=== PATIENT | female | born 1955 | race Caucasian/White ===

== ENCOUNTER 2018-08-28 00:59 | Outpatient (CLI) | payer MEDICAID, SELFPAY ==
--- NOTE | 2018-08-28 08:25 | DI.MAMMO_ITS ---
SYMPTOMS/DIAGNOSIS: SCREENING, Z12.31 MAMMOGRAM: Mammograms were interpreted according to the usual protocol including computer analysis with CAD system, tomosynthesis and C view imaging. Comparison is made with exams from 2012 through 2017. The breasts are composed of heterogeneously dense fibroglandular tissue, breast density Category C. No suspicious masses or suspicious microcalcifications are seen. There has been no significant change. IMPRESSION: Category I, negative mammogram. Yearly screening mammography is recommended. [facility] ASSESSMENT OF FINDINGS: Negative. Category 1. Patient will receive a letter notifying them of these results. Bi-RADS category C. The breasts are heterogeneously dense, which may obscure small masses.
== END 2018-08-28 01:19 ==
PROVIDERS: Visit Provider Nurse Practitioner Family
DX: Z12.31 Encounter for screening mammogram for malignant neoplasm of breast (principal)
CPT/HCPCS: 77063; 77067

== ENCOUNTER 2019-08-27 10:06 | Outpatient (REF) | payer MEDICAID, SELFPAY ==
[2019-08-27 14:58] LABS: Calculated LDL 121 mg/dL (<100); Cholesterol 247 mg/dL (<200); HDL Cholesterol 114 mg/dL (40-60); TSH (W/Ref FT4) 2.58 uIU/mL (0.36-3.74); Triglyceride 62 mg/dL (<150)
[2019-08-27 15:11] LABS: Hemoglobin A1C 5.6 % (3.8-5.6)
== END 2019-08-27 10:26 ==
LOC: NCHCN 10:06
PROVIDERS: PCP Nurse Practitioner Family; Visit Provider Nurse Practitioner Family
DX: R73.01 Impaired fasting glucose (principal); N95.2 Postmenopausal atrophic vaginitis; M06.9 Rheumatoid arthritis, unspecified; J30.9 Allergic rhinitis, unspecified; G45.4 Transient global amnesia
CPT/HCPCS: 80061; 83036; 84443

== ENCOUNTER 2020-01-06 08:11 | Outpatient (CLI) | payer MEDICAID, SELFPAY ==
[2020-01-08 07:21] LABS: COVID-19 RT-PCR Result NEGATIVE (Negative)
== END 2020-01-06 08:31 ==
PROVIDERS: PCP Nurse Practitioner Family; Visit Provider Nurse Practitioner Family
DX: Z11.59 Encounter for screening for other viral diseases (principal)
CPT/HCPCS: U0003

== ENCOUNTER 2020-09-22 16:00 | Outpatient (REF) | payer MEDICARE, MEDICAID, SELFPAY ==
--- NOTE | 2020-09-22 15:30 | PAPFT_PTH ---
PATIENT: Erma Ruiz [facility] U[id number] AGE/SX: 65/F ROOM: RE09/22/[address]: Vanessa Oleary : 1955 BED: DIS: 09/22/2020 SPEC #: [id number] RECD: 09/23/20 12:58 STATUS: VICKI MCGRAW #: [id number] MAYANK: 09/22/20 15:[address]: Vanessa Oleary DEPT: [facility] Cytology RECD BY: Shana Bates Tissues: 1 - CX/ENDOCX FOR PAP SMEARS Procedures: PAP THIN PREP/UVM Screening HPV DNA PROBE Comments: [id number]
[2020-09-22 20:46] LABS: Abs Immature Grans 0.04 10^3/uL (0.0-0.06); Absolute Eosinophil Count 0.04 10^3/uL (0.0-0.7); Absolute Lymphocyte Count 1.66 10^3/uL (1.2-3.4); Absolute Monocyte Count 0.77 10^3/uL (0.1-0.8); Absolute Neutrophil Count 10.02 10^3/uL (1.2-6.7); Basophils % 0.6; Eosinophils % 0.3; HCT 38.8 % (36.0-46.0); HGB 12.7 g/dL (11.2-15.7); Immature Grans % 0.3; Lymphocytes % 13.2; MCH 29.2 pg (27.0-33.0); MCHC 32.7 % (32.0-36.0); MCV 89.2 fL (80-95); MPV 9.2 fL (8.0-11.0); Monocytes % 6.1; Neutrophils % 79.5; Nucleated RBC 0 %; Platelet Count 317 10^3/uL (130-400); RBC 4.35 10^6/uL (3.93-5.22); RDW 13.2 % (11.7-14.6); RDW-SD 43.5 fL
[2020-09-22 20:48] LABS: Absolute Basophil Count 0.08 10^3/uL (0.0-0.2)
[2020-09-22 21:09] LABS: ALT 16 U/L (14-59); AST 28 U/L (15-37); Albumin 3.8 g/dL (3.4-5.0); Alkaline Phosphatase 72 U/L (46-116); Anion Gap 11.4 mmol/L (3-11); BUN 17 mg/dL (7-18); Bilirubin, Total 0.4 mg/dL (0.2-1.0); CO2 25.6 mmol/L (21.0-32.0); Calcium 8.8 mg/dL (8.5-10.1); Chloride 103 mmol/L (98-107); Estimated GFR 55.64 (mL/min/1.73m2); Glucose 97 mg/dL (74-106); Potassium 4.1 mmol/L (3.5-5.1); Sodium 140 mmol/L (136-145); Total Protein 7.1 g/dL (6.4-8.2)
[2020-09-24 09:53] LABS: Hepatitis C Ab w Rflx HCV PCR Negative (Negative)
== END 2020-09-22 16:01 | disposition home or self-care (01) ==
LOC: NCHCN 16:00
PROVIDERS: PCP Nurse Practitioner Family; Visit Provider Nurse Practitioner Family
DX: R20.0 Anesthesia of skin (principal); Z11.59 Encounter for screening for other viral diseases; N95.2 Postmenopausal atrophic vaginitis; M06.9 Rheumatoid arthritis, unspecified; Z12.4 Encounter for screening for malignant neoplasm of cervix; Z01.419 Encounter for gynecological examination (general) (routine) without abnormal findings; Z11.51 Encounter for screening for human papillomavirus (HPV)
CPT/HCPCS: 80053; 86803; 88142; 85025; 87624

== ENCOUNTER 2020-09-25 04:17 | Outpatient (CLI) | payer MEDICARE, MEDICAID, SELFPAY ==
--- NOTE | 2020-09-25 14:15 | DI.MAMMO_ITS ---
EXAM: MG MAMMO SCREENING CLINICAL HISTORY: SCREENING, Z12.31 TECHNIQUE: Bilateral full field digital CC and MLO mammographic images were obtained with 3D tomosyn thesis and utilizing computer aided detection (CAD). COMPARISON: Available for comparison. FINDINGS: Masses/Architectural Distortion: None seen. Microcalcifications: No suspicious pleomorphic-type are seen. Skin Thickening/Nipple Retraction: None. IMPRESSION: 1. No significant interval change with no specific features of malignancy noted. 2. Unless there is more urgent need, screening mammography is recommended, as per [employer] guidelines. BI-RADS Category 1 - Negative Breast Density - Category C - Heterogeneously dense Breast density category C or D implies that the patient has dense breast tissue. Dense breast tissue is very common and is not abnormal but dense breast tissue can make it harder to find cancer on a ma mmogram. Also, dense breast tissue may increase their breast cancer risk. This information about the result of the mammogram report was provided to the patient to raise their awareness. Use this report when you speak with the patient about their risks for breast cancer, which includes their family hist ory. At that time, you may recommend for more screening tests (Ultrasound or MRI) as they might be us eful based on their risk. A negative radiographic report should not delay biopsy if a dominant or clinically suspicious mass is present. Up to ten percent of cancers are not identified on mammography. A negative report may reinforce clinical impression. Adenosis and dense breasts may obscure an underlying neoplasm. False positive reports average 6 to 10%. Patient will receive a letter notifying them of these results.
== END 2020-09-25 04:37 ==
PROVIDERS: PCP Nurse Practitioner Family; Visit Provider Nurse Practitioner Family
DX: Z12.31 Encounter for screening mammogram for malignant neoplasm of breast (principal)
CPT/HCPCS: 77063; 77067

== ENCOUNTER 2020-10-14 12:46 | Outpatient (REF) | payer MEDICARE, MEDICAID, SELFPAY ==
[2020-10-14 22:22] LABS: Abs Immature Grans 0.01 10^3/uL (0.0-0.06); Absolute Basophil Count 0.07 10^3/uL (0.0-0.2); Absolute Eosinophil Count 0.02 10^3/uL (0.0-0.7); Absolute Lymphocyte Count 0.96 10^3/uL (1.2-3.4); Absolute Monocyte Count 0.42 10^3/uL (0.1-0.8); Absolute Neutrophil Count 5.57 10^3/uL (1.2-6.7); Eosinophils % 0.3; HCT 40.5 % (36.0-46.0); HGB 13.1 g/dL (11.2-15.7); Immature Grans % 0.1; Lymphocytes % 13.6; MCH 28.9 pg (27.0-33.0); MCHC 32.3 % (32.0-36.0); MCV 89.4 fL (80-95); MPV 9.5 fL (8.0-11.0); Nucleated RBC 0 %; Platelet Count 301 10^3/uL (130-400); RBC 4.53 10^6/uL (3.93-5.22); RDW 13.2 % (11.7-14.6); RDW-SD 43.6 fL; WBC 7.05 10^3/uL (4.4-10.8)
[2020-10-14 23:17] LABS: Vitamin D 25 Total 127.8 ng/ml (30-100)
== END 2020-10-14 12:47 | disposition home or self-care (01) ==
LOC: NCHCN 12:46
PROVIDERS: PCP Nurse Practitioner Family
DX: D72.829 Elevated white blood cell count, unspecified (principal); E67.3 Hypervitaminosis D
CPT/HCPCS: 82306; 85025

== ENCOUNTER 2021-04-28 12:55 | Outpatient (REF) | payer MEDICARE, MEDICAID, SELFPAY ==
[2021-04-28 20:28] LABS: Abs Immature Grans 0.02 10^3/uL (0.0-0.06); Absolute Basophil Count 0.08 10^3/uL (0.0-0.2); Absolute Eosinophil Count 0.09 10^3/uL (0.0-0.7); Absolute Lymphocyte Count 0.84 10^3/uL (1.2-3.4); Absolute Monocyte Count 0.38 10^3/uL (0.1-0.8); Absolute Neutrophil Count 5.18 10^3/uL (1.2-6.7); Basophils % 1.2; Eosinophils % 1.4; HGB 12.7 g/dL (11.2-15.7); Immature Grans % 0.3; Lymphocytes % 12.7; MCH 28.7 pg (27.0-33.0); MCHC 31.8 % (32.0-36.0); MCV 90.3 fL (80-95); MPV 9.3 fL (8.0-11.0); Monocytes % 5.8; Neutrophils % 78.6; Nucleated RBC 0 %; Platelet Count 301 10^3/uL (130-400); RBC 4.43 10^6/uL (3.93-5.22); RDW 12.9 % (11.7-14.6); RDW-SD 42.8 fL; WBC 6.59 10^3/uL (4.4-10.8)
[2021-04-28 20:32] LABS: ESR 13 mm/hr (0-30)
[2021-04-28 20:39] LABS: ALT 16 U/L (14-59); AST 30 U/L (15-37); Albumin 3.8 g/dL (3.4-5.0); Alkaline Phosphatase 72 U/L (46-116); Anion Gap 6.5 mmol/L (3-11); BUN 12 mg/dL (7-18); Bilirubin, Total 0.4 mg/dL (0.2-1.0); C-Reactive Protein 0.16 mg/dL (0.0-0.3); CO2 27.5 mmol/L (21.0-32.0); CREATININE 0.8 mg/dL (0.55-1.02); Calcium 8.5 mg/dL (8.5-10.1); Chloride 106 mmol/L (98-107); Glucose 90 mg/dL (74-106); Potassium 4.2 mmol/L (3.5-5.1); Sodium 140 mmol/L (136-145); Total Protein 7.1 g/dL (6.4-8.2)
== END 2021-04-28 12:56 | disposition home or self-care (01) ==
LOC: NCHCN 12:55
PROVIDERS: PCP Nurse Practitioner Family; Visit Provider Nurse Practitioner Family
DX: M05.9 Rheumatoid arthritis with rheumatoid factor, unspecified (principal); Z79.52 Long term (current) use of systemic steroids
CPT/HCPCS: 80053; 85652; 85025; 86140

== ENCOUNTER 2021-06-14 14:56 | Outpatient (REF) | payer MEDICARE, MEDICAID, SELFPAY ==
[2021-06-14 20:49] LABS: Bilirubin Negative (Negative); Blood Negative (Negative); Clarity Clear (Clear); Glucose Negative (Negative); Ketones Negative (Negative); Leukocyte Esterase Trace (Negative); Nitrite Negative (Negative); Urobilinogen 0.2 EU/dL (Up TO 0.2); pH 6.5 (5-8)
[2021-06-14 21:01] LABS: Bacteria Moderate HPF (Negative); C & S Indicated? Yes; Casts Negative LPF (Negative); Crystals Negative HPF (Negative); Epithelial Cells Few HPF (Negative); Mucus Negative (Negative); RBC 0-2 HPF (0-2)
== END 2021-06-14 14:57 | disposition home or self-care (01) ==
LOC: NCHCN 14:56
PROVIDERS: PCP Nurse Practitioner Family; Visit Provider Family Medicine
DX: R30.0 Dysuria (principal)
CPT/HCPCS: 87077; 81003; 81015; 87086; 87186

== ENCOUNTER 2021-06-25 01:28 | Outpatient (CLI) | payer MEDICARE, MEDICAID, SELFPAY ==
--- NOTE | 2021-06-25 13:30 | DI.DEXA_ITS ---
Exam(s) XR DEXA BONE DENSITY W/WO ELLY EXAM: XR DEXA BONE DENSITY W/WO ELLY CLINICAL HISTORY: POSTMENOPAUSAL Z78.0,SCREENING FOR OSTEOPOROSIS TECHNIQUE: COMPARISON: No exams were available for comparison FINDINGS: Lateral Spine Image: Unremarkable. No compression deformities identified. Left hip: Total T-Score: -1.5 Total Z-Score: -0.2 T- and Z-scores: Findings consistent with osteopenia. Osteoporosis is seen in the femoral neck with a T-score of -3.1. Lumbar Spine: Total T-Score: -1.8 Total Z-Score: 0.1 T- and Z-scores: Osteopenia in the lumbar spine. IMPRESSION: Osteopenia in the left hip and lumbar spine. There is osteoporosis seen in the left femoral neck.
== END 2021-06-25 01:48 ==
PROVIDERS: PCP Nurse Practitioner Family; Visit Provider Nurse Practitioner Family
DX: Z78.0 Asymptomatic menopausal state (principal); Z13.820 Encounter for screening for osteoporosis; M85.89 Other specified disorders of bone density and structure, multiple sites; M81.0 Age-related osteoporosis without current pathological fracture
CPT/HCPCS: 77080

== ENCOUNTER → 2021-07-26 08:16 | Outpatient (BNVA) | payer MEDICARE, MEDICAID, SELFPAY | PROVIDERS: PCP Nurse Practitioner Family; Referring Provider Nurse Practitioner Family; Visit Provider Psychiatry & Neurology Neurology | DX: G56.01 Carpal tunnel syndrome, right upper limb (principal) | CPT/HCPCS: 95908; 99203 ==

== ENCOUNTER → 2021-08-16 10:19 | Outpatient (BNVA) | payer MEDICARE, MEDICAID, SELFPAY | PROVIDERS: PCP Nurse Practitioner Family; Referring Provider Nurse Practitioner Family; Visit Provider Student in an Organized Health Care Education/Training Program | DX: G56.01 Carpal tunnel syndrome, right upper limb (principal); Z98.890 Other specified postprocedural states | CPT/HCPCS: 99214 ==

== ENCOUNTER 2021-08-30 03:02 | Outpatient (CLI) | payer MEDICARE, MEDICAID, SELFPAY ==
[2021-08-30 12:17] LABS: Source Nasal/Nares
[2021-08-30 15:33] LABS: COVID-19 PCR Negative (Negative)
== END 2021-08-30 03:03 | disposition home or self-care (01) ==
LOC: LBO 03:02
PROVIDERS: PCP Nurse Practitioner Family; Visit Provider Student in an Organized Health Care Education/Training Program
DX: Z20.822 Contact with and (suspected) exposure to COVID-19 (principal)
CPT/HCPCS: 87635

== ENCOUNTER 2021-08-31 09:27 | Day surgery (SDC) | payer MEDICARE, MEDICAID, SELFPAY ==
[2021-08-31 09:32] VITALS: BP 131/90; PULSE 75; RESP 16; TEMP 36.5; O2SAT 16
--- NOTE | 2021-08-31 09:59 | W.PM.DSUDISC ---
Discharge Plan Disposition Patient Disposition: HOME Condition: Good Discharge Details Reason For Visit: Right carpal tunnel syndrome Attending Provider: Brenden Valentin Primary Care Provider: Vanessa Oleary Home Meds and New Rx's Prescriptions: New acetaminophen 500 mg tablet 500 mg PO Q6H PRN (Reason: pain) Qty: 60 RF: 2 ibuprofen 600 mg tablet 600 mg PO TID PRN (Reason: pain) Qty: 60 RF: 0 hydrocodone-acetaminophen 5-325 mg tablet 1 tab PO Q6H PRN (Reason: severe pain) Qty: 4 RF: 0 Continued Premarin 30 GM cream 1 g vaginal WEEKLY RF: 0 cholecalciferol (vitamin D3) 25 mcg (1,000 unit) capsule 25 mcg PO DAILY RF: 0 omega-3 fatty acids [Fish Oil Concentrate] 1,000 mg capsule 1,000 mg PO DAILY RF: 0 prednisone 5 mg tablet 4 mg PO DAILY RF: 0 Discharge Instructions Stand Alone Forms: Manuelitoa Jose Tunnel Release Referrals: Brenden Valentin MD [ [facility]FF PHYSICIAN] - Activity:: Elevate Remove Dressings/Wound Care:: 48 hours Shower/Bathe:: 48 hours Diet:: As Tolerated Discharge Orders Discharge Orders: Discharge Order (Routine); Ordered 08/31/21 Ordered By: Estela Angulo DS: Diagnosis Discharge Diagnosis (1) Right carpal tunnel syndrome: Status: Acute
--- NOTE | 2021-08-31 10:02 | W.ANESPRE ---
General Info Date of Service Date Performed: 08/31/21 Height: 5 ft 4 in Weight: 58.5 kg Body Mass Index (BMI): 22.1 Surgical Procedure: Operation Date: 08/31/21 11:25 Proposed Procedures Side Surgeon p Wrist ECTR Right Brenden Valentin MD Meds Allergies and Home Medications Allergies Allergy/AdvReac Type Severity Reaction Status Date / Time No Known Allergies Allergy Unverified 08/31/21 09:55 Home Medication Medication Instructions Recorded conjugated estrogens [Premarin 1 g VAGINAL WEEKLY 12/19/17 Vaginal Cream] cholecalciferol (vitamin D3) 25 25 mcg PO DAILY 09/30/20 mcg (1,000 unit) capsule omega-3 fatty acids 1,000 mg 1,000 mg PO DAILY 09/30/20 capsule prednisone 5 mg tablet 4 mg PO DAILY tab-cap 09/30/20 Current Visit Medications: Current Medications Generic Name Dose Route Start Last Admin Trade Name Freq PRN Reason Stop Dose Admin Acetaminophen 650 mg 08/31/21 09:58 Acetaminophen 325 Mg Tab PO Q4H PRN PRN Hydrocodone Bitart/Acetaminophen 0 tab 08/31/21 09:58 Hydrocodone 5/Acetaminophen 325 Tab PO Q3H PRN PRN Pain Ringer's Solution 1,000 mls @ 80 mls/hr 08/31/21 06:00 IV 09/29/21 23:59 INFUSION BHASKAR Cefazolin Sodium/Dextrose 2 gm in 50 mls @ 100 mls/hr 08/31/21 06:00 Ancef Duplex IVPB 09/29/21 23:59 PREOP BHASKAR IV Miscellaneous Supplies 1 each 08/31/21 06:00 Iv Access IV 09/29/21 23:59 DIRECTED BHASKAR Sodium Chloride 0 ml 08/31/21 06:00 Normal Saline Flush 10 Ml Syr IV 09/29/21 23:59 PRN PRN Sodium Chloride 0 ml 08/31/21 06:00 Normal Saline 10 Ml Vial IJ 09/29/21 23:59 DIRECTED PRN Sterile Water 0 ml 08/31/21 06:00 Water,Injection,Sterile 10 Ml Vial IJ 09/29/21 23:59 DIRECTED PRN PFSH Active Problems Active Problems: Problem Status Onset Code Paresthesia of both hands R20.2 Right carpal tunnel syndrome G56.01 Medical History Medical History Allergic rhinitis Amnesia, global, 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 stated he was stress induced, followed up with neurology. Asymptomatic postmenopausal status Hyperlipidemia Hypertension Rheumatoid arthritis Urinary incontinence, mixed Vaginal atrophy Vaginal Pap smear with ASC-US Surgical History Surgical History (Updated 08/31/21 @ 09:55 by Karmen Finley RN) H/O section History of tonsillectomy S/P carpal tunnel release R and L ~2003 Tobacco Smoking/Tobacco Use Status: Never Alcohol Alcohol Intake: current Alcohol intake frequency: a few times a month Substance Use Substance use: Never Substance use type: does not use Vital Signs and Lab Results Vital Signs Most Recent Vital Signs in EMR: Most Recent Vital Signs Temp Pulse Resp BP Pulse Ox 36.5 C 75 16 131/90 16 L 08/31/21 09:32 08/31/21 09:32 08/31/21 09:32 08/31/21 09:32 08/31/21 09:32 Lab Results Blood Type / Crossmatch: No Data to Display Complete Blood Count: No Data to Display Complete Metabolic Panel: No Data to Display Liver Function Panel: No Data to Display Coagulation Panel: No Data to Display Cardiac Panel: No Data to Display Arterial Blood Gas: No Data to Display Venous Blood Gas: No Data to Display Pancreas Panel: No Data to Display Thyroid Panel: No Data to Display Infectious Disease: Coronavirus (COVID-19)(PCR) Negative (Negative) 08/30/21 10:06 08/30/21 Coronavirus 2019 Source Nasal/Nares 08/30/21 10:06 08/30/21 Blood Cultures: No Data to Display Toxicology Panel: No Data to Display Anesthesia Assessment and Plan Anesthesia History Personal History: No History of Anesthesia Complications Family History: No Family History of Anesthesia Complications Exercise Tolerance Exercise Tolerance: Metabolic Equivalents>4 Pertinent Negatives Pertinent Negatives: No Symptoms of GERD, No Major Cardiovascular Symptoms or Complaints, No Major Pulmonary Symptoms or Complaints and No History of CVA/TIA Cardiac & Pulmonary Exam Cardiac Exam: Normal S1/S2 Heart Sounds Pulmonary Exam: Clear Bilateral Breath Sounds Implantable Cardiac Device Does patient have a Pacemaker or an ICD?: No Airway Exam Known Difficult Airway: No Mallampati Class: 1 Mouth Opening: Normal (> 3cm) Thyromental Distance: Greater than 3 cm Neck Range of Motion: Full ROM Neck Circumference: Normal Teeth Condition: Normal Dentition ASA Classification ASA Score: ASA 2 Emergency Case?: No NPO Status NPO Status: NPO Clears >2 hours, Solids >8 hours Anesthesia Plan Resuscitation Status: Full Code Anesthesia Technique: General Anesthesia Airway Planned: Natural Airway Monitors Used: Standard Monitors
[2021-08-31 10:06] VITALS: BMI 22.1
[2021-08-31] MEDS: Lactated Ringers 1,000 ML 80 ML IV (10:14)
[2021-08-31] MEDS: ceFAZolin 2 GM/50 ML BAG IVPB (11:02)
[2021-08-31] MEDS: Sodium Bicarbonate 50 MEQ/50 ML VIAL (11:13)
[2021-08-31 11:37] VITALS: BP 125/73; PULSE 100; RESP 16; TEMP 36.6; O2SAT 95
--- NOTE | 2021-08-31 11:38 | W.ANESPOSTOP ---
Postoperative Evaluation Date, Time and Location Date Performed: 08/31/21 Time Performed: 11:38 Patient Location: Day Surgery Unit Vital Signs Most Recent Imported Vital Signs: Most Recent Vital Signs Temp Pulse Resp BP Pulse Ox 36.5 C 75 16 131/90 16 L 08/31/21 09:32 08/31/21 09:32 08/31/21 09:32 08/31/21 09:32 08/31/21 09:32 Most Recent Manually Entered Vital Signs: Adult Blood Pressure: 125/73 Heart Rate: 96 Respirations: 12 Oxygen Saturation (%): 100 Temperature (C): 36.4 C Pain Score (0-10 Scale): 0 Pain Score Most Recent Pain Score: Most Recent Pain Score Pain Level 0 08/31/21 09:32 Assessment Mental Status: Awake (Alert & Oriented to Patient Baseline) Airway and Respiratory Function: Patent airway with normal (patient baseline) respiratory exam Cardiovascular Function: Hemodynamically Stable Hydration Status: Adequately Hydrated Nausea & Vomiting: No Nausea or Vomiting Pain: Pt. Denies Any Pain Peripheral Nerve Block: Patient did not receive a nerve block
[2021-08-31 11:39] VITALS: BP 125/73; PULSE 96; RESP 12; TEMPC 36.4; O2SAT 100
[2021-08-31 12:07] VITALS: BP 149/78; PULSE 64; RESP 16; TEMP 36.3; O2SAT 98
--- NOTE | 2021-08-31 18:27 | ROE_ITS ---
Date of service: 08/31/21 Time of Service: 12:27 Operative Note Operative Note DATE OF PROCEDURE: 08/31/21 PRE-OP DIAGNOSIS: Recurrent Right Carpal Tunnel Syndrome POST-OP DIAGNOSIS: same PROCEDURE: Right Endoscopic Carpal Tunnel Release SURGEON: Brenden Valentin ANESTHESIA TYPE: General:No Airway Refer to Anesthesia Record ESTIMATED BLOOD LOSS: 0 PATHOLOGY: none sent TOURNIQUET TIME: 9 COMPLICATIONS: None Patient was transported to: same day Patient's condition: stable Indications: I have seen Miesha in clinic for symptoms of carpal tunnel syndrome. She had a previous endoscopic carpal tunnel release about 15 years prior and has had return of symptoms over the last year or so. The numbness, tingling, and pain limited function. Clinical exam findings with nerve conduction tests confirmed the diagnosis of carpal tunnel syndrome. Nonoperative measures such as bracing, time, activity modifications had been t ried but disability and pain persisted. I discussed carpal tunnel release with the patient. I reviewed the risks of the procedure to include, but not limited to, bleeding, infection, pain, stiffness, incomplete release, damage to nerves or vessels, persistent numbness, recurrence. Despite these risks, the patient elected to proceed. Findings: There was tightened carpal tunnel. This was dilated and released successfully with the endoscopic with increased space within the tunnel. However, approach to release was difficult due to space and interference with carpal contents. Prior to release I made multiple passes with the synovial elevator and used the blunt scope end to create an interval between carpal content to visualize the transverse fibers. The antebrachial fascia was released proximally freeing the median nerve at the wrist. Procedure Description: Miesha was greeted in the preoperative holding area where the correct side was identified and marked. The consent was reviewed with the patient and signed. The history and physical was updated. All questions were answered. She was taken back to the operating room. The patient was placed into the supine position on the operating room table with the right arm on an arm board. A nonsterile tourniquet was placed high onto the arm. All bony prominences were well padded. Prophylactic antibiotics in the form of Cefazolin were administered. The right arm was then prepped with Chloraprep and draped in a standard fashion with stockinette and extremity drape. A timeout to confirm correct identity, side and site, procedure, allergies, anesthesia, and medical concerns was performed. The surgical site was marked in the volar wrist creases in line with the radial border of the fourth ray. This area was anesthetized with approximately 6cc of 1% Lidocaine. The limb was then exsanguinated with an Esmarch. The skin was in cised with a 15 blade, approximately 1cm. The skin only was cut and the deeper tissue was dissected bluntly with a tenotomy scissor, avoiding passing nerve and venous structures. The fascia was penetrated and opened bluntly. A two-prong skin hook was placed under this proximal fascial edge. A series of hamate finders were used to identify and dilate the carpal tunnel. Synovial elevator was used to free synovial attachments to the underside of the transverse carpal ligament. My thumb was kept in the palm to ruth the distal extent of the carpal tunnel and correctly position the hand. The Microaire endoscope was inserted without difficulty and but the carpal tunnel was quite tight. Initial past showed intervening tissue and therefore the scope was withdrawn. I once again utilized the synovial elevator to release any attachments and adhesions to the reconstituted transverse carpal ligament. After more diligent synovial invasion I then reinserted the scope. I made sure to push the scope up towards the transverse carpal ligament using the blunt end of the scope to separate any intervening tissue. At this point I did have excellent visualization showed horizontally running fibers of the transverse carpal ligament (TCL). The distal extent of the TCL was visualized and the end of the scope palpated with the thumb. The blade was elevated and withdrawn from distal to proximal. Prior to the entirety proceeded to reenter the scope distally to ensure that I had released the distal edge. The TCL was split into two flaps. The endoscope was reinserted to confirm complete release and any remnant ligament was incised. The scope was withdrawn and the proximal aspect of the carpal tunnel was grossly inspected and appeared release with the median nerve visible. The antebrachial fascia at the level of the wrist was then freed from the overlying skin and then the underlying median nerve with blunt dissection. This was transected longitudinally for about 3cm proximal to the wrist incision. The wound was then irrigated with easy flow of irrigant distally and proximally. The incision was closed with a single 4-0 Nylon suture. The wound was dressed with Xeroform, Gauze, Kerlix and Timi. The tourniquet was deflated with the initial dressing and held with some pressure. Blood flow returned easily to all digits with capillary refill less than 2 seconds. The patient tolerated the procedure well and was returned to the Same Day Surgery area in a stable condition suffering no known complication.
== END 2021-08-31 13:20 | disposition home or self-care (01) ==
PROVIDERS: PCP Nurse Practitioner Family; Visit Provider Student in an Organized Health Care Education/Training Program
PROC: 01N54ZZ Release Median Nerve, Percutaneous Endoscopic Approach (ICD-10-PCS; CPT 29848; principal; 2021-08-31 11:15)
DX: G56.01 Carpal tunnel syndrome, right upper limb (principal); I10 Essential (primary) hypertension; M06.9 Rheumatoid arthritis, unspecified; E78.5 Hyperlipidemia, unspecified
CPT/HCPCS: 29848; J0690; J1100; J1885; J2001; J2250; J2405

== ENCOUNTER → 2021-09-09 09:48 | Outpatient (BNVA) | payer MEDICARE, MEDICAID, SELFPAY | PROVIDERS: PCP Nurse Practitioner Family; Referring Provider Nurse Practitioner Family; Visit Provider Student in an Organized Health Care Education/Training Program | DX: Z47.89 Encounter for other orthopedic aftercare (principal); G56.01 Carpal tunnel syndrome, right upper limb ==

== ENCOUNTER 2022-07-25 12:42 | Outpatient (REF) | payer MEDICARE, MEDICAID, SELFPAY ==
[2022-07-25 20:09] LABS: Abs Immature Grans 0.02 10^3/uL (0.0-0.06); Absolute Basophil Count 0.08 10^3/uL (0.0-0.2); Absolute Eosinophil Count 0.08 10^3/uL (0.0-0.7); Absolute Lymphocyte Count 1.31 10^3/uL (1.2-3.4); Absolute Monocyte Count 0.37 10^3/uL (0.1-0.8); Absolute Neutrophil Count 5.38 10^3/uL (1.2-6.7); Basophils % 1.1; Eosinophils % 1.1; HCT 40.7 % (36.0-46.0); HGB 13.2 g/dL (11.2-15.7); Immature Grans % 0.3; Lymphocytes % 18.1; MCH 29.1 pg (27.0-33.0); MCHC 32.4 % (32.0-36.0); MCV 90 fL (80-95); MPV 9.3 fL (8.0-11.0); Monocytes % 5.1; Neutrophils % 74.3; Platelet Count 302 10^3/uL (130-400); RBC 4.54 10^6/uL (3.93-5.22); RDW 13.1 % (11.7-14.6); RDW-SD 43.2 fL; WBC 7.24 10^3/uL (4.4-10.8)
[2022-07-25 20:40] LABS: ALT 19 U/L (14-59); AST 43 U/L (15-37); Alkaline Phosphatase 69 U/L (46-116); Anion Gap 8.5 mmol/L (3-11); BUN 14 mg/dL (7-18); Bilirubin, Total 0.4 mg/dL (0.2-1.0); CO2 27.5 mmol/L (21.0-32.0); CREATININE 0.9 mg/dL (0.55-1.02); Calcium 9.2 mg/dL (8.5-10.1); Chloride 106 mmol/L (98-107); Estimated GFR 70.07 (mL/min/1.73m2); Glucose 114 mg/dL (74-106); Potassium 4.4 mmol/L (3.5-5.1); Sodium 142 mmol/L (136-145); Total Protein 7.4 g/dL (6.4-8.2)
[2022-07-27 12:17] LABS: COVID-19 RT-PCR UVMMC Result Negative (Negative)
== END 2022-07-25 12:43 | disposition home or self-care (01) ==
LOC: LBN 12:42
PROVIDERS: PCP Nurse Practitioner Family; Visit Provider Nurse Practitioner Family
DX: M05.9 Rheumatoid arthritis with rheumatoid factor, unspecified (principal); M81.0 Age-related osteoporosis without current pathological fracture; D72.829 Elevated white blood cell count, unspecified
CPT/HCPCS: 80053; U0003; 85025

== ENCOUNTER 2022-07-28 01:57 | Outpatient (RCR) | payer MEDICARE, MEDICAID, SELFPAY ==
[2022-07-28] MEDS: Acetaminophen 325 MG TAB 650 MG PO (09:44)
[2022-07-28] MEDS: Normal Saline Flush 10 ML SYR IVP (09:45)
[2022-07-28] MEDS: ZOLEDRONIC ACID/MANNITOL/WATER 5 MG/100 ML BTL 300 MG IVPB (10:04)
== END 2022-08-23 23:59 | disposition home or self-care (01) ==
LOC: INF 01:57
PROVIDERS: PCP Nurse Practitioner Family; Visit Provider Nurse Practitioner Family
DX: M81.0 Age-related osteoporosis without current pathological fracture (principal)
CPT/HCPCS: 96365; J3489

== ENCOUNTER 2022-09-29 18:03 | Outpatient (REF) | payer MEDICARE, MEDICAID, SELFPAY ==
[2022-09-29 20:38] LABS: Calculated LDL 119 mg/dL (<100); Cholesterol 253 mg/dL (<200); HDL Cholesterol 115 mg/dL (40-60); Triglyceride 96 mg/dL (<150)
[2022-09-29 21:40] LABS: Vitamin D 25 Total 53.2 ng/mL (30-100)
== END 2022-09-29 18:04 | disposition home or self-care (01) ==
LOC: NCHCN 18:03
PROVIDERS: PCP Nurse Practitioner Family; Visit Provider Nurse Practitioner Family
DX: E78.5 Hyperlipidemia, unspecified (principal); R00.2 Palpitations; M81.0 Age-related osteoporosis without current pathological fracture; M05.9 Rheumatoid arthritis with rheumatoid factor, unspecified
CPT/HCPCS: 80061; 82306

== ENCOUNTER 2022-10-13 03:30 | Outpatient (CLI) | payer MEDICARE, MEDICAID, SELFPAY ==
--- NOTE | 2022-10-13 | DI.MAMMO_ITS ---
Exam(s) MAMMO SCREENING EXAM: MAMMO SCREENING CLINICAL HISTORY: SCREENING, Z12.31,FAMILY H/O BREAST CA TECHNIQUE: Bilateral full field digital CC and MLO mammographic images were obtained with 3D tomosyn thesis and utilizing computer aided detection (CAD). COMPARISON: Available for comparison. FINDINGS: Masses/Architectural Distortion: None seen. Microcalcifications: No suspicious pleomorphic-type are seen. Skin Thickening/Nipple Retraction: None. IMPRESSION: 1. No significant interval change with no specific features of malignancy noted. 2. Unless there is more urgent need, screening mammography is recommended, as per [employer] guidelines. BI-RADS Category 1 - Negative Breast Density - Category C - Heterogeneously dense Breast density category C or D implies that the patient has dense breast tissue. Dense breast tissue is very common and is not abnormal but dense breast tissue can make it harder to find cancer on a ma mmogram. Also, dense breast tissue may increase their breast cancer risk. This information about the result of the mammogram report was provided to the patient to raise their awareness. Use this report when you speak with the patient about their risks for breast cancer, which includes their family hist ory. At that time, you may recommend for more screening tests (Ultrasound or MRI) as they might be us eful based on their risk. A negative radiographic report should not delay biopsy if a dominant or clinically suspicious mass is present. Up to ten percent of cancers are not identified on mammography. A negative report may reinforce clinical impression. Adenosis and dense breasts may obscure an underlying neoplasm. False positive reports average 6 to 10%. Patient will receive a letter notifying them of these results.
== END 2022-10-13 03:50 ==
LOC: DI 03:31
PROVIDERS: PCP Nurse Practitioner Family; Visit Provider Nurse Practitioner Family
DX: Z12.31 Encounter for screening mammogram for malignant neoplasm of breast (principal); Z80.3 Family history of malignant neoplasm of breast
CPT/HCPCS: 77063; 77067

== ENCOUNTER → 2022-12-07 12:50 | Outpatient (BNVA) | payer MEDICARE, MEDICAID, SELFPAY | PROVIDERS: PCP Nurse Practitioner Family; Referring Provider Nurse Practitioner Family; Visit Provider Surgery | DX: Z12.11 Encounter for screening for malignant neoplasm of colon (principal); Z86.010 Personal history of colon polyps ==

== ENCOUNTER 2022-12-30 09:19 | Day surgery (SDC) | payer MEDICARE, MEDICAID, SELFPAY ==
--- NOTE | 2022-12-29 20:13 | W.PM.DSUDISC ---
Date of service: 12/30/22 Time of Service: 10:53 Discharge Plan Disposition Patient Disposition: Home Condition: Good Discharge Details Reason For Visit: Screening colonoscopy Attending Provider: Matthias Heath Primary Care Provider: Vanessa Oleary Home Meds and New Rx's Prescriptions: Continued tizanidine 2 mg capsule 2 mg PO Q8H PRN Premarin 30 GM cream 1 g vaginal WEEKLY cholecalciferol (vitamin D3) 25 mcg (1,000 unit) capsule 25 mcg PO DAILY prednisone 5 mg tablet 5 mg PO DAILY Patient Comments: 01/08/18 PER PT. 5 MG QD. acetaminophen 500 mg tablet 500 mg PO Q6H PRN (Reason: pain) Qty: 60 2RF ibuprofen 600 mg tablet 600 mg PO TID PRN (Reason: pain) Qty: 60 0RF Discontinued polyethylene glycol 3350 17 gram/dose powder 238 g PO ONCE Qty: 238 0RF Rx Instructions: take per colonoscopy instructions bisacodyl [Dulcolax (bisacodyl)] 5 mg tablet,delayed release (DR/EC) 5 mg PO ONCE Qty: 4 0RF Rx Instructions: take per colonoscopy instructions Discharge Instructions Additional Instructions: Miesha, we were able to complete your colonoscopy today without any difficulty. The quality of your prep was excellent. I saw no evidence of any tumors or polyps. 1. If tolerated, consume a soft, low fiber diet for 1-2 days. 2[address] Do not drive, drink alcohol, operate machinery, make critical decisions, or do activities that require coordination or balance for 24 hours. 3. Because air was put into your colon during the procedure, expelling air from your rectum (passing gas or farting) is normal. 4. You may not have a bowel movement for 1-3 days because of the colonoscopy prep. This is normal. 5. Go directly to the emergency room if you notice any of the following: Develop chills (warm to touch), or if you have a thermometer and your temperature is above 101 Difficulty breathing or difficultly swallowing Persistent vomiting Severe abdominal pain, other than gas cramps Severe chest pain Black, tarry stools Any bleeding ? exceeding one tablespoon 6. Call your physician if the site where your intravenous was started becomes red, swollen, painful, and warm to touch. 7. Your physician has reviewed your pre-procedure medications. Please continue to take those medications as previously ordered. You will be given specific information/education regarding any changes to your medications before leaving. Stand Alone Forms: Anesthesia Discharge Inst., Kimberly Estes (DSU) Activity:: Activity as Tolerated Diet:: As Tolerated Discharge Orders Discharge Orders: Discharge Order (Routine); Ordered 12/29/22 Ordered By: Matthias Heath DS: Diagnosis Discharge Diagnosis (1) Screening for colon cancer: Status: Acute Asessment and Plan: Negative screening colonoscopy, recommend follow-up in 10 years.
--- NOTE | 2022-12-29 20:14 | W.COLOREPORT ---
Date of service: 12/30/22 Time of Service: 10:54 Colonoscopy Report Date of procedure: 12/30/22 Pre-op diagnosis general: Screening colonoscopy Post-op diagnosis procedure note: other (Normal screening colonoscopy) Procedure: Colonoscopy Surgeon: Matthias Heaht Anesthesia Type: General:No Airway Estimated blood loss (mL): 0 Pathology: none sent Complications: None Disposition: same day Indications: Erma is a 67 year old woman who needs a screening colonoscopy Prep: Miralax/Dulcolax Procedure Start Time: 10:20 Procedure End Time: 10:32 Retraction Time: 8 Findings: Normal screening colonoscopy Procedure Description: After the induction of monitored anesthetic care, and with the patient in left lateral decubitus position, I began by performing an external anorectal exam.? Perineum and skin were normal, as was the anal verge.? There was no evidence of external hemorrhoids.? Next, I performed a digital rectal exam.? I did not appreciate any abnormal findings.? Next, I advanced a colonoscope into the rectal vault.? I performed retroflexion.? This was normal.? Using insufflation, I then advanced the colonoscope beyond the rectal folds and into the sigmoid colon before advancing towards the cecum.? The quality of the prep was excellent.? The scope was noted to be in the cecum by identification of the ileocecal valve and appendiceal orifice.? I then began withdrawing the colonoscope using repeated irrigation as necessary for full evaluation of the colonic mucosa. ?Once the scope was withdrawn to the level of the rectum, great care was taken to examine portions of the rectal folds.? I did not see any evidence of tumors or polyps along the length of the large intestine. Finally, the scope was withdrawn and the patient was brought to the same-day surgery recovery unit as the anesthetic wore off. ?The findings and instructions were shared with the patient prior to discharge.
[2022-12-30 09:43] VITALS: BP 127/76; PULSE 94; RESP 18; TEMP 36.9; O2SAT 99
[2022-12-30] MEDS: Lactated Ringers 1,000 ML 80 ML IV (09:51)
--- NOTE | 2022-12-30 09:52 | W.ANESPRE ---
General Info Date of Service Date Performed: 12/30/22 Height: 5 ft 4 in Weight: 57.8 kg Body Mass Index (BMI): 21.9 Surgical Procedure: Operation Date: 12/30/22 10:50 Proposed Procedure Side Surgeon p Alfredo Heath MD Meds Allergies and Home Medications Allergies Allergy/AdvReac Type Severity Reaction Status Date / Time No Known Allergies Allergy Unverified 12/29/22 11:46 Home Medication Medication Instructions Recorded conjugated estrogens 0.625 mg/gram 1 g vaginal WEEKLY 12/19/17 vaginal cream (Premarin) cholecalciferol (vitamin D3) 25 25 mcg PO DAILY 09/30/20 mcg (1,000 unit) capsule acetaminophen 500 mg tablet 500 mg PO Q6H PRN pain #60 tabs 08/31/21 ibuprofen 600 mg tablet 600 mg PO TID PRN pain #60 tabs 08/31/21 prednisone 5 mg tablet 5 mg PO DAILY 11/05/21 tizanidine 2 mg capsule 2 mg PO Q8H PRN 12/07/22 Current Visit Medications: Current Medications Generic Name Dose Route Start Last Admin Trade Name Freq PRN Reason Stop Dose Admin Ringer's Solution 1,000 mls @ 80 mls/hr 12/30/22 06:00 12/30/22 09:51 IV 12/30/22 23:59 80 mls/hr INFUSION BHASKAR Administration IV Miscellaneous Supplies 1 each 12/30/22 06:00 Iv Access IV 12/30/22 23:59 DIRECTED BHASKAR Ondansetron HCl 4 mg 12/29/22 20:16 Ondansetron 4 Mg/2 Ml Vial IVP 01/28/23 20:15 Q4H PRN PRN Nausea / Vomiting Sodium Chloride 0 ml 12/30/22 06:00 Normal Saline Flush 10 Ml Syr IV 12/30/22 23:59 PRN PRN Sodium Chloride 0 ml 12/30/22 06:00 Normal Saline 10 Ml Vial IJ 12/30/22 23:59 DIRECTED PRN Sterile Water 0 ml 12/30/22 06:00 Water,Injection,Sterile 10 Ml Vial IJ 12/30/22 23:59 DIRECTED PRN PFSH Active Problems Active Problems: Problem Status Onset Code MCFP (current) use of systemic steroids Z79.52 Screening for colon cancer Z12.11 Medical History Medical History Allergic rhinitis Amnesia, global, 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 stated he was stress induced, followed up with neurology. Asymptomatic postmenopausal status Hyperlipidemia Hypertension Leukocytosis Osteoporosis Paresthesia of both hands Rheumatoid arthritis Right carpal tunnel syndrome Urinary incontinence, mixed Vaginal atrophy Vaginal Pap smear with ASC-US Surgical History Surgical History H/O section History of colonoscopy (~01/2012) History of tonsillectomy S/P carpal tunnel release R and L ~2003 Tobacco Smoking/Tobacco Use Status: Never Alcohol Alcohol Intake: current Alcohol intake frequency: a few times a month Substance Use Substance use: Never Substance use type: does not use Vital Signs and Lab Results Vital Signs Most Recent Vital Signs in EMR: Most Recent Vital Signs Temp Pulse Resp BP Pulse Ox 36.9 C 94 H 18 127/76 99 12/30/22 09:43 12/30/22 09:43 12/30/22 09:43 12/30/22 09:43 12/30/22 09:43 Lab Results Blood Type / Crossmatch: No Data to Display Complete Blood Count: No Data to Display Complete Metabolic Panel: No Data to Display Liver Function Panel: No Data to Display Coagulation Panel: No Data to Display Cardiac Panel: No Data to Display Arterial Blood Gas: No Data to Display Venous Blood Gas: No Data to Display Pancreas Panel: No Data to Display Thyroid Panel: No Data to Display Infectious Disease: No Data to Display Blood Cultures: No Data to Display Toxicology Panel: No Data to Display Imaging and Studies Imaging and Studies Study information below may be from another EMR and interpreted by another provider. Please see original notes in EMR for more complete details. Echocardiogram Summary: Patient Name: ANISHA ANDERSON #: [id number]: NCN Ordering Provider: AVEL NAIR M.D. : REG REF Primary Care Provider: ELIZABETH SONG M.D.Date of Exam: 10/20/16Sex: F : 5Age: 61 Exam(s) [id number] US:Echocardiogram Heart *[facility]* *[facility]* [address] [place] [id number] Date of study: 10/20/2016 Transthoracic Echocardiography M-mode, complete 2D, complete spectral Doppler, and color Doppler *STUDY CONCLUSIONS* Summary: 1. Left ventricle: The cavity size was normal. The estimated ejection fraction was 55%. The tissue Doppler parameters were abnormal. There was no evidence of elevated ventricular filling pressure by Doppler parameters. 2. Aortic valve: There was mild regurgitation. 3. Mitral valve: There was mild regurgitation. 4. Right ventricle: The cavity size was normal. Wall thickness was normal. Systolic function was normal. 5. Atrial septum: No defect or patent foramen ovale was identified. 6. Pulmonary arteries: Pulmonary systolic pressure was in the range of 20mm Hg to 30mm Hg. 7. Inferior vena cava: The vessel was patent and normal in size. The respirophasic diameter changes were in the normal range (greater than or equal to 50%), consistent with normal central venous pressure. *PATIENT PRESENTATION* Height: 162.6cm ((64in) ) S/D Pressure: 151 / 85 Weight: 64.4kg ((141.7lb) ) BSA: 1.72m^2 Test start time: 08:35 AM. Test stop time: 10:00 AM. Avel Copeland REFERRING Avel Nair PERFORMING Unknown PERFORMING [facility] LITIGATOR Alesha Romano *PROCEDURE DATA* Procedure information: This study was interpreted by [facility]. Pertinent images and digital data are archived for permanent storage and are available for subsequent review. No prior study was available for comparison. Study status: Routine. Transthoracic echocardiography. M-mode, complete 2D, complete spectral Doppler, and color Doppler. A Transthoracic Echocardiogram was performed. Scanning was performed from the parasternal, apical, subcostal, and suprasternal notch acoustic windows. Images were obtained using an [id number] cardiac ultrasound machine. Image quality was adequate. Study completion: The patient tolerated the procedure well. History: PMH: HTN. Newly discovered LBBB. *CARDIAC ANATOMY* Left ventricle: The cavity size was normal. The estimated ejection fraction was 55%. The tissue Doppler parameters were abnormal. There was no evidence of elevated ventricular filling pressure by Doppler parameters. Aortic valve: Trileaflet; normal thickness leaflets. Mobility was not restricted. Doppler: Transvalvular velocity was within the normal range. There was no stenosis. There was mild regurgitation. VTI ratio of LVOT to aortic valve: 0.8. Valve area (VTI): 2cm^2. Indexed valve area (VTI): 1.2cm^2/m^2. Peak velocity ratio of LVOT to aortic valve: 0.71. Valve area (Vmax): 1.8cm^2. Indexed valve area (Vmax): 1cm^2/m^2. Aorta: Aortic root: The aortic root was normal in size. Ascending aorta: The ascending aorta was normal in size. Mitral valve: Doppler: There was no evidence for stenosis. There was mild regurgitation. Valve area by pressure half-time: 3.9cm^2. Indexed valve area by pressure half-time: 2.3cm^2/m^2. Peak gradient (D): 2.6mm Hg. Left atrium: The atrium was normal in size. Atrial septum: No defect or patent foramen ovale was identified. Right ventricle: The cavity size was normal. Wall thickness was normal. Systolic function was normal. Pulmonic valve: Doppler: Transvalvular velocity was within the normal range. There was no evidence for stenosis. There was no regurgitation. Peak gradient (S): 2.9mm Hg. Tricuspid valve: Doppler: There was mild regurgitation. Pulmonary artery: Poorly visualized. Pulmonary systolic pressure was in the range of 20mm Hg to 30mm Hg. Right atrium: The atrium was normal in size. Pericardium: There was no pericardial effusion. Systemic veins: Inferior vena cava: Well visualized. The vessel was patent and normal in size. The respirophasic diameter changes were in the normal range (greater than or equal to 50%), consistent with normal central venous pressure. Measurements Left ventricle Value Reference LV ID, ED, PLAX 4.0 cm 3.5 - 6.0 LV ID, ES, PLAX 2.8 cm 2.1 - 4.0 LV PW thickness, ED, PLAX 0.8 cm LV ejection fraction, 1-p A2C 62 % LV ejection fraction, 1-p A4C 56 % Ventricular septum Value Reference IVS thickness, ED, PLAX 0.8 cm LVOT Value Reference LVOT ID, A-P 1.8 cm LVOT area 2.5 cm^2 LVOT peak velocity, S 1.05 m/sec LVOT VTI, S 26.0 cm LVOT mean gradient, S 2.9 mm Hg Aortic valve Value Reference VTI ratio, LVOT/AV 0.8 Aortic valve area, VTI 2 cm^2 Velocity ratio, peak, LVOT/AV 0.71 Aortic valve area, peak velocity 1.8 cm^2 Aorta Value Reference Aortic root ID, ED 2.7 cm Ascending aorta ID, A-P, S 3.0 cm RVOT Value Reference RVOT VTI, S 19.7 cm Left atrium Value Reference LA area, ES, A4C 18 cm^2 8.8 - 23.4 LA volume/bsa, ES, 1-p A4C 29 ml/m^2 LA/aortic root ratio 1.02 Mitral valve Value Reference Mitral E-wave peak velocity 0.8 m/sec Mitral A-wave peak velocity 0.92 m/sec Mitral pressure half-time 57 ms Mitral peak gradient, D 2.6 mm Hg Mitral A-wave duration 149 ms Mitral E/A ratio, peak 0.87 Mitral valve area, PHT, DP 3.9 cm^2 Mitral peak LV-LA gradient, S 62.7 mm Hg Mitral maximal regurg velocity, PISA 3.96 m/sec Pulmonary veins Value Reference Pulmonary vein peak velocity, S 0.36 m/sec Pulmonary vein peak velocity, D 0.32 m/sec Pulmonary vein velocity ratio, peak, 1.12 S/D Pulmonary vein A-wave reversal peak 0.32 m/sec velocity Pulmonary vein A-wave reversal duration 145 ms PVa-MVa duration difference -4 ms Tricuspid valve Value Reference Tricuspid regurg Carotid Artery Summary:: Patient Name: ANISHA ANDERSON #: [id number]: DI Ordering Provider: Patience Powell #: [id number]: [facility] Primary Care Provider: Elizabeth Song M.D.Date of Exam: 12/26/17ex: F Admission Date: 12/26/17 : 1955 Age: 62 Exam(s) [id number] US:Carotid SYMPTOM/DIAGNOSIS: PULSATILE TINNITUS RT EAR, H93.A1,AMNESIA TRANSIENT GLOBAL, G45.4, DIZZINESS, R42, IMBALANCE CAROTID ULTRASOUND: Mild intimal wall thickening is demonstrated bilaterally. There is no evidence of significant carotid stenosis with note also made of bilateral antegrade flow in the vertebrals. SUMMARY: No evidence of significant carotid stenosis. Ordered By: Deanna Powell CC: Dictated By: Shirley Albright M.D. 12/27/17 0808 <Electronically signed by Shirley Albright M.D.> 12/28/17 0941 Transcribed By: Minerva Deleon 12/27/17 0857 Anesthesia Assessment and Plan Anesthesia History Personal History: No History of Anesthesia Complications Family History: No Family History of Anesthesia Complications Exercise Tolerance Exercise Tolerance: Metabolic Equivalents>4 Pertinent Negatives Pertinent Negatives: No Symptoms of GERD Cardiac & Pulmonary Exam Cardiac Exam: Normal S1/S2 Heart Sounds Pulmonary Exam: Clear Bilateral Breath Sounds Implantable Cardiac Device Does patient have a Pacemaker or an ICD?: No Airway Exam Known Difficult Airway: No Mallampati Class: 1 Mouth Opening: Normal (> 3cm) Thyromental Distance: Greater than 3 cm Neck Range of Motion: Full ROM Neck Circumference: Normal Teeth Condition: Normal Dentition ASA Classification ASA Score: ASA 2 Emergency Case?: No NPO Status NPO Status: NPO Clears >2 hours, Solids >8 hours Anesthesia Plan Resuscitation Status: Full Code Anesthesia Technique: General Anesthesia Airway Planned: Natural Airway Monitors Used: Standard Monitors
[2022-12-30 09:56] VITALS: BMI 21.9
[2022-12-30 10:38] VITALS: BP 120/70; PULSE 80; RESP 16; TEMP 36.3; O2SAT 98
[2022-12-30 11:06] VITALS: BP 120/76; PULSE 60; RESP 18; TEMP 36.7; O2SAT 100
--- NOTE | 2022-12-30 11:30 | W.ANESPOSTOP ---
Postoperative Evaluation Date, Time and Location Date Performed: 12/30/22 Time Performed: 11:30 Patient Location: Day Surgery Unit Vital Signs Most Recent Imported Vital Signs: Most Recent Vital Signs Temp Pulse Resp BP Pulse Ox 36.3 C L 80 16 120/70 98 12/30/22 10:38 12/30/22 10:38 12/30/22 10:38 12/30/22 10:38 12/30/22 10:38 Pain Score Most Recent Pain Score: Most Recent Pain Score Pain Level 0 12/30/22 10:38 Assessment Mental Status: Awake (Alert & Oriented to Patient Baseline) Airway and Respiratory Function: Patent airway with normal (patient baseline) respiratory exam Cardiovascular Function: Hemodynamically Stable Hydration Status: Adequately Hydrated Nausea & Vomiting: No Nausea or Vomiting Pain: Pt. Denies Any Pain Peripheral Nerve Block: Patient did not receive a nerve block
== END 2022-12-30 09:20 | disposition home or self-care (01) ==
PROVIDERS: PCP Nurse Practitioner Family; Visit Provider Surgery
PROC: 0DJD8ZZ Inspection of Lower Intestinal Tract, Via Natural or Artificial Opening Endoscopic (ICD-10-PCS; CPT 45378; principal; 2022-12-30 10:45)
DX: Z12.11 Encounter for screening for malignant neoplasm of colon (principal); E78.5 Hyperlipidemia, unspecified; I10 Essential (primary) hypertension
CPT/HCPCS: G0121

== ENCOUNTER 2023-03-21 08:35 | Outpatient (REF) | payer MEDICARE, MEDICAID, SELFPAY ==
[2023-03-21 15:40] LABS: Abs Immature Grans 0.01 10^3/uL (0.0-0.06); Absolute Basophil Count 0.07 10^3/uL (0.0-0.2); Absolute Eosinophil Count 0.16 10^3/uL (0.0-0.7); Absolute Lymphocyte Count 2.82 10^3/uL (1.2-3.4); Absolute Monocyte Count 0.54 10^3/uL (0.1-0.8); Absolute Neutrophil Count 3.17 10^3/uL (1.2-6.7); Eosinophils % 2.4; HCT 39.6 % (36.0-46.0); HGB 12.9 g/dL (11.2-15.7); Immature Grans % 0.1; Lymphocytes % 41.7; MCH 28.9 pg (27.0-33.0); MCHC 32.6 % (32.0-36.0); MCV 89 fL (80-95); MPV 9.7 fL (8.0-11.0); Neutrophils % 46.8; Platelet Count 327 10^3/uL (130-400); RBC 4.46 10^6/uL (3.93-5.22); RDW 13.2 % (11.7-14.6); WBC 6.77 10^3/uL (4.4-10.8)
[2023-03-21 15:43] LABS: ESR 15 mm/hr (0-30)
[2023-03-21 16:10] LABS: ALT 15 U/L (14-59); AST 27 U/L (15-37); Albumin 3.7 g/dL (3.4-5.0); Alkaline Phosphatase 50 U/L (46-116); Anion Gap 6.4 mmol/L (3-11); BUN 14 mg/dL (7-18); Bilirubin, Total 0.5 mg/dL (0.2-1.0); CO2 28.6 mmol/L (21.0-32.0); CREATININE 0.8 mg/dL (0.55-1.02); Chloride 105 mmol/L (98-107); Estimated GFR 80.71 (mL/min/1.73m2); Glucose 84 mg/dL (74-106); Potassium 3.9 mmol/L (3.5-5.1); Sodium 140 mmol/L (136-145); TSH (W/Ref FT4) 5.58 uIU/mL (0.36-3.74); Total Protein 6.9 g/dL (6.4-8.2)
[2023-03-21 18:11] LABS: FREE T4 0.95 ng/dL (0.76-1.46)
[2023-03-21 21:54] LABS: Rheumatoid Factor 22.9 IU/mL (<12.0)
[2023-03-22 10:38] LABS: Cyclic Citrullinated Peptide 143.7 U/mL (<5.0)
== END 2023-03-21 08:36 | disposition home or self-care (01) ==
LOC: NCHCN 08:35
PROVIDERS: PCP Nurse Practitioner Family; Visit Provider Nurse Practitioner Family
DX: M06.9 Rheumatoid arthritis, unspecified (principal)
CPT/HCPCS: 80053; 85652; 86200; 84439; 84443; 85025; 86431

== ENCOUNTER 2023-05-09 15:40 | Outpatient (REF) | payer MEDICARE, MEDICAID, SELFPAY | END 2023-05-09 15:41 | disposition home or self-care (01) | LOC: NCHCN 15:40 | PROVIDERS: PCP Nurse Practitioner Family; Visit Provider Nurse Practitioner Family | DX: R30.0 Dysuria (principal) | CPT/HCPCS: 87086 ==

== ENCOUNTER 2023-06-22 15:38 | Outpatient (REF) | payer MEDICARE, SELFPAY | END 2023-06-22 15:39 | disposition home or self-care (01) | LOC: NCHCN 15:38 | PROVIDERS: PCP Nurse Practitioner Family; Visit Provider Nurse Practitioner Family | DX: E03.9 Hypothyroidism, unspecified (principal) | CPT/HCPCS: 84443 ==

== ENCOUNTER 2023-08-10 04:06 | Outpatient (RCR) | payer MEDICARE, SELFPAY ==
[2023-08-10] MEDS: Acetaminophen 325 MG TAB 650 MG PO (09:52)
[2023-08-10] MEDS: Normal Saline Flush 10 ML SYR IVP (09:53)
[2023-08-10] MEDS: ZOLEDRONIC ACID/MANNITOL/WATER 5 MG/100 ML BTL 400 MG IVPB (10:00)
== END 2023-08-23 23:59 | disposition home or self-care (01) ==
LOC: INF 04:06
PROVIDERS: PCP Nurse Practitioner Family; Visit Provider Nurse Practitioner Acute Care
DX: M81.0 Age-related osteoporosis without current pathological fracture
CPT/HCPCS: 96365; J3489

== ENCOUNTER → 2023-12-07 03:06 | Outpatient (CLI) | payer MEDICARE, SELFPAY ==
--- NOTE | 2023-12-07 11:50 | DI.MAMMO_ITS ---
Exam(s) MAMMO SCREENING EXAM: MAMMO SCREENING CLINICAL HISTORY: Z12.31 Screening. TECHNIQUE: Bilateral full field digital CC and MLO mammographic images were obtained with 3D tomosyn thesis and utilizing computer aided detection (CAD). COMPARISON: Prior mammograms were reviewed. FINDINGS: There has been no significant change in the appearance and distribution of the fibroglandular tissue which is again noted be dense, this somewhat decreasing the sensitivity of the mammogram for finding hidden underlying lesions.. There are no new spiculated masses nor malignant appearing microcalcification groups. There is no significant architectural distortion nor skin thickening-retraction. IMPRESSION: Dense bilateral fibroglandular tissue. No obvious radiographic evidence of malignancy nor significan t change compared to prior mammograms. BI-RADS Category 1 - Negative Breast Density - Category C - Heterogeneously dense Breast density Category C or D implies that the patient has dense breast tissue. Dense breast tissue can make it harder to find cancer on a mammogram. Dense breast tissue is also associated with an incr eased risk of breast cancer. This information about the result of the mammogram report was provided to the patient to raise their awareness. Use this report when you speak with the patient about their risks for breast cancer, which includes their family history. At that time, you may recommend additional screening tests (Ultrasoun d or MRI) as these tests may add significant information. A negative radiographic report should not delay biopsy if a dominant or clinically suspicious mass is present. Up to ten percent of cancers are not identified on mammography. A negative report may reinforce clinical impression. Adenosis and dense breasts may obscure an underlying neoplasm. False positive reports average 6 to 10%. Patient will receive a letter notifying them of these results.
== END ==
PROVIDERS: PCP Nurse Practitioner Family; Visit Provider Nurse Practitioner Family
DX: Z12.31 Encounter for screening mammogram for malignant neoplasm of breast (principal); R92.333 Mammographic heterogeneous density, bilateral breasts
CPT/HCPCS: 77063; 77067

== ENCOUNTER 2023-12-07 14:14 | Outpatient (REF) | payer MEDICARE, SELFPAY ==
[2023-12-07 15:08] LABS: Abs Immature Grans 0.02 10^3/uL (0.0-0.06); Absolute Basophil Count 0.08 10^3/uL (0.0-0.2); Absolute Eosinophil Count 0.09 10^3/uL (0.0-0.7); Absolute Monocyte Count 0.54 10^3/uL (0.1-0.8); Absolute Neutrophil Count 4.04 10^3/uL (1.2-6.7); Basophils % 1.3 %; Eosinophils % 1.5 %; HCT 40.3 % (36.0-46.0); Immature Grans % 0.3 %; Lymphocytes % 22.7 %; MCH 29.4 pg (27.0-33.0); MCHC 32.3 % (32.0-36.0); MCV 91 fL (80-95); MPV 9.4 fL (8.0-11.0); Monocytes % 8.8 %; Neutrophils % 65.4 %; Platelet Count 288 10^3/uL (130-400); RBC 4.42 10^6/uL (3.93-5.22); RDW 13.2 % (11.7-14.6); RDW-SD 44.3 fL; WBC 6.17 10^3/uL (4.4-10.8)
[2023-12-07 15:12] LABS: ESR 13 mm/hr (0-30)
[2023-12-07 15:34] LABS: ALT 18 U/L (14-59); AST 31 U/L (15-37); Albumin 4.1 g/dL (3.4-5.0); Alkaline Phosphatase 47 U/L (46-116); Anion Gap 10.1 mmol/L (3-11); BUN 14 mg/dL (7-18); Bilirubin, Total 0.6 mg/dL (0.2-1.0); CO2 25.9 mmol/L (21.0-32.0); CREATININE 0.9 mg/dL (0.55-1.02); Chloride 105 mmol/L (98-107); Estimated GFR 69.64 (mL/min/1.73m2); Glucose 94 mg/dL (74-106); Potassium 4.2 mmol/L (3.5-5.1); Sodium 141 mmol/L (136-145); Total Protein 7.2 g/dL (6.4-8.2)
== END 2023-12-07 14:15 | disposition home or self-care (01) ==
LOC: NCHCN 14:14
PROVIDERS: PCP Nurse Practitioner Family; Visit Provider Nurse Practitioner Family
DX: Z51.81 Encounter for therapeutic drug level monitoring (principal)
CPT/HCPCS: 80053; 85652; 85025

== ENCOUNTER 2024-06-25 14:06 | Outpatient (REF) | payer MEDICARE, SELFPAY ==
[2024-06-25 21:58] LABS: Anion Gap 10.5 mmol/L (3-11); BUN 12 mg/dL (7-18); CO2 26.5 mmol/L (21.0-32.0); CREATININE 0.9 mg/dL (0.55-1.02); Calcium 9.2 mg/dL (8.5-10.1); Chloride 105 mmol/L (98-107); Glucose 90 mg/dL (74-106); Potassium 4.3 mmol/L (3.5-5.1); Sodium 142 mmol/L (136-145)
== END 2024-06-25 14:07 | disposition home or self-care (01) ==
LOC: NCHCN 14:06
PROVIDERS: PCP Nurse Practitioner Family; Visit Provider Nurse Practitioner Family
DX: R03.0 Elevated blood-pressure reading, without diagnosis of hypertension (principal)
CPT/HCPCS: 80048

== ENCOUNTER 2024-07-29 16:24 | Outpatient (REF) | payer SELFPAY ==
--- OUTSIDE RECORDS SUMMARY | 2024-07-29 16:27 | XMS_ITS | Encounter Summary ---
Author Organization Replaced By [facility] [place] [address] Care Team Providers Care Medical Field Representative Name Role Phone Vanessa Oleary APRN Primary Care Provider [phone] Reason for Visit * Reason Onset Date Comments Pre Procedure Call 10/17/2023 Encounter Details Date Type Department Care Team (Late st Contact Info) Description 10/17/2023 Telephone Dermatology at [facility] [address] [place] [address] Aris Salmon CMA Pre Procedure Call Social History Tobacco Use Types Packs/Day Years Used Date Smoking Tobacco: Never Smokeless Tobacco: Never Sex and Gender Information Value Date Recorded Sex Assigned at Female 10/09/2020 8:32 AM EDT Gender Identity Not on file Sexual Orientation Not on file documented as of this encounter Miscellaneous Notes * Telephone Encounter - Aris Salmon CMA - 10/17/2023 1:43 PM EDT Mohs consultation and preoperative note (H&P) Patient Name: Erma Ruiz Age: 68 y.o. Date of : 1955 Today's Date: 10/17/2023 REFERRING PROVIDER: No ref. provider found CC: Mohs micrographic surgery for treatment of a cutaneous tumor HPI: Erma Ruiz is a 68 y.o. female presenting for biopsy-proven basal cell carcinoma, superficial, nodular, location on the left crown scalp. The dermatologic preoperative information sheet was reviewedwith pertinent positive and negative as below. DERMATOLOGIC PRE-OPERATIVE EVALUATION AND REVIEW OF SYSTEMS History of Mohs surgery? no If yes, have you ever had Mohs surgery with Dr. Hooker? no Pacemaker/Defibrillator? no Joint replacement or other implantable devices (e.g. Cochlear implant)? If yes then when? no Do you take a blood thinner? No History of organ transplant? no History of artificial valve or stroke? no History of liver disease or bleeding disorder? no Do you have any medical problems that may affect your upcoming surgery? no Do you have any concerns regarding your upcoming surgery? no We ask patients to discontinue Fish oil/Multivitamin/Vit E/?? supplements and natural medicines not prescribed by a physician 1 week prior to surgery. SOCIAL HISTORY: Makes Own Decisions Yes Hearing aid or other devices: No Relevant travel history or future plans: ~3-4wks after surgery Tobacco use (amount per day, type of tobacco): no Do you have any physical limitations that may affect your surgery?: no ALLERGIES: Allergies reviewed MEDICATIONS: Medications reviewed documented in this encounter Plan of Treatment Upcoming Encounters Date Type Department Care Team (Late st Contact Info) Description 08/05/2024 2:00 PM EST Office [place] [address] Cheri Carvalho APRN [facility] [place] [address] documented as of this encounter Visit Diagnoses Not on filedocumented in this encounter Care Teams Medical Field Representative Relationship Specialty Start Date End Date Vanessa Oleary APRN [address] [place] [address] PCP - General Family Medicine 08/25/23 documented as of this encounter
--- OUTSIDE RECORDS SUMMARY | 2024-07-29 16:27 | XMS_ITS | Encounter Summary ---
Author Organization [facility] Address [facility] [place] [address] Care Team Providers Care Red Hat Linux Engineer Name Role Phone Vanessa Oleary APRN Primary Care Provider [phone] [phone] Reason for Visit * Consultation (Routine) - Closed Specialty Diagnoses / Procedures Referred By Jana allison Referred To Contact Dermatology Diagnoses Basal cell carcinoma (BCC) of scalp Jairon García MD [address] [place] [address] Brenden Montero MD [facility] [address] [place] [address] Referral ID Status Reason Start Date Expiration Date V isits Requested Visits Authorized [id number] Closed Consult, Test & Treat 09/06/2023 09/05/2024 1 1 Encounter Details Date Type Department Care Team (Latest Contact Info) Description 10/24/2023 8:00 AM EDT Procedure visit Dermatology at [facility] [address] [place] [id number] Brenden Montero MD [facility] [address] [place] [address] Basal cell carcinoma (BCC) of scalp Social History Tobacco Use Types Packs/Day Years Used Date Smoking Tobacco: Never Smokeless Tobacco: Never Sex and Gender Information Value Date Recorded Sex Assigned at Female 10/09/2020 8:32 AM EDT Gender Identity Not on file Sexual Orientation Not on file documented as of this encounter Last Filed Vital Signs Vital Sign Reading Time Taken Comments Blood Pressure 142/64 10/24/2023 8:01 AM EDT Pulse 69 10/24/2023 8:01 AM EDT Temperature - - Respiratory Rate - - Oxygen Saturation - - Inhaled Oxygen Concentration - - Weight - - Height - - Body Mass Index - - documented in this encounter Progress Notes * Brenden Montero MD - 10/24/2023 8:00 AM EDT Images from the original note were not included. Summary of Procedure(s): Site: left crown scalp Tumor Type: Basal Cell Carcinoma, superficial and nodular Stages to clear tumor: 1 Repair: Complex linear closure Images: The patient was asked to call with any issues and is aware that I am available 13/02 should questions arise. Brenden Montero MD PhD Mohs Micrographic Surgery and Dermatologic Oncology Department of Dermatology Please note that I have reviewed the preoperative checklist from today's nursing visit including relevant social history and medications. I have reviewed the preoperative photos if available and the biopsy report. VITAL SIGNS: BP 142/64 (BP Location (NBP): Right arm, Patient Position: Sitting, BP Cuff Sizes: Adult (25-34 cm)) Pulse 69 PHYSICAL EXAMINATION: General: patient is awake, alert, oriented and in no acute distress. Skin: Focused examination of surgical site(s) performed which shows a well healed biopsy site with surrounding poorly defined pearly plaque. PHYSICIAN REVIEW OF REPORTS, RECORDS, IMAGES: 1) The accompanying pathology report(s) associated with aforementioned biopsy slide(s) were/was also reviewed. Assessment: Erma Ruiz is a 68 y.o. female presenting for: 1. Biopsy-proven basal cell carcinoma, superficial and nodular, located on the left crown scalp. Plan: 1. Findings from the biopsy report, today's clinical exam, and other pertinent details were reviewed with patient today. All questions were answered. 2. Discussed treatment options based on the above findings. We recommended Mohs micrographic surgery for treatment of this tumor. Mohs micrographic surgery was indicated due to patient, site and/or tumor characteristics (see operative report for specific indication). 3. We discussed risks, benefits, and alternative treatment options to the Mohs micrographic surgeryprocedure and pertinent information including but not limited to the following: Risks include bleeding, infection, scar, recurrence, incomplete tumor removal or inability to cure with surgery alone if the tumor features are more aggressive than the initial pathology indicates. Occasionally, additional adjuvant treatments may be recommended. Additional risks include large wound, prolonged wound and healing, pain, swelling, bruising, increased appearance of vessels or worsening erythema of baseline skin; more rarely risks include damage to underlying structures such as nerves, cartilage, or muscle which could lead to temporary or permanent loss of sensation or motor function. Benefit is precise tumor removal If reconstruction is performed, it is specific to the patient and defect. Discussed that the shape, size, depth of the wound is often not known until the tumor is cleared and thus the reconstruction options are sometimes not known until after tumor clearance. Occasionally,referrals to other providers may be recommended for reconstruction based on patient preference and need. Reviewed the pros and cons of common reconstructions used for this tumor type, size, and location, and that reconstruction may lead to change in appearance. Natural history of scar was discussed, including that the scar will continue to mature for 1-2 years. Recommended avoidance of special ointments or scar creams, and avoidance of direct sun exposure to the scar for optimal recovery. Reviewed that there are some aspects of cosmesis that are dependent on patient's characteristics such as age, skin laxity/texture factors, inflammatory skin diseases such as rosacea, prior surgery/radiation, degree of actinic damage, smoking status, strength of the patient's immune system, diligentwound care, medications, and genetics. Having Mohs surgery may lead to physical limitations for optimal healing, such as restricted physical activity and heavy lifting. 4. Signs and symptoms of skin cancer reviewed. Patient to report any new, changing, or symptomatic lesions and follow up with his or her tilesetter or other skin provider. 5. Discussed avoiding direct sun exposure to scars for best cosmetic result. Note initiated by JORDYN Bullock LPN has performed the documentation for this encounter in the presence of and acting as a scribe for Dr. Morro I performed the above scribed service and agree with the accuracy of the documentation in this encounter. Reviewed and signed by: Brenden Montero Dermatology [facility] * Brenden Montero MD - 10/24/2023 8:00 AM EDT Mohs micrographic Surgery Operative Report Patient name: Erma Ruiz : 1955 Date: 10/24/2023 Staff Surgeon and Pathologist: Brenden Montero MD PhD Nursing/Peanut Vendor(s): Miya Land RN, Yumi LantiguaMina COBB, Kelly Manuel, Zainab SEGOVIA Diagnostic Technician (s): Aris Brasher CMA Pre-operative diagnosis: Basal Cell Carcinoma, superficial and nodular Post-operative diagnosis: Same as above Location/Site: Left crown scalp Procedure: Mohs micrographic surgery Indication(s) for Mohs micrographic surgery: Anatomic location for tissue conservation Stages: 1 Preoperative size of tumor: 1.9 x 1.2 cm Stage I The nature and purpose of the procedure, associated risks, possible consequences and complications,and alternative forms of treatment were explained in detail. We reviewed the possible repairs basedon the clinical appearance of tumor but discussed that often the repair options may not be known until the tumor has deysi extirpated. Informed consent and permission to take photographs were obtained. The site was confirmed with the patient/authorized primary care sales representative/referring physician and/or a photograph form time of biopsy. A pre-operative time-out (procedural pause) was conducted with no unresolved discrepancies noted. Local anesthesia was obtained with 0.5 % lidocaine with 1:200,000 epinephrine. The surgical site was prepped and draped in the usual sterile manner. A 1-2 mm margin was excised around clinically evident tumor as a complete layer. Hemostasis was achieved by electrocoagulation. The excised tissue was oriented and divided into 2 sections, chromacoded, and submitted for frozen sections. The patient tolerated the procedure well and without complications. On my personal microscopic evaluation of the frozen sections, no residual tumor was identified on the deep or outer border of the sections. The final size of the defect after complete tumor removal was 1.5 x 2.1 cm, extending to level of subcutaneous tissue. Brenden Montero MD PhD Mohs Micrographic Surgery and Dermatologic Oncology Department of Dermatology [address] [place] [id number] Repair Operative Report (Complex Linear Repair) Patient name: Erma Ruiz : 1955 Clinical Diagnosis: 1.5 x 2.1cm surgical defect secondary to Mohs microscopically controlled excision Location/Site: Left crown scalp Indication: repair of wound for hoahaoism of function/anatomy Procedure: Complex linear layered closure of Mohs defect Due to the size and location of the defect resulting from the complete removal of the tumor, the postoperative risk of hemorrhage, infection, and the possibility of serious deformity from scarring, and in order to restore proper function and prevent loss of function, the defect was closed in the following manner. The nature and purpose of the procedure, associated risks, possible consequences, complications andalternative methods of treatment were explained to the patient in detail. An informed consent was obtained. The operative site was anesthetized with 0.5% lidocaine with 1:200,000 epinephrine. The site was prepped and draped in the usual sterile manner. The edges of the defect were widely underminedat the dermal subcutaneous layer greater than the width of the defect as stated above. Hemostasis was achieved with electrocoagulation. The edges could then be approximated without excess tension. The deep tissues were apposed and sutured with 4.0 Monocryl sutures and the epidermal edges were approximated with 5.0 Fast Gut running and/or interrupted sutures. .The resulting complex linear closure measured 3.0 cm. The surgical site was cleaned and white petrolatum with a gauze pressure dressing applied. The patient tolerated the procedure well and without complications and was given both verbal and written instruction on postoperative wound care. Follow up as needed. The patient was discharged in good condition. Total local anesthesia with 0.5 % lidocaine with 1:200,000 epinephrine used: 8 cc Brenden Montero MD PhD Mohs Micrographic Surgery and Dermatologic Oncology Department of Dermatology [address] [place] [address] Note initiated by JORDYN Bullock LPN has performed the documentation for this encounter in the presence of and acting as a scribe for Dr. Montero I performed the above scribed service and agree with the accuracy of the documentation in this encounter. Reviewed and signed by: Brenden Montero Dermatology [facility] documented in this encounter Plan of Treatment Upcoming Encounters Date Type Department Care Team (Late st Contact Info) Description 08/05/2024 2:00 PM EST [place] [address] Cheri Carvalho APRN [facility] [place] [address] Scheduled Referrals Name Type Priority Associated Diagnoses Order Schedule Referral to Dermatology Outpatient Referral Routine Basal cell carcinoma (BCC) of scalp Ordered: 09/06/2023 documented as of this encounter Visit Diagnoses Diagnosis Basal cell carcinoma (BCC) of scalp documented in this encounter Care Teams Red Hat Linux Engineer Relationship Specialty Start Date End Date Vanessa Oleary APRN [address] [place] [address] PCP - General Family Medicine 08/25/23 documented as of this encounter
--- OUTSIDE RECORDS SUMMARY | 2024-07-29 16:27 | XMS_ITS | Clinical Summary ---
[place] [address] Care Team Providers Care Sales Record Clerk Name Role Phone Vanessa Oleary APRN Primary Care Provider [phone] Allergies No known active allergies Medications Medication Sig Dispensed Refills Start Date End Date Status MULTIVITAMIN ORAL Take by mouth as needed. Active ASCORBATE CALCIUM (VITAMIN C ORAL) Take by mouth daily as needed. Active PREMARIN 0.625 mg/gram Cream prn 0 02/06/2015 Active tiZANidine (Zanaflex) 2 mg tabletIndications:Sero positive rheumatoid arthritis,Primary osteoarthritis of both hands Take 1 tablet by mouth every 6 hours as needed. 30 tablet 06/05/2023 Active predniSONE (Deltasone) 1 mg tabletIndications:Sero positive rheumatoid arthritis,MCFP current use of systemic steroids Take 4 tablets by mouth daily. 120 tablet 3 06/20/2023 Active Active Problems Patient Care Coordination No te Formatting of this note migh t be different from the original. Awaiting vaccine history Awaiting vaccine history. - Lauren Morrell LPN 05/13/2013 , Immunization record reconciled. 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 Lentigines 04/07/2021 Encounters Date Type Department Care Team Description 07/22/2024 Orders [place] [address] Cheri Carvalho, DIRECTOR REPORT Age-related osteoporosis without current pathological fracture; 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 07/22/2024 Orders [place] [address] Cheri Cavralho, DIRECTOR REPORT 07/22/2024 Telephone [place] [address] Kenya Lui, ERON Follow-up ; Medication Problem from Last 3 Months Immunizations Name Administration Dates Next Due DTaP 09/27/2006 Influenza PF, Split 05/19/2014 Influenza Trivalent w/Preservative 04/23/2015, Social History Tobacco Use Types Packs/Day Years Used Date Smoking Tobacco: Never Smokeless Tobacco: Never Sex and Gender Information Value Date Recorded Sex Assigned at Female 10/09/2020 8:32 AM EDT Gender Identity Not on file Sexual Orientation Not on file Last Filed Vital Signs Vital Sign Reading Time Taken Comments Blood Pressure 142/64 10/24/2023 8:01 AM EDT Pulse 69 10/24/2023 8:01 AM EDT Temperature 36.2 ??C (97.1 ??F) 06/09/2022 1:57 PM ES T Respiratory Rate 16 04/07/2021 1:00 PM EDT Oxygen Saturation 98% 06/09/2022 1:57 PM EST Inhaled Oxygen Concentration - - Weight 57.2 kg (126 lb) 06/09/2022 1:57 PM EST Height 162.6 cm (5' 4) 06/09/2022 1:57 PM EST Body Mass Index 21.63 06/09/2022 1:57 PM EST Plan of Treatment Upcoming Encounters Date Type Department Care Team (Late st Contact Info) Description 08/05/2024 2:00 PM EST Office [place] [address] Cheri Carvalho, DIRECTOR REPORT [facility] [address] [place] [id number] Health Maintenance Due Date Last Done Comments CT Colonography 1955 Colonoscopy 1955 Colorectal Cancer Screening 1955 FIT DNA 1955 FIT 1955 Sigmoidoscopy (10 year) with FIT yearly 1955 Sigmoidoscopy 1955 Hepatitis C Screening 1973 Breast Cancer Share Decision Needed 1995 Breast Cancer screening 1995 Pneumoccocal Vaccine: 65+ (1 of 1 - PCV) 2005 Zoster vaccine (1 of 2) 2005 Advance Directive 2010 Tetanus/Diphtheria/Pertussis Vaccines (2 - Tdap) 09/27/2016 09/27/2006 Bone Density Scan 2020 Covid-19 Vaccine (1 - season) 2024 Influenza (Flu) vaccine (1 o f 1 - Influenza standard series) 03/24/2024 04/23/2015, 05/19/2014, 05/18/2010 Care Teams Sales Record Clerk Relationship Specialty Start Date End Date Vanessa Oleary APRN [address] [place], [place] [id number] PCP - General Family Medicine 08/25/23
--- OUTSIDE RECORDS SUMMARY | 2024-07-29 16:27 | XMS_ITS | Encounter Summary ---
Author Organization [facility] Address [facility] [place] [address] Care Team Providers Care Chicken And Fish Butcher Name Role Phone AnirudhVanessa Janice FOSTER Primary Care Provider [phone] [phone] Encounter Details Date Type Department Care Team (Latest Contact Info) Description 10/24/2023 7:45 AM EDT Clinical Support Dermatology at [facility] [address] [place] [address] Brenden Montero MD [facility] [address] [place] [address] Basal cell carcinoma (BCC) of scalp Social History Tobacco Use Types Packs/Day Years Used Date Smoking Tobacco: Never Smokeless Tobacco: Never Sex and Gender Information Value Date Recorded Sex Assigned at Female 10/09/2020 8:32 AM EDT Gender Identity Not on file Sexual Orientation Not on file documented as of this encounter Progress Notes * Kelly Olson LPN - 10/24/2023 7:45 AM EDT Mohs consultation and preoperative note (H&P) Patient Name: Erma Ruiz Age: 68 y.o. Date of : 1955 Today's Date: 10/24/2023 REFERRING PROVIDER: Jairon García CC: Mohs micrographic surgery for treatment of [...] you ever had Mohs surgery with Dr. Montero? no Pacemaker/Defibrillator? no Joint replacement or other [...] 2:00 PM EST Office [place] [address] Cheri Carvalho APRN [facility] [place] [address] documented as of this encounter Visit Diagnoses Diagnosis Basal cell carcinoma (BCC) of scalp documented in this encounter Care Teams Chicken And Fish Butcher Relationship Specialty Start Date End Date Vanessa Oleary APRN [address] [place] [address] PCP - General Family Medicine 08/25/23 documented as of this encounter
--- OUTSIDE RECORDS SUMMARY | 2024-07-29 16:27 | XMS_ITS | Encounter Summary ---
[place] [address] Care Team Providers Care Utility Worker Production Name Role Phone Vanessa Oleary APRN Primary Care Provider [phone] [phone] Encounter Details Date Type Department Care Team (Latest Contact Info) Description 08/25/2023 1:30 PM EST TH Visit (TeleHealth) [place] [address] Terence Castro PA 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 (Primary Dx); Medication monitoring encounter Social History Tobacco Use Types Packs/Day Years Used Date Smoking Tobacco: Never Smokeless Tobacco: Never Sex and Gender Information Value Date Recorded Sex Assigned at Female 10/09/2020 8:32 AM EDT Gender Identity Not on file Sexual Orientation Not on file documented as of this encounter Patient Instructions * Patient Instructions* Terence Castro PA - 08/25/2023 1:30 PM EST Follow up 6 months Continue prednisone 3.5 mg per day for now documented in this encounter Progress Notes * Terence Castro PA - 08/25/2023 1:30 PM ESTSummary: ra Rheumatology Outpatient Note Chart review conducted prior to the visit includes review of PMHx, medications, allergies, and prior office notes. The most pertinent findings are listed below. The Patient History Form was reviewed with the patient, which included review of ROS, social hx, pmhx, famhx, current and prior medications, allergies, IZs, and ADLs. The form is scanned into the patient's chart. This patient, because they are at increased risk for complications of COVID-19 due to underlying medical conditions AND/OR because there is a public health emergency, did not come to the office for non-emergency care. The patient verbally consented to this electronic visit. The patient understands the limitations of not being physically examined and that we may not be able to address all issues. The concept of telemedicine has been described to the patient. Patient has been informed of the anticipated benefits and possible risks. Patient understands information provided regarding telemedicine, has had the opportunity to ask questions about this information, and all questions have been answered to the patient's satisfaction. Patient consents for the use of telemedicine in his or her medical care and authorizes the transmission of any relevant medical information to providers and staff involved in the patient's medical or mental health care. History of Present Illness: Erma Ruiz is a 68 y.o. female who presents today for evaluation of RA. 23:Impression/Recommendations : Eram Ruiz is a 67 y.o. female who presents today with rheumatoid arthritis with ongoing arthralgias primarily in the spine aggravated by sitting. Patient will continue her prednisone taper very slowly as she has been on it a long time strategies previously discussed she will update a CBC her rheumatoid appears to be quiet at this point but given her ongoing arthralgias we will update an x-ray of her low back as well as her hips further changes pending review of the studies we will otherwise see her again for routine follow-up in 6 months via telehealth sooner if otherwise indicated patient in agreement. Interval History: Patient presents today for follow-up of rheumatoid arthritis. She has managed to get her prednisone dose down to 3 and half milligrams per day. She reports she feels great from an arthralgias perspective she has no complaints. 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 Her last sedimentation rate on 03/21/2023 was within the normal range. There is been no B symptoms she denies any other major changes in her health. Review of Systems Constitutional: Negative for diaphoresis, fever and chills. Respiratory: Negative for shortness of breath, hemoptysis and orthopnea. Gastrointestinal: Negative for abdominal discomfort, diarrhea and trouble swallowing. HENT: Negative for voice change. Psychiatric/Behavioral: Negative for social aversion. Musculoskeletal: Negative. Endocrine: Negative for polydipsia, polyphagia, polyuria and Cushingoid appearance. Cardiovascular: Negative for syncope. Neurological: Negative for vertigo. Allergies No Known Allergies Medications Current Outpatient Medications on File Prior to Visit Medication Sig Dispense Refill predniSONE (Deltasone) 1 mg tablet Take 4 tablets by mouth daily. 120 tablet 3 tiZANidine (Zanaflex) 2 mg tablet Take 1 tablet by mouth every 6 hours as needed. 30 tablet 0 PREMARIN 0.625 mg/gram Cream prn 0 MULTIVITAMIN ORAL Take by mouth as needed. ASCORBATE CALCIUM (VITAMIN C ORAL) Take by mouth daily as needed. No current facility-administered medications on file prior to visit. PMHX Patient Active Problem List Diagnosis Code Garsia angioma D18.01 Lentigines L81.4 Physical Examination: There were no vitals taken for this visit. Physical Exam Constitutional: General: She is not in acute distress. Appearance: She is not ill-appearing, toxic-appearing or diaphoretic. HENT: Head: Normocephalic and atraumatic. Right Ear: External ear normal. Left Ear: External ear normal. Eyes: General: No scleral icterus. Right eye: No discharge. Left eye: No discharge. Conjunctiva/sclera: Conjunctivae normal. Pulmonary: Effort: No respiratory distress. Neurological: Mental Status: She is alert. Psychiatric: Mood and Affect: Mood normal. Behavior: Behavior normal. Thought Content: Thought content normal. Impression/Recommendations : Erma Ruiz is a 68 y.o. female who presents today with rheumatoid arthritis symptomatically controlled patient on prednisone 3.5 mg/day with no complaints she will continue at that dose until about November and then will try and drop it to 3 mg/day when the warmer weather comes. Will otherwise see her again in follow- up in 6 months. Will recheck her laboratory studies next month at the [facility]. Further changes pending her clinical course. Patient in agreement. documented in this encounter Plan of Treatment Upcoming Encounters Date Type Department Care Team (Late st Contact Info) Description 08/05/2024 2:00 PM EST Office Visit [place] [address] Cheri Carvalho APRN [facility] [place] [place] [address] Scheduled Orders Name Type Priority Associated Diagnoses Orde r Schedule Sedimentation rate Lab Routine Medication monitoring encounter Every 3 months for 4 Occurrences starting 08/25/2023 until 08/24/2024 documented as of this encounter Visit Diagnoses Diagnosis 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- Primary Rheumatoid arthritis Medication monitoring encounter Encounter for therapeutic drug monitoring documented in this encounter Care Teams Utility Worker Production Relationship Specialty Start Date End Date Vanessa Oleary APRN [address] [place] [address] PCP - General Family Medicine 08/25/23 documented as of this encounter
--- OUTSIDE RECORDS SUMMARY | 2024-07-29 16:27 | XMS_ITS | Encounter Summary ---
Author Organization [facility] [place] [address] Care Team Providers Care Hairspring Staker Name Role Phone Elizabeth Song MD Primary Care Provider [phone] Reason for Visit * Reason Onset Date Comments Medication Refill 06/05/2023 Encounter Details Date Type Department Care Team (Late st Contact Info) Description 06/05/2023 [place] [address] Lissa Murphy, [facility] [place] [address] 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; Primary osteoarthritis of both hands Social History Tobacco Use Types Packs/Day Years Used Date Smoking Tobacco: Never Smokeless Tobacco: Never Sex and Gender Information Value Date Recorded Sex Assigned at Female 10/09/2020 8:32 AM EDT Gender Identity Not on file Sexual Orientation Not on file documented as of this encounter Plan of Treatment Upcoming Encounters Date Type Department Care Team (Late st Contact Info) Description 08/05/2024 2:00 PM EST Office [place] [id number] Cheri Carvalho, [facility] [place] [address] documented as of this encounter Visit Diagnoses Diagnosis 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 Rheumatoid arthritis Primary osteoarthritis of both hands documented in this encounter Care Teams Hairspring Staker Relationship Specialty Start Date End Date Elizabeth Song MD [address] [place] [address] PCP - General 06/15/10 08/24/23 documented as of this encounter
--- OUTSIDE RECORDS SUMMARY | 2024-07-29 16:27 | XMS_ITS | Encounter Summary ---
Author Organization [facility] Address [facility] [place] [address] Care Team Providers Care Trapeze Performer Name Role Phone Vanessa Oleary APRN Primary Care Provider [phone] Encounter Details Date Type Department Care Team (Latest Contact Info) Description 10/24/2023 Travel Social History Tobacco Use Types Packs/Day Years [...] 2:00 PM EST Office [place] [address] Cheri Carvalho LIBRARY CIRCULATION ASSISTANT [facility] [place] [address] documented as of this encounter Visit Diagnoses Not on filedocumented in this encounter Care Teams Trapeze Performer Relationship Specialty Start Date End Date Vanessa Oleary APRN [address] [place], [place] [address] PCP - General Family Medicine 08/25/23 documented as of this encounter
--- OUTSIDE RECORDS SUMMARY | 2024-07-29 16:27 | XMS_ITS | Encounter Summary ---
Author Organization [facility] Address [facility] [place] [address] Care Team Providers Care Registered Nurse Ambulatory Name Role Phone Vanessa Oleary APRN Primary Care Provider [phone] Encounter Details Date Type Department Care Team (Latest Contact Info) Description 01/16/2024 Travel Social History Tobacco Use Types Packs/Day [...] 2:00 PM EST Office [place] [address] Cheri Carvalho RADIOLOGY RN [facility] [place] [address] documented as of this encounter Visit Diagnoses Not on filedocumented in this encounter Care Teams Registered Nurse Ambulatory Relationship Specialty Start Date End Date Vanessa Oleary APRN [address] [place], [place] [address] PCP - General Family Medicine 08/25/23 documented as of this encounter
--- OUTSIDE RECORDS SUMMARY | 2024-07-29 16:27 | XMS_ITS | Encounter Summary ---
Author Organization [facility] Address [facility] [place] [address] Care Team Providers Care Rover Tender Name Role Phone Vanessa Oleary APRN Primary Care Provider [phone] Encounter Details Date Type Department Care Team (Latest Contact Info) Description 01/18/2024 Travel Social History Tobacco Use Types Packs/Day [...] 2:00 PM EST Office [place] [address] Cheri Carvalho CHECK SERVICES CLERK [facility] [place] [address] documented as of this encounter Visit Diagnoses Not on filedocumented in this encounter Care Teams Rover Tender Relationship Specialty Start Date End Date Vanessa Oleary APRN [address] [place], [place] [address] PCP - General Family Medicine 08/25/23 documented as of this encounter
--- OUTSIDE RECORDS SUMMARY | 2024-07-29 16:27 | XMS_ITS | Encounter Summary ---
Author Organization [facility] [place] [address] Care Team Providers Care Upper Inspector Name Role Phone Vanessa Oleary APRN Primary Care Provider [phone] Reason for Visit * Reason Onset Date Comments Follow-up 07/22/2024 Medication Problem 07/22/2024 Encounter Details Date Type Department Care Team (Late st Contact Info) Description 07/22/2024 Telephone [place] [phone] Kenya Lui RN Follow-up ; Medication Problem Social History Tobacco Use Types Packs/Day Years Used Date Smoking Tobacco: Never Smokeless Tobacco: Never Sex and Gender Information Value Date Recorded Sex Assigned at Female 10/09/2020 8:32 AM EDT Gender Identity Not on file Sexual Orientation Not on file documented as of this encounter Miscellaneous Notes * Telephone Encounter - Kenya Lui RN - 07/22/2024 3:51 PM EST I spoke with Erma and she will have labs done at [facility], I have efaxed the labs there. Erma will call Med infusion to schedule. * Telephone Encounter - Kenya Lui RN - 07/22/2024 3:47 PM EST Cheri Carvalho APRN sent to Kenya Lui RN Caller: Unspecified (Today, 9:08 AM) Please tell patient I ordered Reclast and she can call Med Infusion to schedule but she will need labs locally before the infusion. I will send orders to [facility] unless she has another preferred location. * Telephone Encounter - Kneya Lui RN - 07/22/2024 1:04 PM EST Copied from CRM #[id number]. Topic: Specialty Dept CRMs - Orders >> Jul 22, 2024 9:07 AM Annabelle Mcdonald wrote: Orders Request Specialist: Deven Relationship (if other than patient-full name): Patient Type of Request: [x] Input orders Type/Name of Order: Other: Infusion Patient Requesting to Have Orders Sent to Facility Outside of D-H: No Patient would like to schedule for 08/05/24 documented in this encounter Plan of Treatment Upcoming Encounters Date Type Department Care Team (Late st Contact Info) Description 08/05/2024 2:00 PM EST Office Visit [place] [address] Cheri Carvalho APRN [facility] [place] [address] documented as of this encounter Visit Diagnoses Not on filedocumented in this encounter Care Teams Upper Inspector Relationship Specialty Start Date End Date Vanessa Oleary APRN [address] [place] [address] PCP - General Family Medicine 08/25/23 documented as of this encounter
--- OUTSIDE RECORDS SUMMARY | 2024-07-29 16:27 | XMS_ITS | Encounter Summary ---
Author [place] [address] Care Team Providers Care Shirt Folder Name Role Phone Elizabeth Song MD Primary Care Provider [phone] Encounter Details Date Type Department Care Team (Latest Contact Info) Description 05/26/2023 1:00 PM EDT TH Visit (TeleHealth) [place] [address] Terence Castro PA 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 (Primary Dx); Medication monitoring encounter; Primary osteoarthritis of both hands Social History Tobacco Use Types Packs/Day Years Used Date Smoking Tobacco: Never Smokeless Tobacco: Never Sex and Gender Information Value Date Recorded Sex Assigned at Female 10/09/2020 8:32 AM EDT Gender Identity Not on file Sexual Orientation Not on file documented as of this encounter Patient Instructions * Patient Instructions* Terence Castro PA - 05/26/2023 1:00 PM EDT Xray hips and low back Continue prednisone taper as previous documented in this encounter Progress Notes * Terence Castro PA - 05/26/2023 1:00 PM EDT Rheumatology Outpatient Note Chart review conducted prior [...] the patient's medical or mental health care. 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 She was started on Prednisone 5 mg followed by taper and MTX. At her December 2013, some alopecia noted, despite daily MVI and folate and wants to taper prednisone. We reduced the MTX to 15 mg/week by injection because of alopecia in 2017 and further lowered it to 10 mg/d in July. Unable to tolerate lower dose of prednisone 5 mg/d evenwith 1 mg/d tapering. Pt. Is no longer on MTX. 424.23:Impression/Recommendations : Erma Ruiz is a 67 y.o. female who presents today with rheumatoid arthritis patient continuing on prednisone 5 mg/day. She has some multifactorial arthralgias she really needs to update her laboratory studies she will call and tell me where she wants to complete these she does have some ongoing back pain that she finds bothersome we will provide her with a prescription for tizanidine 2 mg nightly as needed further changes pending review of labs and her clinical course she will otherwise continue on prednisone 5 mg/day for now patient in agreement. History of Present Illness: Erma Ruiz is a 67 y.o. female who presents today for evaluation of RA. Interval History:Patient presents today for follow-up of rheumatoid arthritis and osteoarthritis. Rheumatoid expression has largely been quiet. She has not felt the need for further optimization of her therapy. She has been on a prednisone course for very long time and finds that sufficient. She has gradually been tapering the prednisone and is on 4 mg a day. Earlier last year she was complainingof back pain and we saw her in the spring and provided her with a prescription of tizanidine. She is following the details it has been quite helpful. She still gets pain in her low back that she finds bothersome sometimes it can be aggravated by sitting. She denies any recent joint effusions numbness tingling or trauma there is been no change in going to the bathroom. There is been no B symptoms. Review of Systems Constitutional: Negative for diaphoresis, absenteeism, fever, weight loss and chills. Respiratory: Negative for shortness of breath, chest discomfort and wheezing. Gastrointestinal: Negative for nausea, steatorrhea, diarrhea and trouble swallowing. HENT: Negative. Psychiatric/Behavioral: Negative for social aversion. Hematologic/Lymphatic: Negative. Allergic/Immunologic: Negative for recurrent infections. Musculoskeletal: Positive for joint pain. Negative for stiffness, myalgias, joint swelling and fracture. Endocrine: Negative for polydipsia, polyphagia, polyuria and Cushingoid appearance. Cardiovascular: Negative for syncope. Neurological: Negative for vertigo. Skin: Negative for dry skin, urticaria, blister and photosensitivity. Allergies No Known Allergies Medications Current Outpatient Medications on File Prior to Visit Medication Sig Dispense Refill tiZANidine (Zanaflex) 2 mg tablet Take 1 tablet by mouth every 6 hours as needed. 30 tablet 0 predniSONE (Deltasone) 1 mg tablet Take 4 tablets by mouth daily. 120 tablet 3 ergocalciferol, vitamin D2, (VITAMIN D ORAL) Take 10,000 Units by mouth daily. PREMARIN 0.625 mg/gram Cream prn 0 MULTIVITAMIN ORAL Take by mouth as needed. ASCORBATE CALCIUM (VITAMIN C ORAL) Take by mouth daily as needed. No current facility-administered medications on file prior to visit. 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 Physical Examination: There were no vitals taken for this visit. Physical Exam Constitutional: General: She is not in acute distress. Appearance: Normal appearance. She is not ill-appearing. HENT: Head: Normocephalic and atraumatic. Neurological: Mental Status: She is alert and oriented to person, place, and time. Psychiatric: Mood and Affect: Mood normal. Behavior: Behavior normal. Thought Content: Thought content normal. Judgment: Judgment normal. Impression/Recommendations : Erma Ruiz is a 67 y.o. female who [...] sooner if otherwise indicated patient in agreement. documented in this encounter Plan of Treatment Upcoming Encounters Date Type Department Care Team (Late st Contact Info) Description 08/05/2024 2:00 PM EST Office [place] [address] Cheri Carvalho, [facility] [place] [address] documented as of this encounter Visit Diagnoses Diagnosis 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- Primary Rheumatoid arthritis Medication monitoring encounter Encounter for therapeutic drug monitoring Primary osteoarthritis of both hands documented in this encounter Care Teams Shirt Folder Relationship Specialty Start Date End Date Elizabeth Song MD [address] [place] [address] PCP - General 06/15/10 08/24/23 documented as of this encounter
--- OUTSIDE RECORDS SUMMARY | 2024-07-29 16:27 | XMS_ITS | Encounter Summary ---
Author Organization [facility] Address [facility] [place] [address] Care Team Providers Care Wire Coiner Name Role Phone Anirudh Vanessasavannah Camacho APRN Primary Care Provider [phone] Encounter Details Date Type Department Care Team (Late st Contact Info) Description 01/18/2024 10:15 AM EDT Office Visit Dermatology at [facility] [address] [place] [address] Hamzah Frances MD [facility] [place] [address] Multiple benign melanocytic nevi of upper and lower extremities and trunk; Seborrheic keratoses; Garsia angioma; Lentigines; History of nonmelanoma skin cancer Social History Tobacco Use Types Packs/Day Years Used Date Smoking Tobacco: Never Smokeless Tobacco: Never Sex and Gender Information Value Date Recorded Sex Assigned at Female 10/09/2020 8:32 AM EDT Gender Identity Not on file Sexual Orientation Not on file documented as of this encounter Progress Notes * Hamzah Frances MD - 01/18/2024 10:15 AM EDT Images from the original note were not included. DEPARTMENT OF DERMATOLOGY Medical Dermatology Clinic Provider: Hamzah Frances MD Patient's preferred name Erma Preferred contact method for results Cell Phone with detailed results? 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 Patient returns to clinic today for a rash. Glass patient. Has improved since first appearing. - Rash first appeared August. Very dry. On shins, forearms and back. Wide, itchy things. OTC cortisone helps. Has improved since then. 3-10/31 intensity today. Skin is thin. Not concerned. - Patient would like to do a FSE instead of focusing on the rash. - Spots on the upper buttcrack. Feels like a previous BCC on the scalp. - Spot on the back. Dark. Daughter noticed. Last visit at Dermatology: 08/25/2023 Last visit with this provider: Visit date not found Medications: Reviewed in eD-H Allergies: Reviewed in eD-H Skin Examination: Full skin examination: Patient asked to undress to their comfort level. Verbalized that the provider's preference is that patient remove all clothing and that the provider will not examine areas patient elects to keep covered. Examination of the scalp, hair, head, face, ears, neck, chest, axillae, abdomen, back, buttocks, genitalia, and upper and lower extremities was normal with the exception ofthe findings below. Assessment/Plan #. Rheumatoid Arthritis - Patient currently on Rx: Prednisone 3.5 mg daily. Has been on prednisone long-term. #. Solar Lentigines - Scattered light-brown, evenly pigmented, well-demarcated macules on sun-exposed areas of the trunk and extremities. - No worrisome pigmented lesions. Discussed benign nature of lesions and provided reassurance. Willcontinue to monitor. #. Benign Nevi - Scattered medium brown, evenly pigmented macules and papules on the trunk and extremities with reassuring pigment pattern on dermoscopy. - Discussed benign nature of lesions and provided reassurance. Will continue to monitor. #. Garsia Angiomas - Multiple 0.2-0.4 cm bright red, well-demarcated papules on the trunk and extremities. - Discussed benign nature of lesions and provided reassurance. No treatment necessary at this time. #. Seborrheic Keratoses - Stuck on, waxy papules on the trunk and extremities, including the gluteal cleft. - Discussed benign nature of lesions and provided reassurance. No treatment necessary at this time. #. History of BCC - Well-healed scars per skin history. - No evidence of recurrence; will continue to monitor. RTC: 1 year for FSE [x]Note routed to service secretary []Recall placed in scheduling system []Appointment scheduled at checkout Scribe attestation: Cale Bob CMA has performed the documentation for this encounter in the presence of and acting as a scribe for Hamzah Frances MD. I performed the above scribed service and agree with the accuracy of the documentation in this encounter. Reviewed and signed by: Hamzah Frances MD [facility] documented in this encounter Plan of Treatment Upcoming Encounters Date Type Department Care Team (Late st Contact Info) Description 08/05/2024 2:00 PM EST Office [place] [address] Cheri Carvalho APRN [facility] [place] [address] documented as of this encounter Visit Diagnoses Diagnosis Multiple benign melanocytic nevi of upper and lower extremities and trunk Seborrheic keratoses Garsia angioma Nevus, non-neoplastic Lentigines Other dyschromia History of nonmelanoma skin cancer Personal history of other malignant neoplasm of skin documented in this encounter Care Teams Wire Coiner Relationship Specialty Start Date End Date Vanessa Oleary APRN [address] [place] [address] PCP - General Family Medicine 08/25/23 documented as of this encounter
--- OUTSIDE RECORDS SUMMARY | 2024-07-29 16:27 | XMS_ITS | Encounter Summary ---
Author Organization [facility] [place] [address] Care Team Providers Care Vision Rehabilitation Therapist Name Role Phone Elizabeth Song MD Primary Care Provider [phone] Reason for Visit * Reason Onset Date Comments Other 07/31/2023 Encounter Details Date Type Department Care Team (Late st Contact Info) Description 07/31/2023 Telephone [place] [address] Kenya Lui RN Other Social History Tobacco Use Types Packs/Day Years Used Date Smoking Tobacco: Never Smokeless Tobacco: Never Sex and Gender Information Value Date Recorded Sex Assigned at Female 10/09/2020 8:32 AM EDT Gender Identity Not on file Sexual Orientation Not on file documented as of this encounter Miscellaneous Notes * Telephone Encounter - Kenya Lui RN - 07/31/2023 2:00 PM EST Images from the original note were not included. Copied from [facility] #[id number]. Topic: Specialty Dept CRMs - Orders >> Jul 31, 2023 12:53 PM October R wrote: Orders Request Specialist: Matthew Relationship (if other than patient-full name): Hiwot RODAS infusion Type of Request: [x] Send orders Type/Name of Order: Other: Reclast infusion Patient Requesting to Have Orders Sent to Facility Outside of D-H: Yes If Yes, Name of Facility: [facility] Address: [facility] Phone #: [phone] Fax #: [phone] Past due ++++++++++++++++++++++++++++++++++++++++++++++++++++++++++++++++++ Orders needed. Will forward to Provider and Infusion Coordinator. Not sure if PA needed. Will send to PA Coordinator as well. August 01, 2023 Terence Castro PA to Al Kita Jones Rebecca K 08/01/23 2:38 PM Ordered and faxed documented in this encounter Plan of Treatment Upcoming Encounters Date Type Department Care Team (Late st Contact Info) Description 08/05/2024 2:00 PM EST Office Visit [place] [address] Cheri Carvalho APRN [facility] [place] [address] documented as of this encounter Visit Diagnoses Not on filedocumented in this encounter Care Teams Vision Rehabilitation Therapist Relationship Specialty Start Date End Date Elizabeth Song MD [address] [place] [address] PCP - General 06/15/10 08/24/23 documented as of this encounter
--- OUTSIDE RECORDS SUMMARY | 2024-07-29 16:27 | XMS_ITS | Encounter Summary ---
Author Organization [facility] Address [facility] [place] [address] Care Team Providers Care Hostage Negotiator Name Role Phone Vanessa Oleary APRN Primary Care Provider [phone] Reason for Referral * Consultation (Routine) - Closed Specialty Diagnoses / Procedures Referred By Jana allison Referred To Contact Dermatology Diagnoses Basal cell carcinoma (BCC) of scalp Jairon García MD [address] [facility] [address] Brenden Montero MD [facility] [address] [facility] [address] Referral ID Status Reason Start Date Expiration Date V isits Requested Visits Authorized [id number] Closed Consult, Test & Treat 09/06/2023 09/05/2024 1 1 Encounter Details Date Type Department Care Team (Late st Contact Info) Description 09/06/2023 Transcribe Orders Dermatology at [facility] [address] [place] [address] Jairon García MD [address] [facility] [address] Basal cell carcinoma (BCC) of scalp Social [...] 2:00 PM EST Office Visit [place] [address] Cheri Carvalho, MECHANICAL SPREADER OPERATOR [facility] [place] [address] Scheduled Referrals Name Type Priority Associated Diagnoses Order Schedule Referral to Dermatology Outpatient Referral Routine Basal cell carcinoma (BCC) of scalp Ordered: 09/06/2023 documented as of this encounter Visit Diagnoses Diagnosis Basal cell carcinoma (BCC) of scalp documented in this encounter Care Teams Hostage Negotiator Relationship Specialty Start Date End Date Vanessa Oleary APRN [address] [place] [address] PCP - General Family Medicine 08/25/23 documented as of this encounter
--- OUTSIDE RECORDS SUMMARY | 2024-07-29 16:27 | XMS_ITS | Encounter Summary ---
Author Organization [facility] [place] [address] Care Team Providers Care Literary Agent Name Role Phone AnirudhVanessa munoz KRISTIN Primary Care Provider [phone] Encounter Details Date Type Department Care Team (Late st Contact Info) Description 01/18/2024 Telephone Dermatology at [facility] [address] [place] [address] Jairon García MD [address] [facility] [place] [address] Social History Tobacco Use Types Packs/Day Years Used Date Smoking Tobacco: Never Smokeless Tobacco: Never Sex and Gender Information Value Date Recorded Sex Assigned at Female 10/09/2020 8:32 AM EDT Gender Identity Not on file Sexual Orientation Not on file documented as of this encounter Miscellaneous Notes * Telephone Encounter - Ashia Reeves - 01/18/2024 11:28 AM EDT Called patient about scheduling an appt with Dr. García for January 2025. Pt was driving at the time of the call and will call back to schedule. documented in this encounter Plan of Treatment Upcoming Encounters Date Type Department Care Team (Late st Contact Info) Description 08/05/2024 2:00 PM EST Office [place] [address] Cheri Carvalho APRN [facility] [place] [address] documented as of this encounter Visit Diagnoses Not on filedocumented in this encounter Care Teams Literary Agent Relationship Specialty Start Date End Date Vanessa Oleary APRN [address] [place] [address] PCP - General Family Medicine 08/25/23 documented as of this encounter
--- OUTSIDE RECORDS SUMMARY | 2024-07-29 16:27 | XMS_ITS | Encounter Summary ---
Author Organization [facility] [place] [address] Care Team Providers Care Telephone Information Clerk Name Role Phone Vanessa Oleary KRISTIN Primary Care Provider [phone] Encounter Details Date Type Department Care Team (Late st Contact Info) Description 08/25/2023 1:45 PM EST Office Visit Dermatology [facility] [address] [place] [address] aJiron García MD [address] [facility] [place] [address] Neoplasm of unspecified behavior of bone, soft tissue, and skin Social History Tobacco Use Types Packs/Day Years Used Date Smoking Tobacco: Never Smokeless Tobacco: Never Sex and Gender Information Value Date Recorded Sex Assigned at Female 10/09/2020 8:32 AM EDT Gender Identity Not on file Sexual Orientation Not on file documented as of this encounter Progress Notes * Jairon García MD - 08/25/2023 1:45 PM EST Images from the original note were not included. DEPARTMENT OF DERMATOLOGY Medical Dermatology Clinic Provider: Jairon García MD FAAD at Dermatology [facility] Patient's preferred name Erma Preferred contact method for results Cell Phone with detailed results? [x]Yes []No Approved contact for medical information: PAST MEDICAL HISTORY (if blank, patient denies history) Melanoma -- Dysplastic nevi -- SCC -- BCC -- AK No history of AKs Skin Cancer Risk Risk: N/A Mitigation: N/A Other relevant history Dermatitis of the nose FAMILY HISTORY (if blank, patient denies history) Melanoma -- NMSC Sibling Other relevant history SOCIAL HISTORY Occupation: [employer] Last seen 03/31/2022. History of Present Illness: Erma Ruiz is 68 y.o. and here for the following: Spot of concern on the scalp that has been present for years. She states it is itchy and tender at times. Has become more raised Medications: Reviewed in eD-H Allergies: Reviewed in eD-H Skin Examination Standby: Clif Poon, BERYL Well developed, well-nourished in no apparent distress, alert and oriented to time, person, place and situation. Focused examination of the skin of the scalp significant for the following: Exam Findings/Assessment/Plan Neoplasm of Unspecified Behavior A. 6x7 mm dull red slightly warty papule with vascular atypia on the left crown scalp. DDx: ISK vs SCC vs Other Discussed differential diagnoses as above, and management options including the risks and benefits of observation, empiric treatment, or diagnostic biopsy and its risk for scar, pain, infection as well as biopsy wound care instructions. Discussed that pathology results will be available in approximately 1 week; and patient to contact clinic if result is not available in 2 weeks. Answered all questions. Patient elects biopsy. Procedure / Biopsy Discussed with patient biopsy - including but not limited to recurrence, cosmesis (scar, dyspigmentation, scar spread,keloid), pain, keloid/hypertrophic scar, bleeding, infection for biopsy. Answeredall questions. Patient verbally understands, verbally consents to and elects biopsy. Images Photo(s) taken by Noam García MD. with patient's verbal permission for use for clinical and education purposes. Figure A Procedure Time Out Performed: Name, , and site(s) confirmed with patient [x] Yes Blood Thinner? [x] Denies [] Yes Pacemaker or defribrillator? [x] Denies [] Yes Joint Replacement in the last 24 months? [x] Denies [] Yes Allergy to lidocaine or epinephrine? [x] Denies [] Yes Permission to convey results: [x] myDH Procedure (s) A. [x] Shave [] Punch Anesthesia: 1% lidocaine [] NO epi [x] 1:100,000 epi Sterile Prep Alcohol Lesion biopsied with shave technique using eugene blade. Hemostasis achieved with [x] Drysol [] Monsels [] Electrocautery. <1ml blood loss. No complications. Specimen(s): Placed in formalin and sent to Pathology for histologic examination. Post-op care: Vaseline, [x] Bandaid [] Pressure Dressing Post-operative pain: 0/10 Wound care instructions provided including cleaning Vaseline or topical antibiotic once or twice a day, allowing soapy water to wash over wound daily, and an optional Band-Aid or bandage. Recommend sun protection after the wound is healed to mitigate long-term redness. Follow-up: Pending pathology. Return sooner as needed for suspicious lesion, new or worsening dermatitis. [] Recall placed [] Forwarded to outsole scheduler [] Patient scheduled before exiting Scribe attestation: Clif Poon CMA has performed the documentation for this encounter inthe presence of and acting as a scribe for Jairon García MD FAAVanessa. I performed the above scribed service and agree with the accuracy of the documentation in this encounter. Reviewed and signed by: Jairon García MD FAAD Dermatology [facility] * Jairon García MD - 08/25/2023 1:45 PM EST [id number] Left crown scalp, skin shave biopsy: - Basal cell carcinoma, superficial and nodular types, present at the peripheral and deep specimen edges BCC, LEFT CROWN SCALP Positive margins. Because of the location and hairbearing area, I recommend Mohs surgery. Further, recommend skin cancer screenings every 6 months for the next year. documented in this encounter Plan of Treatment Upcoming Encounters Date Type Department Care Team (Late st Contact Info) Description 08/05/2024 2:00 PM EST Office [place] [address] Cheri Carvalho APRN [facility] [place] [address] Scheduled Orders Name Type Priority Associated Diagnoses Orde r Schedule Pathology Order Update Pathology/Cytol ogy Routine Neoplasm of unspecified behavior of bone, soft tissue, and skin Ordered: 08/25/2023 documented as of this encounter Procedures Procedure Name Priority Date/Time Associated Diagnosis Comments SPECIMEN TO PATHOLOGY Routine 08/25/2023 2:41 PM EST Neoplasm of unspecified behavior of bone, soft tissue, and skin SURGICAL PATHOLOGY REPORT Routine 08/25/2023 2:40 PM EST documented in this encounter Results * Specimen to Pathology (08/25/2023 2:41 PM EST) AP Specimen 08/25/2023 2:41 PM EST 08/25/2023 2:41 PM EST Narrative [facility] - 08/25/2023 2:41 PM EST Specimen requisition ordered. ??Separate Pathology report to follow Jairon García MD PATHOLOGY/CYTOLOGY O RDERAGAYE [facility] [place] [address] * (ABNORMAL) Surgical Pathology Report (08/25/2023 2:40 PM EST) Final Diagnosis [id number] ? Location: [facility] The signing pathologist has (i) examined the relevant preparation(s) for the specimen(s) and (ii) rendered or confirmed the diagnosis(es). . ?Surgical Pathology DIAGNOSIS Left crown scalp, skin shave biopsy: - ??Basal cell carcinoma, superficial and nodular types, ?? present at the peripheral and deep specimen edges Electronically signed by: ?Monica JOHNSON, PhD, Terence Cole Verified: ??09/03/2023 15:01 ??Dermatopathol ogist, Bone & Soft Tissue Pathologist Performed at: ??-[facility] [place], [place] [address] Dewaxer: Roxanna Ortega MD, FCAP, ??CLIA Certificate: [id number] DISCUSSION THIS RESULT REQUIRES PHYSICIAN/A.P.P . FOLLOW UP SPECIMEN(S) SUBMITTED A - left crown scalp, skin shave biopsy (1) CLINICAL INFORMATION 6 x 7 mm dull red slightly warty papule with vascular atypia on the left crown scalp. ??DDx: ISK versus SCC versus other SPECIMEN PROCESSING A - Labeled/Fixativ e: Patient demographics, formalin. Quantity/Size: ??Single, 1.0 x 0.6 cm. Tissue Description: Not oriented, hairbearing ruiz-fitzgerald rectangular skin shave with a central 0.4 x 0.2 cm irregularly bordered brown macular patch. Sections/Proces sing: Inked, serially sectioned and entirely submitted in 2 cassettes as follows: ?A1: ??Tips ?A2: ??Lesion ??shb(A) 09/03/2023 3:01 PM EST [facility] SPECIMEN FROM SKIN / Unknown 08/25/2023 2:40 PM EST 08/25/2023 2:40 PM EST Jairon García MD PATHOLOGY/CYTOLOGY O RDERABLES [facility] [place] [id number] [facility] [place] [address] documented in this encounter Visit Diagnoses Diagnosis Neoplasm of unspecified behavior of bone, soft tissue, and skin documented in this encounter Care Teams Telephone Information Clerk Relationship Specialty Start Date End Date Vanessa Oleary APRN [address] [place] [address] PCP - General Family Medicine 08/25/23 documented as of this encounter
--- OUTSIDE RECORDS SUMMARY | 2024-07-29 16:27 | XMS_ITS | Encounter Summary ---
Author Organization [facility] [place] [address] Care Team Providers Care Parts Room Assistant Name Role Phone Vanessa Oleary APRN Primary Care Provider [phone] Encounter Details Date Type Department Care Team (Late st Contact Info) Description 07/22/2024 Orders [place] [address] Cheri Carvalho ORCHID SUPERINTENDENT [facility] [place] [address] Social History Tobacco Use Types Packs/Day Years [...] 2:00 PM EST Office [place] [address] Cheri Carvalho ORCHID SUPERINTENDENT [facility] [place] [address] documented as of this encounter Visit Diagnoses Not on filedocumented in this encounter Care Teams Parts Room Assistant Relationship Specialty Start Date End Date Vanessa Oleary APRN [address] [place] [address] PCP - General Family Medicine 08/25/23 documented as of this encounter
--- OUTSIDE RECORDS SUMMARY | 2024-07-29 16:27 | XMS_ITS | Encounter Summary ---
Author Organization [facility] [place] [address] Care Team Providers Care Carpenter Mine Name Role Phone AnirudhVanessa munoz KRISTIN Primary Care Provider [phone] Encounter Details Date Type Department Care Team (Late st Contact Info) Description 09/06/2023 Telephone Dermatology at [facility] [address] [place] [address] Jairon García MD [address] [facility] [place] [address] Social History Tobacco Use Types Packs/Day Years Used Date Smoking Tobacco: Never Smokeless Tobacco: Never Sex and Gender Information Value Date Recorded Sex Assigned at Female 10/09/2020 8:32 AM EDT Gender Identity Not on file Sexual Orientation Not on file documented as of this encounter Miscellaneous Notes * Telephone Encounter - Ashia Reeves - 09/06/2023 8:14 AM EST Erma called upon seeing her bx results and recommendations from Dr. García. She would like to proceed with MOHS. Please enter referral. documented in this encounter Plan of Treatment Upcoming Encounters Date Type Department Care Team (Late st Contact Info) Description 08/05/2024 2:00 PM EST Office [place] [address] Cheri Carvalho APRN [facility] [place] [address] documented as of this encounter Visit Diagnoses Not on filedocumented in this encounter Care Teams Carpenter Mine Relationship Specialty Start Date End Date Vanessa Oleary APRN [address] [place] [address] PCP - General Family Medicine 08/25/23 documented as of this encounter
--- OUTSIDE RECORDS SUMMARY | 2024-07-29 16:27 | XMS_ITS | Encounter Summary ---
Author Organization [facility] Address [facility] [place] [address] Care Team Providers Care Unemployment Insurance Director Name Role Phone Vanessa Oleary APRN Primary Care Provider [phone] Encounter Details Date Type Department Care Team (Latest Contact Info) Description 10/17/2023 Travel Social History Tobacco Use Types Packs/Day [...] 2:00 PM EST Office [place] [address] Cheri Carvalho COMMUNICATIONS DESIGNER [facility] [place] [address] documented as of this encounter Visit Diagnoses Not on filedocumented in this encounter Care Teams Unemployment Insurance Director Relationship Specialty Start Date End Date Vanessa Oleary APRN [address] [place], [place] [address] PCP - General Family Medicine 08/25/23 documented as of this encounter
--- OUTSIDE RECORDS SUMMARY | 2024-07-29 16:27 | XMS_ITS | Encounter Summary ---
Author Organization [facility] [place] [address] Care Team Providers Care Respite Worker Name Role Phone AnirudhVanessa Janice FOSTER Primary Care Provider [phone] Encounter Details Date Type Department Care Team (Late st Contact Info) Description 07/22/2024 [place] [address] Cheri Carvalho [facility] [place] [address] Age-related osteoporosis without current pathological fracture; 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 Social History Tobacco Use Types Packs/Day Years [...] 2:00 PM EST [place] [address] Cheri Carvalho [facility] [place] [address] Scheduled Orders Name Type Priority Associated Diagnoses Orde r Schedule Comprehensive metabolic panel Non-fasting Lab STAT Age-related osteoporosis without current pathological fracture 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 Expected: 07/22/2024 (Approximate), Expires: 01/21/2025 CBC (with Diff) Lab STAT Age-related osteoporosis without current pathological fracture 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 Expected: 07/22/2024, Expires: 07/22/2025 Vitamin D, 25-Hydroxy Lab STAT Age-related osteoporosis without current pathological fracture 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 Expected: 07/22/2024, Expires: 01/21/2025 documented as of this encounter Visit Diagnoses Diagnosis Age-related osteoporosis without current pathological fracture Senile osteoporosis 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 Rheumatoid arthritis documented in this encounter Care Teams Respite Worker Relationship Specialty Start Date End Date Vanessa Oleary APRN [address] [place] [address] PCP - General Family Medicine 08/25/23 documented as of this encounter
--- OUTSIDE RECORDS SUMMARY | 2024-07-29 16:27 | XMS_ITS | Encounter Summary ---
[place] [address] Care Team Providers Care Casting Director Name Role Phone Elizabeth Song MD Primary Care Provider [phone] Reason for Visit * Reason Onset Date Comments Prior Authorization 08/03/2023 Encounter Details Date Type Department Care Team (Late st Contact Info) Description 08/03/2023 Telephone [place] [address] Helen Mas Prior Authorization Social History Tobacco Use Types Packs/Day Years Used Date Smoking Tobacco: Never Smokeless Tobacco: Never Sex and Gender Information Value Date Recorded Sex Assigned at Female 10/09/2020 8:32 AM EDT Gender Identity Not on file Sexual Orientation Not on file documented as of this encounter Miscellaneous Notes * Telephone Encounter - Helen Mas - 08/03/2023 9:09 AM EST PA Outcome: PA Not Needed Per [employer] insurance: No PA required at this time. Medication:Reclast ([id number]) Case # [id number] Phone number: [phone] documented in this encounter Plan of Treatment Upcoming Encounters Date Type Department Care Team (Late st Contact Info) Description 08/05/2024 2:00 PM EST Office [place] [address] Cheri Carvalho, COMPUTER SCIENCE INSTRUCTOR [facility] [place] [address] documented as of this encounter Visit Diagnoses Not on filedocumented in this encounter Care Teams Casting Director Relationship Specialty Start Date End Date Elizabeth Song MD [address] [place] [address] PCP - General 06/15/10 08/24/23 documented as of this encounter
--- OUTSIDE RECORDS SUMMARY | 2024-07-29 16:27 | XMS_ITS | Encounter Summary ---
Author Organization [facility] [place] [address] Care Team Providers Care Churn Tender Name Role Phone Elizabeth Song MD Primary Care Provider [phone] Encounter Details Date Type Department Care Team (Latest Contact Info) Description 08/24/2023 Travel Social History Tobacco Use Types Packs/Day [...] 2:00 PM EST Office [place] [address] Cheri Carvahlo, KRISTIN [facility] [place] [address] documented as of this encounter Visit Diagnoses Not on filedocumented in this encounter Care Teams Churn Tender Relationship Specialty Start Date End Date Elizabeth Song MD [address] [place] [address] PCP - General 06/15/10 08/24/23 documented as of this encounter
--- OUTSIDE RECORDS SUMMARY | 2024-07-29 16:27 | XMS_ITS | Encounter Summary ---
Author Organization [facility] [place] [address] Care Team Providers Care Reinsurance Claim Analyst Name Role Phone Elizabeth Song MD Primary Care Provider [phone] Reason for Visit * Reason Onset Date Comments Medication Refill 06/20/2023 Encounter Details Date Type Department Care Team (Late st Contact Info) Description 06/20/2023 [place] [address] Terence Castro PA 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; snf current use of systemic steroids Social History Tobacco Use Types Packs/Day Years [...] 2:00 PM EST Office [place] [address] Cheri Carvalho APRN [facility] [place] [address] documented as of this encounter Visit Diagnoses Diagnosis 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 Rheumatoid arthritis snf current use of systemic steroids Encounter for long-term (current) use of steroids documented in this encounter Care Teams Reinsurance Claim Analyst Relationship Specialty Start Date End Date Elizabeth Song MD [address] [place] [address] PCP - General 06/15/10 08/24/23 documented as of this encounter
--- OUTSIDE RECORDS SUMMARY | 2024-07-29 16:28 | XMS_ITS | Encounter Summary ---
Author Organization [facility] [place] [address] Care Team Providers Care Insecticide Expert Name Role Phone Elizabeth Song MD Primary Care Provider [phone] Reason for Visit * Reason Comments Skin Lesion Skin Check * Consultation (Routine) - Specialty Diagnoses / Procedures Referred By Jana allison Referred To Contact Dermatology Diagnoses Skin cancer screening skin check Procedures Consult Vanessa Oleary APRN [address] [place] [address] [facility] Dermatology [address] [place] [address] Referral ID Status Reason Start Date Expiration Date V isits Requested Visits Authorized [id number] 07/10/2018 07/10/2019 1 1 Encounter Details Date Type Department Care Team (Late st Contact Info) Description 08/27/2018 12:45 PM EST Office Visit Dermatology at [facility] [address] [place] [address] Jairon García MD [address] [facility] [place] [address] Neoplasm of uncertain behavior of skin of forehead (Primary Dx); Solar lentigo; Multiple benign nevi; Garsia angioma; Seborrheic keratoses Social History Tobacco Use Types Packs/Day Years Used Date Smoking Tobacco: Never Smokeless Tobacco: Never Sex and Gender Information Value Date Recorded Sex Assigned at Female 10/09/2020 8:32 AM EDT Gender Identity Not on file Sexual Orientation Not on file documented as of this encounter Progress Notes * Jairon García MD - 08/27/2018 12:45 PM EST Images from the original note were not included. DERMATOLOGY [place], [place] CONSULT Reason for Consultation: Lesion on the forehead Date of Consultation: 08/27/18 Consult Requested by: Vanessa Oleary Aprn [address] [place] [address] Chief Complaint: Lesion on forehead History of Present Illness Erma Ruiz is a 63 y.o. female who presents with the following concerns: ?? A burning lesion on the forehead that was first identified 3 years ago. Never been treated or biopsied. Lesion does not spontaneously bleed and is not scaly. ?? Dark lesion on the right cheek. Currently treating with topical retinol. Never been biopsied. Notenderness or bleeding. ?? Dark lesion on the pubic area. Never been treated or biopsied. Requests full body skin cancer screening. Declines evaluation under the [x] bra [x] underwear[x] socks. Review of Systems Significant for no pertinent and acute changes in constitutional, other skin systems upon specific queries. Skin Cancer History No personal history of skin cancer. No family history of skin cancer. Allergies Medications Patient has no known allergies. has a current medication list which includes the following prescription(s): ergocalciferol (vitamind2), prednisone, methotrexate, syringe with needle (disp), folic acid, leucovorin, premarin, montelukast sodium, multivitamin, and ascorbate calcium. 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 Well developed, well-nourished in no apparent distress, alert and oriented to time, person, place and situation. Skin Type: II. Patient was asked to disrobe to the level of comfort. [x] patient elects to wear bra [x] patient elects to cover buttocks Examination of the skin of the head - including the scalp, face, ears, eyelids, nose, lips, tongue,oral/nasal/conjunctival mucosa - neck, chest, abdomen, back, axillae, pubic area, upper and lower extremities (except for ankles and feet due to socks), including the nail plates, significant for thefollowing: ?? 4 x 5 mm, dull red, slightly atrophic papule with hyperkeratotic follicular prominence on dermoscopy on the mid forehead, right of midline ?? Multiple, uniformly fitzgerald, slightly irregular, polygonal macules c/w lentigos on sun-exposed areasof skin--including the right cheek ?? Well-demarcated, round or oval, fitzgerald or brown macules and papules with benign morphology on the head, trunk, pubic area, and extremities--including a 7 x 8 mm, light brown macule on the right pubicarea ?? Multiple, garsia red 1-2mm papules on the head, trunk, right axilla, pubic area, and extremities. ?? Scattered, stuck-on, well-demarcated, fitzgerald or brown, waxy or warty papules c/w SKs on the head, neck, trunk, and extremities Assessment and Plan Neoplasm of Uncertain Behavior, Right mid forehead DDx: AK vs scar vs SCC/BCC Reviewed treatment options, including benefits and risks: biopsy vs cryotherapy. Answered all questions. Joint decision to treat with cryotherapy. ?? Total 1 treated with cryotherapy, 1 cycle at 6 seconds for each, after verbally discussing the disease and treatment options, cryotherapy method, expected results/course and potential adverse effects, including crusting, persistent erythema, scar, blister, pain, dyspigmentation, and recurrence. P atient verbally agreed. Patient tolerated well with no complications. Wound care instructions provided. ?? If no resolution in 4 weeks, return to clinic; recommend biopsy. Lentigines Benign. Counseled: lentigines, sun damage and spontaneous development, rare risk of lentigo maligna (melanoma arising in a lentigo), sun protection, no treatment necessary but discussed cosmetic options, including topical bleaching agents (retinoll, retinoids), as well as chemical peels and lasers. Answered all questions. Handout given. Garsia Angiomas Counseled: garsia angiomas. Benign. No treatment necessary unless symptoms develop. Handout given. Seborrheic Keratoses Benign. No treatment necessary. Counseled: SKs, benign. Answered all questions. Handout given Patient Counseled [Skin Cancer] Counseled: sun protection, regular self skin exams, provider skin exams every 24 months, and the ABCDEs of melanoma/NMSC. Answered all questions. Handouts on how to do a self-exam, skin cancers and sun protection given to the patient. Follow-up: Skin cancer screening in July 2020 or return to clinic prn for new suspicious lesionsor if changes/symptoms in existing lesions develop. Note initiated by JORDYN Trujillo has performed the documentation for this encounter in the presence of and acting as a scribe for Dr. García. I performed the above scribed service and agree with the accuracy of the documentation in this encounter. Jairon García MD [facility] Section of Dermatology [facility] documented in this encounter Plan of Treatment Upcoming Encounters Date Type Department Care Team (Late st Contact Info) Description 08/05/2024 2:00 PM EST Office [place] [address] Cheri Carvalho, FIELD PIPELINES SUPERVISOR [facility] [place] [address] documented as of this encounter Visit Diagnoses Diagnosis Neoplasm of uncertain behavior of skin of forehead- Primary Neoplasm of uncertain behavior of skin Solar lentigo Other dyschromia Multiple benign nevi Benign neoplasm of skin, site unspecified Garsia angioma Nevus, non-neoplastic Seborrheic keratoses documented in this encounter Care Teams Insecticide Expert Relationship Specialty Start Date End Date Elizabeth Song MD [address] [place] [address] PCP - General 06/15/10 08/24/23 documented as of this encounter
--- OUTSIDE RECORDS SUMMARY | 2024-07-29 16:28 | XMS_ITS | Encounter Summary ---
Author Organization [facility] [place] [address] Care Team Providers Care Assembler Crimper Name Role Phone Elizabeth Song MD Primary Care Provider [phone] Reason for Visit * Reason Onset Date Comments Medication Refill 10/21/2020 Encounter Details Date Type Department Care Team (Late st Contact Info) Description 10/21/2020 Ref[place] [phone] Davian Hurst MD [facility] [place] [address] Social History Tobacco Use Types Packs/Day Years [...] 2:00 PM EST Office [place] [address] Cheri Carvalho APRN [facility] [place] [address] documented as of this encounter Visit Diagnoses Not on filedocumented in this encounter Care Teams Assembler Crimper Relationship Specialty Start Date End Date Elizabeth Song MD [address] [place] [address] PCP - General 06/15/10 08/24/23 documented as of this encounter
--- OUTSIDE RECORDS SUMMARY | 2024-07-29 16:28 | XMS_ITS | Encounter Summary ---
Author Organization [facility] [place] [address] Care Team Providers Care Senior Net Engineer Name Role Phone Elizabeth Song MD Primary Care Provider [phone] Reason for Visit * Reason Onset Date Comments Medication Refill 12/10/2019 Encounter Details Date Type Department Care Team (Late st Contact Info) Description 12/10/2019 [place] [address] Angel Luis Trejo, RN Social History Tobacco Use Types Packs/Day Years [...] 2:00 PM EST Office [place] [address] Cheri Carvalho, SEASONAL DRIVER [facility] [place] [place] [address] documented as of this encounter Visit Diagnoses Not on filedocumented in this encounter Care Teams Senior Net Engineer Relationship Specialty Start Date End Date Elizabeth Song MD [address] [place] [address] PCP - General 06/15/10 08/24/23 documented as of this encounter
--- OUTSIDE RECORDS SUMMARY | 2024-07-29 16:28 | XMS_ITS | Encounter Summary ---
Author Organization [facility] [place] [address] Care Team Providers Care Spinning And Winding Supervisor Name Role Phone Anirudh Vanessasavannah Camacho APRN Primary Care Provider [phone] Reason for Visit * Reason Onset Date Comments Medication Refill 04/29/2021 Medication Refill 05/18/2021 Encounter Details Date Type Department Care Team (Late st Contact Info) Description 04/29/2021 [place] [phone] Terence Castro PA Social History Tobacco Use Types Packs/Day Years Used Date Smoking Tobacco: Never Smokeless Tobacco: Never Sex and Gender Information Value Date Recorded Sex Assigned at Female 10/09/2020 8:32 AM EDT Gender Identity Not on file Sexual Orientation Not on file documented as of this encounter Miscellaneous Notes * Telephone Encounter - Liyah Interiano LPN - 04/29/2021 11:42 AM EDT documented in this encounter Plan of Treatment Upcoming Encounters Date Type Department Care Team (Late st Contact Info) Description 08/05/2024 2:00 PM EST Office [place] [phone] Cheri Carvalho APRN [facility] [place] [address] documented as of this encounter Visit Diagnoses Not on filedocumented in this encounter Care Teams Spinning And Winding Supervisor Relationship Specialty Start Date End Date Vanessa Oleary APRN [address] [place] [address] PCP - General Family Medicine 08/25/23 documented as of this encounter
--- OUTSIDE RECORDS SUMMARY | 2024-07-29 16:28 | XMS_ITS | Encounter Summary ---
Author Organization [facility] [place] [address] Care Team Providers Care Fire Observer Name Role Phone Elizabeth Song MD Primary Care Provider [phone] Reason for Visit * Reason Onset Date Comments Medication Refill 07/29/2019 Encounter Details Date Type Department Care Team (Late st Contact Info) Description 07/29/2019 [place] [phone] Davian Hurst MD [facility] [place] [place] [address] Social History Tobacco Use Types Packs/Day Years [...] 2:00 PM EST Office [place] [phone] Cheri Carvalho, BRACER [facility] [place] [address] documented as of this encounter Visit Diagnoses Not on filedocumented in this encounter Care Teams Fire Observer Relationship Specialty Start Date End Date Elizabeth Song MD [address] [place] [address] PCP - General 06/15/10 08/24/23 documented as of this encounter
--- OUTSIDE RECORDS SUMMARY | 2024-07-29 16:28 | XMS_ITS | Encounter Summary ---
[place] [address] Care Team Providers Care Supervisor Metal Furniture Fabrication Name Role Phone Elizabeth Song MD Primary Care Provider Reason for Visit * Reason Onset Date Comments Medication Refill 02/02/2023 Encounter Details Date Type Department Care Team (Late st Contact Info) Description 02/02/2023 [place] [phone] Terence Castro PA 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; Primary osteoarthritis of both hands Social History Tobacco Use Types Packs/Day Years Used Date Smoking Tobacco: Never Smokeless Tobacco: Never Sex and Gender Information Value Date Recorded Sex Assigned at Female 10/09/2020 8:32 AM EDT Gender Identity Not on file Sexual Orientation Not on file documented as of this encounter Miscellaneous Notes * Telephone Encounter - Jaja Herrera LPN - 02/02/2023 12:12 PM EDT tiZANidine (Zanaflex) 2 mg tablet Last office visit: 11/14/22 (Tele[facility]) future apt. 06/12/23 Last refill: 11/14/22 Start Date: 11/14/22 End Date: 12/01/22 Discontinued by: Terence Castro PA on 12/01/2022 13:14 Reason: Reorder documented in this encounter Plan of Treatment Upcoming Encounters Date Type Department Care Team (Late st Contact Info) Description 08/05/2024 2:00 PM EST [place] [address] Cheri Carvalho, ELECTROTYPER APPRENTICE [facility] [place] [address] documented as of this encounter Visit Diagnoses Diagnosis 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 Rheumatoid arthritis Primary osteoarthritis of both hands documented in this encounter Care Teams Supervisor Metal Furniture Fabrication Relationship Specialty Start Date End Date Elizabeth Song MD [address] [place] [address] PCP - General 06/15/10 08/24/23 documented as of this encounter
--- OUTSIDE RECORDS SUMMARY | 2024-07-29 16:28 | XMS_ITS | Encounter Summary ---
[place] [address] Care Team Providers Care Casino Surveillance Officer Name Role Phone Elizabeth Song MD Primary Care Provider [phone] Reason for Visit * Reason Onset Date Comments Other 10/02/2019 Medication Refill 10/02/2019 Encounter Details Date Type Department Care Team (Late st Contact Info) Description 10/02/2019 [place] [phone] Angel Luis Trejo RN Social History Tobacco Use Types Packs/Day Years Used Date Smoking Tobacco: Never Smokeless Tobacco: Never Sex and Gender Information Value Date Recorded Sex Assigned at Female 10/09/2020 8:32 AM EDT Gender Identity Not on file Sexual Orientation Not on file documented as of this encounter Miscellaneous Notes * Telephone Encounter - Angel Luis Trejo RN - 10/02/2019 4:59 PM EDT Images from the original note were not included. Davian Hurst MD Gavalakis, Rory A RN Caller: Unspecified (Today, ??8:45 AM) ?? Tell her to take 5-7.5 mg prednisone daily and resume her methotrexate 4 tablets weekly This is a flare probably due to her coming off methotrexate Happy to see next week Patient updated on above. She would prefer to hold off on resuming mtx, states has been off for a year and would prefer not to resume. She will take Prednisone 5-7.5 mg daily. She was also advised that she may be seen next week. She deferred an appointment at this time, but she will contact clinic if symptoms don't improve and she was also advised to contact clinic to update on her status and improvement in symptoms, expressed understanding. * Telephone Encounter - Angel Luis Trejo RN - 10/02/2019 11:21 AM EDT Patient calls clinic regarding Prednisone. 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 Has been at 2.5 mg prednisone daily, down from 5 mg. Few aches and pains at that time. Not on mtx. Tried diclofenac, minimal relief. Had gone back up to 5 mg, 2.5 mg at night as well and acetaminophen and occasional ibuprofen, mild relief. While at [facility], knees swelled up, difficulty walking. Hands swelled up. Migrating pain. Has been home for a weeks, but discomfort still present, migrates from shoulder to arms, ankles today. Right hand/wrist, some to left hand/wrist, red, warmth, swelling recently, has since come down, but migrates. No fever or chills. No h/a. No cough. No c/p. No n/v. No gi or gu issues present. Denies any s/s ofinfection. Denies any acute issues at this time. Patient seeks instructions on steroid dose, questions if she should she take 5 mg at the same time as the 2.5 mg or alternate steroid instructions. Pharmacy is [facility] in [facility]. Would needrefill of Prednisone. documented in this encounter Plan of Treatment Upcoming Encounters Date Type Department Care Team (Late st Contact Info) Description 08/05/2024 2:00 PM EST Office Visit Rheumatology at [facility] [place] [address] Cheri Carvalho, QUALITY CONTROL INSPECTOR [facility] [place] [address] documented as of this encounter Visit Diagnoses Not on filedocumented in this encounter Care Teams Casino Surveillance Officer Relationship Specialty Start Date End Date Elizabeth Song MD [address] [place] [address] PCP - General 06/15/10 08/24/23 documented as of this encounter
--- OUTSIDE RECORDS SUMMARY | 2024-07-29 16:28 | XMS_ITS | Encounter Summary ---
Author Organization [facility] [place] [address] Care Team Providers Care Court Magistrate Name Role Phone Elizabeth Song MD Primary Care Provider [phone] Reason for Visit * Reason Onset Date Comments Medication Refill 12/01/2022 Encounter Details Date Type Department Care Team (Late st Contact Info) Description 12/01/2022 [place] [address] Terence Castro PA 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; Primary [...] 2:00 PM EST Office [place] [address] Cheri Carvalho APRN [facility] [place] [address] documented as of this encounter Visit Diagnoses Diagnosis 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 Rheumatoid arthritis Primary osteoarthritis of both hands documented in this encounter Care Teams Court Magistrate Relationship Specialty Start Date End Date Elizabeth Song MD [address] [place] [address] PCP - General 06/15/10 08/24/23 documented as of this encounter
--- OUTSIDE RECORDS SUMMARY | 2024-07-29 16:28 | XMS_ITS | Encounter Summary ---
Author Organization [facility] [place] [address] Care Team Providers Care Marketer Name Role Phone Elizabeth Song MD Primary Care Provider [phone] Reason for Visit * Reason Onset Date Comments Medication Refill 12/30/2022 Encounter Details Date Type Department Care Team (Late st Contact Info) Description 12/30/2022 [place] [address] Terence Castro PA 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; snf [...] 2:00 PM EST Office [place] [address] Cheri Carvalho APRN [facility] [place] [address] documented as of this encounter Visit Diagnoses Diagnosis 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 Rheumatoid arthritis snf current use of systemic steroids Encounter for long-term (current) use of steroids documented in this encounter Care Teams Marketer Relationship Specialty Start Date End Date Elizabeth Song MD [address] [place] [address] PCP - General 06/15/10 08/24/23 documented as of this encounter
--- OUTSIDE RECORDS SUMMARY | 2024-07-29 16:28 | XMS_ITS | Encounter Summary ---
[place] [address] Care Team Providers Care Development Manager Name Role Phone Elizabeth Song MD Primary Care Provider [phone] Encounter Details Date Type Department Care Team (Latest Contact Info) Description 11/14/2022 3:30 PM EDT TH Visit (TeleHealth) [place] [address] Terence Castro PA 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 (Primary Dx); custodial current use of systemic steroids; Primary osteoarthritis of both hands Social History Tobacco Use Types Packs/Day Years Used Date Smoking Tobacco: Never Smokeless Tobacco: Never Sex and Gender Information Value Date Recorded Sex Assigned at Female 10/09/2020 8:32 AM EDT Gender Identity Not on file Sexual Orientation Not on file documented as of this encounter Patient Instructions * Patient Instructions* Terence Castro PA - 11/14/2022 3:30 PM EDT Izanadine 2 mg QHS Prednisone 5 mg per day. Refill 1mg tablet for taper Labs pending documented in this encounter Progress Notes * Terence Castro PA - 11/14/2022 3:30 PM EDT Rheumatology Outpatient Note Chart review [...] who presents today for evaluation of RA. 06.09.22:Impression/Recommendations : Erma Ruiz is a 67 y.o. female who presents today with rheumatoid arthritis clinically quiet patient on prednisone 5 mg/day with reported new diagnosis of osteoporosis. She will again try to minimize the amount of prednisone she utilizes by attempting to decrease her dose to 5 mg alternating with 4 mg/day. Previous attempts to taper prednisone have failed. She will also reconsider utilization ofbisphosphonate namely Reclast she will consider the pluses and minuses of this and let us know if she wishes to proceed. We will otherwise see her again in follow-up in 6 to 12 months sooner if otherwise indicated patient in agreement with this plan. Interval History: Patient presents today for follow-up. She is currently on prednisone 5 mg/day she tapers down to 4 mg/day was doing well and then experienced planter fasciitis in July she was going to go to physical therapy but ended up having COVID she thinks it was a mild course. She was limping a bit becauseof the plantar fasciitis. She went to physical therapy in September which helped her feet begin to feelbetter but ever since then she has been having some ongoing back pain. She also thinks everything hurts now she has kind of diffuse aches and pains and no particular place she also reports fatigue and brain fog. She has not updated laboratory studies she is trying to be as active as she can walking and riding a bike. There is otherwise been no other major changes in her health. Review of Systems Constitutional: Positive for malaise/fatigue. Negative for diaphoresis, weight loss and chills. Respiratory: Negative for shortness of breath, chest discomfort, hemoptysis, orthopnea and pleuritic pain. Gastrointestinal: Negative for vomiting, steatorrhea, diarrhea and trouble swallowing. HENT: Negative. Psychiatric/Behavioral: Negative for social aversion. Hematologic/Lymphatic: Negative. Allergic/Immunologic: Negative for recurrent infections and immunocompromised state. Musculoskeletal: Positive for joint pain. Negative for stiffness, myalgias, joint swelling and fracture. Endocrine: Negative for polydipsia, polyphagia, polyuria and Cushingoid appearance. Cardiovascular: Negative for syncope. Neurological: Negative for vertigo. Skin: Negative for urticaria, blister and photosensitivity. Allergies No Known Allergies Medications Current Outpatient Medications on File Prior to Visit Medication Sig Dispense Refill ??? predniSONE (Deltasone) 1 mg Tablet Take 4 tablets by mouth daily. 120 tablet 3 ??? ergocalciferol, vitamin D2, (VITAMIN D ORAL) Take 10,000 Units by mouth daily. ??? PREMARIN 0.625 mg/gram Cream prn 0 ??? MULTIVITAMIN ORAL Take by mouth as needed. ??? ASCORBATE CALCIUM (VITAMIN C ORAL) Take by mouth daily as needed. No current facility-administered medications on file prior to visit. PMHX Patient Active Problem List Diagnosis Code ??? 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 Lentigines L81.4 SurgHX No past surgical history on file. Physical Examination: There were no vitals taken for this visit. Physical Exam HENT: Head: Normocephalic and atraumatic. Right Ear: External ear normal. Left Ear: External ear normal. Nose: Nose normal. Eyes: General: No scleral icterus. Right eye: No discharge. Left eye: No discharge. Conjunctiva/sclera: Conjunctivae normal. Neurological: Mental Status: She is alert and oriented to person, place, and time. Motor: No weakness. Psychiatric: Mood and Affect: Mood normal. Behavior: [...] 5 mg/day for now patient in agreement. documented in this encounter Plan of Treatment Upcoming Encounters Date Type Department Care Team (Late st Contact Info) Description 08/05/2024 2:00 PM EST Office [place] [address] Cheri Carvalho COLOR SEPARATION PHOTOGRAPHER [facility] [place] [address] documented as of this encounter Visit Diagnoses Diagnosis 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- Primary Rheumatoid arthritis custodial current use of systemic steroids Encounter for long-term (current) use of steroids Primary osteoarthritis of both hands documented in this encounter Care Teams Development Manager Relationship Specialty Start Date End Date Elizabeth Song MD [address] [place] [address] PCP - General 06/15/10 08/24/23 documented as of this encounter
--- OUTSIDE RECORDS SUMMARY | 2024-07-29 16:28 | XMS_ITS | Encounter Summary ---
Author Organization [facility] [place] [address] Care Team Providers Care Entrepreneurship Program Director Name Role Phone Elizabeth Song MD Primary Care Provider [phone] Reason for Visit * Reason Onset Date Comments Medication Refill 01/03/2021 Encounter Details Date Type Department Care Team (Late st Contact Info) Description 01/03/2021 Ref[place] [phone] Eliana Nolasco, [facility] [place] [place] [address] Social History Tobacco Use Types Packs/Day Years [...] 2:00 PM EST Office [place] [phone] Cheri Carvalho [facility] [place] [place] [address] documented as of this encounter Visit Diagnoses Not on filedocumented in this encounter Care Teams Entrepreneurship Program Director Relationship Specialty Start Date End Date Elizabeth Song MD [address] [place] [address] PCP - General 06/15/10 08/24/23 documented as of this encounter
--- OUTSIDE RECORDS SUMMARY | 2024-07-29 16:28 | XMS_ITS | Encounter Summary ---
Author Organization [facility] [place] [address] Care Team Providers Care Skein Bander Name Role Phone Elizabeth Song MD Primary Care Provider Reason for Visit * Reason Comments Medication Refill Encounter Details Date Type Department Care Team (Late st Contact Info) Description 05/08/2019 Ref[place] [address] Davian Hurst MD [facility] [place] [address] Social History Tobacco Use Types Packs/Day Years [...] PM EST Office [place] [address] Cheri Carvalho, PALEONTOLOGICAL HELPER [facility] [place] [address] documented as of this encounter Visit Diagnoses Not on filedocumented in this encounter Care Teams Skein Bander Relationship Specialty Start Date End Date Elizabeth Song MD [address] [place] [address] PCP - General 06/15/10 08/24/23 documented as of this encounter
--- OUTSIDE RECORDS SUMMARY | 2024-07-29 16:28 | XMS_ITS | Encounter Summary ---
Author Organization [facility] [place] [address] Care Team Providers Care Automotive Specialty Technician Name Role Phone Anirudh Vanessasavannah Camacho APRN Primary Care Provider [phone] Reason for Visit * Reason Onset Date Comments Medication Refill 05/15/2020 Encounter Details Date Type Department Care Team (Late st Contact Info) Description 05/15/2020 Refill [place] [phone] Davian Hurst MD [facility] [place] [address] Social History Tobacco Use Types Packs/Day Years [...] 2:00 PM EST Office Visit [place] [phone] Cheri Carvalho APRN [facility] [place] [place] [address] documented as of this encounter Visit Diagnoses Not on filedocumented in this encounter Care Teams Automotive Specialty Technician Relationship Specialty Start Date End Date Vanessa Oleary APRN [address] [place] [address] PCP - General Family Medicine 08/25/23 documented as of this encounter
--- OUTSIDE RECORDS SUMMARY | 2024-07-29 16:28 | XMS_ITS | Encounter Summary ---
[place] [address] Care Team Providers Care Eyeglass Lens Cutter Name Role Phone Elizabeth Song MD Primary Care Provider [phone] Reason for Visit * Reason Comments Follow-up Rheumatoid Arthritis Encounter Details Date Type Department Care Team (Latest Contact Info) Description 04/07/2021 1:00 PM EDT Office [place] [phone] Terence Castro PA 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 (Primary Dx); shelter current use of systemic steroids; Primary osteoarthritis [...] Sign Reading Time Taken Comments Blood Pressure 128/79 04/07/2021 1:00 PM EDT Pulse 83 04/07/2021 1:00 PM EDT Temperature 37 ??C (98.6 ??F) 04/07/2021 1:00 PM EDT Respiratory Rate 16 04/07/2021 1:00 PM EDT Oxygen Saturation 100% 04/07/2021 1:00 PM EDT Inhaled Oxygen Concentration - - Weight 56.5 kg (124 lb 8 oz) 04/07/2021 1:00 PM EDT Height 162.6 cm (5' 4) 04/07/2021 1:00 PM EDT Body Mass Index 21.37 04/07/2021 1:00 PM EDT documented in this encounter Patient Instructions * Patient Instructions* Terence Castro PA - 04/07/2021 1:00 PM EDT Continue prednisone 5 mg per day intiate trial of HCQ 400mg per day Labs today and again in 3 weeks Follow up 3 months documented in this encounter Progress Notes * Terence Castro PA - 04/07/2021 1:00 PM EDTSummary: RA - Rheumatology Outpatient Note Chart review conducted prior to the visit includes review of PMHx, medications, allergies, and prior office notes. The most pertinent findings are listed below. The Patient History Form was reviewed with the patient, which included review of ROS, social hx, pmhx, famhx, current and prior medications, allergies, IZs, and ADLs. The form is scanned into the patient's chart. History of Present Illness: Erma Ruiz is a 65 y.o. female who presents today for evaluation of RA. 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 CCP/RF,a CDAI of 20 with hand and foot [...] lowered it to 10 mg/d in July. Patient is no longer on methotrexate. Unable to tolerate lower dose of prednisone 5 mg/d even with 1 mg/d tapering. Interval History: Patient presents today for follow up and transfer of care. She continues on prednisone 5 mg per day. She has failed tapering prednisone a number of times she previously failed methotrexate with side effects. On 5 mg a day she feels great when she tapers the prednisone she has increased fatigue she denies any joint swelling she also reports increased arthralgias on lower doses at her last evaluation she has got a consider trial of hydroxychloroquine she has some questions regarding that today. 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 ?? Review of Systems Constitutional: Negative for anorexia, diaphoresis and chills. Respiratory: Negative for cough, hemoptysis, orthopnea and pleuritic pain. Gastrointestinal: Negative for steatorrhea, diarrhea and trouble swallowing. HENT: Negative. Psychiatric/Behavioral: Negative for social aversion. Hematologic/Lymphatic: Negative. Allergic/Immunologic: Negative for immunocompromised state. Musculoskeletal: Negative. Endocrine: Negative for polydipsia, polyphagia, polyuria and Cushingoid appearance. Cardiovascular: Negative for syncope. Skin: Negative for dry skin, urticaria, blister, photosensitivity and erythema. Allergies No Known Allergies Medications Current Outpatient Medications on File Prior to Visit Medication Sig Dispense Refill ??? predniSONE (Deltasone) 5 mg Tablet Take by mouth daily 5 mg alternating with 2.5 mg every otherday 30 tablet 0 ??? ergocalciferol, vitamin D2, (VITAMIN D ORAL) Take 10,000 Units by mouth daily. ??? PREMARIN 0.625 mg/gram Cream prn 0 ??? MONTELUKAST SODIUM (SINGULAIR ORAL) Take by mouth as needed. ??? MULTIVITAMIN ORAL Take by mouth as needed. ??? ASCORBATE CALCIUM (VITAMIN C ORAL) Take by mouth daily as needed. No current facility-administered medications on file prior to visit. PMHX Patient Active Problem List Diagnosis Code ??? 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 Musculoskeletal: No synovitis OA features hands Physical Exam Constitutional: General: She is not in acute distress. Appearance: She is normal weight. She is not ill-appearing, toxic-appearing or diaphoretic. HENT: Head: Normocephalic and atraumatic. Right Ear: External ear normal. Left Ear: External ear normal. Nose: Nose normal. Eyes: General: No scleral icterus. Right eye: No discharge. Left eye: No discharge. Conjunctiva/sclera: Conjunctivae normal. Cardiovascular: Rate and Rhythm: Regular rhythm. Heart sounds: Normal heart sounds. No friction rub. No gallop. Pulmonary: Effort: No respiratory distress. Breath sounds: Normal breath sounds. No stridor. No wheezing, rhonchi or rales. Chest: Chest wall: No tenderness. Abdominal: Palpations: Abdomen is soft. Tenderness: There is no guarding or rebound. Musculoskeletal: General: No swelling, tenderness, deformity or signs of injury. Normal range of motion. Right lower leg: No edema. Left lower leg: No edema. Skin: General: Skin is warm and dry. Coloration: Skin is not jaundiced or pale. Findings: No bruising, erythema, lesion or rash. Neurological: Mental Status: She is alert and oriented to person, place, and time. Motor: No weakness. Psychiatric: Mood and Affect: Mood normal. Behavior: Behavior normal. Thought Content: Thought content normal. Judgment: Judgment normal. Impression/Recommendations : Erma Ruiz is a 65 y.o. female who presents today with RA. Patient with no disease activity on exam and low grade Oa features in the hands. After a review of her options patient elected to initiate a trial of HCQ SER expectations discussed. After initiating this steroid sparing agent will repeat acbc in about 3-4 week, and three months from now will re attempt a prednisone taper, by 1/2 mg per month. Otherwise follow up three months sooner if indicated patient in agreement. 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 HEMOGRAM Routine 04/07/2021 1:43 PM EDT 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 current use of systemic steroids DIFFERENTIAL, AUTOMATED Routine 04/07/2021 1:43 PM EDT 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 current use of systemic steroids HC ESR-SEDIMENTATION RATE, BLOOD Routine 04/07/2021 1:43 PM EDT 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 current use of systemic 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 HC CBC,PLT & AUTO DIFF Routine 1:43 PM EDT 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 shelter current use of systemic steroids COMPREHENSIVE METABOLIC PANEL Routine 04/07/2021 1:43 PM EDT 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 current use of systemic 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 documented in this encounter Results * (ABNORMAL) Differential, Automated (04/07/2021 1:43 PM EDT) Neutrophil % 81.8 % [facility] Neutrophil Absolute 6.98(H) 1.70 - 6.10 x10(3)/mc L [facility] Lymph % 11.8 % [facility] Lymphocytes Abs 1.0 0.9 - 3.2 x10(3)/mc L [facility] Monocyte % 4.6 % [facility] Monocyte Abs 0.4 0.3 - 0.9 x10(3)/mc L [facility] Eos % 0.5 % [facility] Eosinophils Abs 0.0 0.0 - 0.4 x10(3)/mc L [facility] Basophil % 1.1 % [facility] Baso Absolute 0.1 0.0 - 0.1 x10(3)/mc L [facility] Immature Gran % 0.20 % [facility] Comment: Immature granulocytes(IG's)percentage and absolute count will include metamyelocytes, myelocytes, and promyelocytes. Blood smears from CBCs yielding IG's will be scanned manually for concordance. If this scan disagrees with the automated IG or if promyelocytes are noted, a manual differential will be performed. Immature Gran Absolute 0.02 0.00 - 0.04 x10(3)/mc L [facility] Blood 04/07/2021 1:43 PM EDT 04/07/2021 1:59 PM EDT Narrative Resulting Agency Comment Spec In Lab Terence GONZALEZ HEMATOLOGY ORDERABL ES [facility] [place] [address] * Hemogram (04/07/2021 1:43 PM EDT) White Blood Cell 8.5 4.0 - 9.5 x10(3)/[facility] Red Blood Cell 4.56 4.00 - 5.21 x10(6)/[facility] Hemoglobin 13.1 11.7 - 15.5 gm/dL [facility] Hematocrit 40.0 35.7 - 45.8 % [facility] Mean Cell Volume 87.7 82.6 - 94.4 fL [facility] Mean Cell Hemoglobin 28.7 27.1 - 32.0 pg [facility] Mean Cell Hemoglobin Concentration 32.8 31.7 - 35.0 gm/dL [facility] Platelet 304 145 - 357 x10(3)/[facility] RDW Standard Deviation 43.4 37.0 - 46.0 [facility] RDW coefficient of variation 13.3 11.5 - 14.1 % [facility] Mean Platelet Volume 8.5 7.6 - 12.9 fL [facility] NRBC% auto 0.0 % [facility] NRBC Absolute 0.000 0.000 - 0.000 x10(3)/[facility] Blood 04/07/2021 1:43 PM EDT 04/07/2021 1:59 PM EDT Narrative Resulting Agency Comment Spec In Lab Terence GONZALEZ HEMATOLOGY ORDERABL ES Performing Organization Address [facility] Co de Phone Number [facility] [place] [address] * CRP, acute inflammation (04/07/2021 1:43 PM EDT) C-Reactive Protein <3.0 <=4.9 mg/L [facility] Blood 04/07/2021 1:43 PM EDT 04/07/2021 1:59 PM EDT Narrative Resulting Agency Comment Spec In Lab Davian Hurst MD CHEMISTRY ORDERABLES Performing Organization Address [facility] Co de Phone Number [facility] [place] [address] * Sedimentation rate (04/07/2021 1:43 PM EDT) [facility] Sedimentation Rate Automated 18 2 - 39 mm/hr [facility] Comment: Effective July 03, 2019 new capillary photometric technology has resulted in a change in reference ranges. It is recommended that each ESR result be reviewed with its own age appropriate reference range. Blood 04/07/2021 1:43 PM EDT 04/07/2021 1:59 PM EDT Narrative Resulting Agency Comment Spec In Lab Davian Hurst MD HEMATOLOGY ORDERABLE S Performing Organization Address [facility] Co de Phone Number [facility] [place] [address] * Comprehensive metabolic panel (non-fasting) (04/07/2021 1:43 PM EDT) Glucose 103 65 - 199 mg/dL [facility] Comment:Diabetes: >=200 mg/d L plus symptoms Blood Urea Nitrogen 12 8 - 18 mg/dL [facility] Creatinine 0.88 0.70 - 1.20 mg/dL [facility] Sodium 142 135 - 145 mmol/L [facility] Potassium 3.9 3.5 - 5.0 mmol/L [facility] Comment: Please note: ??Patients with WBC >100,000 may have falsely elevated Potassium levels. ??For accurate Potassium quantification in these patients send serum separator tube (gold top) for subsequent determinations. ??Contact the Clinical Chemistry Laboratory if there are any questions. Chloride 107 98 - 107 mmol/L [facility] Carbon Dioxide 25 22 - 31 mmol/L [facility] Anion Gap 10 5 - 15 mmol/L [facility] Calcium 9.1 8.5 - 10.5 mg/dL [facility] Protein, Total 7.0 6.1 - 8.0 gm/dL [facility] Albumin 4.3 3.2 - 5.2 gm/dL [facility] Aspartate Aminotransferase 30 0 - 30 unit/L [facility] Alanine Aminotransferase 6 0 - 30 unit/L [facility] Alkaline Phosphatase 76 35 - 105 unit/L [facility] Bilirubin, Total 0.3 0.2 - 1.3 mg/dL [facility] Est Glomerular Filtration Rate 69 >=60 mL/min/1. 73 m?? [facility] Comment: This patient? s estimated glomerular filtration rate (eGFR) is between 69 mL/min/1.73 m2 (patients with less muscle mass) and 80 mL/min/1.73 m2 (patients with more muscle mass) as determined by the CKD-EPI equation. Assessment of eGFR is not appropriate when creatinine concentrations are rapidly changing. For clinical decisions where creatinine clearance will affect therapy, a 24-hour urine creatinine clearance may be advised. Assignment of CKD stage 1 - 5 for patients with an eGFR near the transition point between stages may be based on clinical assessment of muscle mass and symptoms in addition to eGFR. Blood 04/07/2021 1:43 PM EDT 04/07/2021 1:59 PM EDT Narrative Resulting Agency Comment Spec In Lab Davian Hurst MD [place] [address] documented in this encounter Visit Diagnoses Diagnosis 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- Primary Rheumatoid arthritis shelter current use of systemic steroids Encounter for long-term (current) use of steroids Primary osteoarthritis of both hands documented in this encounter Care Teams Eyeglass Lens Cutter Relationship Specialty Start Date End Date Elizabeth Song MD [address] [place] [address] PCP - General 06/15/10 08/24/23 documented as of this encounter
--- OUTSIDE RECORDS SUMMARY | 2024-07-29 16:28 | XMS_ITS | Encounter Summary ---
Author Organization [facility] [place] [address] Care Team Providers Care Marketing Production Manager Name Role Phone Elizabeth Song MD Primary Care Provider [phone] Reason for Visit * Reason Onset Date Comments Medication Refill 11/05/2019 Encounter Details Date Type Department Care Team (Late st Contact Info) Description 11/05/2019 [place] [address] Davian Hurst MD [facility] [place] [address] Social History Tobacco Use Types Packs/Day Years [...] 2:00 PM EST Office [place] [phone] Cheri Carvalho, TECHNICAL SOLUTIONS DIRECTOR [facility] [place] [address] documented as of this encounter Visit Diagnoses Not on filedocumented in this encounter Care Teams Marketing Production Manager Relationship Specialty Start Date End Date Elizabeth Song MD [address] [place] [address] PCP - General 06/15/10 08/24/23 documented as of this encounter
--- OUTSIDE RECORDS SUMMARY | 2024-07-29 16:28 | XMS_ITS | Encounter Summary ---
Author Organization [facility] [place] [address] Care Team Providers Care Sql Database Administrator Name Role Phone Elizabeth Song MD Primary Care Provider [phone] Reason for Visit * Reason Onset Date Comments Medication Refill 01/21/2021 Encounter Details Date Type Department Care Team (Late st Contact Info) Description 01/21/2021 Ref[place] [phone] Cheri Carvalho [facility] [place] [address] Social History Tobacco Use Types Packs/Day Years [...] PM EST Office [place] [phone] Cheri Carvalho ORTHOTIC ASSISTANT [facility] [place] [address] documented as of this encounter Visit Diagnoses Not on filedocumented in this encounter Care Teams Sql Database Administrator Relationship Specialty Start Date End Date Elizabeth Song MD [address] [place] [address] PCP - General 06/15/10 08/24/23 documented as of this encounter
--- OUTSIDE RECORDS SUMMARY | 2024-07-29 16:28 | XMS_ITS | Encounter Summary ---
Author Organization [facility] [place] [address] Care Team Providers Care I&C Tech Name Role Phone Elizabeth Song MD Primary Care Provider [phone] Encounter Details Date Type Department Care Team (Late st Contact Info) Description 09/02/2019 11:30 AM EST Office [place] [address] Davian Hurst MD [facility] [place] [address] Rheumatoid arthritis, involving unspecified site, unspecified rheumatoid factor presence Social History Tobacco Use Types Packs/Day Years Used Date Smoking Tobacco: Never Smokeless Tobacco: Never Sex and Gender Information Value Date Recorded Sex Assigned at Female 10/09/2020 8:32 AM EDT Gender Identity Not on file Sexual Orientation Not on file documented as of this encounter Last Filed Vital Signs Vital Sign Reading Time Taken Comments Blood Pressure 126/87 09/02/2019 11:30 AM EST Pulse 69 09/02/2019 11:30 AM EST Temperature 36.4 ??C (97.5 ??F) 09/02/2019 11:[address] Respiratory Rate - - Oxygen Saturation 100% 09/02/2019 11:30 AM EST Inhaled Oxygen Concentration - - Weight 53.5 kg (118 lb) 09/02/2019 11:30 AM EST Height 163 cm (5' 4.17) 09/02/2019 11:30 AM EST Body Mass Index 20.15 09/02/2019 11:30 AM EST documented in this encounter Patient Instructions * Patient Instructions* Davian Hurst MD - 09/02/2019 11:30 AM EST 1. Labs today 2. Try to taper prednisone to 1/2 T every other day for a month and then stop 3. Diclofenac gel up to 4 x a day for joint symptoms or signs 4. 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 She was started on Prednisone 5 mg followed by taper and MTX. At her December 2013, some alopecia noted, despite daily MVI and folate and wants to taper prednisone. We reduced the MTX to 15mg/week by injection because of alopecia in 2017 and further lowered it to 10 mg/d in July. Unable to tolerate lower dose of prednisone 5 mg/d even with 1 mg/d tapering. Last seen 6 months ago. My impression at that time was: Seropositive RA with great response to no MTX + 5 mg/d Prednisone. We were going to try to taper her prednisone Interval History: Feeling great, lost 35 lbs on Plant paradox diet Irregular MTX (last taken 7.11.09) No joint pain occasional metatarsalgia in bed No issues Wants to taper prednisone beyond 2.5 mg/d Review of Systems Constitutional: No fevers, chills, malaise. Skin: no rashes, a couple of facial 'weird hives' HEENT: ++ dry eyes in the last 3 years much , perhaps some mild xerostomia, change in hearing, taste sinus pain, DIAZ, change in taste. Respiratory: no chest pain, shortness of breath CV: no SANCHEZ, angina sx, claudication Back: No sciatica, pain with standing GI: no abd pain, normal bowel movements : no dysuria, normal voiding, no nocturia Neuro: no focal deficit. Reported 'transient global amnesia for 2 hours on 04.16.16, happened once before 11 years ago. HPI: First seen 01.29.2013. Middle-aged woman who reported for the past 3-4 years the presence of occasional arthralgias and myalgias in the forearm. Beginning about 3 months ago, she acutely developedpainful swelling that was migratory from the hand to the wrist to knee to the feet, lasting 2-3 days at each site with redness. Pain was quite severe, had difficulty walking, went to see PCP who wondered about gout. No response to NSAIDs, stopped meat over the next 4 weeks it progressed to being constant and diffuse and unremitting. She had some blood tests on December 27. Rheumatoid Factor was hightiter positive Since that time, she was treated with Aleve 440 mg q12 hours. Some benefit was noted, currently experiencing 4-6 hours of pain and stiffness with some encephalopathic sx. Hands are notclumsy or weak, except for decreased motion on right hand. Joints that are involved include wrists,mcps, thumb, feet, ankles, right knee. No neck, shoulder, elbow involvment. No neurologic signs of symptoms Past Medical History: 1. Allergic Rhinitis Asthma: Longstanding controlled with Singulair, no inhalers for 10 years 2. 3. D/C for miscarriage 4. Atrophic vaginitis: on Premarin 5. Nocturnal throbbing pain 2008 in hands. Saw Manager Policy in [place], told it was 'menopause', then it went away. Social History: Originally from [place], [place], moved to [place], [place] 14 years ago. Getting ready to move out of house, traumatic but 'ok'. Lots of challenges (marital, financial). Seems still upbeat. No smoke, no drinking. Life is good. 1 daughter 24, doing well. Family History: Mother 88 good health, father age 75 prostate Ca, one healthy brother, no hx RA Physical Examination Blood pressure 126/87, pulse 69, temperature 36.4 ??C (97.5 ??F), temperature source Oral, height 163 cm (5' 4.17), weight 53.5 kg (118 lb), SpO2 100 %. General-Obvious weight loss, transformed who is alert and in no apparent distress at rest, vivacious. Skin-No clubbing, cyanosis, rubor, edema, rash HEENT: Normal Neck-Normal motion Musculoskeletal: Trigger points not present. Shoulders: FROM, no AC/subacromial tenderness. Elbows: Full motion, no joint or epicondylar swelling or tenderness, perhaps slight decreased extension. Wrists: Normal motion Hands: Normal! 0 SJC/0 TJC Right 3rd MCP bony swelling. Floating right ulnar styloid, normal exam Knees: Full motion, no swelling, no popliteal or joint line tenderness. No patellar tenderness or crepitance. Ankles: No warmth, swelling, but stiff on passive motion. No Achilles or plantar fascia tenderness. Feet: No deformity. No MTPJs compression tenderness, no longer tender volar aspect 2nd-3rd MTPJ, righ CDAI: 0 Assess: Seropositive RA with great response to weight loss now off MTX on 2.5 mg/d Prednisone. Plan: 1. Labs today 2. Try to taper prednisone to 1/2 T every other day for a month and then stop 3. Diclofenac gel up to 4 x a day for joint symptoms or signs 4. Return 6 months Level 4 f/u Davian Hurst M.D. documented in this encounter Miscellaneous Notes * Addendum Note - Kathy Fajardo - 09/02/2019 11:30 AM ESTAddended by: KATHY FAJARDO on: 09/02/2019 12:25 PM Modules accepted: Orders documented in this encounter Plan of Treatment Upcoming Encounters Date Type Department Care Team (Late st Contact Info) Description 08/05/2024 2:00 PM EST Office [place] [address] Cheri Carvalho, PHYSICAL INSTRUCTOR [facility] [place] [address] [place] [address] documented as of this encounter Procedures Procedure Name Priority Date/Time Associated Diagnosis Comments HEMOGRAM Routine 09/02/2019 12:39 PM EST Rheumatoid arthritis, involving unspecified site, unspecified rheumatoid factor presence DIFFERENTIAL, AUTOMATED Routine 09/02/2019 12:39 PM EST Rheumatoid arthritis, involving unspecified site, unspecified rheumatoid factor presence HC CBC,PLT & AUTO DIFF Routine 09/02/2019 12:39 PM EST Rheumatoid arthritis, involving unspecified site, unspecified rheumatoid factor presence HC VENIPUNCTURE Routine 09/02/2019 12:39 PM EST Rheumatoid arthritis, involving unspecified site, unspecified rheumatoid factor presence documented in this encounter Results * Differential, Automated (09/02/2019 12:39 PM EST) Neutrophil % 62.4 % [facility] Neutrophil Absolute 3.98 1.70 - 6.10 x10(3)/[facility] Lymph % 29.0 % [facility] Lymphocytes Abs 1.8 0.9 - 3.2 x10(3)/[facility] Monocyte % 6.3 % [facility] Monocyte Abs 0.4 0.3 - 0.9 x10(3)/[facility] Eos % 1.1 % [facility] Eosinophils Abs 0.1 0.0 - 0.4 x10(3)/[facility] Basophil % 0.9 % [facility] Baso Absolute 0.1 0.0 - 0.1 x10(3)/[facility] Immature Gran % 0.30 % [facility] Comment: Immature granulocytes(IG's)percentage and absolute count will include metamyelocytes, myelocytes, and promyelocytes. Blood smears from CBCs yielding IG's will be scanned manually for concordance. If this scan disagrees with the automated IG or if promyelocytes are noted, a manual differential will be performed. Immature Gran Absolute 0.02 0.00 - 0.04 x10(3)/[facility] Blood specimen (specimen) 09/02/2019 12:39 PM EST 09/02/2019 12:45 PM EST Narrative Resulting Agency Comment Spec In Lab Davian Hurst MD HEMATOLOGY ORDERABLE S [facility] [place] [address] * Hemogram (09/02/2019 12:39 PM EST) White Blood Cell 6.4 4.0 - 9.5 x10(3)/[facility] Red Blood Cell 4.48 4.00 - 5.21 x10(6)/[facility] Hemoglobin 13.1 11.7 - 15.5 gm/dL [facility] Hematocrit 40.2 35.7 - 45.8 % [facility] Mean Cell Volume 89.7 82.6 - 94.4 fL [facility] Mean Cell Hemoglobin 29.2 27.1 - 32.0 pg [facility] Mean Cell Hemoglobin Concentration 32.6 31.7 - 35.0 gm/dL [facility] Platelet 277 145 - 357 x10(3)/[facility] RDW Standard Deviation 43.4 37.0 - 46.0 [facility] RDW coefficient of variation 13.2 11.5 - 14.1 % [facility] Mean Platelet Volume 8.5 7.6 - 12.9 fL [facility] NRBC% auto 0.0 % [facility] NRBC Absolute 0.000 0.000 - 0.000 x10(3)/[facility] Blood specimen (specimen) 09/02/2019 12:39 PM EST 09/02/2019 12:45 PM EST Narrative Resulting Agency Comment Spec In Lab Davian Hurst MD HEMATOLOGY ORDERABLE S [facility] [place] [address] * (ABNORMAL) Comprehensive metabolic panel (non-fasting) (09/02/2019 12:39 PM EST) Glucose 89 65 - 199 mg/dL [facility] Comment:Diabetes: >=200 mg/d L plus symptoms Blood Urea Nitrogen 9 8 - 18 mg/dL [facility] Creatinine 0.74 0.70 - 1.20 mg/dL [facility] Sodium 143 135 - 145 mmol/L [facility] Potassium 3.7 3.5 - 5.0 mmol/L [facility] Comment: Please note: ??Patients with WBC >100,000 may have falsely elevated Potassium levels. ??For accurate Potassium quantification in these patients send serum separator tube (gold top) for subsequent determinations. ??Contact the Clinical Chemistry Laboratory if there are any questions. Chloride 105 98 - 107 mmol/L [facility] Carbon Dioxide 25 22 - 31 mmol/L [facility] Anion Gap 13 5 - 15 mmol/L [facility] Calcium 9.2 8.5 - 10.5 mg/dL [facility] Protein, Total 7.0 6.1 - 8.0 gm/dL [facility] Albumin 4.3 3.2 - 5.2 gm/dL [facility] Aspartate Aminotransferase 31(H) 0 - 30 unit/L [facility] Alanine Aminotransferase 13 0 - 30 unit/L [facility] Alkaline Phosphatase 64 35 - 105 unit/L [facility] Bilirubin, Total 0.4 0.2 - 1.3 mg/dL [facility] Est Glomerular Filtration Rate 86 >=60 mL/min/1. 73 m?? [facility] Comment: The eGFR was calculated using the CKD-EPI equation. As with all creatinine based estimates of kidney function, eGFR values calculated with the CKD-EPI equation are not accurate in patients with acute kidney failure, extremes of body mass or the acutely ill. http://ASSIA/[email or web address] eGFR 99 >=60 mL/min/1. 73 m?? [facility] Comment: The eGFR was calculated using the CKD-EPI equation. As with all creatinine based estimates of kidney function, eGFR values calculated with the CKD-EPI equation are not accurate in patients with acute kidney failure, extremes of body mass or the acutely ill. [email or web address] Blood specimen (specimen) 09/02/2019 12:39 PM EST 09/02/2019 12:47 PM EST Narrative Resulting Agency Comment Spec In Lab Davian Hurst MD CHEMISTRY ORDERABLES [facility] [place] [address] documented in this encounter Visit Diagnoses Diagnosis Rheumatoid arthritis, involving unspecified site, unspecified rheumatoid factor presence documented in this encounter Care Teams I&C Tech Relationship Specialty Start Date End Date Elizabeth Song MD [address] [place] [id number] PCP - General 06/15/10 08/24/23 documented as of this encounter
--- OUTSIDE RECORDS SUMMARY | 2024-07-29 16:28 | XMS_ITS | Encounter Summary ---
Author Organization [facility] [place] [address] Care Team Providers Care Tube Turner Name Role Phone Elizabeth Song MD Primary Care Provider [phone] Reason for Visit * Reason Onset Date Comments Medication Refill 08/05/2020 Encounter Details Date Type Department Care Team (Late st Contact Info) Description 08/05/2020 Refill [place] [phone] Davian Hurst MD [facility] [address] Social History Tobacco Use Types Packs/Day Years [...] PM EST Office Visit [place] [phone] Cheri Carvalho, RECOVERY AGENT [facility] [place] [address] documented as of this encounter Visit Diagnoses Not on filedocumented in this encounter Care Teams Tube Turner Relationship Specialty Start Date End Date Elizabeth Song MD [address] [place] [address] PCP - General 06/15/10 08/24/23 documented as of this encounter
--- OUTSIDE RECORDS SUMMARY | 2024-07-29 16:28 | XMS_ITS | Encounter Summary ---
Author Organization [facility] [place] [address] Care Team Providers Care Slurry Tank Tender Name Role Phone Elizabeth Song MD Primary Care Provider [phone] Encounter Details Date Type Department Care Team (Late st Contact Info) Description 07/13/2021 Telephone [place] [address] Tiff Chavez Social History Tobacco Use Types Packs/Day Years [...] 2:00 PM EST Office [place] [address] Cheri Carvalho, PLANT PRODUCTION WORKER [facility] [place] [address] documented as of this encounter Visit Diagnoses Not on filedocumented in this encounter Care Teams Slurry Tank Tender Relationship Specialty Start Date End Date Elizabeth Song MD [address] [place], [place] [id number] PCP - General 06/15/10 08/24/23 documented as of this encounter
--- OUTSIDE RECORDS SUMMARY | 2024-07-29 16:28 | XMS_ITS | Encounter Summary ---
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 Social History Tobacco Use Types Packs/Day Years Used Date Smoking Tobacco: Never Smokeless Tobacco: Never Sex and Gender Information Value Date Recorded Sex Assigned at Female 10/09/2020 8:32 AM EDT Gender Identity Not on file Sexual Orientation Not on file documented as of this encounter Patient Instructions * Patient Instructions* Cheri Carvalho APRN - 10/09/2020 10:00 AM EDT 3-4 months with eliana 60min documented in this encounter Progress Notes * Cheri Carvalho APRN - 10/09/2020 10:00 AM EDT Rheum Progress Note Rresented in 2012 with palindromic rheumatism since 2006 [...] was: Seropositive RA with great response to weight loss now off MTX on 2.5 mg/d Prednisone. Interval History: My first visit with this pt, prior pt Dr. Hurst Lectin free, lost 35lbs, no sugar or grain Right now she is doing well. 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 Hurst 03/02/2020 Feeling great, lost 35 lbs on Plant paradox diet-flared when off of it in [facility] Back on diet Irregular MTX (last taken 7.11.09) No joint pain occasional metatarsalgia in bed, no am stiffnee Back to work 3 days a week standing 8 hours/d No issues Cannot get below prednisone beyond 5 mg/d Review of Systems Constitutional: No fevers, [...] 04.16.16, happened once before 11 years ago. Past Medical History: 1. Allergic Rhinitis Asthma: Longstanding controlled with Singulair, no inhalers for 10 years 2. 3. D/C for miscarriage 4. Atrophic vaginitis: on Premarin 5. Nocturnal throbbing pain 2008 in hands. Saw Shingler in [place], told it was 'menopause', then it went away. Social History: Originally from [place], [place], moved to [place], [place] 14 years ago. Getting ready to move out of house, traumatic but 'ok'. Lots of challenges (marital, financial). Seems still upbeat. No smoke, no drinking. Life is good. 1 daughter 24, doing well. Family History: Mother 88 good health, father age 75 prostate Ca, one healthy brother, no hx RA Physical Examination General: well appearing female, NAD, pleasant Resp: No increased work of breathing Musculoskeletal: Hands: no swelling, full fist and claw bl Wrists: wrist flex/ext slightly reduced bl but no overt swelling and pt reports her baseline Assess: Seropositive RA controlled with 5 mg/d Prednisone and diet. Flares with diversion from diet Plan: We discussed the risks/se a/w term of shelter steroid use. She will trial decrease to pred 5mg alternating with 2.5mg daily. She will get dexa with PCP and have sent to us. Will inquire as to whether PCP has checked vit d, and if not, will request this be ordered. She is taking 10,000 iu daily, discussed this very likely might be too much Continue with weightbearing activity I asked her to read about hcq in anticipation of next visit, which we reviewed today Let her know I am leaving [facility] so will f/u with Eliana RTC 3-4 months with Eliana, 60min 40 min was spent on this encounter documented in this encounter Plan of Treatment Upcoming Encounters Date Type Department Care Team (Late st Contact Info) Description 08/05/2024 2:00 PM EST Office Visit [place] [address] Cheri Carvalho APRN [facility] [place] [address] documented as of this encounter Visit Diagnoses Diagnosis 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
--- OUTSIDE RECORDS SUMMARY | 2024-07-29 16:28 | XMS_ITS | Encounter Summary ---
Author Organization [facility] Address [facility] [place] [address] Care Team Providers Care Laser Specialist Name Role Phone Elizabeth Song MD Primary Care Provider [phone] Encounter Details Date Type Department Care Team (Late st Contact Info) Description 08/06/2018 11:00 AM EST Office [place] [address] Davian Hurst MD [facility] [place] [address] Rheumatoid arthritis, involving unspecified site, unspecified rheumatoid [...] Sign Reading Time Taken Comments Blood Pressure 144/90 08/06/2018 10:59 AM EST Pulse 73 08/06/2018 10:59 AM EST Temperature 36.3 ??C (97.4 ??F) 08/06/2018 10:[address] Respiratory Rate - - Oxygen Saturation 100% 08/06/2018 10:59 AM EST Inhaled Oxygen Concentration - - Weight 58.1 kg (128 lb) 08/06/2018 10:59 AM EST Height 162.6 cm (5' 4) 08/06/2018 10:59 AM EST Body Mass Index 21.97 08/06/2018 10:59 AM EST documented in this encounter Patient Instructions * Patient Instructions* Davian Hurst MD - 08/06/2018 11:00 AM EST 1. Labs today 2. Return 6 months documented in this encounter Progress Notes * Davian Hurst MD - 08/06/2018 11:00 AM EST 63 yo woman who returns in 7 month [...] MTX to 15mg/week by injection because of alopecia. Unable to tolerate lower dose of prednisone 5 mg/d even with 1 mg/d tapering Interval History: Had a nice time visiitng Mother in [place] in October 22. Joints are fine no am stiffness, some flaring on qoweek dosing 2. Patient reports feeling great, sleeping better. Not taking gabapentin 3. Taking MTX every 2 weeks, by injection. 4. BP was fine off lisinopril 5. Episodes of light headedness recurred yesterday after a year Occasionall NSAID Review of Systems Constitutional: No fevers, chills, [...] Nocturnal throbbing pain 2008 in hands. Saw Oyster Floater in [place], told it was 'menopause', then it went away. Social History: Originally from [place], [place], moved to [place], [place] 14 years ago. Getting ready to move out of house, traumatic but 'ok'. Lots of challenges (marital, financial). Seems still upbeat. No smoke, no drinking. Life is good. 1 daughter 24, doing well. Family History: Mother 88 good health, father age 75 prostate Ca, one healthy brother, no hx RA Physical Examination BP 144/90 Pulse 73 Temp 36.3 ??C (97.4 ??F) (Oral) Ht 162.6 cm (5' 4) Wt 58.1 kg (128 lb) SpO2 100% BMI 21.97 kg/m?? General-Well developed well nourished who is alert and in no apparent distress at rest, vivacious. Skin-No clubbing, cyanosis, rubor, edema, rash HEENT: Normal Neck-Normal motion Musculoskeletal: Trigger points not present. Shoulders: FROM, no AC/subacromial tenderness. Elbows: Full motion, no joint or epicondylar swelling or tenderness, perhaps slight decreased extension. Wrists: Normal motion, right ulnocarpal swelling reported by patient, but I don't see it today, warmth, or tenderness Hands: Normal! 0 SJC/0 TJC Right 3rd [...] volar aspect 2nd-3rd MTPJ, righ CDAI: 0 except for 1 Assess: Seropositive RA with great response to every other week MTX/ + 5 mg/d Prednisone. Definitely betterperhaps even more bubbly with 20 lb weight loss. Plan: 1. Labs today 2. RTC 7 months 3. Reduce MTX to 10 mg/week due to concerns about hair loss Level 4 f/u Davian Hurst M.D. documented in this encounter Miscellaneous Notes * Addendum Note - Josefina Mclaughlin - 08/06/2018 11:00 AM ESTAddended by: JOSEFINA MCLAUGHLIN on: 08/06/2018 11:42 AM Modules accepted: Orders documented in this encounter Plan of Treatment Upcoming Encounters Date Type Department Care Team (Late st Contact Info) Description 08/05/2024 2:00 PM EST Office [place] [address] Cheri Carvalho, KRISTIN [facility] [place] [address] documented as of this encounter Procedures Procedure Name Priority Date/Time Associated Diagnosis Comments CRP, ACUTE INFLAMMATION Routine 08/06/2018 11:47 AM EST Rheumatoid arthritis, involving unspecified site, unspecified rheumatoid factor presence HEMOGRAM Routine 08/06/2018 11:47 AM EST Rheumatoid arthritis, involving unspecified site, unspecified rheumatoid factor presence DIFFERENTIAL, AUTOMATED Routine 08/06/2018 11:47 AM EST Rheumatoid arthritis, involving unspecified site, unspecified rheumatoid factor presence CBC (WITH DIFF) Routine 08/06/2018 11:47 AM EST Rheumatoid arthritis, involving unspecified site, unspecified rheumatoid factor presence COMPREHENSIVE METABOLIC PANEL Routine 08/06/2018 11:47 AM EST Rheumatoid arthritis, involving unspecified site, unspecified rheumatoid factor presence documented in this encounter Results * (ABNORMAL) Differential, Automated (08/06/2018 11:47 AM EST) Neutrophil % 79.6 % [facility] Neutrophil Absolute 6.61(H) 1.70 - 6.10 x10(3)/mc L [facility] Lymph % 13.1 % [facility] Lymphocytes Abs 1.1 0.9 - 3.2 x10(3)/mc L [facility] Monocyte % 5.7 % [facility] Monocyte Abs 0.5 0.3 - 0.9 x10(3)/mc L [facility] Eos % 0.5 % [facility] Eosinophils Abs 0.0 0.0 - 0.4 x10(3)/mc L [facility] Basophil % 0.7 % [facility] Baso Absolute 0.1 0.0 - 0.1 x10(3)/mc L [facility] Immature Gran % 0.40 % [facility] Comment: Immature granulocytes(IG's)percentage and absolute count will include metamyelocytes, myelocytes, and promyelocytes. Blood smears from CBCs yielding IG's will be scanned manually for concordance. If this scan disagrees with the automated IG or if promyelocytes are noted, a manual differential will be performed. Immature Gran Absolute 0.03 0.00 - 0.04 x10(3)/mc L [facility] Blood specimen (specimen) 08/06/2018 11:47 AM EST 08/06/2018 12:10 PM EST Narrative Resulting Agency Comment Spec In Lab Davian Hurst MD HEMATOLOGY ORDERABLE S [facility] [place] [address] * Hemogram (08/06/2018 11:47 AM EST) White Blood Cell 8.3 4.0 - 9.5 x10(3)/[facility] Red Blood Cell 4.59 4.00 - 5.21 x10(6)/[facility] Hemoglobin 13.7 11.7 - 15.5 gm/dL [facility] Hematocrit 41.7 35.7 - 45.8 % [facility] Mean Cell Volume 90.8 82.6 - 94.4 [facility] Mean Cell Hemoglobin 29.8 27.1 - 32.0 pg [facility] Mean Cell Hemoglobin Concentration 32.9 31.7 - 35.0 gm/dL [facility] Platelet 331 145 - 357 x10(3)/[facility] RDW Standard Deviation 44.4 37.0 - 46.0 [facility] RDW coefficient of variation 13.3 11.5 - 14.1 % [facility] Mean Platelet Volume 8.6 7.6 - 12.9 [facility] NRBC% auto 0.0 % [facility] NRBC Absolute 0.000 0.000 - 0.000 x10(3)/[facility] Blood specimen (specimen) 08/06/2018 11:47 AM EST 08/06/2018 12:10 PM EST Narrative Resulting Agency Comment Spec In Lab Davian [place]st MD HEMATOLOGY ORDERABLE S [facility] [place] [address] * CRP, acute inflammation (08/06/2018 11:47 AM EST) C-Reactive Protein 0.7 <=4.9 mg/L [facility] Blood specimen (specimen) 08/06/2018 11:47 AM EST 08/06/2018 12:10 PM EST Narrative Resulting Agency Comment Spec In Lab Davian Hurst MD CHEMISTRY ORDERABLES [facility] [place] [address] * Comprehensive metabolic panel (non-fasting) (08/06/2018 11:47 AM EST) Pathologist [facility] Glucose 106 65 - 199 mg/dL [facility] Comment:Diabetes: >=200 mg/d L plus symptoms Blood Urea Nitrogen 10 8 - 18 mg/dL [facility] Creatinine 0.71 0.70 - 1.20 mg/dL [facility] Sodium 143 135 - 145 mmol/L [facility] Potassium 3.7 3.5 - 5.0 mmol/L [facility] Comment: Please note: ??Patients with WBC >100,000 may have falsely elevated Potassium levels. ??For accurate Potassium quantification in these patients send serum separator tube (gold top) for subsequent determinations. ??Contact the Clinical Chemistry Laboratory if there are any questions. Chloride 105 98 - 107 mmol/L [facility] Carbon Dioxide 26 22 - 31 mmol/L [facility] Anion Gap 12 5 - 15 mmol/L [facility] Calcium 9.4 8.5 - 10.5 mg/dL [facility] Protein, Total 7.7 6.1 - 8.0 gm/dL [facility] Albumin 4.5 3.2 - 5.2 gm/dL [facility] Aspartate Aminotransferase 29 0 - 30 unit/L [facility] Alanine Aminotransferase 11 0 - 30 unit/L [facility] Alkaline Phosphatase 66 40 - 104 unit/L [facility] Bilirubin, Total 0.4 0.2 - 1.3 mg/dL [facility] Est Glomerular Filtration Rate 91 >=60 mL/min/1. 73 m?? [facility] Comment: The eGFR was calculated using the CKD-EPI equation. As with all creatinine based estimates of kidney function, eGFR values calculated with the CKD-EPI equation are not accurate in patients with acute kidney failure, extremes of body mass or the acutely ill. http://I-Stand/[facility] [place] eGFR 105 >=60 mL/min/1. 73 m?? [facility] Comment: The eGFR was calculated using the CKD-EPI equation. As with all creatinine based estimates of kidney function, eGFR values calculated with the CKD-EPI equation are not accurate in patients with acute kidney failure, extremes of body mass or the acutely ill. http://I-Stand/[facility] [place] Blood specimen (specimen) 08/06/2018 11:47 AM EST 08/06/2018 12:10 PM EST Narrative Resulting Agency Comment Spec In Lab Davian Hurst MD CHEMISTRY ORDERABLES [facility] [place] [address] documented in this encounter Visit Diagnoses Diagnosis Rheumatoid arthritis, involving unspecified site, unspecified rheumatoid factor presence documented in this encounter Care Teams Laser Specialist Relationship Specialty Start Date End Date Elizabeth Song MD [address] [place] [address] PCP - General 06/15/10 08/24/23 documented as of this encounter
--- OUTSIDE RECORDS SUMMARY | 2024-07-29 16:28 | XMS_ITS | Encounter Summary ---
Author Organization [facility] [place] [address] Care Team Providers Care Machine Stone Polisher Apprentice Name Role Phone Elizabeth Song MD Primary Care Provider [phone] Reason for Visit * Reason Onset Date Comments Medication Refill 03/15/2020 Encounter Details Date Type Department Care Team (Late st Contact Info) Description 03/15/2020 Ref[place] [phone] Davian [place]st MD [facility] [place] [place] [address] Social History Tobacco Use Types Packs/Day Years [...] 2:00 PM EST Office [place] [address] Cheri Carvalho, PHARMACY INTAKE TECHNICIAN [facility] [place] [address] documented as of this encounter Visit Diagnoses Not on filedocumented in this encounter Care Teams Machine Stone Polisher Apprentice Relationship Specialty Start Date End Date Elizabeth Song MD [address] [place] [address] PCP - General 06/15/10 08/24/23 documented as of this encounter
--- OUTSIDE RECORDS SUMMARY | 2024-07-29 16:28 | XMS_ITS | Encounter Summary ---
Author Organization [facility] [place] [address] Care Team Providers Care Head Host/Hostess Name Role Phone Elizabeth Song MD Primary Care Provider [phone] Reason for Visit * Reason Onset Date Comments Medication Refill 09/08/2019 Encounter Details Date Type Department Care Team (Late st Contact Info) Description 09/08/2019 [place] [address] Davian Hurst MD [facility] [place] [address] Social History Tobacco Use Types Packs/Day Years [...] 2:00 PM EST Office [place] [address] Cheri Carvalho, CLINICAL CONSULTANT [facility] [place] [address] documented as of this encounter Visit Diagnoses Not on filedocumented in this encounter Care Teams Head Host/Hostess Relationship Specialty Start Date End Date Elizabeth Song MD [address] [place] [address] PCP - General 06/15/10 08/24/23 documented as of this encounter
--- OUTSIDE RECORDS SUMMARY | 2024-07-29 16:28 | XMS_ITS | Encounter Summary ---
Author Organization [facility] [place] [address] Care Team Providers Care Pomology Teacher Name Role Phone Elizabeth Song MD Primary Care Provider [phone] Encounter Details Date Type Department Care Team (Late st Contact Info) Description 06/08/2022 Telephone [place] [address] Katerine Michelle MA Social History Tobacco Use Types Packs/Day Years Used Date Smoking Tobacco: Never Smokeless Tobacco: Never Sex and Gender Information Value Date Recorded Sex Assigned at Female 10/09/2020 8:32 AM EDT Gender Identity Not on file Sexual Orientation Not on file documented as of this encounter Miscellaneous Notes * Telephone Encounter - Katerine Michelle RMA - 06/08/2022 5:41 PM EST Called patient for pre-charting, no answer. TR TIAGO documented in this encounter Plan of Treatment Upcoming Encounters Date Type Department Care Team (Late st Contact Info) Description 08/05/2024 2:00 PM EST Office [place] [address] Cheri Carvalho, OIL CHANGE TECHNICIAN [facility] [place] [address] documented as of this encounter Visit Diagnoses Not on filedocumented in this encounter Care Teams Pomology Teacher Relationship Specialty Start Date End Date Elizabeth Song MD [address] [place] [address] PCP - General 06/15/10 08/24/23 documented as of this encounter
--- OUTSIDE RECORDS SUMMARY | 2024-07-29 16:28 | XMS_ITS | Encounter Summary ---
Author Organization [facility] [place] [address] Care Team Providers Care Test Worker Name Role Phone Elizabeth Song MD Primary Care Provider [phone] Reason for Visit * Reason Onset Date Comments Medication Refill 01/08/2018 Encounter Details Date Type Department Care Team (Late st Contact Info) Description 01/08/2018 [place] [address] Angel Luis Trejo, RN Social History Tobacco [...] 2:00 PM EST [place] [address] Cheri Carvalho, CONDOMINIUM ASSOCIATION MANAGER [facility] [place] [address] documented as of this encounter Visit Diagnoses Not on filedocumented in this encounter Care Teams Test Worker Relationship Specialty Start Date End Date Elizabeth Song MD [address] [place] [address] PCP - General 06/15/10 08/24/23 documented as of this encounter
--- OUTSIDE RECORDS SUMMARY | 2024-07-29 16:28 | XMS_ITS | Encounter Summary ---
Author Organization [facility] [place] [address] Care Team Providers Care White Washer Name Role Phone Elizabeth Song MD Primary Care Provider [phone] Reason for Visit * Reason Comments Medication Refill Encounter Details Date Type Department Care Team (Late st Contact Info) Description 07/13/2019 [place] [address] Davian Hurst MD [facility] [place] [address] Social History Tobacco Use Types Packs/Day Years [...] 2:00 PM EST Office [place] [address] Cheri Carvalho, CHEMISTRY TEACHER [facility] [place] [address] documented as of this encounter Visit Diagnoses Not on filedocumented in this encounter Care Teams White Washer Relationship Specialty Start Date End Date Elizabeth Song MD [address] [place] [address] PCP - General 06/15/10 08/24/23 documented as of this encounter
--- OUTSIDE RECORDS SUMMARY | 2024-07-29 16:28 | XMS_ITS | Encounter Summary ---
Author Organization [facility] [place] [address] Care Team Providers Care Core Layer Machine Operator Name Role Phone Elizabeth Song MD Primary Care Provider [phone] Reason for Visit * Reason Onset Date Comments Medication Refill 01/27/2020 Encounter Details Date Type Department Care Team (Late st Contact Info) Description 01/27/2020 Ref[place] [address] Davian [place]st MD [facility] [place] [address] Social History Tobacco Use Types Packs/Day Years [...] 2:00 PM EST Office [place] [address] Cheri Carvalho, COMPOSITE TECHNICIAN [facility] [place] [address] documented as of this encounter Visit Diagnoses Not on filedocumented in this encounter Care Teams Core Layer Machine Operator Relationship Specialty Start Date End Date Elizabeth Song MD [address] [place] [address] PCP - General 06/15/10 08/24/23 documented as of this encounter
--- OUTSIDE RECORDS SUMMARY | 2024-07-29 16:28 | XMS_ITS | Encounter Summary ---
Author Organization [facility] [place] [address] Care Team Providers Care Jawbone Breaker Name Role Phone Anirudh Vanessasavannah Camacho APRN Primary Care Provider [phone] Reason for Visit * Reason Onset Date Comments Medication Refill 09/24/2019 Encounter Details Date Type Department Care Team (Late st Contact Info) Description 09/24/2019 [place] [address] Davian [place]st MD [facility] [place] [address] Social History Tobacco Use Types Packs/Day Years [...] 2:00 PM EST Office [place] [address] Cheri Carvalho APRN [facility] [place] [address] documented as of this encounter Visit Diagnoses Not on filedocumented in this encounter Care Teams Jawbone Breaker Relationship Specialty Start Date End Date Vanessa Oleary APRN [address] [place] [address] PCP - General Family Medicine 08/25/23 documented as of this encounter
--- OUTSIDE RECORDS SUMMARY | 2024-07-29 16:28 | XMS_ITS | Encounter Summary ---
Author Organization [facility] [place] [address] Care Team Providers Care Psychotherapist Name Role Phone AnirudhMeriVanessasavannah Camacho APRN Primary Care Provider [phone] Reason for Visit * Reason Onset Date Comments Medication Refill 09/05/2019 Encounter Details Date Type Department Care Team (Late st Contact Info) Description 09/05/2019 Ref[place] [address] Davian Hurst MD [facility] [place] [address] Rheumatoid arthritis, involving unspecified site, unspecified rheumatoid [...] 2:00 PM EST Office [place] [address] Cheri Carvalho APRN [facility] [place] [address] documented as of this encounter Visit Diagnoses Diagnosis Rheumatoid arthritis, involving unspecified site, unspecified rheumatoid factor presence documented in this encounter Care Teams Psychotherapist Relationship Specialty Start Date End Date Vanessa Oleary APRN [address] [place] [address] PCP - General Family Medicine 08/25/23 documented as of this encounter
--- OUTSIDE RECORDS SUMMARY | 2024-07-29 16:28 | XMS_ITS | Encounter Summary ---
Author Organization [facility] Address [facility] [place] [address] Care Team Providers Care Psychologist Developmental Name Role Phone Elizabeth Song MD Primary Care Provider [phone] Encounter Details Date Type Department Care Team (Late st Contact Info) Description 03/02/2020 11:30 AM EDT [place] [address] Davian [place] MD [facility] [place] [address] Rheumatoid arthritis, involving unspecified site, unspecified rheumatoid [...] Sign Reading Time Taken Comments Blood Pressure 139/85 03/02/2020 11:49 AM EDT Pulse 71 03/02/2020 11:49 AM EDT Temperature 36.7 ??C (98 ??F) 03/02/2020 11:49 AM EDT Respiratory Rate - - Oxygen Saturation 100% 03/02/2020 11:49 AM EDT Inhaled Oxygen Concentration - - Weight - - Height 163 cm (5' 4.17) 03/02/2020 11:49 AM EDT Body Mass Index - - documented in this encounter Patient Instructions * Patient Instructions* Davian [place] MD - 03/02/2020 11:30 AM EDT 1. Remission on prednisone 5 mg a day may try tapering to 2.5 mg qod 2. Follow up 1 year with osteoporosis screening documented in this encounter Progress Notes * Davian [place] MD - 03/02/2020 11:30 AM EDT 64 yo woman who returns in 7 [...] MTX on 2.5 mg/d Prednisone. Interval History: Feeling great, lost 35 lbs on Plant paradox diet-flared when off of it in [facility] Back on diet Irregular MTX (last taken [...] vaginitis: on Premarin 5. Nocturnal throbbing pain 2007 in hands. Saw Sales Representative Supervisor in [place], told it was 'menopause', then it went away. Social History: Originally from [place], [place], moved to [place], [place] 14 years ago. Getting ready to move out of house, traumatic but 'ok'. Lots of challenges (marital, financial). Seems still upbeat. No smoke, no drinking. Life is good. 1 daughter 24, doing well. Family History: Mother 88 good health, father age 75 prostate Ca, one healthy brother, no hx RA Physical Examination There were no vitals taken for this visit. General-Obvious weight loss, transformed who is alert [...] no longer tender volar aspect 2nd-3rd MTPJ, right CDAI: 0 Assess: Seropositive RA with great response to weight loss in remission on 5 mg/d Prednisone and diet Plan: 1. Return 7 months with LOADMASTER 2. DEXA in 2020 Level 4 f/u Davian [place] M.D. documented in this encounter Plan of Treatment Upcoming Encounters Date Type Department Care Team (Late st Contact Info) Description 08/05/2024 2:00 PM EST [place] [address] Cheri Carvalho, LOADMASTER [facility] [place] [address] documented as of this encounter Visit Diagnoses Diagnosis Rheumatoid arthritis, involving unspecified site, unspecified rheumatoid factor presence documented in this encounter Care Teams Psychologist Developmental Relationship Specialty Start Date End Date Elizabeth Song MD [address] [place] [address] PCP - General 06/15/10 08/24/23 documented as of this encounter
--- OUTSIDE RECORDS SUMMARY | 2024-07-29 16:28 | XMS_ITS | Encounter Summary ---
Author Organization [facility] [place] [address] Care Team Providers Care Lamination Inspector Name Role Phone Elizabeth Song MD Primary Care Provider [phone] Reason for Visit * Reason Onset Date Comments Medication Refill 04/23/2018 Encounter Details Date Type Department Care Team (Late st Contact Info) Description 04/23/2018 Ref[place] [address] Angel Luis Trejo, RN Social History Tobacco [...] 2:00 PM EST Office [place] [address] Cheri Carvalho, SALES AND MERCHANDISING REPRESENTATIVE [facility] [place] [address] documented as of this encounter Visit Diagnoses Not on filedocumented in this encounter Care Teams Lamination Inspector Relationship Specialty Start Date End Date Elizabeth Song MD [address] [place] [address] PCP - General 06/15/10 08/24/23 documented as of this encounter
--- OUTSIDE RECORDS SUMMARY | 2024-07-29 16:28 | XMS_ITS | Encounter Summary ---
[place] [address] Care Team Providers Care Wool Hat Finisher Name Role Phone Elizabeth Song MD Primary Care Provider [phone] Encounter Details Date Type Department Care Team (Latest Contact Info) Description 07/12/2021 2:00 PM EST TH Visit (TeleHealth) [place] [address] Terence Castro PA 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 (Primary Dx); [facility] current use of systemic steroids; Primary osteoarthritis [...] * Patient Instructions* Terence Castro PA - 07/12/2021 2:00 PM EST -Follow 3 month. -Prednisone taper reduce by 1/2 mg per month. documented in this encounter Progress Notes * Terence Castro PA - 07/12/2021 2:00 PM ESTSummary: ra Rheumatology Outpatient Note Chart [...] of Present Illness: Erma Ruiz is a 66 y.o. female who presents today for evaluation of RA. 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 CCP/RF,a CDAI of 20 with hand and foot involvement and a CRP 18. ??She was started on Prednisone 5 mg followed by taper and MTX. ?At her December 2013, some alopecia noted, despite daily MVI and folate and wants to taper prednisone. ??We reduced the MTX to 15 mg/week by injection because of alopecia in 2017 and further lowered it to 10 mg/d in July. Patient is no longer on methotrexate. Unable to tolerate lower dose of prednisone 5 mg/d even with 1 mg/d tapering. 04/07/21:Impression/Recommendations : Erma Ruiz is a 65 y.o. [...] months sooner if indicated patient in agreement. Interval History: Patient presents today for follow-up. She did initiate a trial of hydroxychloroquine however she found that she got diarrhea with therapeutic dose in the end she discontinued it. She continues on prednisone 5 mg/day. Right now she currently feels fine. There is been no major changes in her health or overall level of function. There is been no unusual headaches or change in vision. Review of Systems Constitutional: Negative for anorexia and sleep disturbance. Respiratory: Negative for cough, hemoptysis and orthopnea. Gastrointestinal: Negative for steatorrhea, diarrhea and trouble swallowing. HENT: Negative. Psychiatric/Behavioral: Negative for social aversion. Hematologic/Lymphatic: Negative. Allergic/Immunologic: Negative for recurrent infections and immunocompromised state. Musculoskeletal: Negative. Endocrine: Negative for polydipsia, polyphagia, polyuria and Cushingoid appearance. Cardiovascular: Negative for syncope. Neurological: Negative for vertigo. Skin: Negative for dry skin, urticaria and blister. Allergies No Known Allergies Medications Current Outpatient Medications on File Prior to Visit Medication Sig Dispense Refill ??? predniSONE (Deltasone) 5 mg Tablet Take by mouth daily 5 mg alternating with 2.5 mg every otherday 30 tablet 0 ??? hydrOXYchloroQUINE (Plaquenil) 200 mg Tablet TAKE 1 TABLET BY MOUTH TWICE DAILY( EVERY TWELVE HOURS) 60 tablet 0 ??? ergocalciferol, vitamin D2, (VITAMIN [...] ??? 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 Lentigines L81.4 Physical Examination: There were no vitals taken for this visit. Physical Exam Constitutional: General: She is not in acute distress. Appearance: Normal appearance. She is normal weight. She is not ill-appearing, toxic-appearing or diaphoretic. HENT: Head: Normocephalic and atraumatic. Right Ear: External ear normal. Left Ear: External ear normal. Nose: Nose normal. Eyes: General: No scleral icterus. Right eye: No discharge. Left eye: No discharge. Conjunctiva/sclera: Conjunctivae normal. Neurological: Mental Status: She is alert. Psychiatric: Mood and Affect: Mood normal. Behavior: Behavior normal. Thought Content: Thought content normal. Judgment: Judgment normal. Laboratory Data: Component Latest Ref Rng & Units 04/07/2021 Glucose Lvl 65 - 199 mg/dL 103 BUN 8 - 18 mg/dL 12 Creatinine 0.70 - 1.20 mg/dL 0.88 Sodium 135 - 145 mmol/L 142 Potassium 3.5 - 5.0 mmol/L 3.9 Chloride 98 - 107 mmol/L 107 CO2 22 - 31 mmol/L 25 Anion Gap 5 - 15 mmol/L 10 Calcium 8.5 - 10.5 mg/dL 9.1 Total Protein 6.1 - 8.0 gm/dL 7.0 Albumin 3.2 - 5.2 gm/dL 4.3 AST 0 - 30 unit/L 30 ALT 0 - 30 unit/L 6 Alk Phos 35 - 105 unit/L 76 Total Bilirubin 0.2 - 1.3 mg/dL 0.3 Estimated GFR >=60 mL/min/1.73 m?? 69 WBC 4.0 - 9.5 x10(3)/mcL 8.5 RBC 4.00 - 5.21 x10(6)/mcL 4.56 Hemoglobin 11.7 - 15.5 gm/dL 13.1 Hematocrit 35.7 - 45.8 % 40.0 MCV 82.6 - 94.4 fL 87.7 MCH 27.1 - 32.0 pg 28.7 MCHC 31.7 - 35.0 gm/dL 32.8 Platelets 145 - 357 x10(3)/mcL 304 RDWSD 37.0 - 46.0 fL 43.4 RDWCV 11.5 - 14.1 % 13.3 MPV 7.6 - 12.9 fL 8.5 nRBC % Auto % 0.0 nRBC Abs Auto 0.000 - 0.000 x10(3)/mcL 0.000 Neutrophils % % 81.8 Neutr Abs (ANC) 1.70 - 6.10 x10(3)/mcL 6.98 (H) Lymphocytes % % 11.8 Lymphocytes Abs 0.9 - 3.2 x10(3)/mcL 1.0 Monocytes % % 4.6 Monocyte Abs 0.3 - 0.9 x10(3)/mcL 0.4 Eosinophils % % 0.5 Eosinophils Abs 0.0 - 0.4 x10(3)/mcL 0.0 Basophils % % 1.1 Basophils Abs 0.0 - 0.1 x10(3)/mcL 0.1 Immature Gran % % 0.20 Corinna Gran Abs 0.00 - 0.04 x10(3)/mcL 0.02 CRP <=4.9 mg/L <3.0 Sed Rate 2 - 39 mm/hr 18 Impression/Recommendations : Erma Ruiz is a 66 y.o. female who presents today with RA patient without complaints on prednisone5 mg/day. She currently feels fine, she did fail a trial of hydroxychloroquine due to GI upset and diarrhea. Given that she is doing well we will again attempt to taper of half a milligram of prednisone on the first of every month. Further changes pending her clinical course we will see her again in follow-up in 3 months sooner for any difficulties patient in agreement with this plan. 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
--- OUTSIDE RECORDS SUMMARY | 2024-07-29 16:28 | XMS_ITS | Encounter Summary ---
Author Organization [facility] [place] [address] Care Team Providers Care Truss Maker Name Role Phone Elizabeth Song MD Primary Care Provider [phone] Encounter Details Date Type Department Care Team (Latest Contact Info) Description 06/09/2022 Travel Social History Tobacco Use Types Packs/Day [...] 2:00 PM EST Office Visit [place] [address] Cheri Carvalho, KRISTIN [facility] [place] [address] documented as of this encounter Visit Diagnoses Not on filedocumented in this encounter Care Teams Truss Maker Relationship Specialty Start Date End Date Elizabeth Song MD [address] [place] [address] PCP - General 06/15/10 08/24/23 documented as of this encounter
--- OUTSIDE RECORDS SUMMARY | 2024-07-29 16:28 | XMS_ITS | Encounter Summary ---
Author Organization [facility] [place] [address] Care Team Providers Care Sales Planning Manager Name Role Phone Elizabeth Song MD Primary Care Provider [phone] Encounter Details Date Type Department Care Team (Late st Contact Info) Description 06/09/2022 4:00 PM EST Office [place] [address] Terence Castro PA 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 (Primary Dx); nursing home current use of systemic steroids Social History Tobacco Use Types Packs/Day Years Used Date Smoking Tobacco: Never Smokeless Tobacco: Never Sex and Gender Information Value Date Recorded Sex Assigned at Female 10/09/2020 8:32 AM EDT Gender Identity Not on file Sexual Orientation Not on file documented as of this encounter Last Filed Vital Signs Vital Sign Reading Time Taken Comments Blood Pressure 132/67 06/09/2022 1:57 PM EST Pulse 81 06/09/2022 1:57 PM EST Temperature 36.2 ??C (97.1 ??F) 06/09/2022 1:57 PM ES T Respiratory Rate - - Oxygen Saturation 98% 06/09/2022 1:57 PM EST Inhaled Oxygen Concentration - - Weight 57.2 kg (126 lb) 06/09/2022 1:57 PM EST Height 162.6 cm (5' 4) 06/09/2022 1:57 PM EST Body Mass Index 21.63 06/09/2022 1:57 PM EST documented in this encounter Patient Instructions * Patient Instructions* Terence Castro PA - 06/09/2022 4:00 PM EST -Follow up 6-12 months -Try and reduce prednisone to 4 mg per day -Consider reclast - [facility] will need labs documented in this encounter Progress Notes * Terence Castro PA - 06/09/2022 4:00 PM ESTSummary: RA Rheumatology Outpatient Note Chart review conducted prior [...] who presents today for evaluation of RA. 07.12.21:Impression/Recommendations : Erma Ruiz is a 66 y.o. [...] difficulties patient in agreement with this plan. Interval History: Patient presents today for follow-up of rheumatoid arthritis and medication monitoring. She continues on prednisone 5 mg/day which she reports is helpful she has had difficulty tapering the prednisone every time she decreases it she complains of increased arthralgias. Since her last visit she was diagnosed with osteoporosis. She is aware that prednisone contributes to this. She has thought about taking a bisphosphonate but was very concerned about potential side effects. There is been no red warm swollen joints. She denies any other major changes in her health. Review of Systems Constitutional: Negative for diaphoresis, absenteeism, fever and weight loss. Respiratory: Negative for shortness of breath, chest discomfort, wheezing and hemoptysis. Gastrointestinal: Negative for steatorrhea, diarrhea and trouble swallowing. HENT: Negative. Psychiatric/Behavioral: Negative for social aversion. Hematologic/Lymphatic: Negative. Allergic/Immunologic: Negative for immunocompromised state. Musculoskeletal: Negative. Endocrine: Negative for polydipsia, polyphagia, polyuria and Cushingoid appearance. Cardiovascular: Negative for syncope. Neurological: Negative for vertigo. Skin: Negative for dry skin, urticaria, blister, photosensitivity and erythema. Allergies No Known Allergies Medications Current Outpatient Medications on File Prior to Visit Medication Sig Dispense Refill ??? predniSONE (Deltasone) 1 mg Tablet Take 4 tablets by mouth daily. 120 tablet 3 ??? hydrOXYchloroQUINE (Plaquenil) 200 mg Tablet TAKE [...] Garsia angioma D18.01 ??? Lentigines L81.4 SurgHX History reviewed. No pertinent surgical history. Physical Examination: BP 132/67 Pulse 81 Temp 36.2 ??C (97.1 ??F) (Temporal) Ht 162.6 cm (5' 4) Wt 57.2 kg (126 lb) SpO2 98% BMI 21.63 kg/m?? Musculoskeletal: No active synovitis noted upper or lower extremities. Physical Exam Constitutional: General: She is not in acute distress. Appearance: She is not ill-appearing, toxic-appearing or diaphoretic. HENT: Head: Normocephalic and atraumatic. Right Ear: External ear normal. Left Ear: External ear normal. Eyes: Conjunctiva/sclera: Conjunctivae normal. Cardiovascular: Rate and Rhythm: Regular rhythm. Heart sounds: No friction rub. No gallop. Pulmonary: Effort: Pulmonary effort is normal. No respiratory distress. Breath sounds: Normal breath sounds. No stridor. No wheezing. Abdominal: Palpations: Abdomen is soft. Tenderness: There is no abdominal tenderness. There is no guarding. Musculoskeletal: General: No swelling, tenderness, deformity or signs of injury. Right lower leg: No edema. Left lower leg: No edema. Skin: Coloration: Skin is not jaundiced or pale. [...] indicated patient in agreement with this plan. 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
--- OUTSIDE RECORDS SUMMARY | 2024-07-29 16:28 | XMS_ITS | Encounter Summary ---
Author Organization [facility] [place] [address] Care Team Providers Care Parts Coordinator Name Role Phone Elizabeth Song MD Primary Care Provider [phone] Reason for Visit * Reason Onset Date Comments Medication Refill 04/18/2018 Encounter Details Date Type Department Care Team (Late st Contact Info) Description 04/18/2018 [place] [address] Angel Luis Trejo, RN Social History Tobacco [...] 2:00 PM EST Office [place] [address] Cheri Carvalho, PHILOSOPHY AND RELIGION INSTRUCTOR [facility] [address] documented as of this encounter Visit Diagnoses Not on filedocumented in this encounter Care Teams Parts Coordinator Relationship Specialty Start Date End Date Elizabeth Song MD [address] [place] [address] PCP - General 06/15/10 08/24/23 documented as of this encounter
--- OUTSIDE RECORDS SUMMARY | 2024-07-29 16:28 | XMS_ITS | Encounter Summary ---
Author Organization [facility] [place] [address] Care Team Providers Care Plate Washer Name Role Phone Elizabeth Song MD Primary Care Provider [phone] Reason for Visit * Reason Onset Date Comments Medication Refill 04/15/2018 Encounter Details Date Type Department Care Team (Late st Contact Info) Description 04/24/2018 Refill [place] [address] Davian Hurst MD [facility] [place] [address] Social History Tobacco Use Types Packs/Day Years Used Date Smoking Tobacco: Never Smokeless Tobacco: Never Sex and Gender Information Value Date Recorded Sex Assigned at Female 10/09/2020 8:32 AM EDT Gender Identity Not on file Sexual Orientation Not on file documented as of this encounter Miscellaneous Notes * Telephone Encounter - Reina Jerry LPN - 04/24/2018 9:41 AM EDTFrom: Erma Ruiz To: Davian Hurst MD Sent: 04/15/2018 9:04 PM EDT Subject: Medication Renewal Request Original authorizing provider: MD Erma CORLEY would like a refill of the following medications: methotrexate 25 mg/mL Solution [DAVIAN HURST MD] predniSONE (DELTASONE) 5 mg Tablet [DAVIAN HURST MD] Preferred pharmacy: [facility] [place] [place] - [address] [facility] Comment: I also need the needles for the methotrexate ! Thanks! documented in this encounter Plan of Treatment Upcoming Encounters Date Type Department Care Team (Late st Contact Info) Description 08/05/2024 2:00 PM EST Office Visit [place] [address] Cheri Carvalho, LOAN FUNDER [facility] [place] [address] documented as of this encounter Visit Diagnoses Not on filedocumented in this encounter Care Teams Plate Washer Relationship Specialty Start Date End Date Elizabeth Song MD [address] [place] [address] PCP - General 06/15/10 08/24/23 documented as of this encounter
--- OUTSIDE RECORDS SUMMARY | 2024-07-29 16:28 | XMS_ITS | Encounter Summary ---
Author Organization Formerly [facility] Address [facility] [place] [address] Care Team Providers Care Resistor Winder Name Role Phone Elizabeth Song MD Primary Care Provider [phone] Encounter Details Date Type Department Care Team (Late st Contact Info) Description 03/04/2019 11:30 AM EDT Office [place] [address] Davian Hurst MD [facility] [place] [address] Rheumatoid arthritis, involving unspecified site, unspecified rheumatoid [...] Sign Reading Time Taken Comments Blood Pressure 155/81 03/04/2019 11:28 AM EDT Pulse 80 03/04/2019 11:28 AM EDT Temperature 36.8 ??C (98.2 ??F) 03/04/2019 11:28 AM E DT Respiratory Rate - - Oxygen Saturation 100% 03/04/2019 11:28 AM EDT Inhaled Oxygen Concentration - - Weight 54.6 kg (120 lb 6.4 oz) 03/04/2019 11:28 AM EDT Height 163.2 cm (5' 4.25) 03/04/2019 11:28 AM E DT Body Mass Index 20.51 03/04/2019 11:28 AM EDT documented in this encounter Patient Instructions * Patient Instructions* Davian Hurst MD - 03/04/2019 11:30 AM EDT . documented in this encounter Progress Notes * Davian Hurst MD - 03/04/2019 11:30 AM EDT 63 yo woman who returns in 7 [...] even with 1 mg/d tapering. Interval History: Feeling great, lost 35 lbs on Plant paradox diet Irregular MTX (last taken 7.4.19 No joint pain No issues Wants to taper prednisone Review of Systems Constitutional: No fevers, chills, [...] Nocturnal throbbing pain 2007 in hands. Saw Dyehouse Worker in [place], told it was 'menopause', then it went away. Social History: Originally from [place], [place], moved to [place], [place] 14 years ago. Getting ready to move out of house, traumatic but 'ok'. Lots of challenges (marital, financial). Seems still upbeat. No smoke, no drinking. Life is good. 1 daughter 24, doing well. Family History: Mother 88 good health, father age 75 prostate Ca, one healthy brother, no hx RA Physical Examination Blood pressure 155/81, pulse 80, temperature 36.8 ??C (98.2 ??F), height 163.2 cm (5' 4.25), weight 54.6 kg (120 lb 6.4 oz), SpO2 100 %. General-Obvious weight loss, transformed [...] Assess: Seropositive RA with great response to minimal MTX/ + 5 mg/d Prednisone. Plan: 1. Labs today 2. Recommend trial of taking 1/2 of prednisone daily (2.5 mg a day for 1 month, if doing well, may try stopping 3. Hold Methotrexate in meantime 4. Return 6 months or as needed Level 4 f/u Davian Hurst M.D. documented in this encounter Miscellaneous Notes * Addendum Note - Kathy Fajardo - 03/04/2019 11:30 AM EDTAddended by: KATHY FAJARDO on: 03/04/2019 12:05 PM Modules accepted: Orders documented in this encounter Plan of Treatment Upcoming Encounters Date Type Department Care Team (Late st Contact Info) Description 08/05/2024 2:00 PM EST Office [place] [address] Cheri Carvalho APRN [facility] [place] [address] documented as of this encounter Procedures Procedure Name Priority Date/Time Associated Diagnosis Comments CRP, ACUTE INFLAMMATION Routine 03/04/2019 12:10 PM EDT Rheumatoid arthritis, involving unspecified site, unspecified rheumatoid factor presence ANTI-CYCLIC CITRULLINATED PEPTIDE AB Routine 03/04/2019 12:10 PM EDT Rheumatoid arthritis, involving unspecified site, unspecified rheumatoid factor presence HEMOGRAM Routine 03/04/2019 12:10 PM EDT Rheumatoid arthritis, involving unspecified site, unspecified rheumatoid factor presence DIFFERENTIAL, AUTOMATED Routine 03/04/2019 12:10 PM EDT Rheumatoid arthritis, involving unspecified site, unspecified rheumatoid factor presence CBC (WITH DIFF) Routine 03/04/2019 12:10 PM EDT Rheumatoid arthritis, involving unspecified site, unspecified rheumatoid factor presence RHEUMATOID FACTOR, QUANT Routine 03/04/2019 12:10 PM EDT Rheumatoid arthritis, involving unspecified site, unspecified rheumatoid factor presence COMPREHENSIVE METABOLIC PANEL Routine 03/04/2019 12:10 PM EDT Rheumatoid arthritis, involving unspecified site, unspecified rheumatoid factor presence documented in this encounter Results * Differential, Automated (03/04/2019 12:10 PM EDT) Neutrophil % 80.3 % [facility] Neutrophil Absolute 5.69 1.70 - 6.10 x10(3)/[facility] Lymph % 13.6 % [facility] Lymphocytes Abs 1.0 0.9 - 3.2 x10(3)/[facility] Monocyte % 4.7 % [facility] Monocyte Abs 0.3 0.3 - 0.9 x10(3)/[facility] Eos % 0.3 % [facility] Eosinophils Abs 0.0 0.0 - 0.4 x10(3)/[facility] Basophil % 0.7 % [facility] Baso Absolute 0.0 0.0 - 0.1 x10(3)/[facility] Immature Gran % 0.40 % [facility] Comment: Immature granulocytes(IG's)percentage and absolute count will include metamyelocytes, myelocytes, and promyelocytes. Blood smears from CBCs yielding IG's will be scanned manually for concordance. If this scan disagrees with the automated IG or if promyelocytes are noted, a manual differential will be performed. Immature Gran Absolute 0.03 0.00 - 0.04 x10(3)/[facility] Blood specimen (specimen) 03/04/2019 12:10 PM EDT 03/04/2019 12:23 PM EDT Narrative Resulting Agency Comment Spec In Lab Davian Hurst MD HEMATOLOGY ORDERABLE S [facility] [place] [address] * Hemogram (03/04/2019 12:10 PM EDT) White Blood Cell 7.1 4.0 - 9.5 x10(3)/[facility] Red Blood Cell 4.62 4.00 - 5.21 x10(6)/[facility] Hemoglobin 13.4 11.7 - 15.5 gm/dL [facility] Hematocrit 41.6 35.7 - 45.8 % [facility] Mean Cell Volume 90.0 82.6 - 94.4 fL [facility] Mean Cell Hemoglobin 29.0 27.1 - 32.0 pg [facility] Mean Cell Hemoglobin Concentration 32.2 31.7 - 35.0 gm/dL [facility] Platelet 274 145 - 357 x10(3)/[facility] RDW Standard Deviation 44.3 37.0 - 46.0 [facility] RDW coefficient of variation 13.5 11.5 - 14.1 % [facility] Mean Platelet Volume 8.4 7.6 - 12.9 fL [facility] NRBC% auto 0.0 % [facility] NRBC Absolute 0.000 0.000 - 0.000 x10(3)/[facility] Blood specimen (specimen) 03/04/2019 12:10 PM EDT 03/04/2019 12:23 PM EDT Narrative Resulting Agency Comment Spec In Lab Davian Hurst MD HEMATOLOGY ORDERABLE S Performing Organization Address [facility] Co de Phone Number [facility] [place] [address] * (ABNORMAL) Rheumatoid factor, quant (03/04/2019 12:10 PM EDT) Rheumatoid Factor 28(H) <=14 IU/mL [facility] Blood specimen (specimen) 03/04/2019 12:10 PM EDT 03/04/2019 12:23 PM EDT Narrative Resulting Agency Comment Spec In Lab Davian Hurst MD CHEMISTRY ORDERABLES Performing Organization Address [facility] Co de Phone Number [facility] [place] [address] * (ABNORMAL) Cyclic Citrullinated Peptide (03/04/2019 12:10 PM EDT) Cyclic Citrulline Peptide 147.1(H) <=4.9 unit/mL [facility] Blood specimen (specimen) 03/04/2019 12:10 PM EDT 03/04/2019 12:23 PM EDT Narrative Resulting Agency Comment Spec In Lab Davian Hurst MD CHEMISTRY ORDERABLES Performing Organization Address [facility] Co de Phone Number [facility] [place] [address] * CRP, acute inflammation (03/04/2019 12:10 PM EDT) C-Reactive Protein 0.5 <=4.9 mg/L [facility] Blood specimen (specimen) 03/04/2019 12:10 PM EDT 03/04/2019 12:23 PM EDT Narrative Resulting Agency Comment Spec In Lab Davian Hurst MD CHEMISTRY ORDERABLES Performing Organization Address City/[facility]/ZIP Co de Phone Number [facility] [place] [address] * Comprehensive metabolic panel (non-fasting) (03/04/2019 12:10 PM EDT) Glucose 163 65 - 199 mg/dL [facility] Comment:Diabetes: >=200 mg/d L plus symptoms Blood Urea Nitrogen 10 8 - 18 mg/dL [facility] Creatinine 0.79 0.70 - 1.20 mg/dL [facility] Sodium 136 135 - 145 mmol/L [facility] Potassium 3.5 3.5 - 5.0 mmol/L [facility] Comment: Please note: ??Patients with WBC >100,000 may have falsely elevated Potassium levels. ??For accurate Potassium quantification in these patients send serum separator tube (gold top) for subsequent determinations. ??Contact the Clinical Chemistry Laboratory if there are any questions. Chloride 98 98 - 107 mmol/L [facility] Carbon Dioxide 26 22 - 31 mmol/L [facility] Anion Gap 12 5 - 15 mmol/L [facility] Calcium 9.4 8.5 - 10.5 mg/dL [facility] Protein, Total 7.6 6.1 - 8.0 gm/dL [facility] Albumin 4.6 3.2 - 5.2 gm/dL [facility] Aspartate Aminotransferase 29 0 - 30 unit/L [facility] Alanine Aminotransferase 12 0 - 30 unit/L [facility] Alkaline Phosphatase 66 35 - 105 unit/L [facility] Bilirubin, Total 0.4 0.2 - 1.3 mg/dL [facility] Est Glomerular Filtration Rate 80 >=60 mL/min/1. 73 m?? [facility] Comment: The eGFR was calculated using the CKD-EPI equation. As with all creatinine based estimates of kidney function, eGFR values calculated with the CKD-EPI equation are not accurate in patients with acute kidney failure, extremes of body mass or the acutely ill. http://[facility] [place]/[facility]INGOnk[facility] eGFR 92 >=60 mL/min/1. 73 m?? [facility] Comment: The eGFR was calculated using the CKD-EPI equation. As with all creatinine based estimates of kidney function, eGFR values calculated with the CKD-EPI equation are not accurate in patients with acute kidney failure, extremes of body mass or the acutely ill. [email or web address] [place]/[facility] Blood specimen (specimen) 03/04/2019 12:10 PM EDT 03/04/2019 12:23 PM EDT Narrative Resulting Agency Comment Spec In Lab Davian Hurst MD CHEMISTRY ORDERABLES [facility] [place] [address] documented in this encounter Visit Diagnoses Diagnosis Rheumatoid arthritis, involving unspecified site, unspecified rheumatoid factor presence documented in this encounter Care Teams Resistor Winder Relationship Specialty Start Date End Date Elizabeth Song MD [address] [place] [address] PCP - General 06/15/10 08/24/23 documented as of this encounter
--- OUTSIDE RECORDS SUMMARY | 2024-07-29 16:28 | XMS_ITS | Encounter Summary ---
Author Organization [facility] [place] [address] Care Team Providers Care Cnc Operator Programmer Name Role Phone Elizabeth Song MD Primary Care Provider [phone] Reason for Visit * Reason Onset Date Comments Medication Refill 04/28/2021 Encounter Details Date Type Department Care Team (Late st Contact Info) Description 04/28/2021 Ref[place] [address] Hiwot Almaraz, [facility] [place] [address] Social History Tobacco Use Types Packs/Day Years Used Date Smoking Tobacco: Never Smokeless Tobacco: Never Sex and Gender Information Value Date Recorded Sex Assigned at Female 10/09/2020 8:32 AM EDT Gender Identity Not on file Sexual Orientation Not on file documented as of this encounter Miscellaneous Notes * Telephone Encounter - Liyah Interiano LPN - 04/29/2021 9:06 AM EDT Prednisone 5 ML Last office visit: 04/07/2021, next appt 07/12/2021 Last refill: 04/01/2021 After initiating this steroid sparing agent will repeat a cbc in about 3-4 week, and three months from now will re attempt a prednisone taper, by 1/2 mg per month. Otherwise follow up three months sooner if indicated patient in agreement. Patient comment: Hi. ??Can you please send a refill to [facility] with the updated dose of 5 mil perday. Only 3 Left . Thanks! Please edit rx for dosing/directions Thank you, JORDYN Pelletier documented in this encounter Plan of Treatment Upcoming Encounters Date Type Department Care Team (Late st Contact Info) Description 08/05/2024 2:00 PM EST Office [place] [address] Cheri Carvalho, EMERGENCY MANAGEMENT PROGRAM SPECIALIST [facility] [place] [address] documented as of this encounter Visit Diagnoses Not on filedocumented in this encounter Care Teams Cnc Operator Programmer Relationship Specialty Start Date End Date Elizabeth Song MD [address] [place] [address] PCP - General 06/15/10 08/24/23 documented as of this encounter
--- OUTSIDE RECORDS SUMMARY | 2024-07-29 16:28 | XMS_ITS | Encounter Summary ---
Author Organization [facility] Address [facility] [place] [address] Care Team Providers Care Poultry Veterinarian Name Role Phone Elizabeth Song MD Primary Care Provider [phone] Reason for Visit * Reason Comments Skin Lesion Encounter Details Date Type Department Care Team (Late st Contact Info) Description 03/31/2022 1:00 PM EDT Office Visit Dermatology at [facility] [address] [place] [address] Adri Hamlin MD [facility] [place] [address] Actinic keratoses; Inflamed seborrheic keratosis; Irritated nevus Social History Tobacco Use Types Packs/Day Years Used Date Smoking Tobacco: Never Smokeless Tobacco: Never Sex and Gender Information Value Date Recorded Sex Assigned at Female 10/09/2020 8:32 AM EDT Gender Identity Not on file Sexual Orientation Not on file documented as of this encounter Progress Notes * Adri Hamlin MD - 03/31/2022 1:00 PM EDT Images from the original note were not included. DEPARTMENT OF DERMATOLOGY Medical Dermatology Clinic Provider: Adri Hamlin MD Patient's preferred name Erma Preferred contact method for results [x]Phone []myD-H []Letter Detailed phone message OK? Are there any other people with whom we may discuss your care? 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 Patient returns to clinic today for 2 spots ofconcern: - Nose, present for 1 year, asymptomatic. - Left posterior shoulder, present for 6 months, irritating and bleeding and feels tingly. Last visit at Dermatology: 09/16/2020 Last visit with this provider: Visit date not found Medications: Reviewed in eD-H Allergies: Reviewed in eD-H Skin Examination: Focused skin examination of the upper back, nose was normal with the exception of the findings below. Assessment/Plan #. Actinic Keratosis - Ill-defined gritty papule on the left nasal tip (x1). - Explained premalignant potential of these lesions. - Discussed treatment with cryotherapy. Patient elects to proceed with cryotherapy today. - Instructed patient to return to clinic for re-evaluation if lesion(s) does not resolve as expected with this treatment. Procedure: Destruction of lesion(s) with cryotherapy (LN2). Location(s): As noted above. Number: 1 Discussed procedure and expectations, including risks and benefits. Verbal consent obtained. Treated with LN2. There were no complications; Patient tolerated the procedure well. Post-procedure expectations and wound care reviewed. #. Irritated Nevus - Medium brown, evenly pigmented papule on the left upper back with reassuring pigment pattern on dermoscopy. - Discussed benign nature of lesions and provided reassurance. Will continue to monitor. - Discussed that removal could be performed with a shave biopsy. Patient did not want to proceed with removal. #. Inflamed Seborrheic Keratosis - Inflamed, stuck on, waxy papule on the right upper back (x1). - Discussed benign nature of lesion(s) and provided reassurance. - Due to irritation present on today's exam and history of symptoms, discussed removal with cryotherapy. - Patient elects to proceed with cryotherapy today. Procedure: Destruction of lesion(s) with cryotherapy (LN2). Location(s): As noted above Number: 1 Discussed procedure and expectations including risks and benefits. Verbal consent obtained. Treatedwith LN2. There were no complications; Patient tolerated the procedure well. Post-procedure expectations and wound care were reviewed. Other: ??? N/A RTC: August 2022 for previously-scheduled FSE []Note routed to guidance secretary []Recall placed in scheduling system []Appointment scheduled at checkout Scribe attestation: Marge Ace LPN and Cale Bob have performed the documentation for this encounter in the presence of and acting as a scribe for Adri Hamlin MD. I performed the above scribed service and agree with the accuracy of the documentation in this encounter. Reviewed and signed by: Adri Hamlin MD D[facility]atology [facility] documented in this encounter Plan of Treatment Upcoming Encounters Date Type Department Care Team (Late st Contact Info) Description 08/05/2024 2:00 PM EST [place] [address] Cheri Caravlho APRN [facility] [place] [address] documented as of this encounter Visit Diagnoses Diagnosis Actinic keratoses Actinic keratosis Inflamed seborrheic keratosis Irritated nevus documented in this encounter Care Teams Poultry Veterinarian Relationship Specialty Start Date End Date Elizabeth Song MD [address] [place] [address] PCP - General 06/15/10 08/24/23 documented as of this encounter
--- OUTSIDE RECORDS SUMMARY | 2024-07-29 16:28 | XMS_ITS | Encounter Summary ---
Author Organization [facility] [place] [address] Care Team Providers Care Yarn Weight And Strength Tester Name Role Phone Elizabeth Song MD Primary Care Provider [phone] Encounter Details Date Type Department Care Team (Late st Contact Info) Description 07/13/2022 Orders [place] [address] Terence Castro PA Medication monitoring encounter Social History Tobacco Use [...] 2:00 PM EST Office [place] [address] Cheri Carvalho APRN [facility] [place] [address] documented as of this encounter Visit Diagnoses Diagnosis Medication monitoring encounter Encounter for therapeutic drug monitoring documented in this encounter Care Teams Yarn Weight And Strength Tester Relationship Specialty Start Date End Date Elizabeth Song MD [address] [place], [place] [address] PCP - General 06/15/10 08/24/23 documented as of this encounter
--- OUTSIDE RECORDS SUMMARY | 2024-07-29 16:28 | XMS_ITS | Encounter Summary ---
Author Organization [facility] [place] [address] Care Team Providers Care Marine Specialist Name Role Phone Elizabeth Song MD Primary Care Provider [phone] Reason for Visit * Reason Onset Date Comments Medication Refill 12/21/2017 Encounter Details Date Type Department Care Team (Late st Contact Info) Description 12/21/2017 [place] [address] Davian Hurst MD [facility] [place] [address] Rheumatoid arthritis Social History Tobacco Use Types Packs/Day Years Used Date Smoking Tobacco: Never Smokeless Tobacco: Never Sex and Gender Information Value Date Recorded Sex Assigned at Female 10/09/2020 8:32 AM EDT Gender Identity Not on file Sexual Orientation Not on file documented as of this encounter Miscellaneous Notes * Telephone Encounter - Fanny Montalvo CMA - 12/21/2017 9:47 AM EDTFrom: Erma Ruiz To: Davian Hurst MD Sent: 12/21/2017 9:31 AM EDT Subject: Medication Renewal Request Original authorizing provider: MD Erma CORLEY would like a refill of the following medications: leucovorin (WELLCOVORIN) 5 mg Tablet [DAVIAN HURST MD] Preferred pharmacy: [facility] [place], [place] - [address] [place] [address] Comment: Please refill at [facility] pharmacy [phone] Thank you! documented in this encounter Plan of Treatment Upcoming Encounters Date Type Department Care Team (Late st Contact Info) Description 08/05/2024 2:00 PM EST [place] [address] Cheri Carvalho, SYRUP MACHINE LABORER [facility] [place] [address] documented as of this encounter Visit Diagnoses Diagnosis Rheumatoid arthritis documented in this encounter Care Teams Marine Specialist Relationship Specialty Start Date End Date Elizabeth Song MD [address] [place] [address] PCP - General 06/15/10 08/24/23 documented as of this encounter
--- OUTSIDE RECORDS SUMMARY | 2024-07-29 16:28 | XMS_ITS | Encounter Summary ---
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 hydrOXYchloroQUINE (Plaquenil) 200 mg Tablet [Pharmacy Med Name: HYDROXYCHLOROQUINE 200MG TABLETS] 60 tablet 0 Sig: TAKE 1 TABLET BY MOUTH TWICE DAILY( EVERY TWELVE HOURS) Last office visit: 04/07/2021 next appt 07/12/2021 Last refill: 04/07/2021 documented in this encounter Plan of Treatment Upcoming Encounters Date Type Department Care Team (Late st Contact Info) Description 08/05/2024 2:00 PM EST Office [place] [address] Cheri Carvalho APRN [facility] [place] [address] documented as of this encounter Visit Diagnoses Diagnosis 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 Rheumatoid arthritis termite helper current use of systemic 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
--- OUTSIDE RECORDS SUMMARY | 2024-07-29 16:28 | XMS_ITS | Encounter Summary ---
[facility] [place] [address] Care Team Providers Care Internal Audit Manager Name Role Phone Elizabeth Song MD Primary Care Provider [phone] Reason for Visit * Reason Onset Date Comments Other 05/18/2021 Encounter Details Date Type Department Care Team (Late st Contact Info) Description 05/18/2021 Telephone [place] [phone] Kenya Lui RN Other Social History Tobacco Use Types Packs/Day Years Used Date Smoking Tobacco: Never Smokeless Tobacco: Never Sex and Gender Information Value Date Recorded Sex Assigned at Female 10/09/2020 8:32 AM EDT Gender Identity Not on file Sexual Orientation Not on file documented as of this encounter Miscellaneous Notes * Telephone Encounter - Kenya Lui RN - 05/18/2021 9:43 AM EDT Erma calls with Medication questions. RTC and LM to RTC to nurse. [place] to [place]. Would like refill of tablets sent to. She understands that this may be an out of pocket expense because she had already requested the liquid. [facility] [address] [facility] [address] Requested Prescriptions Pending Prescriptions Disp Refills ??? 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
--- OUTSIDE RECORDS SUMMARY | 2024-07-29 16:28 | XMS_ITS | Encounter Summary ---
Author Organization [facility] [place] [address] Care Team Providers Care Machine Plaster Mixer Name Role Phone Elizabeth Song MD Primary Care Provider [phone] Reason for Visit * Reason Comments Skin Check Skin Lesion Encounter Details Date Type Department Care Team (Late st Contact Info) Description 09/16/2020 2:30 PM EST Office Visit Dermatology at [facility] [address] [place] [address] Jairon García MD [address] [facility] [facility] [place] [address] Dermatitis; Chondrodermatitis nodularis helicis of left ear; Lentigines; Multiple benign nevi of upper extremity, lower extremity, and trunk; Garsia angioma; Seborrheic keratosis Social History Tobacco Use Types Packs/Day Years Used Date Smoking Tobacco: Never Smokeless Tobacco: Never Sex and Gender Information Value Date Recorded Sex Assigned at Female 10/09/2020 8:32 AM EDT Gender Identity Not on file Sexual Orientation Not on file documented as of this encounter Progress Notes * Jairon García MD - 09/16/2020 2:30 PM EST Images from the original note were not included. Dermatology Dermatology at [facility] FOLLOW-UP Chief Complaint: tender lesion on the left ear History of Present Illness Erma Ruiz is a 65 y.o. female who presents with the following concerns: ?? Tender, red, palpable smooth lesion on the top of the left ear since Jul 2020; no history of scale or bleeding. Improving spontaneously. Denies laying or applying pressure with a phone to the leftear. Never been treated or biopsied. ?? Red lesions on the nose. Denies tenderness and bleeding ?? No other concerning lesion. Requests full body skin cancer screening. Interval changes to Medications and Medical, Family and Social Histories (including alcohol and tobacco use) Since Last Visit 08/27/2018: No significant interval history. Skin Cancer History No personal history of skin cancer No family history of skin cancer Allergies Patient has no known allergies. Medications has a current medication list which includes the following prescription(s): prednisone, ergocalciferol (vitamin d2), methotrexate, syringe with needle (disp), folic acid, leucovorin, premarin, montelukast sodium, multivitamin, and ascorbic acid. 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 Examination Standby: Marilynn Baxter, PHYSICAL INTEGRATION PRACTITIONER Well developed, well-nourished in no apparent distress, alert and oriented to time, person, place and situation. Patient was asked to disrobe to the level of comfort. Examination of the skin of the head - including the scalp, face, ears, eyelids, nose, lips, tongue,oral/conjunctival mucosa - neck, chest, abdomen, back, axillae, buttocks, pubic area, upper and lower extremities, including the nail plates, significant for the following: ?? Multiple, uniformly fitzgerald, slightly irregular, polygonal macules c/w lentigos on sun-exposed areasof skin--including the right cheek ?? Well-demarcated, round or oval, fitzgerald or brown macules and papules with benign morphology on the head, trunk, pubic area, and extremities--including a 7 x 8 mm, light brown macule on the right pubicarea (no change since Aug 2018) ?? Garsia red 1-4mm papules on the head, trunk, right axilla, pubic area, and extremities. ?? Scattered, stuck-on, well-demarcated, fitzgerald or brown, waxy or warty papules c/w SKs on the head, neck, trunk, and extremities ?? Light pink patches on the malar cheeks and nose; three follicular macules on the nose. No scale or erosions or atypical vessels. ?? [place] subtle thin papule with no atypical vessels, scale or erosions on the left superior helicalrim Assessment and Plan Lentigines Benign. Counseled: lentigines, sun damage and spontaneous development, rare risk of lentigo maligna (melanoma arising in a lentigo), sun protection, no treatment necessary but discussed cosmetic options, including topical bleaching agents (retinoll, retinoids), as well as chemical peels and lasers. Answered all questions. Handout given. Nevi Morphology reassuring for benign nevi. Counseled: Nevi and risks for melanoma arising in a nevus. Recommend regular self-examinations. Answered all questions. Reviewed ABCDEs of melanoma, as below. ??? Return to clinic as needed for changes in color, size, shape or thickness or should bleeding orother symptoms occur. Patient agrees to plan. ?? Garsia Angiomas Counseled: garsia angiomas. Benign. No treatment necessary unless symptoms develop. Handout given. ?? Seborrheic Keratoses Benign. No treatment necessary. ?? Counseled: SKs, benign. Answered all questions. Handout given Dermatitis, Nose Favor rosacea over AKs. Discussed differential diagnosis and management recommendation for topical metronidazole if she would like to try treatment. Answered all questions. Patient declines treatment Chondodermatitis Nodularis Chronica Helicis, left superior helical rim Benign. Counseled: Benign inflammation of cartilage associated with repeated or chronic pressure to ear; management to prevent recurrence with 1) behavior changes, such as avoid pressure to area and use of cushion or donut pillow and avoid extreme heat and cold to area; and treatment options, including excision, cryotherapy, ILK, or IL collagen. Answered all questions. Handout given. Patient elects no t reatment today Patient Counseled [Skin Cancer] Counseled: sun protection, regular self skin exams, provider skin exams every 12-24 months, and theABCDEs of melanoma/NMSC. Answered all questions. Handouts on how to do a self-exam, skin cancers and sun protection given to the patient. Joint decision to follow-up in 24 months. Follow-up: Skin cancer screening in Aug 2022 or return to clinic prn for new suspicious lesions or if changes/symptoms in existing lesions develop. Note initiated by BERYL Ackerman CMA has performed the documentation for this encounter in the presence of and actingas a scribe for Dr. García. I performed the above scribed service and agree with the accuracy of thedocumentation in this encounter. Jairon García MD [facility] Section of Dermatology [facility] documented in this encounter Plan of Treatment Upcoming Encounters Date Type Department Care Team (Late st Contact Info) Description 08/05/2024 2:00 PM EST [place] [address] Cheri Carvalho, VEGETABLE VENDOR [facility] [place] [place] [address] documented as of this encounter Visit Diagnoses Diagnosis Dermatitis Contact dermatitis and other eczema, due to unspecified cause Chondrodermatitis nodularis helicis of left ear Lentigines Other dyschromia Multiple benign nevi of upper extremity, lower extremity, and trunk Garsia angioma Nevus, non-neoplastic Seborrheic keratosis Other seborrheic keratosis documented in this encounter Care Teams Machine Plaster Mixer Relationship Specialty Start Date End Date Elizabeth Song MD [address] [place] [address] PCP - General 06/15/10 08/24/23 documented as of this encounter
--- OUTSIDE RECORDS SUMMARY | 2024-07-29 16:28 | XMS_ITS | Encounter Summary ---
Author Organization [facility] [place] [address] Care Team Providers Care Attraction Worker Name Role Phone Anirudh Vanessasavannah Camacho APRN Primary Care Provider [phone] Reason for Visit * Reason Onset Date Comments Medication Refill 09/24/2019 Encounter Details Date Type Department Care Team (Late st Contact Info) Description 09/24/2019 Refill [place] [phone] Davian Hurst MD [facility] [place] [address] Social History Tobacco Use Types Packs/Day Years [...] PM EST Office Visit [place] [phone] Cheri Carvalho APRN [facility] [place] [address] documented as of this encounter Visit Diagnoses Not on filedocumented in this encounter Care Teams Attraction Worker Relationship Specialty Start Date End Date Vanessa Oleary APRN [address] [place] [address] PCP - General Family Medicine 08/25/23 documented as of this encounter
--- OUTSIDE RECORDS SUMMARY | 2024-07-29 16:28 | XMS_ITS | Encounter Summary ---
Author Organization [facility] [place] [address] Care Team Providers Care Licensed Nuclear Operator Name Role Phone Elizabeth Song MD Primary Care Provider [phone] Reason for Visit * Reason Onset Date Comments Medication Refill 04/13/2020 Encounter Details Date Type Department Care Team (Late st Contact Info) Description 04/13/2020 Ref[place] [phone] Davian Hurst MD [facility] [place] [address] Social History Tobacco Use Types Packs/Day Years [...] 2:00 PM EST Office [place] [phone] Cheri Carvalho, SUPERINTENDENT GEOPH[employer]ICAL [employer]ORATORY [facility] [place] [address] documented as of this encounter Visit Diagnoses Not on filedocumented in this encounter Care Teams Licensed Nuclear Operator Relationship Specialty Start Date End Date Elizabeth Song MD [address] [place] [address] PCP - General 06/15/10 08/24/23 documented as of this encounter
--- OUTSIDE RECORDS SUMMARY | 2024-07-29 16:28 | XMS_ITS | Encounter Summary ---
Author Organization [facility] [place] [address] Care Team Providers Care Diesel Truck Mechanic Name Role Phone AnirudhMeriVanessasavannah Camacho APRN Primary Care Provider [phone] Reason for Visit * Reason Onset Date Comments Medication Refill 03/30/2021 Encounter Details Date Type Department Care Team (Late st Contact Info) Description 03/30/2021 [place] [address] Hiwot Almaraz, [facility] [place] [address] Social History Tobacco Use Types Packs/Day Years Used Date Smoking Tobacco: Never Smokeless Tobacco: Never Sex and Gender Information Value Date Recorded Sex Assigned at Female 10/09/2020 8:32 AM EDT Gender Identity Not on file Sexual Orientation Not on file documented as of this encounter Miscellaneous Notes * Telephone Encounter - Liyah Interinao LPN - 03/31/2021 1:20 PM EDT Requested Prescriptions Pending Prescriptions Disp Refills ??? predniSONE (Deltasone) 5 mg Tablet 30 tablet 3 Sig: Take by mouth daily 5 mg alternating with 2.5 mg every other day Last office visit: 10/09/2020 Labs: 09/02/2019 Last refill: 01/21/2021 documented in this encounter Plan of Treatment Upcoming Encounters Date Type Department Care Team (Late st Contact Info) Description 08/05/2024 2:00 PM EST [place] [address] Cheri Carvalho, RETAIL SOLAR ADVISOR [facility] [place] [address] documented as of this encounter Visit Diagnoses Not on filedocumented in this encounter Care Teams Diesel Truck Mechanic Relationship Specialty Start Date End Date Vanessa Oleary APRN [address] [place] [address] PCP - General Family Medicine 08/25/23 documented as of this encounter
--- OUTSIDE RECORDS SUMMARY | 2024-07-29 16:28 | XMS_ITS | Encounter Summary ---
Author Organization [facility] [place] [address] Care Team Providers Care Charrer Name Role Phone Elizabeth Song MD Primary Care Provider [phone] Reason for Visit * Reason Onset Date Comments Medication Refill 12/01/2022 Encounter Details Date Type Department Care Team (Late st Contact Info) Description 12/01/2022 [place] [address] Terence Castro PA 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; halfway current use of systemic steroids Social History [...] 2:00 PM EST Office [place] [address] Cheri Carvalho APRN [facility] [place] [address] documented as of this encounter Visit Diagnoses Diagnosis 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 Rheumatoid arthritis halfway current use of systemic steroids Encounter for long-term (current) use of steroids documented in this encounter Care Teams Charrer Relationship Specialty Start Date End Date Elizabeth Song MD [address] [place] [address] PCP - General 06/15/10 08/24/23 documented as of this encounter
--- OUTSIDE RECORDS SUMMARY | 2024-07-29 16:28 | XMS_ITS | Encounter Summary ---
Author Organization [facility] [place] [address] Care Team Providers Care Skewer Up Name Role Phone Elizabeth Song MD Primary Care Provider [phone] Encounter Details Date Type Department Care Team (Late st Contact Info) Description 05/11/2021 Orders Only [place] [address] Terence Castro PA Social History Tobacco Use [...] 2:00 PM EST Office Visit [place] [address] Cheri Carvalho APRN [facility] [place] [address] documented as of this encounter Visit Diagnoses Not on filedocumented in this encounter Care Teams Skewer Up Relationship Specialty Start Date End Date Elizabeth Song MD [address] [place] [address] PCP - General 06/15/10 08/24/23 documented as of this encounter
--- OUTSIDE RECORDS SUMMARY | 2024-07-29 16:29 | XMS_ITS | Encounter Summary ---
Author Organization [facility] Address [facility] [place] [address] Care Team Providers Care Torch Brazer Name Role Phone Elizabeth Song MD Primary Care Provider [phone] Encounter Details Date Type Department Care Team (Late st Contact Info) Description 01/13/2014 4:00 PM EDT [place] [address] Davian Hurst MD [facility] [place] [address] Rheumatoid arthritis(714.0) (Primary Dx) Discharge Disposition: Home Social History Tobacco Use Types Packs/Day Years Used Date Smoking Tobacco: Never Sex and Gender Information Value Date Recorded Sex Assigned at Female 10/09/2020 8:32 AM EDT Gender Identity Not on file Sexual Orientation Not on file documented as of this encounter Last Filed Vital Signs Vital Sign Reading Time Taken Comments Blood Pressure 157/97 01/13/2014 4:14 PM EDT Pulse 75 01/13/2014 4:14 PM EDT Temperature 36.6 ??C (97.8 ??F) 01/13/2014 4:14 PM ED T Respiratory Rate - - Oxygen Saturation 98% 01/13/2014 4:14 PM EDT Inhaled Oxygen Concentration - - Weight 71 kg (156 lb 9.6 oz) 01/13/2014 4:14 PM EDT Height - - Body Mass Index 26.88 09/02/2013 2:13 PM EST documented in this encounter Patient Instructions * Patient Instructions* Davian Hurst MD - 01/13/2014 4:42 PM EDT 1. Reduce methotrexate to 0.6 cc subcut every week 2. Taper prednisone by 1 mg every 2-3 weeks as tolerated, may do at monthly intervals. 3. Labs today 4. 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 She was started on Prednisone 5 mgfollowed by taper and MTX. Interval History: Patient reports feeling great. Switched to parenteral MTX 7 months ago 20 mg/week. Doing great. When tapered prednisone from 5 to 2.5 mg/d in the past she flared. Now, she gets some right wrist pain and 3rd mcp stiffness or swelling, but she is great. No am stiffness. No infections, no functional limitations. Joints great. Continued attention to hair loss Review of Systems Constitutional: No fevers, chills, malaise. Skin: no rashes, a couple of facial 'weird hives' HEENT: ++ dry eyes in the last 3 years, perhaps some mild xerostomia, change in hearing, taste sinus pain, DIAZ, change in taste. Respiratory: no chest pain, shortness of breath CV: no SANCHEZ, angina sx, claudication Back: No sciatica, pain with standing GI: no abd pain, normal bowel movements : no dysuria, normal voiding, no nocturia Neuro: no focal deficit HPI: First seen 01.29.2013. Middle-aged woman who [...] Nocturnal throbbing pain 2007 in hands. Saw Display Carver in [place], told it was 'menopause', then it went away. Social History: Originally from [place], [place], moved to [place], [place] 11 years ago. 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 No smoke, no drinking. Life is good. 1 daughter 21. Very active in her business. 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 Was hurrying to get to appt. General-Well developed well nourished who is alert and in no apparent distress at rest, vivacious. Skin-No clubbing, cyanosis, rubor, edema, rash HEENT: Normal Neck-Normal motions Musculoskeletal: Trigger points not present. Shoulders: FROM, no AC/subacromial tenderness. Elbows: Full motion, no joint or epicondylar swelling or tenderness, perhaps slight decreased extension. Wrists: Normal motion, right ulnocarpal swelling, warmth, or tenderness Hands: Normal! 2 SJC/2 TJC Right 3rd mcp and right wrist. No changed Knees: Full motion, no swelling, no popliteal or joint line tenderness. No patellar tenderness or crepitance. Ankles: No warmth, swelling, but stiff on passive motion. No Achilles or plantar fascia tenderness. Feet: No deformity. No MTPJs compression tenderness CDAI: 2 (Pt Global) MD global 1, SJC/TJC =2 today CDAI 4, down from 0 Assess: Seropositive RA with great response to MTX/Prednisone having some alopecia despite daily MVI and folate and wants to taper prednisone Plan: 1. Labs today 2. Trial of reduced MTX using 0.6 ml injection/week 15 mg down from 20 (0.8cc). 3. Plan to taper prednisone 1 mg/d/month 4. RTC 4 months Level 4 follow up Davian Hurst documented in this encounter Plan of Treatment Upcoming Encounters Date Type Department Care Team (Late st Contact Info) Description 08/05/2024 2:00 PM EST Office [place] [address] Cheri Carvalho, KRISTIN [facility] [place] [address] documented as of this encounter Procedures Procedure Name Priority Date/Time Associated Diagnosis Comments HEMOGRAM Routine 01/13/2014 5:03 PM EDT Rheumatoid arthritis(714.0) DIFFERENTIAL, AUTOMATED Routine 01/13/2014 5:03 PM EDT Rheumatoid arthritis(714.0) CBC (WITH DIFF) Routine 01/13/2014 5:03 PM EDT Rheumatoid arthritis(714.0) CRP, CARDIAC RISK (HS CRP) Routine 01/13/2014 5:03 PM EDT Rheumatoid arthritis(714.0) COMPREHENSIVE METABOLIC PANEL Routine 01/13/2014 5:03 PM EDT Rheumatoid arthritis(714.0) documented in this encounter Results * (ABNORMAL) Differential, Automated (01/13/2014 5:03 PM EDT) Neutrophil % 76.5(H) 34.0 - 71.0 % CERNER MILLENNIUM Neutrophil Absolute 6.34(H) 1.50 - 6.30 x10(3)/mc L CERNER MILLENNIUM Lymph % 17.6(L) 19.0 - 53.0 % CERNER MILLENNIUM Lymphocytes Abs 1.5 1.0 - 3.6 x10(3)/mc L CERNER MILLENNIUM Monocyte % 4.8 4.0 - 13.0 % CERNER MILLENNIUM Monocyte Abs 0.4 0.2 - 1.0 x10(3)/mc L CERNER MILLENNIUM Eos % 0.6 0.0 - 7.0 % CERNER MILLENNIUM Eosinophils Abs 0.0 0.0 - 0.5 x10(3)/mc L CERNER MILLENNIUM Basophil % 0.4 0.0 - 2.0 % CERNER MILLENNIUM Baso Absolute 0.0 0.0 - 0.2 x10(3)/mc L CERNER MILLENNIUM Immature Gran % 0.10 0.00 - 0.66 % CERNER MILLENNIUM Comment: Immature granulocytes(IG's)percentage and absolute count will include metamyelocytes, myelocytes, and promyelocytes. Blood smears from CBCs yielding IG's will be scanned manually for concordance. If this scan disagrees with the automated IG or if promyelocytes are noted, a manual differential will be performed. Immature Gran Absolute 0.01 0.00 - 0.05 x10(3)/mc L CERNER MILLENNIUM Blood specimen (specimen) 01/13/2014 5:03 PM EDT 01/13/2014 5:09 PM EDT Narrative Resulting Agency Comment Spec In Lab Davian Hurst MD HEMATOLOGY ORDERABLE S CERAIDAN CRUZIUM * (ABNORMAL) Hemogram (01/13/2014 5:03 PM EDT) White Blood Cell 8.3 4.0 - 10.0 x10(3)/mc L CERNER MILLENNIUM Red Blood Cell 4.38 3.93 - 5.22 x10(6)/mc L CERNER MILLENNIUM Hemoglobin 12.7 11.2 - 15.7 gm/dL CERNER MILLENNIUM Hematocrit 39.2 34.0 - 45.0 % CERNER MILLENNIUM Mean Cell Volume 89.5 79.0 - 94.0 fL CERNER MILLENNIUM Mean Cell Hemoglobin 29.0 26.6 - 32.2 pg CERNER MILLENNIUM Mean Cell Hemoglobin Concentration 32.4 32.0 - 36.5 gm/dL CERNER MILLENNIUM Platelet 291 145 - 370 x10(3)/mc L CERNER MILLENNIUM RDW Standard Deviation 43.8 35.0 - 46.0 fL CERNER MILLENNIUM RDW coefficient of variation 13.4 10.9 - 14.4 % CERNER MILLENNIUM Mean Platelet Volume 8.8(L) 9.0 - 12.0 fL CERNER MILLENNIUM Blood specimen (specimen) 01/13/2014 5:03 PM EDT 01/13/2014 5:09 PM EDT Narrative Resulting Agency Comment Spec In Lab Davian Hurst MD HEMATOLOGY ORDERABLE S [facility] MILLENNIUM * (ABNORMAL) Comprehensive metabolic panel (non-fasting) (01/13/2014 5:03 PM EDT) [facility] Glucose 95 60 - 199 mg/dL CERNER MILLENNIUM Comment:Diabetes: >=200 mg/d L plus symptoms Blood Urea Nitrogen 16 8 - 18 mg/dL CERNER MILLENNIUM Creatinine 0.83 0.70 - 1.20 mg/dL CERNER MILLENNIUM Comment: Please note that the pediatric reference intervals supplied above were not validated at [facility]. Results from pediatric patients should be interpreted in conjunction to the patient's age, height and muscle mass. Sodium 139 135 - 145 mmol/L CERNER MILLENNIUM Potassium 3.9 3.5 - 5.0 mmol/L CERNER MILLENNIUM Comment: Please note: ??Patients with WBC >100,000 may have falsely elevated Potassium levels. ??For accurate Potassium quantification in these patients send serum separator tube (gold top) for subsequent determinations. ??Contact the Clinical Chemistry Laboratory if there are any questions. Chloride 104 98 - 107 mmol/L CERNER MILLENNIUM Carbon Dioxide 25 22 - 31 mmol/L CERNER MILLENNIUM Anion Gap 10 5 - 15 mmol/L CERNER MILLENNIUM Calcium 9.3 8.5 - 10.5 mg/dL CERNER MILLENNIUM Protein, Total 7.3 6.4 - 8.3 gm/dL CERNER MILLENNIUM Albumin 4.5 3.2 - 5.2 gm/dL CERNER MILLENNIUM Aspartate Aminotransferase 35(H) 0 - 30 unit/L CERNER MILLENNIUM Alanine Aminotransferase 15 0 - 30 unit/L CERNER MILLENNIUM Alkaline Phosphatase 78 40 - 104 unit/L CERNER MILLENNIUM Bilirubin, Total 0.3 0.2 - 1.3 mg/dL CERNER MILLENNIUM Bilirubin, Direct 0.1 0.0 - 0.3 mg/dL CERNER MILLENNIUM Est Glomerular Filtration Rate >60 >=60 CERNER MILLENNIUM Comment: This estimated GFR (eGFR) value was calculated using the MDRD equation which has been validated on patients between the ages of 18 and 70. The MDRD should not be used to assess kidney function in patients < 18 years of age or in patients with extremes of body mass, or in patients with acute kidney failure. This value should be multiplied by 1.2 for patients. For further information please copy and paste the following links into your internet browser. http://[email or web address]/[email or web address] [email or web address]://[email or web address]/[email or web address] Blood specimen (specimen) 01/13/2014 5:03 PM EDT 01/13/2014 5:09 PM EDT Narrative Resulting Agency Comment Spec In Lab Davian Hurst MD CHEMISTRY ORDERABLES CERAIDAN CRUZIUM * High Sensitivity CRP (01/13/2014 5:03 PM EDT) C-Reactive Protein High Sensitivity 1.6 mg/L CERNER MILLENNIUM Comment: Interpretations: 1) For accurate cardiac risk assessment, the average of 2 values >2 weeks apart should be obtained (ref 1&2). A value >10 mg/L indicates an inflammatory condition, concentrations >10 mg/L should not be used for cardiac risk assessment. ?<1.0 mg/L: low risk ?1.0 - 3.0 mg/L: moderate risk ?>3.0 mg/L: high risk groups for future cardiovascular events 2) The general reference range of apparently healthy individuals using this test is <5.0 mg/L (derived from the test package insert) References: 1. Leyla TIPTON et. al. ??AHA/CDC Scientific Statement: Markers of Inflammation and Cardiovascular Disease. ??Circulation 2003; 107:499-511 2. Ridker PM. ??Clinical applications of C-reactive protein for cardiovascular disease detection and prevention. ??Circulation 2003; 107:363-369 Blood specimen (specimen) 01/13/2014 5:03 PM EDT 01/13/2014 5:09 PM EDT Narrative Resulting Agency Comment Spec In Lab Davian Hurst MD CHEMISTRY ORDERABLES Performing Organization Address City/State/[facility] Co de Phone Number [facility] documented in this encounter Visit Diagnoses Diagnosis Rheumatoid arthritis(714.0)- Primary Rheumatoid arthritis documented in this encounter Care Teams Torch Brazer Relationship Specialty Start Date End Date Elizabeth Song MD [address] [place] [address] PCP - General 06/15/10 08/24/23 documented as of this encounter
--- OUTSIDE RECORDS SUMMARY | 2024-07-29 16:29 | XMS_ITS | Encounter Summary ---
Author Organization [facility] [place] [address] Care Team Providers Care Aviation Program Manager Name Role Phone Elizabeth Song MD Primary Care Provider [phone] Reason for Visit * Reason Comments Medication Refill Encounter Details Date Type Department Care Team (Late st Contact Info) Description 06/12/2014 Ref[place] [address] Davian Hurst MD [facility] [place] [place] [address] Social History Tobacco Use Types Packs/Day Years [...] 2:00 PM EST Office [place] [address] Cheri Carvalho APRN [facility] [place] [address] documented as of this encounter Visit Diagnoses Not on filedocumented in this encounter Care Teams Aviation Program Manager Relationship Specialty Start Date End Date Elizabeth Song MD [address] [place] [address] PCP - General 06/15/10 08/24/23 documented as of this encounter
--- OUTSIDE RECORDS SUMMARY | 2024-07-29 16:29 | XMS_ITS | Encounter Summary ---
Author Organization [facility] [place] [address] Care Team Providers Care Implementation Specialist Name Role Phone Elizabeth Song MD Primary Care Provider [phone] Reason for Visit * Reason Onset Date Comments Medication Refill 05/29/2017 Encounter Details Date Type Department Care Team (Late st Contact Info) Description 05/29/2017 [place] [address] Davian Hurst MD [facility] [place] [address] Social History Tobacco Use Types Packs/Day Years [...] 2:00 PM EST [place] [phone] Cheri Carvalho, CHIP MIXING MACHINE OPERATOR [facility] [place] [place] [address] documented as of this encounter Visit Diagnoses Not on filedocumented in this encounter Care Teams Implementation Specialist Relationship Specialty Start Date End Date Elizabeth Song MD [address] [place] [address] PCP - General 06/15/10 08/24/23 documented as of this encounter
--- OUTSIDE RECORDS SUMMARY | 2024-07-29 16:29 | XMS_ITS | Encounter Summary ---
[place] [address] Care Team Providers Care Janitor Helper Name Role Phone Elizabeth Song MD Primary Care Provider [phone] Reason for Visit * Reason Onset Date Comments Medication Refill 06/24/2016 Encounter Details Date Type Department Care Team (Late st Contact Info) Description 06/24/2016 [place] [address] Kenya Lui RN Rheumatoid arthritis Social History Tobacco Use Types Packs/Day Years Used Date Smoking Tobacco: Never Sex and Gender Information Value Date Recorded Sex Assigned at Female 10/09/2020 8:32 AM EDT Gender Identity Not on file Sexual Orientation Not on file documented as of this encounter Miscellaneous Notes * Telephone Encounter - Kenya Lui RN - 06/24/2016 2:14 PM ESTFrom: Erma Ruiz To: Davian Hurst MD Sent: 06/24/2016 10:18 AM EST Subject: Medication Renewal Request Original authorizing provider: MD Erma CORLEY would like a refill of the following medications: leucovorin (WELLCOVORIN) 5 mg Tablet [DAVIAN HURST MD] Preferred pharmacy: [phone] Comment: documented in this encounter Plan of Treatment Upcoming Encounters Date Type Department Care Team (Late st Contact Info) Description 08/05/2024 2:00 PM EST Office [place] [address] Cheri Carvalho, KRISTIN [facility] [place] [address] documented as of this encounter Visit Diagnoses Diagnosis Rheumatoid arthritis documented in this encounter Care Teams Janitor Helper Relationship Specialty Start Date End Date Elizabeth Song MD [address] [place] [address] PCP - General 06/15/10 08/24/23 documented as of this encounter
--- OUTSIDE RECORDS SUMMARY | 2024-07-29 16:29 | XMS_ITS | Encounter Summary ---
Author Organization [facility] Address [facility] [place] [address] Care Team Providers Care General Office Assistant Name Role Phone Elizabeth Song MD Primary Care Provider [phone] Encounter Details Date Type Department Care Team (Latest Contact Info) Description 01/29/2013 9:31 AM EDT - 01/29/2013 11:59 PM EDT Hospital Encounter XRay at [address] [place] [address] Rheumatoid arthritis Social History Tobacco Use Types Packs/Day Years Used Date Smoking Tobacco: Never Sex and Gender Information Value Date Recorded Sex Assigned at Female 10/09/2020 8:32 AM EDT Gender Identity Not on file Sexual Orientation Not on file documented as of this encounter Medications at Time of Discharge Medication Sig Dispensed Refills Start Date End Date MULTIVITAMIN ORAL Take by mouth as needed. ASCORBATE CALCIUM (VITAMIN C ORAL) Take by mouth daily as needed. NAPROXEN SODIUM (ALEVE ORAL) Take by mouth every 12 hours as needed. 2 tablets 01/13/2014 MONTELUKAST SODIUM (SINGULAIR ORAL) Take by mouth as needed. 07/12/2021 ESTROGENS, CONJUGATED (PREMARIN VAGL) Place vaginally. 01/14/20 14 methotrexate 2.5 mg tabletIndications:Rhe umatoid arthritis(714.0) 4 T week one, then 8T weekly thereafter 96 tablet 3 01/29/2013 01/13/2014 folic acid (FOLVITE) 1 mg tabletIndications:Rhe umatoid arthritis(714.0) Take 1 tablet by mouth daily. 90 tablet 12 01/29/2013 02/10/2014 predniSONE (DELTASONE) 5 mg tabletIndications:Rhe umatoid arthritis(714.0) 4 T each morning for 1 month, then reduce by 1 T every 2-4 weeks thereafter as long as no symptoms 200 tablet 3 01/29/2013 06/12/2014 documented as of this encounter Plan of Treatment Upcoming Encounters Date Type Department Care Team (Late st Contact Info) Description 08/05/2024 2:00 PM EST Office Visit Rheumatology at [facility] [place] [address] Cheri Carvalho, SUPERVISOR [employer] [facility] [place] [address] documented as of this encounter Procedures Procedure Name Priority Date/Time Associated Diagnosis Comments XR HANDS MIN 3 VIEWS BILAT Routine 01/29/2013 10:15 AM EDT Rheumatoid arthritis documented in this encounter Results * XR Bilateral Hands Minimum 3 Views (01/29/2013 10:15 AM EDT) Anatomical Region Laterality Modality Hand Bilateral Radiographic Marguerite ging 01/29/2013 10:1 5 AM EDT Narrative 01/29/2013 5:17 PM EDT Examination BILATERAL HANDS MIN 3 VIEWS Clinical History new onset RA Comparison None Technique 4 views each Findings Bones: Normal bone mineralization and no periostitis. Deformed tuft of the left 5th distal phalanx likely is related to old trauma. Soft tissues: Diffuse dorsal soft tissues around the right metacarpal heads. ?? Joints: 1. Interphalangeal joints-diffuse small osteophytes in multiple DIP and scattered PIP joints. No erosions. Some joint spaces are slightly narrowed 2. ??MCP joints-no erosions. The joint spaces are symmetric. 3. Basal joints-normAL 4. Radial carpal joints- no erosions and normal appearance. Impression head suggests synovitis. ? 1. No erosions ? 2. Scattered IP joint osteoarthropathy. ? 3. Dorsal soft tissue swelling around the right metacarpal suggests synovitis. Procedure Note Ashlyn Edwards MD - 01/29/2013 Examination BILATERAL HANDS MIN 3 VIEWS Clinical History new onset RA Comparison None Technique 4 views each Findings Bones: Normal bone mineralization and no periostitis. Deformed tuft of the [id number] distal phalanx likely is related to old trauma. Soft tissues: Diffuse dorsal soft tissues around the right metacarpal heads. Joints: 1. Interphalangeal joints-diffuse small osteophytes in multiple DIP and scattered PIP joints. No erosions. Some joint spaces are slightly narrowed 2. MCP joints-no erosions. The joint spaces are symmetric. 3. Basal joints-normAL 4. Radial carpal joints- no erosions and normal appearance. Impression head suggests synovitis. 1. No erosions 2. Scattered IP joint osteoarthropathy. 3. Dorsal soft tissue swelling around the right metacarpal suggests synovitis. Davian Hurst MD IMG DX ORDERABLES documented in this encounter Visit Diagnoses Diagnosis Rheumatoid arthritis(714.0) Rheumatoid arthritis documented in this encounter Care Teams General Office Assistant Relationship Specialty Start Date End Date Elizabeth Song MD [address] [place] [address] PCP - General 06/15/10 08/24/23 documented as of this encounter
--- OUTSIDE RECORDS SUMMARY | 2024-07-29 16:29 | XMS_ITS | Encounter Summary ---
Author Organization [facility] Address [facility] [place] [address] Care Team Providers Care Assistant Front Desk Manager Name Role Phone Elizabeth Song MD Primary Care Provider [phone] Reason for Visit * Reason Onset Date Comments Medication Refill 02/14/2015 Encounter Details Date Type Department Care Team (Late st Contact Info) Description 02/14/2015 [place] [address] Davian Hurst MD [facility] [place] [address] Social History Tobacco Use Types Packs/Day Years Used Date Smoking Tobacco: Never Sex and Gender Information Value Date Recorded Sex Assigned at Female 10/09/2020 8:32 AM EDT Gender Identity Not on file Sexual Orientation Not on file documented as of this encounter Miscellaneous Notes * Telephone Encounter - Caty Givens RN - 02/16/2015 12:19 PM EDTFrom: Erma Ruiz To: Davian Hurst MD Sent: 02/14/2015 10:04 AM EDT Subject: Medication Renewal Request Original authorizing provider: MD Erma CORLEY would like a refill of the following medications: methotrexate 25 mg/mL chemo injection [DAVIAN HURST MD] Preferred pharmacy: [phone] Comment: documented in this encounter Plan of Treatment Upcoming Encounters Date Type Department Care Team (Late st Contact Info) Description 08/05/2024 2:00 PM EST Office [place] [address] Cheri Carvalho, GENERAL PRODUCTION LABORER [facility] [place] [address] documented as of this encounter Visit Diagnoses Not on filedocumented in this encounter Care Teams Assistant Front Desk Manager Relationship Specialty Start Date End Date Elizabeth Song MD [address] [place] [address] PCP - General 06/15/10 08/24/23 documented as of this encounter
--- OUTSIDE RECORDS SUMMARY | 2024-07-29 16:29 | XMS_ITS | Encounter Summary ---
[place] [address] Care Team Providers Care Shirring Tender Name Role Phone Elizabeth Song MD Primary Care Provider [phone] Reason for Visit * Reason Onset Date Comments Medication Refill 08/19/2016 Encounter Details Date Type Department Care Team (Late st Contact Info) Description 08/19/2016 [place] [phone] Kenya Lui RN Rheumatoid arthritis Social History Tobacco Use Types Packs/Day Years Used Date Smoking Tobacco: Never Sex and Gender Information Value Date Recorded Sex Assigned at Female 10/09/2020 8:32 AM EDT Gender Identity Not on file Sexual Orientation Not on file documented as of this encounter Miscellaneous Notes * Telephone Encounter - Kenya Lui RN - 08/19/2016 11:57 AM ESTFrom: Erma Ruiz To: Davian Hurst MD Sent: 08/19/2016 11:00 AM EST Subject: Medication Renewal Request Original authorizing provider: MD Erma CORLEY would like a refill of the following medications: leucovorin (WELLCOVORIN) 5 mg Tablet [DAVIAN HURST MD] Preferred pharmacy: [phone] [place] [address] Comment: I did not receive notice from the pharmacy on the last renewal , and did not pick it up. Thanks! documented in this encounter Plan of Treatment Upcoming Encounters Date Type Department Care Team (Late st Contact Info) Description 08/05/2024 2:00 PM EST Office [place] [address] Cheri Carvalho APRN [facility] [place] [address] documented as of this encounter Visit Diagnoses Diagnosis Rheumatoid arthritis documented in this encounter Care Teams Shirring Tender Relationship Specialty Start Date End Date Elizabeth Song MD [address] [place] [address] PCP - General 06/15/10 08/24/23 documented as of this encounter
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
--- OUTSIDE RECORDS SUMMARY | 2024-07-29 16:29 | XMS_ITS | Encounter Summary ---
Author Organization [facility] Address [facility] [place] [address] Care Team Providers Care Machine Oiler Name Role Phone Elizabeth Song MD Primary Care Provider Encounter Details Date Type Department Care Team (Late st Contact Info) Description 05/11/2015 10:45 AM EDT [place] [address] Davian Hurst MD [facility] [place] [address] Rheumatoid arthritis(164.0) Social History Tobacco Use Types Packs/Day Years Used Date Smoking Tobacco: Never Sex and Gender Information Value Date Recorded Sex Assigned at Female 10/09/2020 8:32 AM EDT Gender Identity Not on file Sexual Orientation Not on file documented as of this encounter Last Filed Vital Signs Vital Sign Reading Time Taken Comments Blood Pressure 162/100 05/11/2015 10:58 AM EDT Pulse 114 05/11/2015 10:58 AM EDT Temperature 36.7 ??C (98.1 ??F) 05/11/2015 10:58 AM E DT Respiratory Rate - - Oxygen Saturation 100% 05/11/2015 10:58 AM EDT Inhaled Oxygen Concentration - - Weight 70.3 kg (155 lb) 05/11/2015 10:58 AM EDT Height 162.6 cm (5' 4) 05/11/2015 10:58 AM EDT Body Mass Index 26.61 05/11/2015 10:58 AM EDT documented in this encounter Patient Instructions * Patient Instructions* Davian Hurst MD - 05/11/2015 11:27 AM EDT 1. Try reducing Methotrexate to every other week 2. Stay on Prednisone 5 mg/d 3. Tapering the prednisone next spring by 1 mg increments 4. Labs today 5. Return in 6 months documented in this encounter Progress Notes * Davian Hurst MD - 05/11/2015 11:17 AM EDT 58 yo woman who returns in 6 month f/u from visit after presenting in [...] even with 1 mg/d tapering Interval History: Patient reports feeling great, prednisone taper prompted flare and resumed 5 mg/d. No issues. Triedholding MTX due to malaise, probable adenosine effect. Asthma worsened as did joints, when held MTX for 2 weeks. Tolerating it. Review of Systems Constitutional: No fevers, chills, [...] Neuro: no focal deficit HPI: First seen 7.9.2013. Middle-aged woman who reported for the past [...] Nocturnal throbbing pain 2007 in hands. 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 Social History: Originally from [place], [place], moved to [place], [place] 11 years ago. 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 No smoke, no drinking. Life is good. 1 daughter 21. Very active in her business. 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 General-Well developed well nourished who is alert [...] it today, warmth, or tenderness Hands: Normal! 1 SJC/0 TJC Right 3rd mcp trace. Knees: Full motion, no swelling, no popliteal or joint line tenderness. No patellar tenderness or crepitance. Ankles: No warmth, swelling, but stiff on passive motion. No Achilles or plantar fascia tenderness. Feet: No deformity. No MTPJs compression tenderness CDAI: 1 (Pt Global) MD global 1, SJC/TJC =1 today CDAI 3 Assess: Seropositive RA with great response to MTX/Prednisone. Needs prednisone still. BP up, will recommend checking with PCP Plan: 1. Labs today 2. See PCP re BP 3. Try MTX every other week Level 4 follow up Davian Hurst documented in this encounter Miscellaneous Notes * Addendum Note - Lynda Rodríguez - 05/11/2015 11:41 AM EDTAddended by: LYNDA RODRÍGUEZ on: 05/11/2015 11:41 AM Modules accepted: Orders documented in this encounter Plan of Treatment Upcoming Encounters Date Type Department Care Team (Late st Contact Info) Description 08/05/2024 2:00 PM EST [place] [address] Cheri Carvalho, KRISTIN [facility] [place] [address] Scheduled Orders Name Type Priority Associated Diagnoses Orde r Schedule CBC (with Diff) Lab Routine Rheumatoid arthritis(714.0) Expected: 05/11/2015, Expires: 05/11/2016 High Sensitivity CRP Lab Routine Rheumatoid arthritis(714.0) Expected: 05/11/2015, Expires: 05/11/2016 Comprehensive metabolic panel (non-fasting) Lab Routine Rheumatoid arthritis(714.0) Expected: 05/11/2015, Expires: 05/11/2016 documented as of this encounter Procedures Procedure Name Priority Date/Time Associated Diagnosis Comments HEMOGRAM Routine 05/11/2015 11:46 AM EDT Rheumatoid arthritis(714.0) DIFFERENTIAL, AUTOMATED Routine 05/11/2015 11:46 AM EDT Rheumatoid arthritis(714.0) CBC (WITH DIFF) Routine 05/11/2015 11:46 AM EDT Rheumatoid arthritis(714.0) CRP, CARDIAC RISK (HS CRP) Routine 05/11/2015 11:46 AM EDT Rheumatoid arthritis(714.0) COMPREHENSIVE METABOLIC PANEL Routine 05/11/2015 11:46 AM EDT Rheumatoid arthritis(714.0) documented in this encounter Results * (ABNORMAL) Differential, Automated (05/11/2015 11:46 AM EDT) Neutrophil % 81.6 % [facility] Neutrophil Absolute 8.55(H) 1.50 - 6.30 x10(3)/mc L [facility] Lymph % 11.4 % [facility] Lymphocytes Abs 1.2 1.0 - 3.6 x10(3)/mc L [facility] Monocyte % 5.7 % [facility] Monocyte Abs 0.6 0.2 - 1.0 x10(3)/mc L [facility] Eos % 0.9 % [facility] Eosinophils Abs 0.1 0.0 - 0.5 x10(3)/mc L [facility] Basophil % 0.2 % [facility] Baso Absolute 0.0 0.0 - 0.2 x10(3)/mc L [facility] Immature Gran % 0.20 % [facility] Comment: Immature granulocytes(IG's)percentage and absolute count will include metamyelocytes, myelocytes, and promyelocytes. Blood smears from CBCs yielding IG's will be scanned manually for concordance. If this scan disagrees with the automated IG or if promyelocytes are noted, a manual differential will be performed. Immature Gran Absolute 0.02 0.00 - 0.05 x10(3)/mc L [facility] Blood specimen (specimen) 05/11/2015 11:46 AM EDT 05/11/2015 11:50 AM EDT Narrative Resulting Agency Comment Spec In Lab Davian Hurst MD HEMATOLOGY ORDERABLE S Performing Organization Address City/[facility]/ZIP Co de Phone Number [facility] * (ABNORMAL) Hemogram (05/11/2015 11:46 AM EDT) White Blood Cell 10.5(H) 4.0 - 10.0 x10(3)/mc L [facility] Red Blood Cell 4.59 3.93 - 5.22 x10(6)/mc L [facility] Hemoglobin 13.6 11.2 - 15.7 gm/dL [facility] Hematocrit 41.8 34.0 - 45.0 % [facility] Mean Cell Volume 91.1 79.0 - 94.0 fL [facility] Mean Cell Hemoglobin 29.6 26.6 - 32.2 pg [facility] Mean Cell Hemoglobin Concentration 32.5 32.0 - 36.5 gm/dL [facility] Platelet 326 145 - 370 x10(3)/mc L [facility] RDW Standard Deviation 43.5 35.0 - 46.0 fL [facility] RDW coefficient of variation 13.3 10.9 - 14.4 % [facility] Mean Platelet Volume 8.7(L) 9.0 - 12.0 fL [facility] Blood specimen (specimen) 05/11/2015 11:46 AM EDT 05/11/2015 11:50 AM EDT Narrative Resulting Agency Comment Spec In Lab Davian Hurst MD HEMATOLOGY ORDERABLE S Performing Organization Address City/[facility]/ZIP Co de Phone Number [facility] * Comprehensive metabolic panel (non-fasting) (05/11/2015 11:46 AM EDT) [facility] Glucose 97 65 - 199 mg/dL [facility] Comment:Diabetes: >=200 mg/d L plus symptoms Blood Urea Nitrogen 14 8 - 18 mg/dL [facility] Creatinine 0.79 0.70 - 1.20 mg/dL [facility] Comment: Please note that the pediatric reference intervals supplied above [place] [facility] [place] Results from pediatric patients should be interpreted in conjunction to the patient's age, height and muscle mass. Sodium 143 135 - 145 mmol/L [facility] Potassium 4.3 3.5 - 5.0 mmol/L [facility] Comment: Please note: ??Patients with WBC >100,000 may have falsely elevated Potassium levels. ??For accurate Potassium quantification in these patients send serum separator tube (gold top) for subsequent determinations. ??Contact the Clinical Chemistry Laboratory if there are any questions. Chloride 106 98 - 107 mmol/L [facility] Carbon Dioxide 27 22 - 31 mmol/L [facility] Anion Gap 10 5 - 15 mmol/L [facility] Calcium 9.3 8.5 - 10.5 mg/dL [facility] Protein, Total 7.2 6.1 - 8.0 gm/dL [facility] Albumin 4.4 3.2 - 5.2 gm/dL [facility] Aspartate Aminotransferase 25 0 - 30 unit/L [facility] Alanine Aminotransferase 10 0 - 30 unit/L [facility] Alkaline Phosphatase 86 40 - 104 unit/L [facility] Bilirubin, [...] the following links into your internet browser. [email or web address] Blood specimen (specimen) 05/11/2015 11:46 AM EDT 05/11/2015 11:50 AM EDT Narrative Resulting Agency Comment Spec In Lab Davian Hurst MD CHEMISTRY ORDERABLES Performing Organization Address City/[facility] Co de Phone Number [facility] * High Sensitivity CRP (05/11/2015 11:46 AM EDT) [facility] C-Reactive Protein High Sensitivity 2.0 mg/L [facility] Comment: Interpretations: 1) For accurate cardiac risk [...] prevention. ??Circulation 2003; 107:[phone] Blood specimen (specimen) 05/11/2015 11:46 AM EDT 05/11/2015 11:50 AM EDT Narrative Resulting Agency Comment Spec In Lab Davian Hurst MD CHEMISTRY ORDERABLES Performing Organization Address [facility] Co de Phone Number [facility] documented in this encounter Visit Diagnoses Diagnosis Rheumatoid arthritis(714.0) Rheumatoid arthritis documented in this encounter Care Teams Machine Oiler Relationship Specialty Start Date End Date Elizabeth Song MD [address] [place] [address] PCP - General 06/15/10 08/24/23 documented as of this encounter
--- OUTSIDE RECORDS SUMMARY | 2024-07-29 16:29 | XMS_ITS | Encounter Summary ---
Author Organization [facility] [address] Care Team Providers Care Fur Grader Name Role Phone Elizabeth Song MD Primary Care Provider [phone] Reason for Visit * Reason Comments Medication Refill Encounter Details Date Type Department Care Team (Late st Contact Info) Description 02/10/2014 [place] [address] Davian Hurst MD [facility] [place] [place] [address] Social History Tobacco Use Types Packs/Day Years [...] 2:00 PM EST Office [place] [address] Cheri Carvalho APRN [facility] [place] [address] documented as of this encounter Visit Diagnoses Not on filedocumented in this encounter Care Teams Fur Grader Relationship Specialty Start Date End Date Elizabeth Song MD [address] [place] [address] PCP - General 06/15/10 08/24/23 documented as of this encounter
--- OUTSIDE RECORDS SUMMARY | 2024-07-29 16:29 | XMS_ITS | Encounter Summary ---
Author Organization [facility] Address [facility] [place] [address] Care Team Providers Care Hat Cone Inspector Name Role Phone Elizabeth Song MD Primary Care Provider [phone] Reason for Visit * Reason Onset Date Comments Medication Refill 09/06/2013 Encounter Details Date Type Department Care Team (Late st Contact Info) Description 09/06/2013 [place] [address] Davian Hurst MD [facility] [place] [address] Social History Tobacco Use Types Packs/Day Years Used Date Smoking Tobacco: Never Sex and Gender Information Value Date Recorded Sex Assigned at Female 10/09/2020 8:32 AM EDT Gender Identity Not on file Sexual Orientation Not on file documented as of this encounter Miscellaneous Notes * Telephone Encounter - Caty Givens RN - 09/09/2013 9:27 AM ESTFrom: Erma Ruiz To: Davian Hurst MD Sent: 09/06/2013 12:59 AM EST Subject: Medication Renewal Request Original authorizing provider: MD Erma CORLEY would like a refill of the following medications: methotrexate 25 mg/mL chemo injection [DAVIAN HURST MD] Preferred pharmacy: [phone] Comment: documented in this encounter Plan of Treatment Upcoming Encounters Date Type Department Care Team (Late st Contact Info) Description 08/05/2024 2:00 PM EST Office [place] [address] Cheri Carvalho APRN [facility] [place] [address] documented as of this encounter Visit Diagnoses Not on filedocumented in this encounter Care Teams Hat Cone Inspector Relationship Specialty Start Date End Date Elizabeth Song MD [address] [place] [address] PCP - General 06/15/10 08/24/23 documented as of this encounter
--- OUTSIDE RECORDS SUMMARY | 2024-07-29 16:29 | XMS_ITS | Encounter Summary ---
Author Organization [facility] [place] [address] Care Team Providers Care Cigarette Making Machine Catcher Name Role Phone Elizabeth Song MD Primary Care Provider [phone] Reason for Visit * Reason Comments Rheumatoid Arthritis Encounter Details Date Type Department Care Team (Late st Contact Info) Description 05/13/2013 9:15 AM EDT [place] [address] Davian Hurst MD [facility] [place] [place] [address] Rheumatoid arthritis (Primary Dx) Discharge Disposition: Home Social History Tobacco Use Types Packs/Day Years Used Date Smoking Tobacco: Never Sex and Gender Information Value Date Recorded Sex Assigned at Female 10/09/2020 8:32 AM EDT Gender Identity Not on file Sexual Orientation Not on file documented as of this encounter Last Filed Vital Signs Vital Sign Reading Time Taken Comments Blood Pressure 135/104 05/13/2013 9:27 AM EDT Pulse 96 05/13/2013 9:27 AM EDT Temperature 36.4 ??C (97.6 ??F) 05/13/2013 9:27 AM ED T Respiratory Rate - - Oxygen Saturation 99% 05/13/2013 9:27 AM EDT Inhaled Oxygen Concentration - - Weight 70.1 kg (154 lb 8 oz) 05/13/2013 9:27 AM EDT Height 162.6 cm (5' 4) 05/13/2013 9:27 AM EDT Body Mass Index 26.52 05/13/2013 9:27 AM EDT documented in this encounter Patient Instructions * Patient Instructions* Davian Hurst MD - 05/13/2013 9:41 AM EDT 1. Switch Methotrexate orally to 3-4 T taken 12 hours apart for a total of 2 doses once a week equalling 6 or 8 T taken each week 2. If intolerant of Methotrexate orally due to GI distress, will start on injectable MTX 20 mg/week 3. Labs today 4. If labs okay, return in 4 months 5. Trial of reducing prednisone to 2.5 mg daily (1/2 tablet on May 24). If doing well after 1 month, may try to stop. If not doing well after taper, resume next highest dose. 6. Consider transitioning to biannual follow up. 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 She was started on Prednisone 20 mg/d followed by taper and MTX. Interval History: Patient reports feeling great. No am stiffness. No infections, no functional limitations. Joints great. Taking Prednisone 5 mg/d for the last 4 weeks. Taking Methotrexate 1 T daily !!!!!!!!! Despite guidelines! No side effects. HPI: First seen 01.29.2013. Middle-aged woman who [...] elbow involvment. No neurologic signs of symptoms Review of Systems Constitutional: No fevers, chills, [...] voiding, no nocturia Neuro: no focal deficit Past Medical History: 1. Allergic Rhinitis Asthma: Longstanding controlled with Singulair, no inhalers for 10 years 2. 3. D/C for miscarriage 4. Atrophic vaginitis: on Premarin 5. Nocturnal throbbing pain 2008 in hands. 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 Social History: Originally from [place], [place], moved to [place], [place] 11 years ago. 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 No smoke, no drinking. Life is good. 1 daughter 21. Very active in her business. 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 General-Well developed well nourished who is alert and in no apparent distress at rest. Skin-No clubbing, cyanosis, rubor, edema, rash HEENT: Normal Neck-Normal motions Musculoskeletal: Trigger points not present. Shoulders: FROM, no AC/subacromial tenderness. Elbows: Full motion, no joint or epicondylar swelling or tenderness, perhaps slight decreased extension. Wrists: Normal motion, no swelling, warmth, or tenderness Hands:Normal! 0/0 SJC/TJC Knees: Full motion, no swelling, no popliteal or joint line tenderness. No patellar tenderness or crepitance. Ankles: No warmth, swelling, but stiff on passive motion. No Achilles or plantar fascia tenderness. Feet: No deformity. No MTPJs compression tenderness Neuro: No focal weakness, normal sensation, including JPS. Romberg normal Tandem gait normal CDAI: 2 (Pt Global) all other 0, down from 0 Assess: Seropositive RA with great response to MTX/Prednisone. Taking MTX incorrectly due to some GI distress on 7.5-10 mg/week dosing. Hypertension noted. Will follow. Plan: 1. Switch Methotrexate orally to 3-4 T taken 12 hours apart for a total of 2 doses once a week equalling 6 or 8 T taken each week 2. If intolerant of Methotrexate orally due to GI distress, will start on injectable MTX 20 mg/week 3. Labs today 4. If labs okay, return in 4 months 5. Trial of reducing prednisone to 2.5 mg daily (1/2 tablet on May 24). If doing well after 1 month, may try to stop. If not doing well after taper, resume next highest dose. 6. Consider transitioning to biannual follow up. 7. Send results and recommend continued monitoring of BP Level 4 follow up Davian Hurst 05.14.13 Addendum: Labs great. Note sent to pt, PCP documented in this encounter Miscellaneous Notes * Addendum Note - Sunitha Blank - 05/13/2013 10:07 AM EDTAddended by: SUNITHA BLANK on: 05/13/2013 10:07 AM Modules accepted: Orders documented in this encounter Plan of Treatment Upcoming Encounters Date Type Department Care Team (Late st Contact Info) Description 08/05/2024 2:00 PM EST Office Visit Rheumatology at [facility] [place] [id number] Cheri Carvalho, UNLOADING CHECKER [facility] [place] [address] documented as of this encounter Procedures Procedure Name Priority Date/Time Associated Diagnosis Comments DIFFERENTIAL, AUTOMATED Routine 05/13/2013 10:16 AM EDT CBC (WITH DIFF) Routine 05/13/2013 10:16 AM EDT Rheumatoid arthritis CRP, CARDIAC RISK (HS CRP) Routine 05/13/2013 10:16 AM EDT Rheumatoid arthritis COMPREHENSIVE METABOLIC PANEL Routine 05/13/2013 10:16 AM EDT Rheumatoid arthritis documented in this encounter Results * Differential, Automated (05/13/2013 10:16 AM EDT) Neutrophil % 70.1 34.0 - 71.0 % [facility] Neutrophil Absolute 3.97 1.50 - 6.30 x10(3)/mcL [facility] Lymph % 19.3 19.0 - 53.0 % [facility] Lymphocytes Abs 1.1 1.0 - 3.6 x10(3)/mcL [facility] Monocyte % 7.2 4.0 - 13.0 % [facility] Monocyte Abs 0.4 0.2 - 1.0 x10(3)/mcL [facility] Eos % 2.1 0.0 - 7.0 % [facility]ILL[facility] Eosinophils Abs 0.1 0.0 - 0.5 x10(3)/mcL [facility] Basophil % 0.9 0.0 - 2.0 % [facility] Baso Absolute 0.0 0.0 - 0.2 x10(3)/mcL [facility] Immature Gran % 0.40 0.00 - 0.66 % [facility] Comment: Immature granulocytes(IG's)percentage and absolute count will include metamyelocytes, myelocytes, and promyelocytes. Blood smears from CBCs yielding IG's will be scanned manually for concordance. If this scan disagrees with the automated IG or if promyelocytes are noted, a manual differential will be performed. Immature Gran Absolute 0.02 0.00 - 0.05 x10(3)/mcL [facility] Blood specimen (specimen) 05/13/2013 10:16 AM EDT 05/13/2013 10:32 AM EDT Davian Hurst MD HEMATOLOGY ORDERABLE S [facility] * (ABNORMAL) CBC (with Diff) (05/13/2013 10:16 AM EDT) White Blood Cell 5.7 4.0 - 10.0 x10(3)/mc L [facility]ILLENNI[facility] Red Blood Cell 4.33 3.93 - 5.22 x10(6)/mc L [facility]ILLEN[facility] Hemoglobin 12.9 11.2 - 15.7 gm/dL [facility] Hematocrit 39.8 34.0 - 45.0 % [facility]ILLENNI[facility] Mean Cell Volume 91.9 79.0 - 94.0 fL [facility]ILLENNI[facility] Mean Cell Hemoglobin 29.8 26.6 - 32.2 pg [facility]ILLENNI[facility] Mean Cell Hemoglobin Concentration 32.4 32.0 - 36.5 gm/dL [facility] MILLENNI[facility] Platelet 301 145 - 370 x10(3)/mc L [facility] MILLENNI[facility] RDW Standard Deviation 54.4(H) 35.0 - 46.0 fL [facility] MILLENNI[facility] RDW coefficient of variation 16.3(H) 10.9 - 14.4 % [facility] MILLENNI[facility] Mean Platelet Volume 8.8(L) 9.0 - 12.0 fL [facility]ILLENNI[facility] Blood specimen (specimen) 05/13/2013 10:16 AM EDT 05/13/2013 10:32 AM EDT Narrative Resulting Agency Comment Spec In Lab Davian Hurst MD [facility]ATOLOGY [facility] * High Sensitivity CRP (05/13/2013 10:16 AM EDT) C-Reactive Protein High Sensitivity 1.9 mg/L [facility] Comment: Interpretations: 1) For accurate cardiac risk [...] and Cardiovascular Disease. ??Circulation 2003; 107:499-511 2. Farhat PM. ??Clinical applications of C-reactive protein for cardiovascular disease detection and prevention. ??Circulation 2003; 107:363-369 Blood specimen (specimen) 05/13/2013 10:16 AM EDT 05/13/2013 10:32 AM EDT Narrative Resulting Agency Comment Spec In Lab Davian Hurst MD [facility] * (ABNORMAL) Comprehensive metabolic panel (non-fasting) (05/13/2013 10:16 AM EDT) Pathologist [facility] Glucose 98 60 - 199 mg/dL [facility] Comment:Diabetes: >=200 mg/d L plus symptoms Blood Urea Nitrogen 11 8 - 18 mg/dL [facility] Creatinine 0.84 0.70 - 1.20 mg/dL [facility] Comment: Please note that the pediatric reference intervals supplied above were not validated at [facility]. Results from pediatric patients should be interpreted in conjunction to the patient's age, height and muscle mass. Sodium 141 135 - 145 mmol/L [facility] Potassium 3.6 3.5 - 5.0 mmol/L [facility] Comment: Please note: ??Patients with WBC >100,000 may have falsely elevated Potassium levels. ??For accurate Potassium quantification in these patients send serum separator tube (gold top) for subsequent determinations. ??Contact the Clinical Chemistry Laboratory if there are any questions. Chloride 104 98 - 107 mmol/L [facility] Carbon Dioxide 26 22 - 31 mmol/L [facility] Anion Gap 11 5 - 15 mmol/L [facility] Calcium 9.3 8.5 - 10.5 mg/dL [facility] Protein, Total 7.1 6.4 - 8.3 gm/dL [facility] Albumin 4.3 3.2 - 5.2 gm/dL [facility] Aspartate Aminotransferase 33(H) 0 - 30 unit/L [facility] Alanine Aminotransferase 17 0 - 30 unit/L [facility] Alkaline Phosphatase 82 40 - 104 unit/L [facility] Bilirubin, Total 0.4 0.2 - 1.3 mg/dL [facility] Bilirubin, [...] the following links into your internet browser. http://www.nkdep.nih.gov/lab-evaluation.shtml http://www.kidney.org/professionals/ Blood specimen (specimen) 05/13/2013 10:16 AM EDT 05/13/2013 10:32 AM EDT Narrative Resulting Agency Comment Spec In Lab Davian Hurst MD CHEMISTRY ORDERABLES [facility] documented in this encounter Visit Diagnoses Diagnosis Rheumatoid arthritis(714.0)- Primary Rheumatoid arthritis documented in this encounter Care Teams Cigarette Making Machine Catcher Relationship Specialty Start Date End Date Elizabeth Song MD [address] [place] [address] PCP - General 06/15/10 08/24/23 documented as of this encounter
--- OUTSIDE RECORDS SUMMARY | 2024-07-29 16:29 | XMS_ITS | Encounter Summary ---
Author Organization [facility] Address [facility] [place] [address] Care Team Providers Care Thin Film Technician Name Role Phone Elizabeth Song MD Primary Care Provider [phone] Encounter Details Date Type Department Care Team (Late st Contact Info) Description 06/19/2017 11:30 AM EST Office [place] [address] [facility] [place] [address] Rheumatoid arthritis, involving unspecified site, unspecified rheumatoid factor presence; Right knee pain, unspecified chronicity; Left knee pain, unspecified chronicity; Metatarsalgia of right foot Social History Tobacco Use Types Packs/Day Years Used Date Smoking Tobacco: Never Smokeless Tobacco: Never Sex and Gender Information Value Date Recorded Sex Assigned at Female 10/09/2020 8:32 AM EDT Gender Identity Not on file Sexual Orientation Not on file documented as of this encounter Last Filed Vital Signs Vital Sign Reading Time Taken Comments Blood Pressure 149/91 06/19/2017 11:21 AM EST diaz d coffee Pulse 69 06/19/2017 11:21 AM EST Temperature - - Respiratory Rate 18 06/19/2017 11:21 AM EST Oxygen Saturation 99% 06/19/2017 11:21 AM EST Inhaled Oxygen Concentration - - Weight 67.1 kg (148 lb) 06/19/2017 11:21 AM EST Height 162.6 cm (5' 4) 06/19/2017 11:21 AM EST Body Mass Index 25.4 06/19/2017 11:21 AM EST documented in this encounter Patient Instructions * Patient Instructions* Davian Hurst MD - 06/19/2017 11:30 AM EST 1. Quadriceps strengthening 2. Try Aleve on a schedule in am and at lunch time 3. Labs today 4. Call if knee pain or metatarsalgia that is unresponsive to Aleve 5. RTC 6 months documented in this encounter Progress Notes * Davian Hurst MD - 06/19/2017 11:30 AM EST 62 yo woman who returns in 7 month [...] 1 mg/d tapering Interval History: Had a great summer after visiting with lots of life stress. 1. Joints are fine no am stiffness 2. 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 Aleve helps 3. Patient reports feeling great, sleeping better with gabapentin 4. Taking MTX every 2 weeks, by injection. Review of Systems Constitutional: No fevers, chills, [...] Nocturnal throbbing pain 2008 in hands. Saw Youth Worker in [place], told it was 'menopause', then it went away. Social History: Originally from [place], [place], moved to [place], [place] 14 years ago. Getting ready to move out of house, traumatic but 'ok'. Lots of challenges (marital, financial). Seems still upbeat. No smoke, no drinking. Life is good. 1 daughter 24, doing well. Family History: Mother 88 good health, father age 75 prostate Ca, one healthy brother, no hx RA Physical Examination Blood pressure (!) 149/91, pulse 69, resp. rate 18, height 162.6 cm (5' 4), weight 67.1 kg (148 lb), SpO2 99 %. General-Well developed well nourished who is [...] tenderness Hands: Normal! 0 SJC/0 TJC Right 2nd-3rd mcp trace, decreased dip flexion right 3rd.. Knees: Full motion, no swelling, no popliteal or joint line tenderness. No patellar tenderness or crepitance. Ankles: No warmth, swelling, but stiff on passive motion. No Achilles or plantar fascia tenderness. Feet: No deformity. No MTPJs compression tenderness, tender volar aspect 2nd-3rd MTPJ, raj CDAI: 1 (Pt Global) global 1, SJC/TJC =1 today CDAI 3 Assess: Seropositive RA with great response to every other week MTX/ + 5 mg/d Prednisone. Mostly improved except for some knee pain associated with increased work hours (3 days a week to 4 days a week). Plan: 1. Quadriceps strengthening 2. Try Aleve on a schedule in am and at lunch time 3. Labs today 4. Call if knee pain or metatarsalgia that is unresponsive to Aleve 5. RTC 6 months Level 5 f/u Davian Hurst M.D. documented in this encounter Miscellaneous Notes * Addendum Note - Charo Grace - 06/19/2017 12:10 PM ESTAddended by: CHARO GRACE on: 06/19/2017 12:10 PM Modules accepted: Orders documented in this encounter Plan of Treatment Upcoming Encounters Date Type Department Care Team (Late st Contact Info) Description 08/05/2024 2:00 PM EST Office [place] [address] Cheri Carvalho, [facility] [place] [address] documented as of this encounter Procedures Procedure Name Priority Date/Time Associated Diagnosis Comments HEMOGRAM Routine 06/19/2017 12:16 PM EST Rheumatoid arthritis, involving unspecified site, unspecified rheumatoid factor presence DIFFERENTIAL, AUTOMATED Routine 06/19/2017 12:16 PM EST Rheumatoid arthritis, involving unspecified site, unspecified rheumatoid factor presence CBC (WITH DIFF) Routine 06/19/2017 12:16 PM EST Rheumatoid arthritis, involving unspecified site, unspecified rheumatoid factor presence COMPREHENSIVE METABOLIC PANEL Routine 06/19/2017 12:16 PM EST Rheumatoid arthritis, involving unspecified site, unspecified rheumatoid factor presence documented in this encounter Results * Differential, Automated (06/19/2017 12:16 PM EST) Neutrophil % 73.7 % [facility] Neutrophil Absolute 5.68 1.70 - 6.10 x10(3)/[facility] Lymph % 18.1 % [facility] Lymphocytes Abs 1.4 0.9 - 3.2 x10(3)/[facility] Monocyte % 6.2 % [facility] Monocyte Abs 0.5 0.3 - 0.9 x10(3)/[facility] Eos % 0.8 % [facility] Eosinophils Abs 0.1 0.0 - 0.4 x10(3)/[facility] Basophil % 0.9 % [facility] Baso Absolute 0.1 0.0 - 0.1 x10(3)/[facility] Immature Gran % 0.30 % [facility] Comment: Immature granulocytes(IG's)percentage and absolute count will include metamyelocytes, myelocytes, and promyelocytes. Blood smears from CBCs yielding IG's will be scanned manually for concordance. If this scan disagrees with the automated IG or if promyelocytes are noted, a manual differential will be performed. Immature Gran Absolute 0.02 0.00 - 0.04 x10(3)/[facility] Blood specimen (specimen) 06/19/2017 12:16 PM EST 06/19/2017 12:27 PM EST Narrative Resulting Agency Comment Spec In Lab Davian Hurst MD HEMATOLOGY ORDERABLE S [facility] [place] [address] * Hemogram (06/19/2017 12:16 PM EST) White Blood Cell 7.7 4.0 - 9.5 x10(3)/[facility] Red Blood Cell 4.49 4.00 - 5.21 x10(6)/[facility] Hemoglobin 12.9 11.7 - 15.5 gm/dL [facility] Hematocrit 40.7 35.7 - 45.8 % [facility] Mean Cell Volume 90.6 82.6 - 94.4 [facility] Mean Cell Hemoglobin 28.7 27.1 - 32.0 pg [facility] Mean Cell Hemoglobin Concentration 31.7 31.7 - 35.0 gm/dL [facility] Platelet 309 145 - 357 x10(3)/[facility] RDW Standard Deviation 44.4 37.0 - 46.0 [facility] RDW coefficient of variation 13.2 11.5 - 14.1 % [facility] Mean Platelet Volume 8.4 7.6 - 12.9 [facility] NRBC% auto 0.0 % [facility] NRBC Absolute 0.000 0.000 - 0.000 x10(3)/[facility] Blood specimen (specimen) 06/19/2017 12:16 PM EST 06/19/2017 12:27 PM EST Narrative Resulting Agency Comment Spec In Lab Davian Hurst MD HEMATOLOGY ORDERABLE S [facility] [place] [address] * Comprehensive metabolic panel (non-fasting) (06/19/2017 12:16 PM EST) Glucose 104 65 - 199 mg/dL [facility] Comment:Diabetes: >=200 mg/d L plus symptoms Blood Urea Nitrogen 15 8 - 18 mg/dL [facility] Creatinine 0.79 0.70 - 1.20 mg/dL [facility] Sodium 141 135 - 145 mmol/L [facility] Potassium 4.1 3.5 - 5.0 mmol/L [facility] Comment: Please note: ??Patients with WBC >100,000 may have falsely elevated Potassium levels. ??For accurate Potassium quantification in these patients send serum separator tube (gold top) for subsequent determinations. ??Contact the Clinical Chemistry Laboratory if there are any questions. Chloride 102 98 - 107 mmol/L [facility] Carbon Dioxide 25 22 - 31 mmol/L [facility] Anion Gap 14 5 - 15 mmol/L [facility] Calcium 9.4 8.5 - 10.5 mg/dL [facility] Protein, Total 7.3 6.1 - 8.0 gm/dL [facility] Albumin 4.6 3.2 - 5.2 gm/dL [facility] Aspartate Aminotransferase 28 0 - 30 unit/L [facility] Alanine Aminotransferase 8 0 - 30 unit/L [facility] Alkaline Phosphatase 71 40 - 104 unit/L [facility] Bilirubin, Total 0.4 0.2 - 1.3 mg/dL [facility] Est Glomerular Filtration Rate >60 >=60 [facility] Comment: The reported eGFR should be multiplied by 1.2 for patients. The MDRD is not an appropriate measure of renal function for patients with body mass extremes or in patients with acute kidney failure. http://[employer].Sourcebazaar/DHnkdep http://[employer]/DHMCnkf Blood specimen (specimen) 06/19/2017 12:16 PM EST 06/19/2017 12:27 PM EST Narrative Resulting Agency Comment Spec In Lab Davian Hurst MD CHEMISTRY ORDERABLES [facility] [place] [address] documented in this encounter Visit Diagnoses Diagnosis Rheumatoid arthritis, involving unspecified site, unspecified rheumatoid factor presence Right knee pain, unspecified chronicity Left knee pain, unspecified chronicity Metatarsalgia of right foot Enthesopathy of ankle and tarsus, unspecified documented in this encounter Care Teams Thin Film Technician Relationship Specialty Start Date End Date Elizabeth Song MD [address] [place] [id number] PCP - General 06/15/10 08/24/23 documented as of this encounter
--- OUTSIDE RECORDS SUMMARY | 2024-07-29 16:29 | XMS_ITS | Encounter Summary ---
Author Organization [facility] Address [facility] [place] [address] Care Team Providers Care Inspector Semiconductor Wafer Name Role Phone Elizabeth Song MD Primary Care Provider [phone] Reason for Visit * Reason Comments Advice Only new pt referal for R A Encounter Details Date Type Department Care Team (Late st Contact Info) Description 01/29/2013 7:45 AM EDT Office [place] [address] Davian Hurst MD [facility] [place] [address] Rheumatoid arthritis (Primary Dx) Discharge Disposition: Home Social History Tobacco Use Types Packs/Day Years Used Date Smoking Tobacco: Never Sex and Gender Information Value Date Recorded Sex Assigned at Female 10/09/2020 8:32 AM EDT Gender Identity Not on file Sexual Orientation Not on file documented as of this encounter Last Filed Vital Signs Vital Sign Reading Time Taken Comments Blood Pressure 137/78 01/29/2013 7:58 AM EDT Pulse 77 01/29/2013 7:58 AM EDT Temperature 36.4 ??C (97.5 ??F) 01/29/2013 7:58 AM ED T Respiratory Rate - - Oxygen Saturation 100% 01/29/2013 7:58 AM EDT Inhaled Oxygen Concentration - - Weight 67.5 kg (148 lb 12.8 oz) 01/29/2013 7:58 AM EDT Height 162.6 cm (5' 4) 01/29/2013 7:58 AM EDT Body Mass Index 25.54 01/29/2013 7:58 AM EDT documented in this encounter Patient Instructions * Patient Instructions* Vivinae Holly LPN - 01/29/2013 8:04 AM EDT Welcome to [employer], your secure online access to your electronic medical record at [facility]. Using [employer] you will be able to send messages to your providers, view your test results, renew prescriptions, schedule appointments, and much more. Follow these instructions to enter your personal [employer] account for the first time: 1. Start your internet browser and type [email or web address] into the address bar. 2. In the New User box on the right-hand side of the Welcome page click the link that states, ???I have an activation code.?? 3. On the Identification page, follow these steps: a) Enter your [employer] activation code: [email or web address] b) Expires: 03/15/2013 8:05 AM IMPORTANT: This Activation Code will on the above mentioned date. If you do not sign up for [employer] by this date, you will need to request another activation code. c) Enter your date of , using the calendar tool provided. d) Enter your Zip code. e) Select ???submit?? to go to the next page. 4. On the Create Account page, follow these steps: a) Create a [employer] username. This can???t be changed, so choose one you won???t forget. b) Create a password that???s at least six characters long, and that contains at least two numbers.Your password can be changed at any time. Confirm your password by entering it once more. c) Enter your email address. This will be used to alert you to new information. Confirm your email address by entering it once more. d) Enter your security question. This will be used if you forget your password. e) Enter your security answer. Confirm your security answer by entering it once more. f) Select ???submit?? to view your electronic medical record. If you have any questions about [employer]-H or your Access Code, please call for [place], for [place] or for [place]. If you need technical support, please e-mail [email or web address]. Remember, my[employer]-H is NOT for urgent needs! Always dial 911 for medical emergencies. 1. Labs and X-Rays today 2. Prednisone 4 X 5 mg tablets in am for rest of January. If doing well, may try to taper by 5 mg every 2-4 weeks 3. Folic Acid 1 mg/d start anytime 4. Methotrexate 4 T (10 mg) this Monday, if tolerated, then increase to 8T weekly thereafter 5. Return in 3 months, call if any questions or issues. 6. Viactiv Chews: 1 twice daily 7. Pay attention to food intake and maintain an exercise or walking program documented in this encounter Progress Notes * Davian Hurst MD - 01/29/2013 8:12 AM EDT 57 yo woman who comes in today with a chief complaint of 'relieve my pain and prevent damage of joints' HPI: 57 yo woman who reported for the past 3-4 years the presence of occasional arthralgias and myalgias in the forearm. Beginning about 3 months ago, she acutely developed painful swelling that was migratory from the hand [...] tests on December 27. Rheumatoid Factor was high titer positive Since that time, she was treated with Aleve 440 mg q12 hours. Some benefit was noted, currently experiencing 4-6 hours of pain and stiffness with some encephalopathic sx. Hands are not clumsy or weak, except for decreased motion on right hand. Joints that are involved include wrists, mcps, thumb, feet, ankles, right knee. No neck, [...] Nocturnal throbbing pain 2008 in hands. 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 Social History: Originally from [place], [place], moved to [place], [place] 11 years ago. 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 No smoke, no drinking. Life is good.1 daughter 21. Very active in her business. 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 General-Well developed well nourished who is alert and in no apparent distress at rest. Skin-No clubbing, cyanosis, rubor, edema, rash HEENT: No temporal artery, sinus or TMJ tenderness. Mucus membranes moist, decreased salivary pooling without lesions.Normal parotid, submental and submandibular nodes Neck-Slightly decreased rotation no bruits Chest: clear to auscultation, good air movement without wheezes Cor: RR no M,G,R Back: No tenderness to punch, normal SLR Ext: Extremities warm w// normal pulses Musculoskeletal: Trigger points not present. Shoulders: FROM, no AC/subacromial tenderness. Elbows: Full motion, no joint or epicondylar swelling or tenderness, perhaps slight decreased extension. Wrists: Decreased motion, swelling, warmth, andtenderness over radiocarpal or ulnocarpal joints right greater than left with decreased flexion. Hands: Markedy impaired main line assembler and claw. MCP and PIP swelling 02/28 SJC/TJC Hips: Full motion, no trochanteric tenderness, slight decreased motion on left Knees: Full motion, no swelling, no popliteal or joint line tenderness. No patellar tenderness or crepitance. Ankles: No warmth, swelling, but stiff on passive motion. No Achilles or plantar fascia tenderness. Feet: No deformity. +++ MTPJs compression tenderness with marked 5th MTP swelling Neuro: No focal weakness, normal sensation, including JPS. Romberg normal Tandem gait normal Outside labs show elevated RF, GIOVANY, ESR, CRP on 12/27.No ACPA Assess: Inflammatory polyarthropathy for 3 months with early functional compromise in hands [facility]. +GIOVANY/RF non-specific, will recheck RF and add ACPA testing, given its specificity for RA. In addition will stage with hand and foot films, start MTX and prednisone induction therapy to provide relief. Recommending tapering or stopping Aleve given encephalopathic sx. CDAI 20 Plan: 1. Labs and hand/foot films today 2. Prednisone 20 mg/d for the rest of January, may taper by 5 mg every 2-4 weeks thereafter if no symptoms. 3. Methotrexate 10 mg/week this week, then up to 20 mg weekly thereafter 4. Risks and benefits of treatment, natural history of RA reviewed. 5. Reduce Aleve or taper once feeling better 6. Return 3 months or prn. Level 5 consultation. Davian Hurst documented in this encounter Miscellaneous Notes * Miscellaneous - Provider, Scanning - 02/03/2013 9:31 PM EDT * Addendum Note - Mayda Tsang - 01/29/2013 9:20 AM EDTAddended by: MAYDA TSANG on: 01/29/2013 09:20 AM Modules accepted: Orders documented in this encounter Plan of Treatment Upcoming Encounters Date Type Department Care Team (Late st Contact Info) Description 08/05/2024 2:00 PM EST Office Visit Rheumatology at [facility], [place] [place] [address] Cheri Carvalho, KRISTIN [facility] [place] [address] Scheduled Orders Name Type Priority Associated Diagnoses Orde r Schedule High Sensitivity CRP Lab Routine Rheumatoid arthritis Expected: 01/29/2013, Expires: 01/30/2014 documented as of this encounter Procedures Procedure Name Priority Date/Time Associated Diagnosis Comments ANTI-CYCLIC CITRULLINATED PEPTIDE AB Routine 01/29/2013 9:27 AM EDT Rheumatoid arthritis DIFFERENTIAL, AUTOMATED Routine 01/29/2013 9:27 AM EDT SEDIMENTATION RATE Routine 01/29/2013 9: 27 AM EDT Rheumatoid arthritis CBC (WITH DIFF) Routine 01/29/2013 9:27 AM EDT Rheumatoid arthritis CRP, CARDIAC RISK (HS CRP) Routine 01/29/2013 9:27 AM EDT Rheumatoid arthritis COMPREHENSIVE METABOLIC PANEL Routine 01/29/2013 9:27 AM EDT Rheumatoid arthritis documented in this [...] and no periostitis. Deformed tuft of the [id number] distal phalanx likely is related to old [...] synovitis. Davian Hurst MD IMG DX ORDERABLES * XR feet bilateral minimum 3 views (01/29/2013 10:15 AM EDT) Anatomical Region Laterality Modality Foot Bilateral Radiographic Marguerite ging 01/29/2013 10:1 5 AM EDT Narrative 01/29/2013 4:55 PM EDT Examination BILATERAL FEET MINIMUM 3 VIEWS Clinical History new onset RA 2-3 months Comparison None Technique 3 views each Findings Bones: Normal bone mineralization and no fracture, ankylosis or periostitis Soft tissues: Fusiform thickening of the right Achilles tendon represents Achilles tendinopathy. There are bilateral small ankle effusions. The soft tissues are grossly normal. Joints: 1. Interphalangeal joints-normal 2. ??MTP joints-normal joint spaces and no erosions or subluxations. Bilateral 1st MTP joint osteoarthropathy is characterized by small osteophytes and a prominent subchondral cyst in the right meta tarsal head. 3. Lisfranc joint - intact 4. The talonavicular joints- bilateral small osteophytes. Impression ? 1. No erosion or fractures. ? 2. 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 ? 3. Right Achilles tendinopathy. Procedure Note Ashlyn Edwards MD - 01/29/2013 Examination BILATERAL FEET MINIMUM 3 VIEWS Clinical History new onset RA 2-3 months Comparison None Technique 3 views each Findings Bones: Normal bone mineralization and no fracture, ankylosis or periostitis Soft tissues: Fusiform thickening of the right Achilles tendon represents Achilles tendinopathy. There are bilateral small ankle effusions. The soft tissuesare grossly normal. Joints: 1. Interphalangeal joints-normal 2. MTP joints-normal joint spaces and no erosions or subluxations.Bilateral 1st MTP joint osteoarthropathy is characterized by small osteophytes and a prominent subchondral cyst in the right meta tarsal head. 3. Lisfranc joint - intact 4. The talonavicular joints- bilateral small osteophytes. Impression 1. No erosion or fractures. 2. 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 3. Right Achilles tendinopathy. Davian Hurst MD IMG DX ORDERABLES * Differential, Automated (01/29/2013 9:27 AM EDT) Neutrophil % 64.8 34.0 - 71.0 % CERNER MILLENNIUM Neutrophil Absolute 3.49 1.50 - 6.30 x10(3)/mcL CERNER MILLENNIUM Lymph % 25.7 19.0 - 53.0 % CERNER MILLENNIUM Lymphocytes Abs 1.4 1.0 - 3.6 x10(3)/mcL CERNER MILLENNIUM Monocyte % 5.8 4.0 - 13.0 % CERNER MILLENNIUM Monocyte Abs 0.3 0.2 - 1.0 x10(3)/mcL CERNER MILLENNIUM Eos % 2.8 0.0 - 7.0 % CERNER MILLENNIUM Eosinophils Abs 0.2 0.0 - 0.5 x10(3)/mcL CERNER MILLENNIUM Basophil % 0.7 0.0 - 2.0 % CERNER MILLENNIUM Baso Absolute 0.0 0.0 - 0.2 x10(3)/mcL CERNER MILLENNIUM Immature Gran % 0.20 0.00 - 0.66 % CERNER MILLENNIUM Comment: Immature granulocytes(IG's)percentage and absolute count will include metamyelocytes, myelocytes, and promyelocytes. Blood smears from CBCs yielding IG's will be scanned manually for concordance. If this scan disagrees with the automated IG or if promyelocytes are noted, a manual differential will be performed. Immature Gran Absolute 0.01 0.00 - 0.05 x10(3)/mcL CERNER MILLENNIUM Blood specimen (specimen) 01/29/2013 9:27 AM EDT 01/29/2013 9:39 AM EDT Davian Hurst MD HEMATOLOGY ORDERABLE S Performing Organization Address [facility]/ZIP Co de Phone Number [facility] ALONDRAENNIUM * (ABNORMAL) Cyclic Citrullinated Peptide (01/29/2013 9:27 AM EDT) Cyclic Citrulline Peptide 133.4(H) <=5.0 u/ml [facility] Blood specimen (specimen) 01/29/2013 9:27 AM EDT 01/29/2013 12:07 PM EDT Narrative Resulting Agency Comment Spec In Lab Davian Hurst MD CHEMISTRY ORDERABLES Performing Organization Address [facility]/ZIP Co de Phone Number [facility] ALONDRAENNIUM * (ABNORMAL) CBC (with Diff) (01/29/2013 9:27 AM EDT) White Blood Cell 5.4 4.0 - 10.0 x10(3)/mc L [facility] Red Blood Cell 4.41 3.93 - 5.22 x10(6)/mc L CERNER MILLENNIUM Hemoglobin 12.5 11.2 - 15.7 gm/dL CERNER MILLENNIUM Hematocrit 37.9 34.0 - 45.0 % CERNER MILLENNIUM Mean Cell Volume 85.9 79.0 - 94.0 fL CERNER MILLENNIUM Mean Cell Hemoglobin 28.3 26.6 - 32.2 pg CERNER MILLENNIUM Mean Cell Hemoglobin Concentration 33.0 32.0 - 36.5 gm/dL CERNER MILLENNIUM Platelet 275 145 - 370 x10(3)/mc L CERNER MILLENNIUM RDW Standard Deviation 40.3 35.0 - 46.0 fL CERNER MILLENNIUM RDW coefficient of variation 12.9 10.9 - 14.4 % CERNER MILLENNIUM Mean Platelet Volume 8.7(L) 9.0 - 12.0 fL CERNER MILLENNIUM Blood specimen (specimen) 01/29/2013 9:27 AM EDT 01/29/2013 9:39 AM EDT Narrative Resulting Agency Comment Spec In Lab Davian Hurst MD HEMATOLOGY ORDERABLE S Performing Organization Address [facility] Co de Phone Number MERLY CANTUENNIUM * (ABNORMAL) Sedimentation rate (01/29/2013 9:27 AM EDT) Sedimentation Rate Automated 38(H) 0 - 20 mm/hr CERNER MILLENNIUM Blood specimen (specimen) 01/29/2013 9:27 AM EDT 01/29/2013 9:39 AM EDT Narrative Resulting Agency Comment Spec In Lab Davian Hurst MD HEMATOLOGY ORDERABLE S Performing Organization Address [facility] Co de Phone Number MERLY CANTUENNIUM * High Sensitivity CRP (01/29/2013 9:27 AM EDT) C-Reactive Protein High Sensitivity 18.4 mg/L CERNER MILLENNIUM Comment: Interpretations: 1) For [...] prevention. ??Circulation 2003; [phone]:[id number] Blood specimen (specimen) 01/29/2013 9:27 AM EDT 01/29/2013 9:39 AM EDT Narrative Resulting Agency Comment Spec In Lab Davian Hurst MD CHEMISTRY ORDERABLES CERNER [place] PowerENNIUM * (ABNORMAL) Comprehensive metabolic panel (non-fasting) (01/29/2013 9:27 AM EDT) [facility] Glucose 81 60 - 199 mg/dL CERNER MILLENNIUM Comment:Diabetes: >=200 mg/d L plus symptoms Blood Urea Nitrogen 14 8 - 18 mg/dL CERNER MILLENNIUM Creatinine 0.74 0.70 - 1.20 mg/dL CERNER MILLENNIUM Comment: Please note that the pediatric reference intervals supplied above were not validated at [facility]. Results from pediatric patients should be interpreted in conjunction to the patient's age, height and muscle mass. Sodium 140 135 - 145 mmol/L CERNER MILLENNIUM Potassium 4.0 3.5 - 5.0 mmol/L CERNER MILLENNIUM Comment: Please note: ??Patients with WBC >100,000 may have falsely elevated Potassium levels. ??For accurate Potassium quantification in these patients send serum separator tube (gold top) for subsequent determinations. ??Contact the Clinical Chemistry Laboratory if there are any questions. Chloride 104 98 - 107 mmol/L CERNER MILLENNIUM Carbon Dioxide 23 22 - 31 mmol/L CERNER MILLENNIUM Anion Gap 13 5 - 15 mmol/L CERNER MILLENNIUM Calcium 9.3 8.5 - 10.5 mg/dL CERNER MILLENNIUM Protein, Total 7.5 6.4 - 8.3 gm/dL CERNER MILLENNIUM Albumin 4.2 3.2 - 5.2 gm/dL CERNER MILLENNIUM Aspartate Aminotransferase 31(H) 0 - 30 unit/L CERNER MILLENNIUM Alanine Aminotransferase 8 0 - 30 unit/L CERNER MILLENNIUM Alkaline Phosphatase 110(H) 40 - 104 unit/L CERNER MILLENNIUM Bilirubin, [...] internet browser. http://www.nkdep.nih.gov/lab-evaluation.shtml http://www.kidney.org/professionals/ Blood specimen (specimen) 01/29/2013 9:27 AM EDT 01/29/2013 9:39 AM EDT Narrative Resulting Agency Comment Spec In Lab Davian Hurst MD CHEMISTRY ORDERABLES MERLY PARK documented in this encounter Visit Diagnoses Diagnosis Rheumatoid arthritis(714.0)- Primary Rheumatoid arthritis Rheumatoid arthritis(714.0) Rheumatoid arthritis Rheumatoid arthritis(714.0) Rheumatoid arthritis documented in this encounter Care Teams Inspector Semiconductor Wafer Relationship Specialty Start Date End Date Elizabeth Song MD [address] [place] [address] PCP - General 06/15/10 08/24/23 documented as of this encounter
--- OUTSIDE RECORDS SUMMARY | 2024-07-29 16:29 | XMS_ITS | Encounter Summary ---
Author Organization [facility] [place] [address] Care Team Providers Care Lace Mender Name Role Phone Elizabeth Song MD Primary Care Provider [phone] Reason for Visit * Reason Comments Medication Refill Encounter Details Date Type Department Care Team (Late st Contact Info) Description 02/19/2016 [place] [address] [facility] [place] [address] Social History Tobacco Use Types Packs/Day Years [...] 2:00 PM EST Office [place] [address] [facility] [place] [place] [address] documented as of this encounter Visit Diagnoses Not on filedocumented in this encounter Care Teams Lace Mender Relationship Specialty Start Date End Date Elizabeth Song MD [address] [place] [address] PCP - General 06/15/10 08/24/23 documented as of this encounter
--- OUTSIDE RECORDS SUMMARY | 2024-07-29 16:29 | XMS_ITS | Encounter Summary ---
Author Organization [facility] [place] [address] Care Team Providers Care Dragsaw Operator Name Role Phone Elizabeth Song MD Primary Care Provider [phone] Reason for Visit * Reason Onset Date Comments Medication Refill 12/26/2016 Encounter Details Date Type Department Care Team (Late st Contact Info) Description 12/26/2016 [place] [address] Davian Hurst MD [facility] [place] [address] Social History Tobacco Use Types Packs/Day Years [...] 2:00 PM EST Office [place] [address] Cheri Carvalho, BARN AND PROPERTY MANAGER [facility] [place] [address] documented as of this encounter Visit Diagnoses Not on filedocumented in this encounter Care Teams Dragsaw Operator Relationship Specialty Start Date End Date Elizabeth Song MD [address] [place] [address] PCP - General 06/15/10 08/24/23 documented as of this encounter
--- OUTSIDE RECORDS SUMMARY | 2024-07-29 16:29 | XMS_ITS | Encounter Summary ---
Author Organization [facility] Address [facility] [place] [address] Care Team Providers Care Software Requirements Engineer Name Role Phone Elizabeth Song MD Primary Care Provider [phone] Reason for Visit * Reason Onset Date Comments Medication Refill 03/04/2014 Encounter Details Date Type Department Care Team (Late st Contact Info) Description 03/04/2014 Ref[place] [address] Davian Hurst MD [facility] [place] [address] Social History Tobacco Use Types Packs/Day Years Used Date Smoking Tobacco: Never Sex and Gender Information Value Date Recorded Sex Assigned at Female 10/09/2020 8:32 AM EDT Gender Identity Not on file Sexual Orientation Not on file documented as of this encounter Miscellaneous Notes * Telephone Encounter - Caty Givens RN - 03/05/2014 10:56 AM EDTFrom: Erma Ruiz To: Davian Hurst MD Sent: 03/04/2014 4:17 PM EDT Subject: Medication Renewal Request Original authorizing provider: MD Erma CORLEY would like a refill of the following medications: methotrexate 25 mg/mL chemo injection [DAVIAN HURST MD] Preferred pharmacy: [facility] [id number] Comment: documented in this encounter Plan of Treatment Upcoming Encounters Date Type Department Care Team (Late st Contact Info) Description 08/05/2024 2:00 PM EST Office [place] [address] Cheri Carvalho, MICROBIOLOGY LAB ASSISTANT [facility] [place] [address] documented as of this encounter Visit Diagnoses Not on filedocumented in this encounter Care Teams Software Requirements Engineer Relationship Specialty Start Date End Date Elizabeth Song MD [address] [place] [address] PCP - General 06/15/10 08/24/23 documented as of this encounter
--- OUTSIDE RECORDS SUMMARY | 2024-07-29 16:29 | XMS_ITS | Encounter Summary ---
Author Organization [facility] [place] [address] Care Team Providers Care Senior Oracle Pl Sql Developer Name Role Phone Elizabeth Song MD Primary Care Provider [phone] Reason for Visit * Reason Onset Date Comments Medication Refill 12/11/2014 Encounter Details Date Type Department Care Team (Late st Contact Info) Description 12/11/2014 [place] [address] Davian Hurst MD [facility] [place] [address] Social History Tobacco Use Types Packs/Day Years Used Date Smoking Tobacco: Never Sex and Gender Information Value Date Recorded Sex Assigned at Female 10/09/2020 8:32 AM EDT Gender Identity Not on file Sexual Orientation Not on file documented as of this encounter Miscellaneous Notes * Telephone Encounter - Kenya Lui RN - 12/11/2014 9:20 AM EDTFrom: Erma Ruiz To: Davian Hurst MD Sent: 12/11/2014 9:11 AM EDT Subject: Medication Renewal Request Original authorizing provider: MD Erma CORLEY would like a refill of the following medications: Syringe with Needle, Disp, (BD TUBERCULIN SYRINGE) 1 mL 27 x 1/2 Syrg [DAVIAN HURST MD] folic acid (FOLVITE) 1 mg tablet [DAVIAN HURST MD] Preferred pharmacy: [id number] Comment: documented in this encounter Plan of Treatment Upcoming Encounters Date Type Department Care Team (Late st Contact Info) Description 08/05/2024 2:00 PM EST Office [place] [address] Cheri Carvalho APRN [facility] [place] [address] documented as of this encounter Visit Diagnoses Not on filedocumented in this encounter Care Teams Senior Oracle Pl Sql Developer Relationship Specialty Start Date End Date Elizabeth Song MD [address] [place] [address] PCP - General 06/15/10 08/24/23 documented as of this encounter
--- OUTSIDE RECORDS SUMMARY | 2024-07-29 16:29 | XMS_ITS | Encounter Summary ---
Author Organization [facility] Address [facility] [place] [address] Care Team Providers Care Research Staff Member Name Role Phone Elizabeth Song MD Primary Care Provider [phone] Encounter Details Date Type Department Care Team (Latest Contact Info) Description 01/29/2013 9:30 AM EDT Hospital Encounter XRay at [address] [place] [address] Rheumatoid arthritis Social History Tobacco Use Types [...] 2:00 PM EST Office Visit Rheumatology at [facility] [place] [address] Cheri Carvalho, CREDIT CARD INTERVIEWER [facility] [place] [address] documented as of this encounter Procedures Procedure Name Priority Date/Time Associated Diagnosis Comments XR FOOT MIN 3 VIEWS BILAT Routine 01/29/2013 10:15 AM EDT Rheumatoid arthritis documented in this encounter Results * XR feet bilateral minimum 3 views [...] tendinopathy. Davian Hurst MD IMG DX ORDERABLES documented in this encounter Visit Diagnoses Diagnosis Rheumatoid arthritis(714.0) Rheumatoid arthritis documented in this encounter Care Teams Research Staff Member Relationship Specialty Start Date End Date Elizabeth Song MD [address] [place] [id number] PCP - General 06/15/10 08/24/23 documented as of this encounter
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
--- OUTSIDE RECORDS SUMMARY | 2024-07-29 16:29 | XMS_ITS | Encounter Summary ---
Author Organization [facility] Address [facility] [place] [address] Care Team Providers Care Milker Machine Name Role Phone Elizabeth Song MD Primary Care Provider [phone] Reason for Visit * Reason Comments Rheumatoid Arthritis Encounter Details Date Type Department Care Team (Late st Contact Info) Description 09/02/2013 1:45 PM EST [place] [address] Davian Hurst MD [facility] [place] [address] Rheumatoid arthritis(714.0) (Primary Dx) Discharge Disposition: Home Social History Tobacco Use Types Packs/Day Years Used Date Smoking Tobacco: Never Sex and Gender Information Value Date Recorded Sex Assigned at Female 10/09/2020 8:32 AM EDT Gender Identity Not on file Sexual Orientation Not on file documented as of this encounter Last Filed Vital Signs Vital Sign [place] Time Taken Comments Blood Pressure 166/93 09/02/2013 2:13 PM EST Pulse 91 09/02/2013 2:13 PM EST Temperature - - Respiratory Rate 20 09/02/2013 2:13 PM EST Oxygen Saturation - - Inhaled Oxygen Concentration - - Weight 72.6 kg (160 lb) 09/02/2013 2:13 PM EST Height 162.6 cm (5' 4) 09/02/2013 2:13 PM EST Body Mass Index 27.46 09/02/2013 2:13 PM EST documented in this encounter Patient Instructions * Patient Instructions* Davian Hurst MD - 09/02/2013 2:29 PM EST 1. Labs today 2. Stay on Prednisone 5 mg/d 3. Remain on parenteral methotrexate 4. 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 She was started on Prednisone 20 mg/d followed by taper and MTX. Interval History: Patient reports feeling great. Switched to parenteral MTX 4 months ago 20 mg/week. Doing great. When tapers prednisone from 5 to 2.5 mg/d, she gets some right wrist pain and swelling, but on 5 mg/d she is great. No am stiffness. No infections, no functional limitations. Joints great. No side effects except maybe some more hair loss? Review of Systems Constitutional: No fevers, chills, [...] Nocturnal throbbing pain 2008 in hands. Saw Vision Specialist in [place], told it was 'menopause', then it went away. Social History: Originally from [place], [place], moved to [place], [place] 11 years ago. 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 No smoke, no drinking. Life is good. 1 daughter 21. Very active in her business. 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 rate 20, height 162.6 cm (5' 4), weight 72.576 kg (160 lb).Was hurrying to get to appt. General-Well developed [...] SJC/2 TJC Right 3rd mcp and right wrist Knees: Full motion, no swelling, no popliteal or joint line tenderness. No patellar tenderness or crepitance. Ankles: No warmth, swelling, but stiff on passive motion. No Achilles or plantar fascia tenderness. Feet: No deformity. No MTPJs compression tenderness CDAI: 2 (Pt Global) MD global 1, SJC/TJC =2 today CDAI 4, down from 0 Assess: Seropositive RA with great response to MTX/Prednisone but clearly needs 5 mg/d Prednisone Plan: 1. Labs today 2. Stay on prednisone 5 mg/d along with MTX 3. Take MVI daily with folate for hair thinning 4. Return 4 months with plan to taper prednisone 1 mg/d/month Level 4 follow up Davian Hurst documented in this encounter Miscellaneous Notes * Addendum Note - Lynda Abarca - 09/02/2013 2:41 PM ESTAddended by: LYNDA ABARCA on: 09/02/2013 02:41 PM Modules accepted: Orders documented in this encounter Plan of Treatment Upcoming Encounters Date Type Department Care Team (Late st Contact Info) Description 08/05/2024 2:00 PM EST Office [place] [address] Cheri Carvalho APRN [facility] [place] [address] documented as of this encounter Procedures Procedure Name Priority Date/Time Associated Diagnosis Comments DIFFERENTIAL, AUTOMATED Routine 09/02/2013 2:45 PM EST SEDIMENTATION RATE Routine 09/02/2013 2: 45 PM EST Rheumatoid arthritis(714.0) CBC (WITH DIFF) Routine 09/02/2013 2:45 PM EST Rheumatoid arthritis(714.0) CRP, CARDIAC RISK (HS CRP) Routine 09/02/2013 2:45 PM EST Rheumatoid arthritis(714.0) COMPREHENSIVE METABOLIC PANEL Routine 09/02/2013 2:45 PM EST Rheumatoid arthritis(714.0) documented in this encounter Results * (ABNORMAL) Differential, Automated (09/02/2013 2:45 PM EST) Neutrophil % 78.0(H) 34.0 - 71.0 % [facility] Neutrophil Absolute 6.42(H) 1.50 - 6.30 x10(3)/mc L [facility] Lymph % 15.8(L) 19.0 - 53.0 % [facility] Lymphocytes Abs 1.3 1.0 - 3.6 x10(3)/mc L [facility] Monocyte % 4.9 4.0 - 13.0 % [facility] Monocyte Abs 0.4 0.2 - 1.0 x10(3)/mc L [facility] Eos % 0.7 0.0 - 7.0 % [facility] Eosinophils Abs 0.1 0.0 - 0.5 x10(3)/mc L [facility] Basophil % 0.5 0.0 - 2.0 % [facility] Baso [...] x10(3)/mc L [facility] Blood specimen (specimen) 09/02/2013 2:45 PM EST 09/02/2013 2:51 PM EST Davian Hurst MD HEMATOLOGY ORDERABLE S [facility] * (ABNORMAL) CBC (with Diff) (09/02/2013 2:45 PM EST) White Blood Cell 8.2 4.0 - 10.0 x10(3)/mc L [facility] Red Blood Cell 4.50 3.93 - 5.22 x10(6)/mc L [facility] Hemoglobin 13.0 11.2 - 15.7 gm/dL [facility] Hematocrit 40.2 34.0 - 45.0 % [facility] Mean Cell Volume 89.3 79.0 - 94.0 fL [facility] Mean Cell Hemoglobin 28.9 26.6 - 32.2 pg [facility] Mean Cell Hemoglobin Concentration 32.3 32.0 - 36.5 gm/dL [facility] Platelet 304 145 - 370 x10(3)/mc L [facility] RDW Standard Deviation 42.5 35.0 - 46.0 fL [facility] RDW coefficient of variation 13.0 10.9 - 14.4 % [facility] Mean Platelet Volume 8.8(L) 9.0 - 12.0 fL [facility] Blood specimen (specimen) 09/02/2013 2:45 PM EST 09/02/2013 2:51 PM EST Narrative Resulting Agency Comment Spec In Lab Davian Hurst MD HEMATOLOGY ORDERABLE S [facility] * Comprehensive metabolic panel (non-fasting) (09/02/2013 2:45 PM EST) [facility] Glucose 104 60 - 199 mg/dL [facility] Comment:Diabetes: >=200 mg/d L plus symptoms Blood Urea Nitrogen 16 8 - 18 mg/dL [facility] Creatinine 0.80 0.70 - 1.20 mg/dL [facility] Comment: Please note that the pediatric reference intervals supplied above were not validated at [facility]. Results from pediatric patients should be interpreted in conjunction to the patient's age, height and muscle mass. Sodium 140 135 - 145 mmol/L [facility] Potassium 3.9 3.5 - 5.0 mmol/L [facility] Comment: Please note: ??Patients with WBC >100,000 may have falsely elevated Potassium levels. ??For accurate Potassium quantification in these patients send serum separator tube (gold top) for subsequent determinations. ??Contact the Clinical Chemistry Laboratory if there are any questions. Chloride 103 98 - 107 mmol/L [facility] Carbon Dioxide 26 22 - 31 mmol/L [facility] Anion Gap 11 5 - 15 mmol/L [facility] Calcium 9.5 8.5 - 10.5 mg/dL [facility] Protein, Total 7.3 6.4 - 8.3 gm/dL [facility] Albumin 4.3 3.2 - 5.2 gm/dL [facility] Aspartate Aminotransferase 28 0 - 30 unit/L [facility] Alanine Aminotransferase 13 0 - 30 unit/L [facility] Alkaline Phosphatase 89 40 - 104 unit/L [facility] Bilirubin, [...] internet browser. http://www.nkdep.nih.gov/lab-evaluation.shtml http://www.kidney.org/professionals/ Blood specimen (specimen) 09/02/2013 2:45 PM EST 09/02/2013 2:51 PM EST Narrative Resulting Agency Comment Spec In Lab Davian Hurst MD CHEMISTRY ORDERABLES [facility] * Sedimentation rate (09/02/2013 2:45 PM EST) Sedimentation Rate Automated 13 0 - 20 mm/hr [facility] Blood specimen (specimen) 09/02/2013 2:45 PM EST 09/02/2013 2:51 PM EST Narrative Resulting Agency Comment Spec In Lab Davian Hurst MD HEMATOLOGY ORDERABLE S Performing Organization Address [facility] Phone Number [facility] * High Sensitivity CRP (09/02/2013 2:45 PM EST) C-Reactive Protein High Sensitivity 1.7 mg/L [facility] Comment: Interpretations: 1) For accurate cardiac risk [...] prevention. ??Circulation 2003; [id number] Blood specimen (specimen) 09/02/2013 2:45 PM EST 09/02/2013 2:51 PM EST Narrative Resulting Agency Comment Spec In Lab Davian Hurst MD CHEMISTRY ORDERABLES Performing Organization Address [facility] de Phone Number [facility] documented in this encounter Visit Diagnoses Diagnosis Rheumatoid arthritis(714.0)- Primary Rheumatoid arthritis documented in this encounter Care Teams Milker Machine Relationship Specialty Start Date End Date Elizabeth Song MD [address] [place] [address] PCP - General 06/15/10 08/24/23 documented as of this encounter
--- OUTSIDE RECORDS SUMMARY | 2024-07-29 16:29 | XMS_ITS | Encounter Summary ---
Author Organization [facility] [place] [address] Care Team Providers Care Crime Data Specialist Name Role Phone Elizabeth Song MD Primary Care Provider [phone] Reason for Visit * Reason Comments Medication Refill Encounter Details Date Type Department Care Team (Late st Contact Info) Description 12/10/2015 [place] [address] Davian Hurst MD [facility] [place] [place] [address] Social History Tobacco Use Types Packs/Day Years [...] 2:00 PM EST Office [place] [address] Cheri Carvalho APRN [facility] [place] [place] [address] documented as of this encounter Visit Diagnoses Not on filedocumented in this encounter Care Teams Crime Data Specialist Relationship Specialty Start Date End Date Elizabeth Song MD [address] [place] [address] PCP - General 06/15/10 08/24/23 documented as of this encounter
--- OUTSIDE RECORDS SUMMARY | 2024-07-29 16:29 | XMS_ITS | Encounter Summary ---
Author Organization Formerly [facility] [place] [address] Care Team Providers Care Ammonia Solution Preparer Name Role Phone Elizabeth Song MD Primary Care Provider [phone] Reason for Visit * Reason Onset Date Comments Medication Refill 05/20/2013 Encounter Details Date Type Department Care Team (Late st Contact Info) Description 05/20/2013 Ref[place] [address] Davian Hurst MD [facility] [place] [address] Social History Tobacco Use Types Packs/Day Years [...] 2:00 PM EST Office [place] [id number] Cheri Carvalho, PROFESSOR OF PHYSICS [facility] [place] [address] documented as of this encounter Visit Diagnoses Not on filedocumented in this encounter Care Teams Ammonia Solution Preparer Relationship Specialty Start Date End Date Elizabeth Song MD [address] [place] [address] PCP - General 06/15/10 08/24/23 documented as of this encounter
--- OUTSIDE RECORDS SUMMARY | 2024-07-29 16:29 | XMS_ITS | Encounter Summary ---
Author Organization [facility] [place] [address] Care Team Providers Care Cerner Analyst Name Role Phone Elizabeth Song MD Primary Care Provider [phone] Reason for Visit * Reason Onset Date Comments Medication Refill 03/28/2017 Encounter Details Date Type Department Care Team (Late st Contact Info) Description 03/28/2017 [place] [address] Kenya Lui, RN Social History Tobacco Use Types Packs/Day [...] 2:00 PM EST Office [place] [address] Cheri Carvalho APRN [facility] [place] [address] documented as of this encounter Visit Diagnoses Not on filedocumented in this encounter Care Teams Cerner Analyst Relationship Specialty Start Date End Date Elizabeth Song MD [address] [place], [place] [id number] PCP - General 06/15/10 08/24/23 documented as of this encounter
--- OUTSIDE RECORDS SUMMARY | 2024-07-29 16:29 | XMS_ITS | Encounter Summary ---
Author Organization [facility] Address [facility] [place] [address] Care Team Providers Care Automotive Porter Name Role Phone Elizabeth Song MD Primary Care Provider [phone] Encounter Details Date Type Department Care Team (Latest Contact Info) Description 05/19/2014 11:00 AM EDT [place] [address] Davian Hurst MD [facility] [place] [address] Immunocompromised (Primary Dx); Rheumatoid arthritis(714.0) Discharge Disposition: Home Social History Tobacco Use Types Packs/Day Years Used Date Smoking Tobacco: Never Sex and Gender Information Value Date Recorded Sex Assigned at Female 10/09/2020 8:32 AM EDT Gender Identity Not on file Sexual Orientation Not on file documented as of this encounter Last Filed Vital Signs Vital Sign Reading Time Taken Comments Blood Pressure 139/91 05/19/2014 10:42 AM EDT Pulse 75 05/19/2014 10:42 AM EDT Temperature 36.3 ??C (97.3 ??F) 05/19/2014 10:42 AM E DT Respiratory Rate - - Oxygen Saturation 99% 05/19/2014 10:42 AM EDT Inhaled Oxygen Concentration - - Weight 68.9 kg (152 lb) 05/19/2014 10:42 AM EDT Height - - Body Mass Index 26.09 09/02/2013 2:13 PM EST documented in this encounter Patient Instructions * Patient Instructions* Davian Hurst MD - 05/19/2014 11:01 AM EDT 1. Labs today 2. Leucovorin 5 mg 12 hours after taking methotrexate, once a week! If not better after 3-4 weeks, may increase to 2 T (10 mg) 12 hours after Methotrexate 3. Stay on prednisone, may try to taper if so desired. 4. Take CALCIUM!!!!! 5. Return 6 months documented in this encounter Progress Notes * Davian Hurst MD - 05/19/2014 10:42 AM EDT 58 yo woman who returns in 4 month f/u from .2013 visit after presenting in 2012 with palindromic [...] the MTX to 15 mg/week by injection. Interval History: Patient reports feeling great. Hair loss a little better, still an issue. No able to lower prednisone below 5 mg/d without increased symptoms. Otherwise doing great. Lost 10 lbs on gluten-free diet. Still gets some right wrist pain and 3rd mcp stiffness or swelling, no change, but she is great. No am stiffness. [...] Nocturnal throbbing pain 2007 in hands. Saw Senior Administrative Associate in [place], told it was 'menopause', then it went away. Social History: Originally from [place], [place], moved to [place], [place] 11 years ago. 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 No smoke, no drinking. Life is good. 1 daughter 21. Very active in her business. 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 General-Well developed well nourished who [...] Normal! 1 SJC/0 TJC Right 3rd mcp No change. Knees: Full motion, no swelling, no popliteal or joint line tenderness. No patellar tenderness or crepitance. Ankles: No warmth, swelling, but stiff on passive motion. No Achilles or plantar fascia tenderness. Feet: No deformity. No MTPJs compression tenderness CDAI: 2 (Pt Global) MD global 1, SJC/TJC =1 today CDAI 3, down from 4 Assess: Seropositive RA with great response to MTX/Prednisone having some alopecia despite reduced MTX. Will add leucovorin. Unable to tolerate lower dose of prednisone Plan: 1. Labs today 2. Leucovorin 5 mg 12 hours after taking methotrexate, once a week! If not better after 3-4 weeks, may increase to 2 T (10 mg) 12 hours after Methotrexate 3. Stay on prednisone, may try to taper if so desired. 4. Take calcium emphasised 5. Return 6 months Level 4 follow up Davian Hurst documented in this encounter Miscellaneous Notes * Addendum Note - Gerry Rodríguez - 05/19/2014 11:20 AM EDTAddended by: GERRY RODRÍGUEZ on: 05/19/2014 11:20 AM Modules accepted: Orders documented in this encounter Plan of Treatment Upcoming Encounters Date Type Department Care Team (Late st Contact Info) Description 08/05/2024 2:00 PM EST [place] [address] Cheri Carvalho, KRISTIN [facility] [place] [address] documented as of this encounter Procedures Procedure Name Priority Date/Time Associated Diagnosis Comments HEMOGRAM Routine 05/19/2014 11:25 AM EDT Rheumatoid arthritis(714.0) DIFFERENTIAL, AUTOMATED Routine 05/19/2014 11:25 AM EDT Rheumatoid arthritis(714.0) CBC (WITH DIFF) Routine 05/19/2014 11:25 AM EDT Rheumatoid arthritis(714.0) CRP, CARDIAC RISK (HS CRP) Routine 05/19/2014 11:25 AM EDT Rheumatoid arthritis(714.0) COMPREHENSIVE METABOLIC PANEL Routine 05/19/2014 11:25 AM EDT Rheumatoid arthritis(714.0) documented in this encounter Results * (ABNORMAL) Differential, Automated (05/19/2014 11:25 AM EDT) Neutrophil % 77.8 % CERNER MILLENNIUM Neutrophil Absolute 7.15(H) 1.50 - 6.30 x10(3)/mc L CERNER MILLENNIUM Lymph % 15.1 % CERNER MILLENNIUM Lymphocytes Abs 1.4 1.0 - 3.6 x10(3)/mc L CERNER MILLENNIUM Monocyte % 5.3 % CERNER MILLENNIUM Monocyte Abs 0.5 0.2 - 1.0 x10(3)/mc L CERNER MILLENNIUM Eos % 1.4 % CERNER MILLENNIUM Eosinophils Abs 0.1 0.0 - 0.5 x10(3)/mc L CERNER MILLENNIUM Basophil % 0.3 % CERNER MILLENNIUM Baso Absolute 0.0 0.0 - 0.2 x10(3)/mc L CERNER MILLENNIUM Immature Gran % 0.10 % CERN ER MILLENNIUM Comment: Immature granulocytes(IG's)percentage and absolute count will include metamyelocytes, myelocytes, and promyelocytes. Blood smears from CBCs yielding IG's will be scanned manually for concordance. If this scan disagrees with the automated IG or if promyelocytes are noted, a manual differential will be performed. Immature Gran Absolute 0.01 0.00 - 0.05 x10(3)/mc L CERNER MILLENNIUM Blood specimen (specimen) 05/19/2014 11:25 AM EDT 05/19/2014 11:31 AM EDT Narrative Resulting Agency Comment Spec In Lab Davian Hurst MD HEMATOLOGY ORDERABLE S Performing Organization Address [facility]/ZIP Co de Phone Number CERNER MILLENNIUM * Hemogram (05/19/2014 11:25 AM EDT) White Blood Cell 9.2 4.0 - 10.0 x10(3)/mcL CERNER MILLENNIUM Red Blood Cell 4.21 3.93 - 5.22 x10(6)/mcL CERNER MILLENNIUM Hemoglobin 12.8 11.2 - 15.7 gm/dL CERNER MILLENNIUM Hematocrit 38.4 34.0 - 45.0 % CERNER MILLENNIUM Mean Cell Volume 91.2 79.0 - 94.0 fL CERNER MILLENNIUM Mean Cell Hemoglobin 30.4 26.6 - 32.2 pg CERNER MILLENNIUM Mean Cell Hemoglobin Concentration 33.3 32.0 - 36.5 gm/dL CERNER MILLENNIUM Platelet 301 145 - 370 x10(3)/mcL CERNER MILLENNIUM RDW Standard Deviation 45.6 35.0 - 46.0 fL CERNER MILLENNIUM RDW coefficient of variation 13.8 10.9 - 14.4 % CERNER MILLENNIUM Mean Platelet Volume 9.0 9.0 - 12.0 fL CERNER MILLENNIUM Blood specimen (specimen) 05/19/2014 11:25 AM EDT 05/19/2014 11:31 AM EDT Narrative Resulting Agency Comment Spec In Lab Davian Hurst MD HEMATOLOGY ORDERABLE S CERAIDAN CRUZIUM * High Sensitivity CRP (05/19/2014 11:25 AM EDT) C-Reactive Protein High Sensitivity 1.4 mg/L CERNER MILLENNIUM Comment: Interpretations: 1) For [...] prevention. ??Circulation 2003; [phone]:[id number] Blood specimen (specimen) 05/19/2014 11:25 AM EDT 05/19/2014 11:31 AM EDT Narrative Resulting Agency Comment Spec In Lab Davian Hurst MD CHEMISTRY ORDERABLES [facility] ONStorENNIUM * Comprehensive metabolic panel (non-fasting) (05/19/2014 11:25 AM EDT) [facility] Glucose 99 60 - 199 mg/dL CERNER MILLENNIUM Comment:Diabetes: >=200 mg/d L plus symptoms Blood Urea Nitrogen 13 8 - 18 mg/dL CERNER MILLENNIUM Creatinine 0.80 0.70 - 1.20 mg/dL CERNER MILLENNIUM Comment: Please note that the pediatric reference intervals supplied above were not validated at [facility]. Results from pediatric patients should be interpreted in conjunction to the patient's age, height and muscle mass. Sodium 142 135 - 145 mmol/L CERNER MILLENNIUM Potassium 3.7 3.5 - 5.0 mmol/L CERNER MILLENNIUM Comment: [...] 5 - 15 mmol/L CERNER MILLENNIUM Calcium 9.2 8.5 - 10.5 mg/dL CERNER MILLENNIUM Protein, Total 7.0 6.4 - 8.3 gm/dL CERNER MILLENNIUM Albumin 4.4 3.2 - 5.2 gm/dL CERNER MILLENNIUM Aspartate Aminotransferase 29 0 - 30 unit/L CERNER MILLENNIUM Alanine Aminotransferase 11 0 - 30 unit/L CERNER MILLENNIUM Alkaline Phosphatase 65 40 - 104 unit/L CERNER MILLENNIUM Bilirubin, [...] the following links into your internet browser. [email or web address]/DHnkdep [email or web address] Blood specimen (specimen) 05/19/2014 11:25 AM EDT 05/19/2014 11:31 AM EDT Narrative Resulting Agency Comment Spec In Lab Davian Hurst MD CHEMISTRY ORDERABLES [facility] documented in this encounter Visit Diagnoses Diagnosis Immunocompromised- Primary Unspecified immunity deficiency Rheumatoid arthritis(714.0) Rheumatoid arthritis documented in this encounter Care Teams Automotive Porter Relationship Specialty Start Date End Date Elizabeth oSng MD [address] [place] [address] PCP - General 06/15/10 08/24/23 documented as of this encounter
--- OUTSIDE RECORDS SUMMARY | 2024-07-29 16:29 | XMS_ITS | Encounter Summary ---
Author Organization [facility]ly [facility] Address [facility] [place] [address] Care Team Providers Care Chin Strap Sewer Name Role Phone Elizabeth Song MD Primary Care Provider [phone] Encounter Details Date Type Department Care Team (Late st Contact Info) Description 11/27/2017 11:30 AM EDT [place] [address] Davian Hurst MD [facility] [place] [address] Rheumatoid arthritis, involving unspecified site, unspecified rheumatoid [...] Sign Reading Time Taken Comments Blood Pressure 114/76 11/27/2017 11:23 AM EDT Pulse 82 11/27/2017 11:23 AM EDT Temperature - - Respiratory Rate 18 11/27/2017 11:23 AM EDT Oxygen Saturation 100% 11/27/2017 11:23 AM EDT Inhaled Oxygen Concentration - - Weight 66.2 kg (146 lb) 11/27/2017 11:23 AM EDT Height 162.6 cm (5' 4) 11/27/2017 11:23 AM EDT Body Mass Index 25.06 11/27/2017 11:23 AM EDT documented in this encounter Patient Instructions * Patient Instructions* Davian Hurst MD - 11/27/2017 11:30 AM EDT 1. Labs 2. Return 7 months documented in this encounter Progress Notes * Davian Hurst MD - 11/27/2017 11:30 AM EDT 62 yo woman who returns in 7 [...] Had a nice time visiitng Mother in [place] in October 22. Joints are fine no [...] Nocturnal throbbing pain 2007 in hands. Saw Community Development Manager in [place], told it was 'menopause', then it went away. Social History: Originally from [place], [place], moved to [place], [place] 14 years ago. Getting ready to move out of house, traumatic but 'ok'. Lots of challenges (marital, financial). Seems still upbeat. No smoke, no drinking. Life is good. 1 daughter 24, doing well. Family History: Mother 88 good health, father age 75 prostate Ca, one healthy brother, no hx RA Physical Examination Blood pressure 114/76, pulse 82, resp. rate 18, height 162.6 cm (5' 4), weight 66.2 kg (146 lb), SpO2 100 %. General-Well developed well [...] 0 SJC/0 TJC Right 3rd MCP bony swellijng Knees: Full motion, no swelling, no popliteal or joint line tenderness. No patellar tenderness or crepitance. Ankles: No warmth, swelling, but stiff on passive motion. No Achilles or plantar fascia tenderness. Feet: No deformity. No MTPJs compression tenderness, tender volar aspect 2nd-3rd MTPJ, righ CDAI: 0 except for 1 Assess: Seropositive RA with great response to every other week MTX/ + 5 mg/d Prednisone. Definitely better Plan: 1. Labs today 2. RTC 7 months Level 5 f/u Davian Hurst M.D. documented in this encounter Miscellaneous Notes * Addendum Note - Lynda Rodríguez - 11/27/2017 12:11 PM EDTAddended by: LYNDA RODRÍGUEZ on: 11/27/2017 12:11 PM Modules accepted: Orders documented in this encounter Plan of Treatment Upcoming Encounters Date Type Department Care Team (Late st Contact Info) Description 08/05/2024 2:00 PM EST [place] [address] Cheri Carvalho, KRISTIN [facility] [place] [address] documented as of this encounter Procedures Procedure Name Priority Date/Time Associated Diagnosis Comments HEMOGRAM Routine 11/27/2017 12:22 PM EDT Rheumatoid arthritis, involving unspecified site, unspecified rheumatoid factor presence DIFFERENTIAL, AUTOMATED Routine 11/27/2017 12:22 PM EDT Rheumatoid arthritis, involving unspecified site, unspecified rheumatoid factor presence CBC (WITH DIFF) Routine 11/27/2017 12:22 PM EDT Rheumatoid arthritis, involving unspecified site, unspecified rheumatoid factor presence COMPREHENSIVE METABOLIC PANEL Routine 11/27/2017 12:22 PM EDT Rheumatoid arthritis, involving unspecified site, unspecified rheumatoid factor presence documented in this encounter Results * Differential, Automated (11/27/2017 12:22 PM EDT) Neutrophil % 74.6 % [facility] Neutrophil Absolute 5.27 1.70 - 6.10 x10(3)/[facility] Lymph % 18.7 % [facility] Lymphocytes Abs 1.3 0.9 - 3.2 x10(3)/[facility] Monocyte % 5.1 % [facility] Monocyte Abs 0.4 0.3 - 0.9 x10(3)/[facility] Eos % 0.6 % [facility] Eosinophils Abs 0.0 0.0 - 0.4 x10(3)/[facility] Basophil % 0.7 % [facility] Baso Absolute 0.0 0.0 - 0.1 x10(3)/[facility] Immature Gran % 0.30 % [facility] Comment: Immature granulocytes(IG's)percentage and absolute count will include metamyelocytes, myelocytes, and promyelocytes. Blood smears from CBCs yielding IG's will be scanned manually for concordance. If this scan disagrees with the automated IG or if promyelocytes are noted, a manual differential will be performed. Immature Gran Absolute 0.02 0.00 - 0.04 x10(3)/[facility] Blood specimen (specimen) 11/27/2017 12:22 PM EDT 11/27/2017 12:27 PM EDT Narrative Resulting Agency Comment Spec In Lab Davian Hurst MD HEMATOLOGY ORDERABLE S [facility] [place] [address] * Hemogram (11/27/2017 12:22 PM EDT) White Blood Cell 7.1 4.0 - 9.5 x10(3)/[facility] Red Blood Cell 4.45 4.00 - 5.21 x10(6)/[facility] Hemoglobin 12.9 11.7 - 15.5 gm/dL [facility] Hematocrit 40.0 35.7 - 45.8 % [facility] Mean Cell Volume 89.9 82.6 - 94.4 fL [facility] Mean Cell Hemoglobin 29.0 27.1 - 32.0 pg [facility] Mean Cell Hemoglobin Concentration 32.3 31.7 - 35.0 gm/dL [facility] Platelet 291 145 - 357 x10(3)/[facility] RDW Standard Deviation 43.8 37.0 - 46.0 [facility] RDW coefficient of variation 13.3 11.5 - 14.1 % [facility] Mean Platelet Volume 8.4 7.6 - 12.9 [facility] NRBC% auto 0.0 % [facility] NRBC Absolute 0.000 0.000 - 0.000 x10(3)/[facility] Blood specimen (specimen) 11/27/2017 12:22 PM EDT 11/27/2017 12:27 PM EDT Narrative Resulting Agency Comment Spec In Lab Davian Hurst MD HEMATOLOGY ORDERABLE S [facility] [place] [address] * Comprehensive metabolic panel (non-fasting) (11/27/2017 12:22 PM EDT) Glucose 93 65 - 199 mg/dL [facility] Comment:Diabetes: >=200 mg/d L plus symptoms Blood Urea Nitrogen 14 8 - 18 mg/dL [facility] Creatinine 0.85 0.70 - 1.20 mg/dL [facility] Sodium 139 135 - 145 mmol/L [facility] Potassium 4.1 3.5 - 5.0 mmol/L [facility] Comment: Please note: ??Patients with WBC >100,000 may have falsely elevated Potassium levels. ??For accurate Potassium quantification in these patients send serum separator tube (gold top) for subsequent determinations. ??Contact the Clinical Chemistry Laboratory if there are any questions. Chloride 102 98 - 107 mmol/L [facility] Carbon Dioxide 26 22 - 31 mmol/L [facility] Anion Gap 11 5 - 15 mmol/L [facility] Calcium 8.8 8.5 - 10.5 mg/dL [facility] Protein, Total 6.9 6.1 - 8.0 gm/dL [facility] Albumin 4.2 3.2 - 5.2 gm/dL [facility] Aspartate Aminotransferase 29 0 - 30 unit/L [facility] Alanine Aminotransferase 10 0 - 30 unit/L [facility] Alkaline Phosphatase 73 40 - 104 unit/L [facility] Bilirubin, Total 0.3 0.2 - 1.3 mg/dL [facility] Est Glomerular Filtration Rate >60 >=60 [facility] Comment: The reported eGFR should be multiplied by 1.2 for patients. The MDRD is not an appropriate measure of renal function for patients with body mass extremes or in patients with acute kidney failure. http://Ringz.TV.Proximus/DHnkdep http://Ringz.TV.Proximus/DHMCnkf Blood specimen (specimen) 11/27/2017 12:22 PM EDT 11/27/2017 12:27 PM EDT Narrative Resulting Agency Comment Spec In Lab Davian Hurst MD CHEMISTRY ORDERABLES [facility] [place] [address] documented in this encounter Visit Diagnoses Diagnosis Rheumatoid arthritis, involving unspecified site, unspecified rheumatoid factor presence documented in this encounter Care Teams Chin Strap Sewer Relationship Specialty Start Date End Date Elizabeth Song MD [address] [place] [address] PCP - General 06/15/10 08/24/23 documented as of this encounter
--- OUTSIDE RECORDS SUMMARY | 2024-07-29 16:29 | XMS_ITS | Encounter Summary ---
Author Organization [facility] [place] [address] Care Team Providers Care Delimer Name Role Phone Elizabeth Song MD Primary Care Provider [phone] Reason for Visit * Reason Comments Medication Refill Encounter Details Date Type Department Care Team (Late st Contact Info) Description 08/24/2015 [place] [address] Davian Hurst MD [facility] [place] [address] Social History Tobacco Use Types Packs/Day Years [...] 2:00 PM EST Office [place] [address] Cheri Carvalho APRN [facility] [place] [address] documented as of this encounter Visit Diagnoses Not on filedocumented in this encounter Care Teams Delimer Relationship Specialty Start Date End Date Elizabeth Song MD [address] [place] [address] PCP - General 06/15/10 08/24/23 documented as of this encounter
--- OUTSIDE RECORDS SUMMARY | 2024-07-29 16:29 | XMS_ITS | Encounter Summary ---
Author Organization [facility] [place] [address] Care Team Providers Care Hog Tender Name Role Phone Elizabeth Song MD Primary Care Provider [phone] Reason for Visit * Reason Onset Date Comments Medication Refill 11/18/2016 Encounter Details Date Type Department Care Team (Late st Contact Info) Description 11/18/2016 Ref[place] [address] Davian Hurst MD [facility] [place] [address] Social History Tobacco Use Types Packs/Day Years Used Date Smoking Tobacco: Never Sex and Gender Information Value Date Recorded Sex Assigned at Female 10/09/2020 8:32 AM EDT Gender Identity Not on file Sexual Orientation Not on file documented as of this encounter Miscellaneous Notes * Telephone Encounter - Fanny Montalvo CMA - 11/18/2016 11:11 AM EDTFrom: Erma Ruiz To: Davian Hurst MD Sent: 11/18/2016 10:54 AM EDT Subject: Medication Renewal Request Original authorizing provider: MD Erma CORLEY would like a refill of the following medications: predniSONE (DELTASONE) 5 mg Tablet [DAVIAN HURST MD] BD TUBERCULIN SYRINGE 1 mL 27 x 1/2 Syringe [DAVIAN HURST MD] Preferred pharmacy: [facility] [place], [place] - [address] [place] [address] Comment: documented in this encounter Plan of Treatment Upcoming Encounters Date Type Department Care Team (Late st Contact Info) Description 08/05/2024 2:00 PM EST Office [place] [address] Cheri Carvalho, HOLIST[employer] HE[employer] PRACTITIONER [facility] [place] [address] documented as of this encounter Visit Diagnoses Not on filedocumented in this encounter Care Teams Hog Tender Relationship Specialty Start Date End Date Elizabeth Song MD [address] [place] [address] PCP - General 06/15/10 08/24/23 documented as of this encounter
--- OUTSIDE RECORDS SUMMARY | 2024-07-29 16:29 | XMS_ITS | Encounter Summary ---
Author Organization [facility] [place] [address] Care Team Providers Care Rewards Consultant Name Role Phone Elizabeth Song MD Primary Care Provider [phone] Reason for Visit * Reason Onset Date Comments Other 02/06/2013 side effects Encounter Details Date Type Department Care Team (Late st Contact Info) Description 02/06/2013 [place] [id number] Caty Givens RN Other (side effects) Social History Tobacco Use Types Packs/Day Years Used Date Smoking Tobacco: Never Sex and Gender Information Value Date Recorded Sex Assigned at Female 10/09/2020 8:32 AM EDT Gender Identity Not on file Sexual Orientation Not on file documented as of this encounter Miscellaneous Notes * Telephone Encounter - Davian Hurst MD - 02/07/2013 11:30 AM EDT Please have her stay at 10 mg/d for the remainder of the month. Please remind her that her ability to move her hands was markedly affected when I saw her and she could not make a fist with either hand. If she feels that her hands have returned to normal on February 21, she can go to 7.5 mg/d for February and 5 mg/d in March. Of course, if she is having prednisone symptoms (unlikely at this dose) she can go to 5 mg/d in February Davian Hurst * Telephone Encounter - Caty Givens RN - 02/07/2013 10:29 AM EDT Called Erma and let her know Dr. Hurst would like her to taper the prednisone down to 10 mg day. Told her symptoms of side effects should improve in a day or so. Told her she could continue this dosethrough the end of January, then taper as he instructed. She says she is going to start the methotrexate today. She will call with any questions or concerns. * Telephone Encounter - Davian Hurst MD - 02/07/2013 8:50 AM EDT Yes. Have her lower the dose to 10 mg/d. Those symptoms should clear in a day. Davian Hurst * Telephone Encounter - Caty Givens RN - 02/06/2013 4:18 PM EDT Erma reports she has been having side effects from the prednisone. The first couple days she had sweaty palms, anxiety and some heart palpitations. She then divided her dose and symptoms did not return. However, today she did the same thing taking it divided and she got a dizzy sensation. She says she has not had any pain or swelling in her hands, she is not even taking the naproxen. Told her it might be possible to taper the prednisone sooner and that Dr. Hurst would be consulted on that. She has not started the methotrexate yet, because she was worried about dealing with the symptoms from the prednisone. Recommended she take it as ordered by Dr. Hurst. Discussed side effects and ways of managing them with her. She verbalized understanding. Told her she would be called back tomorrow about her prednisone taper. documented in this encounter Plan of Treatment Upcoming Encounters Date Type Department Care Team (Late st Contact Info) Description 08/05/2024 2:00 PM EST [place] [address] Cheri Carvalho, KRISTIN [facility] [address] documented as of this encounter Visit Diagnoses Not on filedocumented in this encounter Care Teams Rewards Consultant Relationship Specialty Start Date End Date Elizabeth Song MD [address] [place] [id number] PCP - General 06/15/10 08/24/23 documented as of this encounter
--- OUTSIDE RECORDS SUMMARY | 2024-07-29 16:29 | XMS_ITS | Encounter Summary ---
Author Organization [facility] Address [facility] [place] [address] Care Team Providers Care Sports Marketing Coordinator Name Role Phone Elizabeth Song MD Primary Care Provider [phone] Encounter Details Date Type Department Care Team (Late st Contact Info) Description 11/17/2014 9:45 AM EDT Follow-[place] [address] Gabriella Hurst MD [facility] [place] [address] Rheumatoid arthritis(714.0); Decreased visual acuity Discharge Disposition: Home Social History Tobacco Use Types Packs/Day Years Used Date Smoking Tobacco: Never Sex and Gender Information Value Date Recorded Sex Assigned at Female 10/09/2020 8:32 AM EDT Gender Identity Not on file Sexual Orientation Not on file documented as of this encounter Last Filed Vital Signs Vital Sign Reading Time Taken Comments Blood Pressure 144/84 11/17/2014 9:48 AM EDT Pulse 74 11/17/2014 9:48 AM EDT Temperature 36.4 ??C (97.5 ??F) 11/17/2014 9:48 AM ED T Respiratory Rate - - Oxygen Saturation 97% 11/17/2014 9:48 AM EDT Inhaled Oxygen Concentration - - Weight 67.1 kg (148 lb) 11/17/2014 9:48 AM EDT Height 162.6 cm (5' 4) 11/17/2014 9:48 AM EDT Body Mass Index 25.4 11/17/2014 9:48 AM EDT documented in this encounter Patient Instructions * Patient Instructions* Gabriella Hurst MD - 11/17/2014 10:18 AM EDT 1. Reduce methotrexate to 0.5 cc = 12.5 mg injected once a week 2. Reduce prednisone to 2.5 mg/d (1/2 tablet) 3. Kenalog 40 mg IM 4. Labs today 5. Return in 6 months documented in this encounter Progress Notes * Gabriella Hurst MD - 11/17/2014 10:06 AM EDT 58 yo woman who returns [...] mg/d tapering Interval History: Patient reports feeling great. No pain. Has missed MTX shots due to various issues. Taking at nightfatigue at night. Taking 15 mg/week. Thinks the leucovorin has helped with alopecia. Eye issues: Feels like visual acuity has been impaired. Gradually progressive, evaluated was better. Not affected by light, high beams. Prednisone 5 mg/d. Hair loss a little better, still an issue. No able to lower prednisone below 5 mg/d without increased symptoms. Otherwise doing great. Lost 10 lbs on gluten-free diet. Still gets some right wrist pain and 3rd mcp stiffness or swelling, no change, but she is great. No am stiffness. No infections, no functional limitations. Joints great. Continued attention to hair loss. No photophobia Review of Systems Constitutional: No fevers, chills, [...] Nocturnal throbbing pain 2007 in hands. 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 Social History: Originally from [place], [place], moved to [place], [place] 11 years ago. 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 No smoke, no drinking. Life is good. 1 daughter 21. Very active in her business. 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 General-Well developed well nourished who is [...] Seropositive RA with great response to MTX/Prednisone. Reduced alopecia with leucovorin. Check A1C for visual acuity issues Plan: 1. Labs today 2. Taper MTX to 12.5 mg/week due to [employer] [employer] side effects 3. Consider using Kenalog 40 mg IM as bridge therapy. In meantime, try to taper prednisone 1 mg/d Level 4 follow up Gabriella Hurst documented in this encounter Miscellaneous Notes * Addendum Note - Gabriella Hurst MD - 11/17/2014 10:49 AM EDTAddended by: GABRIELLA HURST on: 11/17/2014 10:49 AM Modules accepted: Orders documented in this encounter Plan of Treatment Upcoming Encounters Date Type Department Care Team (Late st Contact Info) Description 08/05/2024 2:00 PM EST Office Visit Rheumatology at [facility] [place] [address] Cheri Carvalho, WASTEWATER PROCESS ENGINEER [facility] [place] [address] [place] [address] documented as of this encounter Procedures Procedure Name Priority Date/Time Associated Diagnosis Comments HEMOGRAM Routine 11/17/2014 10:33 AM EDT Rheumatoid arthritis(714.0) DIFFERENTIAL, AUTOMATED Routine 11/17/2014 10:33 AM EDT Rheumatoid arthritis(714.0) CBC (WITH DIFF) Routine 11/17/2014 10:33 AM EDT Rheumatoid arthritis(714.0) CRP, CARDIAC RISK (HS CRP) Routine 11/17/2014 10:33 AM EDT Rheumatoid arthritis(714.0) HEMOGLOBIN A1C Routine 11/17/2014 10:33 AM EDT Decreased visual acuity COMPREHENSIVE METABOLIC PANEL Routine 11/17/2014 10:33 AM EDT Rheumatoid arthritis(714.0) documented in this encounter Results * (ABNORMAL) Differential, Automated (11/17/2014 10:33 AM EDT) Neutrophil % 79.6 % [facility] Neutrophil Absolute 8.16(H) 1.50 - 6.30 x10(3)/mc L [facility] Lymph % 14.1 % [facility] MILLENNIUM Lymphocytes Abs 1.4 1.0 - 3.6 x10(3)/mc L [facility]ILL[facility] Monocyte % 5.0 % [facility]ILLENNI[facility] Monocyte Abs 0.5 0.2 - 1.0 x10(3)/mc L [facility]ILLENNI[facility] Eos % 0.7 % [facility] MILLENNI[facility] Eosinophils Abs 0.1 0.0 - 0.5 x10(3)/mc L [facility] Basophil % 0.5 % [facility] MILLENNI[facility] Baso Absolute 0.0 0.0 [...] x10(3)/mc L [facility] Blood specimen (specimen) 11/17/2014 10:33 AM EDT 11/17/2014 10:49 AM EDT Narrative Resulting Agency Comment Spec In Lab Gabriella Hurst MD HEMATOLOGY ORDERABLE S [facility] * (ABNORMAL) Hemogram (11/17/2014 10:33 AM EDT) White Blood Cell 10.2(H) 4.0 - 10.0 x10(3)/mc L [facility]ILL[facility] Red Blood Cell 4.52 3.93 - 5.22 x10(6)/mc L [facility]ILL[facility] Hemoglobin 13.3 11.2 - 15.7 gm/dL [facility] Hematocrit 40.6 34.0 - 45.0 % [facility] MILLENNI[facility] Mean Cell Volume 89.8 79.0 - 94.0 fL [facility] Mean Cell Hemoglobin 29.4 26.6 - 32.2 pg [facility]ILLENNI[facility] Mean Cell Hemoglobin Concentration 32.8 32.0 - 36.5 gm/dL [facility] MILLENNI[facility] Platelet 306 145 - 370 x10(3)/mc L [facility]EN[facility] RDW Standard Deviation 44.1 35.0 - 46.0 fL [facility]NI[facility] RDW coefficient of variation 13.4 10.9 - 14.4 % [facility] Mean Platelet Volume 9.1 9.0 - 12.0 fL [facility]ILL[facility] Blood specimen (specimen) 11/17/2014 10:33 AM EDT 11/17/2014 10:49 AM EDT Narrative Resulting Agency Comment Spec In Lab Gabriella Hurst MD HEMATOLOGY ORDERABLE S [facility] * (ABNORMAL) Hemoglobin A1c (11/17/2014 10:33 AM EDT) Hemoglobin A1c 5.8(H) 4.3 - 5.6 % [facility] Comment: Reference Range: 4.3 - 5.6% 5.7 - 6.4% - Increased Risk of Developing Diabetes Mellitus >= 6.5% - Consistent with diagnosis of Diabetes Mellitus In the absence of hyperglycemia (i.e. plasma glucose > 200 mg/dL) or classic symptoms of hyperglycemia a repeat measurement of HbA1c should be performed on a separate sample to confirm the diagnosis. Diagnosis and Classification of Diabetes Mellitus, Diabetes Care 2013; 36: Suppl. 1, B77-59 Estimated Average Glucose 120 mg/dL [facility] Comment: eAG equivalents for HbA1c percentages: HbA1c(%) ?eAG(mg/dL) 6.0 ?126 6.5 ?140 7.0 ?154 7.5 ?169 8.0 ?183 8.5 ?197 9.0 ?212 9.5 ?226 10.0 ? 240 Limitations: The eAG calculation has not been validated on women, individuals below 18 years old and above 70 years old, and individuals with hemoglobinopathies. Additional resources are available on the ADA website: [email or web address]/[email or web address] Alexi PEDRAZA, Nona J, Socorro R, et al. ??Translating the A1C assay into estimated average glucose values. ??Diabetes Care 2008:31(8):5648-6674. Blood specimen (specimen) 11/17/2014 10:33 AM EDT 11/17/2014 10:49 AM EDT Narrative Resulting Agency Comment Spec In Lab Gabriella Hurst MD CHEMISTRY ORDERABLES Performing Organization Address [facility] de Phone Number [facility] * High Sensitivity CRP (11/17/2014 10:33 AM EDT) C-Reactive Protein High Sensitivity 1.8 mg/L [facility] Comment: Interpretations: 1) For accurate cardiac [...] prevention. ??Circulation 2003; 107:363-369 Blood specimen (specimen) 11/17/2014 10:33 AM EDT 11/17/2014 10:49 AM EDT Narrative Resulting Agency Comment Spec In Lab Gabriella Hurst MD CHEMISTRY ORDERABLES Performing Organization Address [facility] Co de Phone Number [facility] * Comprehensive metabolic panel (non-fasting) (11/17/2014 10:33 AM EDT) Glucose 95 60 - 199 mg/dL [facility] Comment:Diabetes: >=200 mg/d L plus symptoms Blood Urea Nitrogen 16 8 - 18 mg/dL [facility]ILL[facility]NI[facility] Creatinine 0.90 0.70 - 1.20 mg/dL [facility] Comment: Please note that the pediatric reference intervals supplied above were not validated at [facility]. Results from pediatric patients should be interpreted in conjunction to the patient's age, height and muscle mass. Sodium 140 135 - 145 mmol/L [facility]ILLENNI[facility] Potassium 3.8 3.5 - 5.0 mmol/L [facility] Comment: Please note: ??Patients with WBC >100,000 may have falsely elevated Potassium levels. ??For accurate Potassium quantification in these patients send serum separator tube (gold top) for subsequent determinations. ??Contact the Clinical Chemistry Laboratory if there are any questions. Chloride 103 98 - 107 mmol/L [facility] Carbon Dioxide 24 22 - 31 mmol/L [facility] MILLENNI[facility] Anion Gap 13 5 - 15 mmol/L [facility]ILL[facility] Calcium 9.3 8.5 - 10.5 mg/dL [facility]ILL[facility] Protein, Total 7.3 6.1 - 8.0 gm/dL [facility]ILLENNI[facility] Albumin 4.3 3.2 - 5.2 gm/dL [facility] MILLENNI[facility] Aspartate Aminotransferase 29 0 - 30 unit/L [facility]ILLENNI[facility] Alanine Aminotransferase 13 0 - 30 unit/L [facility]ILLENNI[facility] Alkaline Phosphatase 75 40 - 104 unit/L [facility]ILL[facility] Bilirubin, Total 0.6 0.2 - 1.3 mg/dL [facility] MILLENNIUM Bilirubin, [...] the following links into your internet browser. [email or web address] Blood specimen (specimen) 11/17/2014 10:33 AM EDT 11/17/2014 10:49 AM EDT Narrative Resulting Agency Comment Spec In Lab Gabriella Hurst MD CHEMISTRY ORDERABLES [facility] documented in this encounter Visit Diagnoses Diagnosis Rheumatoid arthritis(714.0) Rheumatoid arthritis Decreased visual acuity Unspecified visual loss documented in this encounter Administered Medications Inactive Administered Medications - up to 3 most recent administrations Medication Order MAR Action Action Date Dose Rate Site triamcinolone acetonide (KENALOG-40) injection 40 mg 40 mg, Intramuscular, ONCE, 1 dose, On 11/17/14 at 1115, Routine Given 11/17/2014 10:56 AM EDT 40 mg Lef t Gluteal documented in this encounter Care Teams Sports Marketing Coordinator Relationship Specialty Start Date End Date Elizabeth Song MD [address] [place] [address] PCP - General 06/15/10 08/24/23 documented as of this encounter
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
--- OUTSIDE RECORDS SUMMARY | 2024-07-29 16:29 | XMS_ITS | Encounter Summary ---
Author Organization [facility] [place] [address] Care Team Providers Care Mold Swabber Name Role Phone Elizabeth Song MD Primary Care Provider [phone] Reason for Visit * Reason Comments Medication Refill Encounter Details Date Type Department Care Team (Late st Contact Info) Description 01/12/2016 Refill [place] [address] Davian Hurst MD [facility] [place] [address] Rheumatoid arthritis(714.0) Social History Tobacco Use Types Packs/Day Years [...] 2:00 PM EST Office Visit [place] [address] Cheri Carvalho, KRISTIN [facility] [place] [address] documented as of this encounter Visit Diagnoses Diagnosis Rheumatoid arthritis(714.0) Rheumatoid arthritis documented in this encounter Care Teams Mold Swabber Relationship Specialty Start Date End Date Elizabeth Song MD [address] [place] [address] PCP - General 06/15/10 08/24/23 documented as of this encounter
--- OUTSIDE RECORDS SUMMARY | 2024-07-29 16:29 | XMS_ITS | Encounter Summary ---
Author Organization [facility] [place] [address] Care Team Providers Care Staff Trainer Name Role Phone Elizabeth Song MD Primary Care Provider [phone] Reason for Visit * Reason Onset Date Comments Medication Refill 11/27/2013 Encounter Details Date Type Department Care Team (Late st Contact Info) Description 11/27/2013 [place] [address] Davian Hurst MD [facility] [place] [address] Social History Tobacco Use Types Packs/Day Years [...] 2:00 PM EST Office [place] [id number] Cheri Carvalho, LOG CHECK SCALER [facility] [place] [address] documented as of this encounter Visit Diagnoses Not on filedocumented in this encounter Care Teams Staff Trainer Relationship Specialty Start Date End Date Elizabeth Song MD [address] [place] [address] PCP - General 06/15/10 08/24/23 documented as of this encounter
--- OUTSIDE RECORDS SUMMARY | 2024-07-29 16:30 | XMS_ITS | Encounter Summary ---
Author Organization [facility] Address [address] [place] [address] Care Team Providers Care Cork Floor Installer Name Role Phone Unavailable Primary Care Provider Unavailabl e Encounter Details Date Type Department Care Team (Late st Contact Info) Description 11/24/2003 Before PRISM Converted Visit (Maple) [facility] - Maple conversion [address] [place] [address] Cristi Calvert MD [address] [place] [phone] Social History Tobacco Use Types Packs/Day Years Used Date Smoking Tobacco: Never Assessed Comments Unknown Sex and Gender Information Value Date Recorded Sex Assigned at Not on file Legal Sex Female 18:30 EST Gender Identity Not on file Sexual Orientation Not on file documented as of this encounter Plan of Treatment Not on file documented as of this encounter Visit Diagnoses Not on filedocumented in this encounter
--- OUTSIDE RECORDS SUMMARY | 2024-07-29 16:30 | XMS_ITS | Encounter Summary ---
Author Organization [facility] Address [address] [place] [address] Care Team Providers Care Tailer In Name Role Phone Unavailable Primary Care Provider Unavailabl e Encounter Details Date Type Department Care Team (Late st Contact Info) Description 01/13/2016 Results Only [facility] [phone] Elizabeth Song MD Social History Tobacco Use Types Packs/Day Years Used Date Smoking Tobacco: Never Assessed Comments Unknown Sex and Gender Information Value Date Recorded Sex Assigned at Not on file Legal Sex Female 18:30 EST Gender Identity Not on file Sexual Orientation Not on file documented as of this encounter Plan of Treatment Not on file documented as of this encounter Procedures Procedure Name Priority Date/Time Associated Diagnosis Comments PAP TEST- RESULT ONLY Routine 01/13/2016 0:00 EDT documented in this encounter Results * PAP TEST- RESULT ONLY (01/13/2016 0:00 EDT) Pathology Report: CYTOPATHOLOGY REPORT Reports generated via electronic interface contain original data; however they are lacking the format of the original report. Caution should be taken when reading/interpreti ng unformatted reports. Name: ? ANISHA RUIZ ? Accession #: ? [id number] ? : ? 1955 (Age: 60) ??F ?Collect Date: ? 01/13/2016 ? Location: ? [facility] ? Receive Date: ? 01/15/2016 ? Provider: ELIZABETH SONG MD Copy to: ? Final Report SPECIMEN ADEQUACY ? Satisfactory for Evaluation - transformation zone component present GENERAL CATEGORIZATION ? Negative for Intraepithelial Lesion or Malignancy INTERPRETATION ? Reactive cellular changes associated with inflammation present (includes repair). Previous Gynecologic Pathology: ASC-US: HX of Other: Additional clinical information: Negative HPV Specimen/Source: ??Pap Test, Cervix, ThinPrep Imaging System with manual evaluation Document reviewed and electronically signed by: ? TEQUILA RODRIGEZ MD ? Report ??Date: 01/29/2016 11:48 HPV with Pap Test ? Date Ordered: ? 01/29/2016 ? Status: ?? Signed Out ?Date Complete: ? 02/02/2016 ? By: ??System Interface ? Date Reported: ? 02/02/2016 ? Interpretation RESULT: Negative for HPV. No E6 or E7 mRNA is detected from HPV types 16,18,31,33,35, 39,45,51,52,56,58, 59,66, and 68 by hand violin maker mediated amplification. Comments Document reviewed and electronically signed by: ? System Interface ? Report date: 02/02/2016 By the signature above, the attending physician certifies that he/she has personally conducted a gross and/or microscopic examination of the described specimens and rendered or confirmed the above diagnosis. End of Report [facility] 01/13/2016 01/15/2016 us Elizabeth Song MD PATHOLOGY ORDERABLES Final Resul t [facility] [address] [place] [address] documented in this encounter Visit Diagnoses Not on filedocumented in this encounter
--- OUTSIDE RECORDS SUMMARY | 2024-07-29 16:30 | XMS_ITS | Encounter Summary ---
Author Organization [facility] Address [address] [place] [address] Care Team Providers Care Paraffiner Name Role Phone Unavailable Primary Care Provider Unavailabl e Encounter Details Date Type Department Care Team (Latest Contact Info) Description 09/24/2020 Lab Requisition [facility] Pathology & Laboratory Medicine - [facility] [address] [place] [address] Vanessa Oleary, FITTING ROOM MAINTENANCE MECHANIC [address] [address] Encounter for general adult medical examination without abnormal findings; Encounter for screening for malignant neoplasm of cervix; Encounter for gynecological examination (general) (routine) without abnormal findings Social History Tobacco Use Types Packs/Day Years [...] Name Priority Date/Time Associated Diagnosis Comments PAP TEST Today 09/22/2020 15:30 EST Encounter for general adult medical examination without abnormal findings Encounter for screening for malignant neoplasm of cervix Encounter for gynecological examination (general) (routine) without abnormal findings HPV DNA DETECTION WITH GENOTYPING, PCR Today 09/22/2020 15:30 EST Encounter for general adult medical examination without abnormal findings Encounter for screening for malignant neoplasm of cervix Encounter for gynecological examination (general) (routine) without abnormal findings documented in this encounter Results * HUMAN PAPILLOMAVIRUS (HPV) DETECTION-HIGH RISK TYPES (09/22/2020 15:30 EST) HPV other High Risk types, PCR Negative Negative 10/02/2020 14:47 [facility] Comment:No E6 or E7 mRNA is detected from HPV types 16,18,31,33,35,39,45,51,52,56,58,59,66, and 68 by certified midwife mediated amplification. Papanicolaou smear specimen (specimen) CERVIX UTERI STRUCTURE / Unknown 09/22/2020 15:30 EST 09/30/2020 16:15 EST Vanessa Oleary FITTING ROOM MAINTENANCE MECHANIC MICROBIOLOGY - GENERAL OR DERABLES Final Result [facility] [address] [place] [address] * PAP TEST (09/22/2020 15:30 EST) Specimens A. Cervix and/or Endocervix , ThinPrep Imaging System with Manual Evaluation 10/02/2020 14:47 [facility] Specimen Adequacy Satisfactory for Evaluation - transformation zone component absent 10/02/2020 14:47 [facility] General Categorization Negative for intraepithelial lesion or malignancy 10/02/2020 14:47 [facility] Educational Comments An additional slide was prepared and evaluated. 10/02/2020 14:47 [facility] Attestation . 10/02/2020 14:47 [facility] at 1447 Clinical History See below 10/03/19 21 14:47 [facility] HPV The result for the Human Papillomavirus (HPV) Detection-High Risk Types is Negative. No E6 or E7 mRNA is detected from HPV types 16,18,31,33,35,39 ,45,51,52,56,58,5 9,66, and 68 by certified midwife mediated amplification.Julia ting was performed on specimen [id number] and was resulted on 10/02/2020 1440 EST by JANINE, LAB INSTRUMENT RESULTS IN 10/02/2020 14:47 EST [facility] Performing Lab [facility] 10/02/2020 14:47 EST [facility] Scanned Images 10/02/2020 14:47 EST [facility] Papanicolaou smear specimen (specimen) CERVIX UTERI STRUCTURE / Unknown 09/22/2020 15:30 EST 09/24/2020 10:05 EST us Vanessa Oleary FITTING ROOM MAINTENANCE MECHANIC PATHOLOGY ORDERABLES Jessica l Result [facility] [address] [place] [address] documented in this encounter Visit Diagnoses Diagnosis Encounter for general adult medical examination without abnormal findings Unspecified general medical examination Encounter for screening for malignant neoplasm of cervix Screening for malignant neoplasm of the cervix Encounter for gynecological examination (general) (routine) without abnormal findings documented in this encounter
--- OUTSIDE RECORDS SUMMARY | 2024-07-29 16:30 | XMS_ITS | Referral Summary ---
Author Organization [facility] Address [address] [place] [address] Care Team Providers Care Driver'S License Reviewing Officer Name Role Phone Unavailable Primary Care Provider Unavailabl e Social History Tobacco Use Types Packs/Day Years Used Date Smoking Tobacco: Never Assessed Comments Unknown Sex and Gender Information Value Date Recorded Sex Assigned at Not on file Legal Sex Female 18:30 EST Gender Identity Not on file Sexual Orientation Not on file Plan of Treatment Not on file Procedures Procedure Name Priority Date/Time Associated Diagnosis Comments HEPATITIS C AB W REFLEX TO HCV RNA BY PCR Routine 09/22/2020 15:49 EST from Last 3 Months or Most Recently Relevant to Health Maintenance Results * HEPATITIS C AB W REFLEX TO HCV RNA BY PCR (09/22/2020 15:49 EST) Hep C Antibody Negative Negative 09/24/2020 9:48 EST [facility] Blood VENOUS BLOOD / Unknown 09/22/2020 15:49 EST 09/23/2020 17:01 EST us Provider Outr Resulting Lab CHEMISTRY & BLOOD GA S ORDERABLES Final Result [facility] [address] [place] [address] from Last 3 Months or Most Recently Relevant to Health Maintenance
--- OUTSIDE RECORDS SUMMARY | 2024-07-29 16:30 | XMS_ITS | Encounter Summary ---
Author Organization [facility] Address [address] [place] [address] Care Team Providers Care Senior Major Gifts Officer Name Role Phone Unavailable Primary Care Provider Unavailabl e Encounter Details Date Type Department Care Team (Late st Contact Info) Description 09/23/2020 Lab Requisition [facility] Pathology & Laboratory Medicine - [address] [id number] Outr Resulting Lab, Provider Social History Tobacco Use Types Packs/Day Years [...] RNA BY PCR Routine 09/22/2020 15:49 EST documented in this encounter Results * HEPATITIS C AB W REFLEX TO HCV RNA BY PCR (09/22/2020 15:49 EST) Hep C Antibody Negative Negative 09/24/2020 9:48 EST [facility] Blood VENOUS BLOOD / Unknown 09/22/2020 15:49 EST 09/23/2020 17:01 EST us Provider Outr Resulting Lab CHEMISTRY & BLOOD GA S ORDERABLES Final Result [facility] [address] [place] [address] documented in this encounter Visit Diagnoses Not on filedocumented in this encounter
--- OUTSIDE RECORDS SUMMARY | 2024-07-29 16:30 | XMS_ITS | Encounter Summary ---
Author Organization [facility] Address [address] [place] [address] Care Team Providers Care Fisher Weir Name Role Phone Unavailable Primary Care Provider Unavailabl e Encounter Details Date Type Department Care Team (Late st Contact Info) Description 07/26/2022 Lab Requisition [facility] Pathology & Laboratory Medicine - [address] [id number] Outr Resulting Lab, Provider Social History Tobacco [...] Procedure Name Priority Date/Time Associated Diagnosis Comments ZZCOVID-19 TEST [facility] PCR Today 07/25/2022 12:35 EST COVID-19 TESTING Routine 07/25/2022 12:3 5 EST documented in this encounter Results * COVID-19 TEST [facility] PCR (07/25/2022 12:35 EST) Swab 07/25/2022 12:3 5 EST 07/26/2022 17:32 EST us Provider Outr Resulting Lab MICROBIOLOGY - GENER AL ORDERABLES Final Result [facility] [address] [place] [address] * COVID-19 TESTING (07/25/2022 12:35 EST) COVID-19 rt-PCR Result Negative Negative 07/27/2022 12:12 EST [facility] Comment: This test has not been FDA cleared or approved. This test has been authorized by FDA under an EUA for use by authorized laboratories. This test has been authorized only for detection of nucleic acid from 2019-nCoV, not for any other viruses or pathogens. This test is only authorized for the duration of the declaration that circumstances exist justifying the authorization of emergency use of in vitro diagnostic tests for detection and/or diagnosis of 2019-nCoV under section 564(b)(1) of Act, 21 U.S.C ?? 360bbb-3(b) (1), unless the authorization is terminated or revoked sooner. Negative results do not preclude 2019-nCoV infection and should not be used as the sole basis for treatment or other patient management decisions. Negative results must be combined with clinical observations, patient history, and epidemiological information. Testing was performed using the ivy SARS-CoV-2 assay ([employer] on the Ivy 6800 System Performing Lab Ivy 6800 [facility] 07/27/2022 12:12 EST [facility] Swab 07/25/2022 12:3 5 EST 07/26/2022 17:32 EST us Provider Outr Resulting Lab MICROBIOLOGY - GENER AL ORDERABLES Final Result [facility] [address] [place] [address] documented in this encounter Visit Diagnoses Not on filedocumented in this encounter
--- OUTSIDE RECORDS SUMMARY | 2024-07-29 16:30 | XMS_ITS | Encounter Summary ---
Author Organization [facility] Address [address] [place] [address] Care Team Providers Care Portable Track Line Marker Name Role Phone Unavailable Primary Care Provider Unavailabl e Encounter Details Date Type Department Care Team (Late st Contact Info) Description 01/06/[address] Lab Re[address] [facility] Pathology & Laboratory Medicine - [facility] [address] [place], [place] [address] Outr Resulting Lab, Provider Social History Tobacco [...] Procedure Name Priority Date/Time Associated Diagnosis Comments DO NOT ORDER STANDALONE - BROAD COVID TEST Today 01/06/2020 10:50 EDT COVID-19 TESTING Routine 01/06/2020 10:5 0 EDT documented in this encounter Results * DO NOT ORDER STANDALONE - BROAD COVID TEST (01/06/2020 10:50 EDT) COVID-19 rt-PCR Result NEGATIVE Negative 01/07/2020 23:45 EDT [facility] Comment: 2019-novel Coronavirus (2019-nCoV) not detected by the qRT-PCR assay. Consider testing for other respiratory viruses or re-collecting for 2019-nCoV testing. Note: Optimum timing for peak viral levels during infections caused by 2019-nCoV have not been determined. Collection of multiple specimens from the same patient may be necessary to detect the virus. Limitations Positive results are indicative of active infection with SARS-CoV-2 but do not rule out bacterial infection or co-infection with other viruses. The agent detected may not be the definite cause of disease. In addition, detection of viral RNA may not indicate the presence of infectious virus or that SARS-CoV-2 is the causative agent for clinical symptoms. Negative results do not preclude SARS-CoV-2 infection and should not be used as the sole basis for patient management decisions. Negative results must be combined with clinical observations, patient history, and epidemiological information. False negative results may also occur if amplification inhibitors are present in the specimen or if inadequate numbers of organisms are present in the specimen. Optimum specimen types and timing for peak viral levels during infections caused by SARS-CoV-2 have not been fully determined. Collection of multiple specimens (types and time points) from the same patient may be necessary to detect the virus. The test was validated for use with upper respiratory specimens obtained via nasopharyngeal or oropharyngeal swabs in VTM, UTM, M4, M5, M6, saline, and MTM media. The performance of this test has not been established for other specimens. Specimens collected using other FDA recommended Specimen Collection Materials listed in the FDA COVID-19 [employer] communication (October 17, 2019) are processed with the caveat that they were not all validated for use with this test and the result must be interpreted in this context. Furthermore, a false negative results may occur if a specimen is improperly collected, transported or handled. If the virus mutates in the RT-PCR target region, SARS-CoV-2 may not be detected or may be detected less predictably. Inhibitors or other types of interference may produce a false negative result. An interference study evaluating the effect of common cold medications was not performed. This test is not FDA-cleared but its performance characteristics were established by our CLIA-certified, CAP-accredited, high complexity laboratory in accordance with CLIA regulations, [employer] (CAP) guidelines (Oct 10, 2019), and FDA guidance (Sep 21, 2019). This test is only for use under the Food and Drug Administration's Emergency Use Authorization. Swab ENTIRE NASOPHARYNX / Unknown 01/06/2020 10:50 EDT 01/06/2020 18:46 EDT us Provider Outr Resulting Lab MICROBIOLOGY - GENER AL ORDERABLES Final Result [facility] [place], [place] * COVID-19 TESTING (01/06/2020 10:50 EDT) COVID-19 rt-PCR Result NEGATIVE Negative 01/08/2020 7:16 EDT [facility] Comment: 2019-novel Coronavirus (2019-nCoV) not detected by the qRT-PCR assay. Consider testing for other respiratory viruses or re-collecting for 2019-nCoV testing. Note: Optimum timing for peak viral levels during infections caused by 2019-nCoV have not been determined. Collection of multiple specimens from the same patient may be necessary to detect the virus. Limitations Positive results are indicative of active infection with SARS-CoV-2 but do not rule out bacterial infection or co-infection with other viruses. The agent detected may not be the definite cause of disease. In addition, detection of viral RNA may not indicate the presence of infectious virus or that SARS-CoV-2 is the causative agent for clinical symptoms. Negative results do not preclude SARS-CoV-2 infection and should not be used as the sole basis for patient management decisions. Negative results must be combined with clinical observations, patient history, and epidemiological information. False negative results may also occur if amplification inhibitors are present in the specimen or if inadequate numbers of organisms are present in the specimen. Optimum specimen types and timing for peak viral levels during infections caused by SARS-CoV-2 have not been fully determined. Collection of multiple specimens (types and time points) from the same patient may be necessary to detect the virus. The test was validated for use with upper respiratory specimens obtained via nasopharyngeal or oropharyngeal swabs in VTM, UTM, M4, M5, M6, saline, and MTM media. The performance of this test has not been established for other specimens. Specimens collected using other FDA recommended Specimen Collection Materials listed in the FDA COVID-19 [employer] communication (October 17, 2019) are processed with the caveat that they were not all validated for use with this test and the result must be interpreted in this context. Furthermore, a false negative results may occur if a specimen is improperly collected, transported or handled. If the virus mutates in the RT-PCR target region, SARS-CoV-2 may not be detected or may be detected less predictably. Inhibitors or other types of interference may produce a false negative result. An interference study evaluating the effect of common cold medications was not performed. This test is not FDA-cleared but its performance characteristics were established by our CLIA-certified, CAP-accredited, high complexity laboratory in accordance with CLIA regulations, [employer] (CAP) guidelines (Oct 10, 2019), and FDA guidance (Sep 21, 2019). This test is only for use under the Food and Drug Administration's Emergency Use Authorization. Performing Lab [facility] 01/08/2020 7:16 EDT [facility] Swab ENTIRE NASOPHARYNX / Unknown 01/06/2020 10:50 EDT 01/06/2020 18:46 EDT us Provider Outr Resulting Lab MICROBIOLOGY - GENER AL ORDERABLES Final Result [facility] [address] [place] [address] [facility] [place] documented in this encounter Visit Diagnoses Not on filedocumented in this encounter
--- OUTSIDE RECORDS SUMMARY | 2024-07-29 16:30 | XMS_ITS | Encounter Summary ---
Author Organization [facility] Address [address] [place] [address] Care Team Providers Care Radiology Clerk Name Role Phone Unavailable Primary Care Provider Unavailabl e Encounter Details Date Type Department Care Team (Late st Contact Info) Description 10/29/2004 Before PRISM Converted Visit (Maple) [facility] - Maple conversion [address] [place] [address] Cristi Calvert MD [address] [place] [phone] Social History Tobacco Use Types Packs/Day [...]
--- OUTSIDE RECORDS SUMMARY | 2024-07-29 16:30 | XMS_ITS | Encounter Summary ---
Author Organization [facility] Address [address] [place] [address] Care Team Providers Care Cyber Special Agent Name Role Phone Unavailable Primary Care Provider Unavailabl e Encounter Details Date Type Department Care Team (Latest Contact Info) Description 11/21/2003 9:14 EDT - 11/21/2003 11:59 EDT Hospital Encounter [address] [address] Cristi Calvert MD [address] [place] [phone] Discharge Disposition: Auto Discharge Social History Tobacco Use Types Packs/Day Years Used Date Smoking Tobacco: Never Assessed Comments Unknown Sex and Gender Information Value Date Recorded Sex Assigned at Not on file Legal Sex Female 18:30 EST Gender Identity Not on file Sexual Orientation Not on file documented as of this encounter Discharge Disposition Disposition Code Departure Means Destination Auto Discharge documented in this encounter Plan of Treatment Not on file documented as of this encounter Visit Diagnoses Not on filedocumented in this encounter
--- OUTSIDE RECORDS SUMMARY | 2024-07-29 16:30 | XMS_ITS | Encounter Summary ---
Author Organization [facility] [place] [address] Care Team Providers Care Internal Controls Analyst Name Role Phone Vanessa Oleary APRN Primary Care Provider [phone] Encounter Details Date Type Department Care Team (Late st Contact Info) Description 06/14/2004 [place] [address] Cristi Rivas MD DERMATOLOGY Social History Tobacco Use Types Packs/Day Years Used Date Smoking Tobacco: Never Assessed Sex and Gender Information Value Date Recorded Sex Assigned at Female 10/09/2020 8:32 AM EDT Gender Identity Not on file Sexual Orientation Not on file documented as of this encounter Plan of Treatment Upcoming Encounters Date Type Department Care Team (Late st Contact Info) Description 08/05/2024 2:00 PM EST Office [place] [address] [facility] [place] [address] documented as of this encounter Procedures Procedure Name Priority Date/Time Associated Diagnosis Comments SURGICAL PATHOLOGY REPORT Routine 06/14/2004 12:28 PM EST documented in this encounter Results * Surgical Pathology Report (06/14/2004 12:28 PM EST) Surgical Pathology Report [id number] ? Location: The signing pathologist has (i) examined the relevant preparation(s) for the specimen(s) and (ii) rendered or confirmed the diagnosis(es). . ?Pathology Surgical Pathology Final Report Clinical Information Specimen Submitted: A - Skin left hallux. Clinical History: Hyper pigmented papule; Nevus R/O dysplasia Gross Description Labeled/Fixativ e: ? Labeled with the patient's name, formalin. Qty/Size/Weight : ?Single, 1.2 x 0.7 x 0.2 cm. Tissue Description: ?? Ellipse of fitzgerald skin with a central, 0.7 x 0.5-cm, ?ovoid, finely granular, polypoid lesion. Sections/Proces sing: ??The specimen is inked and serially sectioned. ??The ?ends are submitted in (1); the remainder of the ?specimen submitted in (2). ?? (T2) ??aje/EJR Microscopic Description Slides reviewed, microscopic description not recorded. Diagnosis Compound nevus, shave biopsy, margins in the plane of sections examined appear free, skin of left hallux. CR-0 06/18/04 TBB 06/18/04 Verified by: ? No Montalvo MD ?Dermatopathol ogist ?(Electronic Signature) The attending pathologist whose signature appears on this report has reviewed all diagnostic slides and has edited the gross and/or microscopic portion of the report in rendering the final pathologic diagnosis. [facility] 06/14/2004 12:2 8 PM EST Cristi Rivas MD PATHOLOGY/CYTOLOGY O RDERAGAYE [facility] documented in this encounter Visit Diagnoses Not on filedocumented in this encounter Care Teams Internal Controls Analyst Relationship Specialty Start Date End Date Vanessa Oleary APRN [address] [place] [address] PCP - General Family Medicine 08/25/23 documented as of this encounter
--- OUTSIDE RECORDS SUMMARY | 2024-07-29 16:30 | XMS_ITS | Encounter Summary ---
Author Organization [facility] Address [address] [place] [address] Care Team Providers Care Resource Recovery Specialist Name Role Phone Unavailable Primary Care Provider Unavailabl e Encounter Details Date Type Department Care Team (Late st Contact Info) Description 03/25/2005 10:42 EDT Hospital Encounter [facility] - Other [address] [place] [address] Leidy Ace MD [address] [place] [address] [address] [place] [address] Social History Tobacco Use Types Packs/Day Years [...] Procedure Name Priority Date/Time Associated Diagnosis Comments CCP ANTIBODIES Routine 03/25/2005 12:52 EDT SED RATE Routine 03/25/2005 12:52 EDT TSH Routine 03/25/2005 12:52 EDT documented in this encounter Results * TSH (03/25/2005 12:52 EDT) TSH 1.82 0.35 - 5.50 uIU/ml [facility] 03/25/2005 12:5 2 EDT 03/25/2005 12:54 EDT us Leidy Ace MD CHEMISTRY & BLOOD GAS OR DERABLES Final Result Performing Organization Address [facility] de Phone Number [facility] [address] [place] [address] * SED. RATE:MARCIERGREN (03/25/2005 12:52 EDT) Pathologist [facility] Sed. Rate Negra 15 0 - 20 mm/hr [facility] 03/25/2005 12:5 2 EDT 03/25/2005 12:54 EDT us Leidy Ace MD HEMATOLOGY & PF4 ORDERAB LES Final Result Performing Organization Address [facility] de Phone Number [facility] [address] [place] [address] * CCP ANTIBODIES (03/25/2005 12:52 EDT) [facility] CCP Antibodies <2.0Unit: U/mL(Note) -- EXPECTED VALUES -- ? (Ref Range) < or =5.0 ? TEST PERFORMED OR REFERRED BY [facility] ? [address] ? [place], [place] [address] ? Care Trainer: ? Lucas Catalan M.D. ? [facility] 03/25/2005 12:5 2 EDT 03/25/2005 12:54 EDT us Leidy Ace MD IMMUNOLOGY AND SEROLOGY ORDERABLES Final Result [facility] [address] [place] [address] documented in this encounter Visit Diagnoses Not on filedocumented in this encounter
--- OUTSIDE RECORDS SUMMARY | 2024-07-29 16:30 | XMS_ITS | Encounter Summary ---
Author Organization [facility] Address [address] [place] [address] Care Team Providers Care Victim Advocate Name Role Phone Unavailable Primary Care Provider Unavailabl e Encounter Details Date Type Department Care Team (Latest Contact Info) Description 11/19/2013 15:52 EDT - 11/19/2013 23:59 EDT Hospital Encounter [address] [address] Unknown, Provider, MD Discharge Disposition: Home or Self Care Social History Tobacco Use Types Packs/Day Years Used Date Smoking Tobacco: Never Assessed Comments Unknown Sex and Gender Information Value Date Recorded Sex Assigned at Not on file Legal Sex Female 18:30 EST Gender Identity Not on file Sexual Orientation Not on file documented as of this encounter Discharge Disposition Disposition Code Departure Means Destination Home or Self Longterm documented in this encounter Plan of Treatment Not on file documented as of this encounter Visit Diagnoses Not on filedocumented in this encounter
--- OUTSIDE RECORDS SUMMARY | 2024-07-29 16:30 | XMS_ITS | Encounter Summary ---
Author Organization [facility] Address [address] [place] [address] Care Team Providers Care Phthalic Acid Purifier Name Role Phone Unavailable Primary Care Provider Unavailabl e Encounter Details Date Type Department Care Team (Late st Contact Info) Description 11/19/2013 Results Only [facility] [place] [address] [place] [phone] Elizabeth Song MD Social History Tobacco Use [...] Diagnosis Comments PAP TEST- RESULT ONLY Routine 11/19/2013 0:00 EDT documented in this encounter Results * PAP TEST- RESULT ONLY (11/19/2013 0:00 EDT) Pathology Report: CYTOPATHOLOGY REPORT Reports generated via electronic interface contain original data; however they are lacking the format of the original report. Caution should be taken when reading/interpreti ng unformatted reports. Name: ? ANISHA RUIZ ? Accession #: ? [id number] ? : ? 1955 (Age: 58) ??F ?Collect Date: ? 11/19/2013 ? Location: ? [facility] ? Receive Date: ? 11/21/2013 ? Provider: ELIZABETH SONG MD Copy to: ? Final Report SPECIMEN ADEQUACY ? Satisfactory for Evaluation - transformation zone component present GENERAL CATEGORIZATION ? Epithelial Cell Abnormality INTERPRETATION ? Squamous Cell Abnormality - Atypical squamous cells, undetermined significance (ASC-US). EDUCATIONAL NOTES/RECOMMENDATI ONS ? [facility] recommends following ASCCP's 2012 Updated Consensus Guidelines for the Management of Abnormal Cervical Cancer Screening Tests and Cancer Precursors (JLGTD, 2013; 17(5):S1-S27). ??Consensus guidelines are available online at www.asccp.org. Last Menstrual Period: 2.5 years ago Specimen/Source: ??Pap Test, Endocervix, ThinPrep Imaging System with manual evaluation Document reviewed and electronically signed by: ? CAROLE GUTIERREZ MD ? Report ??Date: 12/02/2013 15:54 HPV with Pap Test ? Date Ordered: ? 12/02/2013 ? Status: ?? Signed Out ?Date Complete: ? 12/04/2013 ? By: ??System Interface ? Date Reported: ? 12/04/2013 ? Interpretation RESULT: Negative for HPV. No E6 or E7 mRNA is detected from HPV types 16,18,31,33,35, 39,45,51,52,56,58, 59,66, and 68 by test skein winder mediated amplification. Comments Document reviewed and electronically signed by: ? System Interface ? Report date: 12/04/2013 By the signature above, the attending physician certifies that he/she has personally conducted a gross and/or microscopic examination of the described specimens and rendered or confirmed the above diagnosis. End of Report [facility] 11/19/2013 11/21/2013 us Elizabeth Song MD PATHOLOGY ORDERABLES Final Resul t [facility] [address] [place] [address] documented in this encounter Visit Diagnoses Not on filedocumented in this encounter
--- OUTSIDE RECORDS SUMMARY | 2024-07-29 16:30 | XMS_ITS | Encounter Summary ---
Author Organization [facility] Address [address] [place] [address] Care Team Providers Care Research Aide Name Role Phone Unavailable Primary Care Provider Unavailabl e Encounter Details Date Type Department Care Team (Late st Contact Info) Description 03/21/2023 Lab Requisition [facility] Pathology & Laboratory Medicine - [facility] [address] [place], [place] [id number] Outr Resulting Lab, Provider Social History Tobacco [...] Date/Time Associated Diagnosis Comments CCP ANTIBODIES Routine 03/21/2023 7:49 EDT RHEUMATOID FACTOR Routine 03/21/2023 7:49 EDT documented in this encounter Results * (ABNORMAL) RHEUMATOID FACTOR (03/21/2023 7:49 EDT) Rheumatoid Factor 22.9(H) <12.0 IU/mL 03/21/2023 21:49 EDT [facility] Blood VENOUS BLOOD / Unknown 03/21/2023 7:49 EDT 03/21/2023 21:28 EDT us Provider Outr Resulting Lab CHEMISTRY & BLOOD GA S ORDERABLES Final Result Performing Organization Address City/[facility]/ZIP Co de Phone Number [facility] [address] [place] [address] * (ABNORMAL) CCP ANTIBODIES (03/21/2023 7:49 EDT) CCP Antibodies 143.7(H) <5.0 U/mL 03/22/2023 10:33 EDT [facility] Blood VENOUS BLOOD / Unknown 03/21/2023 7:49 EDT 03/21/2023 21:28 EDT us Provider Outr Resulting Lab IMMUNOLOGY AND SEROL OGY ORDERABLES Final Result Performing Organization Address [facility] Co de Phone Number [facility] [address] [place] [address] documented in this encounter Visit Diagnoses Not on filedocumented in this encounter
--- OUTSIDE RECORDS SUMMARY | 2024-07-29 16:30 | XMS_ITS | Encounter Summary ---
Author Organization [facility] Address [address] [place] [address] Care Team Providers Care Cork Wirer Name Role Phone Unavailable Primary Care Provider Unavailabl e Encounter Details Date Type Department Care Team (Late st Contact Info) Description 09/27/2006 Results Only [facility] Medicine [address] [address] Elizabeth Song MD Social History Tobacco Use [...] Procedure Name Priority Date/Time Associated Diagnosis Comments CYTOPATHOLOGY Routine 09/27/2006 0:00 EST documented in this encounter Results * CYTOPATHOLOGY (09/27/2006 0:00 EST) Pathology Report: CYTOPATHOLOGY REPORT Reports generated via electronic interface contain original data; however they are lacking the format of the original report. Caution should be taken when reading/interpreti ng unformatted reports. Name: ? ANISHA RUIZ ? Accession #: ? [id number] : ? 1955 (Age: 51) ??F ?Collect Date: ? 09/27/2006 Location: ? [facility] ? Receive Date: ? 09/29/2006 Provider: ?ELIZABETH SONG MD Copy to: ? Specimen/Source: ?ThinPrep Pap Test, Source Not Provided, processed on [employer] ThinPrep Imaging System, with manual evaluation Last Menstrual Period: ? Many Years Ago Menstrual/Pregnanc y Status: ? Menopausal Other: ? HPVA - HPV testing requested if ASC-US on the current ThinPrep Pap test. ? SPECIMEN ADEQUACY ? Satisfactory for Evaluation - transformation zone component absent GENERAL CATEGORIZATION ? Negative for Intraepithelial Lesion or Malignancy ? Document reviewed and electronically signed by: ? NICK Barone(ASCP) ? Report Date: ??10/03/2006 08:56 End of Report [facility] 09/27/2006 09/29/2006 us Elizabeth Song MD PATHOLOGY ORDERABLES Final Resul t [facility] [address] [place] [address] documented in this encounter Visit Diagnoses Not on filedocumented in this encounter
--- OUTSIDE RECORDS SUMMARY | 2024-07-29 16:30 | XMS_ITS | Encounter Summary ---
Author Organization [facility] Address [address] [place] [address] Care Team Providers Care Repairer Wood Furniture Name Role Phone Unavailable Primary Care Provider Unavailabl e Encounter Details Date Type Department Care Team (Late st Contact Info) Description 05/19/2004 Results Only [facility] Medicine [address] [address] Elizabeth Song MD Social History Tobacco Use [...] Priority Date/Time Associated Diagnosis Comments CYTOPATHOLOGY Routine 05/19/2004 0:00 EDT documented in this encounter Results * CYTOPATHOLOGY (05/19/2004 0:00 EDT) Pathology Report: CYTOPATHOLOGY REPORT Reports generated via electronic interface contain original data; however they are lacking the format of the original report. Caution should be taken when reading/interpreti ng unformatted reports. Name: ? ANISHA RUIZ ? Accession #: ? [id number] : ? 1955 (Age: 48) ??F ?Collect Date: ? 05/19/2004 Location: ? [facility] ? Receive Date: ? 05/21/2004 Provider: ?ELIZABETH SONG MD Copy to: ? Specimen/Source: ?ThinPrep Pap Test, Endocervix Last Menstrual Period: ? 05/12/04 Hormonal/Contracep tive Status: ? Yes Other: ? HPVA - HPV testing requested if ASC-US on the current ThinPrep Pap test. ? SPECIMEN ADEQUACY ? Satisfactory for Evaluation - transformation zone component present GENERAL CATEGORIZATION ? Negative for Intraepithelial Lesion or Malignancy ? Document reviewed and electronically signed by: ? NICK Garcia(ASCP) ? Report Date: ??05/26/2004 12:42 End of Report [facility] 05/19/2004 05/21/2004 us Elizabeth Song MD PATHOLOGY ORDERABLES Final Resul t [facility] [address] [place] [address] documented in this encounter Visit Diagnoses Not on filedocumented in this encounter
--- OUTSIDE RECORDS SUMMARY | 2024-07-29 16:30 | XMS_ITS | Encounter Summary ---
Author Organization [facility] Address [address] [place] [address] Care Team Providers Care Nursing Home Admissions Director Name Role Phone Unavailable Primary Care Provider Unavailabl e Encounter Details Date Type Department Care Team (Late st Contact Info) Description 02/15/2012 Results Only [facility] - [facility] [place] [address] [place], [place] [address] Abdiel Leung MD [address] [place] [address] Social History Tobacco Use Types Packs/Day Years [...] Priority Date/Time Associated Diagnosis Comments SURGICAL PATHOLOGY Routine 02/15/2012 0:00 EDT documented in this encounter Results * SURGICAL PATHOLOGY (02/15/2012 0:00 EDT) Pathology Report: SURGICAL PATHOLOGY REPORT Reports generated via electronic interface contain original data; however they are lacking the format of the original report. Caution should be taken when reading/interpreti ng unformatted reports. Name: ? ANISHA RUIZ ? Accession #: ? [id number] ? : ? 1955 (Age: 56) ??F ? Collect Date: ? 02/15/2012 ? Location: ? [facility] ? Receive Date: ? 02/15/2012 ? Provider: ABDIEL LEUNG MD Copy to: EVETTE JARAMILLO MD ? Final Pathologic Diagnosis: ? Colon, sigmoid, polypectomies: - Fragments of hyperplastic polyp. Document reviewed and electronically signed by: EVETTE SANTIZO MD Report ??Date: 02/16/2012 16:07 By the signature above, the attending physician certifies that he/she has personally conducted a gross and/or microscopic examination of the described specimens and rendered or confirmed the above diagnosis. Specimen(s) Received: ? Sigmoid polyps x2 Clinical History: ? Colorectal screen Gross Description: ? Received in formalin labelled Anisha Ruiz and #1 ??sigmoid polyp x2 are two light fitzgerald biopsies measuring 0.3 x 0.3 x 0.2 cm and 0.4 x 0.2 x 0.1 cm. ??The specimens are submitted intact in one cassette. ??([facility] End of Report [facility] 02/15/2012 02/15/2012 8:4 7 EDT us Abdiel Leung MD PATHOLOGY ORDERABLES Final Resul t [facility] [address] [place] [address] documented in this encounter Visit Diagnoses Not on filedocumented in this encounter
--- OUTSIDE RECORDS SUMMARY | 2024-07-29 16:30 | XMS_ITS | Encounter Summary ---
Author Organization [facility] Address [address] [place] [address] Care Team Providers Care Label Printing Machinist Name Role Phone Unavailable Primary Care Provider Unavailabl e Encounter Details Date Type Department Care Team (Late st Contact Info) Description 03/25/2005 Before PRISM Converted Visit (Map[facility]) [facility] - Maple conversion [address] [place] [address] Leidy Ace MD [address] [place] [address] [phone] Social History Tobacco Use Types Packs/Day Years Used Date Smoking Tobacco: Never Assessed Comments Unknown Sex and Gender Information Value Date Recorded Sex Assigned at Not on file Legal Sex Female 18:30 EST Gender Identity Not on file Sexual Orientation Not on file documented as of this encounter Progress Notes * Leidy Ace MD - 09/23/2009 1105 EST DIVISION OF RHEUMATOLOGY March 25, 2005 Elizabeth Song MD [facility] [address] [place] [address] Song: I had the pleasure of meeting Erma Ruiz on March 25, 2005. As you know, she is a 49- year- old woman here at your request for evaluation of increasing hand pain and stiffness of eight months' duration. Ms. Ruiz was in her usual state of health untilJuly of 2004. At that point in time, she discontinued her estrogen therapy and immediately experienced hot flashes and poor sleep. In addition to the above complaints, she began to feel as if her hands and feet were swollen and began to notice stiffness in the morning which lasted for about 30 minutes. Her hand pain and stiffness were primarily in the PIP joints. MCPs and wrists do not seem to be affected. She had some sleep disturbances initially but recently has begun to sleep better. She has also had increasing triggering most prominent in the right index finger and right thumb. She has not noticed over swelling or any change in the appearance of her hands but states that they feel tight and that her communications director strength seems to have decreased. Earlyon in the process, she also began to experience episodes of muscle spasm; however, these have improved over time. She takes an occasional ibuprofen and does experience some relief in the medication, although it is incomplete. She does not like to take pills in general so rarely will take more than ibuprofen more than once a week. Her past medical history includes a history of asthma which is well controlled with Singulair. Her medications are Singulair and Advil as needed. ALLERGIES: She has no known drug allergies. 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 She has a 13- year- old daughter who is in excellent health. She does not drink and does not smoke. She has a history of asthma and a history of carpal tunnel syndrome status post right carpal tunnel release in 2003 and left carpal tunnel release in 2004. FAMILY HISTORY: Includes a father with history of prostate cancer who . Mother is in excellent health but has osteoarthritis and osteoporosis. She has one brother who has no major health concerns. On review of systems, a complete rheumatologic review of systems is conducted. Pertinent positives listed in HPI. Additional complaints: HEENT: Increasing dryness of her eyes. Cardiac: Occasional peripheral edema, but no difficulty with hypertension or chest discomfort. Skin: History of eczema but no recent flare ups. No history of psoriasis or other unusual skin rashes. She also denies Raynaud'sphenomenon or recent development of telangiectasias. PHYSICAL EXAMINATION: She is a pleasant, young- appearing woman in no apparent distress. Blood pressure 118/66, pulse 84, respiratory rate 12. Height is 64- 1/2 inches. Weight is 143- 1/2. She reports pain is present in her hands and rates it as mild. Eyes: Pupils are equal, round, react to light. Extraocular movements are intact. Lids and sclerae are unremarkable. Ears: No tophi. No facial rashes. Oropharynx shows excellent dentition. Voice is within normal limits. Neck: Range of motion is preserved. No supraclavicular or axillary lymphadenopathy. Chest: Clear to auscultation. Cardiac examination: Regular rate and rhythm. Symmetric radial pulses. No peripheral edema. Skin: I see no pathologic lesions on upperor lower extremities. Nail folds reveal no abnormalities. No digital ulcerationsare noted. Skin: Thickness is within normal limits. There is tightening over the MCPs. Neurologic: She has diminished hand communications director of 4/5. Cannot make a complete fist. Shoulder reduction 5/5. Hip flexion 5/5. Psych: Affect is pleasant, oriented and appropriate. Joint examination: No overt synovitis, although there is a question of synovial thickening over the MCPs and over the left ring finger PIP. Wrist range of motion is within normal limits. Elbows have preservation of range of motion with sometenderness over the lateral epicondyle. Shoulder range of motion within normal limits. Hips and knee s are unremarkable without synovitis. Ankles are also unremarkable. Metatarsal tenderness is present; however, no metatarsal swelling is noted. LABORATORY DATA: In July of 2004, a sedimentation rate was mildly elevated at 22. Unremarkable hemogram at that time. Laboratory since January 26, 2005, includes a white count of 4.72, hemoglobin 12.8, platelet count 289. Differential unrevealing. Rheumatoid factor less than 20. Lyme antibody negative. GIOVANY less than 40. Sedimentation rate was 20. IMPRESSION: Diffuse arthralgias manifesting with hand and foot pain. Differentialwould include inflammatory arthritis, although this seems unlikely given her benign examination and history of no abnormal laboratories. I am, however, intrigued by her history of bilateral carpal tunnel release. Certainly, this could be a mechanical process, although it can be a presenting symptom of inflammatory arthritis such as rheumatoid arthritis. This sometimes can also be seen with hypothyroidism and diabetes. Certainly the possibility of hypothyroidism presenting in the form of arthralgias andhand pain should also be considered. Other possibilities would include an estrogen withdrawal syndrome as seen in a significant amount of women in this age group who stopped estrogen recently and experience increasing arthralgias which, over time, improve. PLAN: 1. Obtain TSH and repeat sedimentation rate. Also we will check anti- CCP antibodies which are highly specific for rheumatoid arthritis. 2. If the above testing is negative, it is likely this is a post estrogen withdrawal phenomenon andshould improve over time. 3. Suggest the patient use ibuprofen more frequently, particularly prior to activities which contribute to hand pain. 4. The patient is encouraged to follow up with me if she develops increasing hand pain and swellingor has other symptoms. 5. The patient will be advised of the results of laboratory workup via US Mail or via phone. It was my pleasure to meet Ms. Ruiz. Please do not hesitate to contact me if you have any further questions. Sincerely, Signed by Leidy Ace MD 04/11/2005 09:08 Channing Ace, Dakota Ace MD Leidy Ace MD - Leidy Ace MD P - O12 Job ID: [id number] Document ID: [id number] cc: Elizabeth Song MD documented in this encounter Plan of Treatment Not on file documented as of this encounter Visit Diagnoses Not on filedocumented in this encounter
--- OUTSIDE RECORDS SUMMARY | 2024-07-29 16:30 | XMS_ITS | Clinical Summary ---
Author Organization [facility] Address [address] [place] [id number] Care Team Providers Care Ordinary Seaman Name Role Phone Unavailable Primary Care Provider Unavailabl e Social History Tobacco Use Types Packs/Day Years Used Date Smoking Tobacco: Never Assessed Comments Unknown Sex and Gender Information Value Date Recorded Sex Assigned at Not on file Legal Sex Female 18:30 EST Gender Identity Not on file Sexual Orientation Not on file Plan of Treatment Health Maintenance Due Date Last Done Comments Fall Risk Screening 2020 COVID-19 Vaccine (2023-25 season) 2024 RSV Immunization ( o r 60+ Years) (1 - 1-dose 75+ series) 2030 Hepatitis C Screen Completed 09/22/2020 Procedures Procedure Name Priority Date/Time Associated Diagnosis Comments HEPATITIS C AB W REFLEX TO HCV RNA BY PCR Routine 09/22/2020 15:49 EST from Last 3 Months or Most Recently Relevant to Health Maintenance Results * HEPATITIS C AB W REFLEX TO HCV RNA BY PCR (09/22/2020 15:49 EST) Hep C Antibody Negative Negative 09/24/2020 9:48 EST [facility] Blood VENOUS BLOOD / Unknown 09/22/2020 15:49 EST 09/23/2020 17:01 EST us Provider Outr Resulting Lab CHEMISTRY & BLOOD GA S ORDERABLES Final Result [facility] [address] [place] [address] from Last 3 Months or Most Recently Relevant to Health Maintenance
--- OUTSIDE RECORDS SUMMARY | 2024-07-29 16:30 | XMS_ITS | Encounter Summary ---
Author Organization [facility] Address [address] [place] [address] Care Team Providers Care Reject Opener Name Role Phone Unavailable Primary Care Provider Unavailabl e Encounter Details Date Type Department Care Team (Latest Contact Info) Description 10/28/2004 8:37 EDT - 10/28/2004 11:59 EDT Hospital Encounter [facility] Perioperative Services - [address] [id number] Cristi Calvert MD [address] [place] [phone] Discharge Disposition: Home or Self Care Social [...] Code Departure Means Destination Home or Self Care documented in this encounter Plan of Treatment Not on file documented as of this encounter Visit Diagnoses Not on filedocumented in this encounter
--- OUTSIDE RECORDS SUMMARY | 2024-07-29 16:30 | XMS_ITS | Encounter Summary ---
Author Organization [facility] Address [address] [place] [address] Care Team Providers Care Shaker Tender Name Role Phone Unavailable Primary Care Provider Unavailabl e Encounter Details Date Type Department Care Team (Late st Contact Info) Description 05/08/2002 Results Only [address] [address] Elizabeth Song MD Social History Tobacco Use [...] Priority Date/Time Associated Diagnosis Comments CYTOPATHOLOGY Routine 05/08/2002 0:00 EDT documented in this encounter Results * CYTOPATHOLOGY (05/08/2002 0:00 EDT) Pathology Report: CYTOPATHOLOGY REPORT Reports generated via electronic interface contain original data; however they are lacking the format of the original report. Caution should be taken when reading/interpreti ng unformatted reports. Name: ? ANISHA RUIZ ? Accession #: ? [id number] : ? 1955 (Age: 46) ??F ?Collect Date: ? 05/08/2002 Location: ? [facility] ? Receive Date: ? 05/10/2002 Provider: ?ELIZABETH SONG MD Copy to: ? Specimen/Source: ?ThinPrep Pap Test, Endocervix Last Menstrual Period: ? 04/08/02 Hormonal/Contracep tive Status: ? Oral contraceptives Other: ? HPVL - HPV testing requested if LSIL/ASCUS/STEPHAN on the current ThinPrep Pap test. ? SPECIMEN ADEQUACY ? Satisfactory for Evaluation - transformation zone component present GENERAL CATEGORIZATION ? Negative for Intraepithelial Lesion or Malignancy ? Document reviewed and electronically signed by: ? Na Dunlap, ??SCT(ASCP) ? Report Date: ??05/15/2002 09:12 End of Report [facility] 05/08/2002 05/10/2002 us Elizabeth Song MD PATHOLOGY ORDERABLES Final Resul t [facility] [address] [place] [address] documented in this encounter Visit Diagnoses Not on filedocumented in this encounter
--- OUTSIDE RECORDS SUMMARY | 2024-07-29 16:30 | XMS_ITS | Encounter Summary ---
Author Organization [facility] Address [address] [place] [address] Care Team Providers Care Service Shop Foreman Name Role Phone Unavailable Primary Care Provider Unavailabl e Encounter Details Date Type Department Care Team (Late st Contact Info) Description 05/18/2010 Results Only [address] [address] Elizabeth Song MD Social History Tobacco Use [...] Priority Date/Time Associated Diagnosis Comments CYTOPATHOLOGY Routine 05/18/2010 0:00 EDT documented in this encounter Results * CYTOPATHOLOGY (05/18/2010 0:00 EDT) Pathology Report: CYTOPATHOLOGY REPORT ? Reports generated via electronic interface contain original data; ? however they are lacking the format of the original report. ? Caution should be taken when reading/interpreti ng unformatted reports. ? Name: ? MONICA ANISHA ? Accession #: ? [id number] ? : ? 1955 (Age: 54) ??F ?Collect Date: ? 05/18/2010 ? Location: ? [facility] ? Receive Date: ? 05/19/2010 ? Provider: ?ELIZABETH FINE MD ? Copy to: ? Specimen/Source: ?Pap Test, Endocervix, ThinPrep Imaging System with ? manual evaluation ? Last Menstrual Period: ? CATHERINE ? SPECIMEN ADEQUACY ? Satisfactory for Evaluation ? - transformation zone component present ? GENERAL CATEGORIZATION ? Negative for Intraepithelial Lesion or Malignancy ? Document reviewed and electronically signed by: ? Froilan Cook, CT(ASCP) ? Report Date: ??05/20/2010 14:27 ? End of Report ? [facility] 05/18/2010 05/19/2010 us Elizabeth Song MD PATHOLOGY ORDERABLES Final Resul t [facility] [address] [place] [address] documented in this encounter Visit Diagnoses Not on filedocumented in this encounter
--- OUTSIDE RECORDS SUMMARY | 2024-07-29 16:30 | XMS_ITS | Encounter Summary ---
Author Organization [facility] Address [address] [place] [address] Care Team Providers Care Paper Reeler Name Role Phone Unavailable Primary Care Provider Unavailabl e Encounter Details Date Type Department Care Team (Latest Contact Info) Description 09/24/2020 Lab Requisition [facility] Pathology & Laboratory Medicine - [facility] [address] [place] [address] Vanessa Oleary, LIVESTOCK TRADER [address] [phone] Encounter for general adult medical examination without [...] as of this encounter Plan of Treatment Scheduled Orders Name Type Priority Associated Diagnoses Orde r Schedule PAP TEST Pathology Today Encounter for general adult medical examination without abnormal findings Encounter for screening for malignant neoplasm of cervix Encounter for gynecological examination (general) (routine) without abnormal findings Ordered: 09/24/2020 documented as of this encounter Visit Diagnoses Diagnosis Encounter for general adult medical examination without abnormal findings Unspecified general medical examination Encounter for screening for malignant neoplasm of cervix Screening for malignant neoplasm of the cervix Encounter for gynecological examination (general) (routine) without abnormal findings documented in this encounter
[2024-07-29 21:18] LABS: Abs Immature Grans 0.02 10^3/uL (0.0-0.06); Absolute Basophil Count 0.05 10^3/uL (0.0-0.2); Absolute Eosinophil Count 0.07 10^3/uL (0.0-0.7); Absolute Lymphocyte Count 1.93 10^3/uL (1.2-3.4); Absolute Monocyte Count 0.45 10^3/uL (0.1-0.8); Absolute Neutrophil Count 4.66 10^3/uL (1.2-6.7); Basophils % 0.7 %; HCT 37.1 % (36.0-46.0); HGB 12.4 g/dL (11.2-15.7); Immature Grans % 0.3 %; Lymphocytes % 26.9 %; MCH 29.7 pg (27.0-33.0); MCHC 33.4 % (32.0-36.0); MCV 89 fL (80-95); MPV 9.6 fL (8.0-11.0); Monocytes % 6.3 %; Neutrophils % 64.8 %; Platelet Count 299 10^3/uL (130-400); RBC 4.18 10^6/uL (3.93-5.22); RDW-SD 42.4 fL; WBC 7.18 10^3/uL (4.4-10.8)
[2024-07-29 21:49] LABS: ALT 12 U/L (14-59); AST 31 U/L (15-37); Albumin 3.6 g/dL (3.4-5.0); Alkaline Phosphatase 63 U/L (46-116); Anion Gap 9.5 mmol/L (3-11); BUN 17 mg/dL (7-18); Bilirubin, Total 0.27 mg/dL (0.2-1.0); CO2 26.5 mmol/L (21.0-32.0); CREATININE 0.9 mg/dL (0.55-1.02); Chloride 105 mmol/L (98-107); Glucose 129 mg/dL (74-106); Potassium 4.1 mmol/L (3.5-5.1); Sodium 141 mmol/L (136-145); Total Protein 6.7 g/dL (6.4-8.2)
== END 2024-07-29 16:25 | disposition home or self-care (01) ==
LOC: NCHCN 16:24
PROVIDERS: PCP Nurse Practitioner Family; Visit Provider Nurse Practitioner Family
DX: M06.2 Rheumatoid bursitis (principal)
CPT/HCPCS: 80053; 82306; 85025

== ENCOUNTER 2025-01-29 10:01 | Outpatient (RCR) | payer MEDICARE, SELFPAY ==
[2025-01-29] MEDS: Acetaminophen 325 MG TAB (10:19)
[2025-01-29] MEDS: Normal Saline Flush 10 ML SYR IVP (11:27)
== END 2025-02-20 23:59 | disposition home or self-care (01) ==
LOC: INF 10:01
PROVIDERS: PCP Nurse Practitioner Family; Visit Provider Family Medicine
DX: M81.0 Age-related osteoporosis without current pathological fracture (principal)
CPT/HCPCS: J3489

== ENCOUNTER 2025-01-29 21:13 | Outpatient (REF) | payer MEDICARE, SELFPAY ==
[2025-01-29 21:30] LABS: HCT 40.1 % (36.0-46.0); HGB 13.3 g/dL (11.2-15.7); MCH 29.1 pg (27.0-33.0); MCHC 33.2 % (32.0-36.0); MCV 88 fL (80-95); MPV 10.1 fL (8.0-11.0); Platelet Count 294 10^3/uL (130-400); RBC 4.57 10^6/uL (3.93-5.22); RDW 13.2 % (11.7-14.6); RDW-SD 42.7 fL; WBC 6.65 10^3/uL (4.4-10.8)
[2025-01-29 21:49] LABS: ALT 18 U/L (14-59); AST 32 U/L (15-37); Albumin 3.9 g/dL (3.4-5.0); Alkaline Phosphatase 57 U/L (46-116); Anion Gap 7.0 mmol/L (3-11); BUN 17 mg/dL (7-18); Bilirubin, Total 0.3 mg/dL (0.2-1.0); CO2 26.0 mmol/L (21.0-32.0); Calcium 9.2 mg/dL (8.5-10.1); Chloride 103 mmol/L (98-107); Estimated GFR 93.56 (mL/min/1.73m2); Glucose 118 mg/dL (74-106); Potassium 3.9 mmol/L (3.5-5.1); Sodium 136 mmol/L (136-145); Total Protein 7.0 g/dL (6.4-8.2)
== END 2025-01-29 21:14 | disposition home or self-care (01) ==
LOC: NCHCN 21:13
PROVIDERS: PCP Nurse Practitioner Family; Visit Provider Family Medicine
DX: R42 Dizziness and giddiness (principal)
CPT/HCPCS: 80053; 85027

== ENCOUNTER 2025-02-13 01:08 | Outpatient (CLI) | payer MEDICARE, SELFPAY ==
--- NOTE | 2025-02-13 | DI.DEXA_ITS ---
Exam(s) XR DEXA BONE DENSITY W/WO ELLY EXAM: XR DEXA BONE DENSITY W/WO ELLY CLINICAL HISTORY: OSTEOPOROSIS W/O PATHOLOGICAL FX M81.0 MONITORING TECHNIQUE: COMPARISON: CR XR DEXA BONE DENSITY W/WO ELLY from 06/25/2021 FINDINGS: Lateral Spine Image: Unremarkable. No compression deformities identified. Left hip: Total T-Score: -1.5. This compares to -1.5 on the prior examination. Total Z-Score: -0.1 T- and Z-scores: While the total findings are consistent with osteopenia, there is osteoporosis in the femoral neck with a T-score of -3.2. Lumbar Spine: Total T-Score: -1.1. This compares to -1.8 on the prior examination. Total Z-Score: 1.0 T- and Z-scores: Findings are consistent with osteopenia. IMPRESSION: Osteoporosis is again seen in the femoral neck.
== END 2025-02-13 01:28 ==
LOC: DI 01:09
PROVIDERS: PCP Nurse Practitioner Family; Visit Provider Nurse Practitioner Family
DX: M81.0 Age-related osteoporosis without current pathological fracture (principal)
CPT/HCPCS: 77080

== ENCOUNTER 2025-02-18 03:05 | Outpatient (CLI) | payer MEDICARE, SELFPAY ==
--- NOTE | 2025-02-18 15:42 | DI.MAMMO_ITS ---
Exam(s) MAMMO SCREENING EXAM: MAMMO SCREENING CLINICAL HISTORY: Screening, Z12.31. TECHNIQUE: Bilateral full field digital CC and MLO mammographic images were obtained with 3D tomosynthesis and utilizing computer aided detection (CAD). COMPARISON: Prior mammograms were reviewed. FINDINGS: There has been no significant change in the appearance and distribution of the fibroglandular tissue which is again noted be dense. There are no new spiculated masses nor malignant appearing microcalcification groups. There is no significant architectural distortion nor skin thickening-retraction. IMPRESSION: No radiographic evidence of malignancy. BI-RADS Category 1 - Negative Breast Density - Category C - The breast are heterogeneously dense, which may obscure small masses. Breast density Category C or D implies that the patient has dense breast tissue. Dense breast tissue can make it harder to find cancer on a mammogram. Dense breast tissue is also associated with an increased risk of breast cancer. This information about the result of the mammogram report was provided to the patient to raise their awareness. Use this report when you speak with the patient about their risks for breast cancer, which includes their family history. At that time, you may recommend additional screening tests (Ultrasound or MRI) as these tests may add significant information. A negative radiographic report should not delay biopsy if a dominant or clinically suspicious mass is present. Up to ten percent of cancers are not identified on mammography. A negative report may reinforce clinical impression. Adenosis and dense breasts may obscure an underlying neoplasm. False positive reports average 6 to 10%. Patient will receive a letter notifying them of these results.
== END 2025-02-18 03:25 ==
LOC: DI 03:06
PROVIDERS: PCP Nurse Practitioner Family; Visit Provider Nurse Practitioner Family
DX: Z12.31 Encounter for screening mammogram for malignant neoplasm of breast (principal); R92.333 Mammographic heterogeneous density, bilateral breasts
CPT/HCPCS: 77063; 77067